=== PATIENT | male | born 1995 | race American Indian/Alaskan Native ===

== ENCOUNTER 2019-01-03 09:53 | Inpatient (IN) | payer MEDICAID, OTHER ==
[2019-01-03] MEDS ORDERED: ACETAMINOPHEN 325 MG TAB PO ONE (10:45)
[2019-01-03 10:49] LABS: Hematocrit 21.9 % (35.5-45.6); Hemoglobin 7.9 gm/dl (11.8-15.2); Mean Corpuscular HGB Conc 36 % (32-34); Mean Corpuscular Volume 90 fl (84-94); Platelet Count 304 K/mm3 (140-440); Red Blood Count 2.43 M/mm3 (3.65-5.03)
[2019-01-03 10:57] LABS: Red Cell Distribution Width 29.2 % (13.2-15.2)
[2019-01-03] MEDS ORDERED: SODIUM CHLORIDE 0.9% 1000 ML IV SOLN IV ONE (11:06)
[2019-01-03] MEDS ORDERED: cefTRIAXone/NS 1 GM/50 ML 1 GM/50 ML BAG IV ONE (11:07)
[2019-01-03] MEDS ORDERED: MORPHINE 4 MG/1 ML INJ IV ONE (11:08)
[2019-01-03 11:19] LABS: BUN/Creatinine Ratio 27; Blood Urea Nitrogen 16 mg/dL (9-20); Calcium 9.1 mg/dL (8.4-10.2); Hemolysis Index 60
--- NOTE | 2019-01-03 11:41 | Emergency Department Report ---
HPI - General Chief Complaint: Pain General Time Seen by Provider: 01/03/19 11:03 - HPI HPI: 23-year-old -Australian male presents to the emergency department with a complaint of generalized pain that he associates with his history of sickle cell anemia. Overall he says that this is been going on for the past 3 months. Patient presents with a moderate fever, tachycardia and a code sepsis has been called. His generalized pain does include some chest discomfort, worst on the right side. He denies any known fever, shortness of breath, rash, abdominal pain. He has not taken anything for her symptoms prior to presentation. The patient moved here from [place] and therefore does not have a local primary care physician. No sick contacts at home. ED Past Medical Hx - Past Medical History Previous Medical History?: Yes Hx Sickle Cell Disease: Yes - Surgical History Past Surgical History?: No - Social History Smoking Status: Never Smoker Substance Use Type: None - Medications Home Medications: Home Medications Medication Instructions Recorded Confirmed Last Taken Type No Known Home Medications [No 01/03/19 01/03/19 Unknown History Reported Home Medications] ED Review of Systems ROS: Stated complaint: SICKEL CELL CRISIS Other details as noted in HPI Comment: All other systems reviewed and negative Constitutional: denies: diaphoresis, fever Eyes: denies: eye pain, vision change ENT: denies: ear pain, throat pain Respiratory: cough. denies: shortness of breath Cardiovascular: chest pain. denies: palpitations Gastrointestinal: denies: abdominal pain, vomiting Genitourinary: denies: dysuria, discharge Musculoskeletal: arthralgia, myalgia. denies: joint swelling Skin: denies: rash, lesions Neurological: denies: headache, weakness Physical Exam - Physical Exam Vital Signs: Vital Signs 01/03/19 10:14 Temperature 103.2 F H Pulse Rate 124 H Respiratory 18 Rate Blood Pressure 140/78 O2 Sat by Pulse 92 Oximetry Physical Exam: GENERAL: The patient is well-developed well-nourished. HENT: Normocephalic. Atraumatic. Patient has moist mucous membranes. EYES: Extraocular motions are intact. NECK: Supple. Trachea is midline. CHEST/LUNGS: Clear to auscultation. There is no respiratory distress noted. HEART/CARDIOVASCULAR: Regular. There is mild to moderate tachycardia. There is no murmur. ABDOMEN: Abdomen is soft, nontender. Patient has normal bowel sounds. There is no abdominal distention. SKIN: Skin is warm and dry. NEURO: The patient is awake, alert, and oriented. The patient is cooperative. The patient has no focal neurologic deficits. Normal speech. MUSCULOSKELETAL: There is no tenderness or deformity. There is no limitation range of motion. There is no evidence of acute injury. ED Course Vital Signs 01/03/19 10:14 Temperature 103.2 F H Pulse Rate 124 H Respiratory 18 Rate Blood Pressure 140/78 O2 Sat by Pulse 92 Oximetry ED Medical Decision Making - Lab Data Result diagrams: 01/03/19 18:52 01/03/19 11:17 - Radiology Data Radiology results: report reviewed, image reviewed CTA CHEST WITH CONTRAST INDICATION : Chest pain, elevated d-dimer. TECHNIQUE: Axial imaging performed through the chest, with contrast bolus timing set to maximize opacification of the pulmonary arteries. Sagittal and coronal reformatted images. 3-plane MIP reformatted images were obtained. All CT scans at this location are performed using CT dose reduction for ALARA by means of automated exposure control. 100 mL of intravenous contrast administered. COMPARISON: FINDINGS: Bolus: Contrast bolus timing is adequate. PTE: No filling defect is present to suggest PTE. Mediastinum: Mild cardiomegaly is evident. Medium pericardial effusion is also identified. The thyroid gland, tracheobronchial tree and esophagus are unremarkable. No pathologic mediastinal adenopathy. Lungs: There is patchy infiltrate in the lateral right middle lobe and to a lesser extent the lateral right lower lobe. Mild underlying pulmonary congestion is also suspected. Trace right pleural effusion measures less than 1 cm in thickness. No pneumothorax. Bones: Degenerative changes in the spine with nothing acute. Upper abdomen: Limited imaging of the upper abdomen shows nothing acute. IMPRESSION: No evidence for pulmonary embolus. Mild cardiomegaly, medium pericardial effusion and mild pulmonary venous congestion. Right middle and lower lobe infiltrates as described. Trace right pleural effusion. LIMITED RUQ ABDOMINAL ULTRASOUND INDICATION: upper abd pain. COMPARISON: No relevant prior imaging study available. FINDINGS: Pancreas: Visualized portions show no significant abnormality. Abdominal Aorta: No significant abnormality. IVC: No significant abnormality. Liver: The liver measures 17.8 cm in length. No significant abnormality. Normal hepatopedal blood flow in the main portal vein. Gallbladder: Cholecystectomy. Bile ducts: No significant abnormality. Common bile duct measures 4.2 mm. Right kidney: The right kidney is normal size measuring 11.4 cm but demonstrates increased cortical echotexture consistent with nonspecific renal parenchymal disease.. Free fluid: None. Additional Findings: None. IMPRESSION: Mild hepatomegaly. No focal liver lesion. Cholecystectomy. Nonspecific renal parenchymal disease.. Signer Name: Morgan Lara Jr, MD Signed: 01/03/2019 2:29 PM Workstation Name: [id number] - Medical Decision Making This patient presents with some generalized pain that he felt was consistent with a sickle cell pain crisis. However the patient presents with a septic appearance and a code sepsis was called. He has a fever of 103, tachycardia. He was treated empirically with some Rocephin. He was given Tylenol to start treating the fever. He was given more than 2 L of IV fluid resuscitation. Labs are very abnormal with a leukocytosis of about 35,000, reticulocyte count greater than 20, anemia with a hemoglobin of 7.9, and elevated bilirubin and LFTs. He also had a very elevated d-dimer level that was obtained secondary to some right-sided chest pain and occasional shortness of breath. CT angiography did not show any pulmonary embolism did show some signs of infiltrates, small pericardial effusion and a small pleural effusion. Abdominal ultrasound did not show any acute process in this post cholecystectomy patient. Patient was admitted to the hospital for further evaluation and was accepted for admission by the hospitalist, Dr. Dave. - Differential Diagnosis sepsis, sickle cell pain crisis, pneumonia, chest crisis Critical Care Time: Yes Critical care time in (mins) excluding proc time.: 31 Critical care attestation.: If time is entered above; I have spent that time in minutes in the direct care of this critically ill patient, excluding procedure time. Critical care time was spent on this patient and doing his initial evaluation, multiple re-evaluations, ordering and interpretation of labs and imaging, IV fluid resuscitation, pain control. Critical Care Time: 31 minutes ED Disposition Clinical Impression: Sickle cell crisis Pneumonia Qualifiers: Pneumonia type: due to unspecified organism Laterality: right Lung location: middle lobe of lung Qualified Code(s): J18.1 - Lobar pneumonia, unspecified organism Sepsis Qualifiers: Sepsis type: sepsis due to unspecified organism Sepsis acute organ dysfunction status: unspecified Qualified Code(s): A41.9 - Sepsis, unspecified organism Disposition: DC-09 OP ADMIT IP TO THIS HOSP Is pt being admited?: Yes Condition: Serious Time of Disposition: 06:08
--- NOTE | 2019-01-03 12:13 | XRay Report ---
CHEST 1 VIEW 11:41 AM INDICATION / CLINICAL INFORMATION: Cough. COMPARISON: None available. FINDINGS: SUPPORT DEVICES: None. HEART / MEDIASTINUM: There is prominence of the cardiopericardial silhouette. Pulmonary vasculature i s normal. LUNGS / PLEURA: There is mild linear parenchymal opacity in the right mid to lower lung laterally. Th e lungs are otherwise clear. There is no evidence of effusion. No pneumothorax. ADDITIONAL FINDINGS: No significant additional findings. IMPRESSION: 1. Mild subsegmental atelectasis in the right mid to lower lung laterally. 2. Mild prominence of the cardiopericardial silhouette may just be related to technique in a patient in this age group. Signer Name: Jorge Shen MD Signed: 01/03/2019 12:08 PM Workstation Name: [id number]
[2019-01-03 12:31] LABS: Alanine Aminotransferase 55 units/L (7-56); Albumin 4.7 g/dL (3.9-5); BUN/Creatinine Ratio 23; Blood Urea Nitrogen 16 mg/dL (9-20); Calcium 8.9 mg/dL (8.4-10.2); Hemolysis Index 31
[2019-01-03] MEDS ORDERED: SODIUM CHLORIDE 0.9% 1000 ML 2,000 ML IV ONE (13:53)
--- NOTE | 2019-01-03 13:54 | History and Physical Report ---
History of Present Illness Chief complaint: I feel short of breath, and I have pain all over History of present illness: 23 YO Male with SCD presents to ED for evaluation. Pt states that he has experienced pain all over his body over the past 3 months with progressively worsening symptoms over the past 3-4 days. Pt reports subjective fever, rapid heart rate. Pt transported to [facility] via private vehicle. Pt seen and evaluated in ED and found to have Pneumonia complicated by Sepsis as well as Sickle Cell Crisis. Pt initiated on Sepsis and Pneumonia protocol and admitted to medical floor. Pt denies CP, Palpitations, NVD, Trauma, Malaise, Fatigue, Known Ill contacts, Shortness of breath, abdominal pain, or risk factors for HIV. No prior admission for review. No medication listed for reconciliation at time of admiss ion. Past History Past Medical History: other (Sickle Cell disease) Past Surgical History: No surgical history, Other (reviewed) Social history: single. denies: smoking, alcohol abuse, prescription drug abuse Family history: other (SCD) Medications and Allergies Allergies Allergy/AdvReac Type Severity Reaction Status Date / Time No Known Allergies Allergy Verified 01/03/19 10:13 Home Medications Medication Instructions Recorded Confirmed Last Taken Type No Known Home Medications [No 01/03/19 01/03/19 Unknown History Reported Home Medications] Review of Systems Constitutional: fever, no weight loss, no weight gain, no chills Ears, nose, mouth and throat: no ear pain, no ear discharge, no tinnitis, no decreased hearing, no nose pain, no nasal congestion Cardiovascular: no chest pain, no orthopnea, no palpitations, no rapid/irregular heart beat Respiratory: no cough, no cough with sputum, no excessive sputum, no hemoptysis Gastrointestinal: no nausea, no vomiting, no diarrhea, no change in bowel habits Genitourinary Male: no hematuria, no flank pain, no discharge, no urinary frequency Rectal: no incontinence, no bleeding, no hemorrhoids Musculoskeletal: no shooting arm pain, no arm numbness/tingling, no low back pain, no shooting leg pain Integumentary: no rash, no pruritis, no redness, no sores, no wounds Neurological: no paralysis, no weakness, no parathesias, no numbness, no tingling, no seizures Psychiatric: no anxiety, no memory loss, no change in sleep habits, no insomnia, no hypersomnia, no change in appetite, no change in libido Endocrine: no cold intolerance, no heat intolerance, no polyphagia, no excessive thirst, no polydipsia, no polyuria, no nocturia Hematologic/Lymphatic: no easy bruising, no easy bleeding, no lymphedema Allergic/Immunologic: no urticaria, no allergic rhinitis, no wheezing, no anaphylaxis Exam - Constitutional Vitals: Temp Pulse Resp BP Pulse Ox 103 F H 97 H 18 105/45 99 01/03/19 11:48 01/03/19 12:15 01/03/19 12:37 01/03/19 12:15 01/03/19 12:15 General appearance: Present: mild distress - EENT Eyes: Present: PERRL ENT: hearing intact, clear oral mucosa - Neck Neck: Present: supple, normal ROM - Respiratory Respiratory effort: normal Respiratory: bilateral: CTA - Cardiovascular Heart Sounds: Present: S1 & S2. Absent: rub, click - Extremities Extremities: pulses symmetrical, No edema Peripheral Pulses: within normal limits - Abdominal General gastrointestinal: Present: soft, non-tender, non-distended, normal bowel sounds Male genitourinary: Present: normal - Integumentary Integumentary: Present: clear, warm, dry - Musculoskeletal Musculoskeletal: gait normal, strength equal bilaterally - Psychiatric Psychiatric: appropriate mood/affect, intact judgment & insight - Neurologic Neurologic: CNII-XII intact, moves all extremities Results - Labs CBC & Chem 7: 01/03/19 10:34 01/03/19 11:17 Labs: Abnormal lab results 01/03/19 01/03/19 01/03/19 Range/Units 10:34 10:34 11:17 WBC 34.2 H (4.5-11.0) K/mm3 RBC 2.43 L (3.65-5.03) M/mm3 Hgb 7.9 L (11.8-15.2) gm/dl Hct 21.9 L (35.5-45.6) % MCH 33 H (28-32) pg MCHC 36 H (32-34) % RDW 29.2 H (13.2-15.2) % Percent Retic 21.81 H (0.78-2.58) % D-Dimer (0-234) ng/mlDDU Sodium 136 L 135 L (137-145) mmol/L Potassium 5.3 H (3.6-5.0) mmol/L Carbon Dioxide 20 L (22-30) mmol/L Creatinine 0.6 L 0.7 L (0.8-1.5) mg/dL Glucose 123 H 112 H (75-100) mg/dL Total Bilirubin 8.00 H (0.1-1.2) mg/dL AST 100 H (5-40) units/L 01/03/19 Range/Units 11:17 WBC (4.5-11.0) K/mm3 RBC (3.65-5.03) M/mm3 Hgb (11.8-15.2) gm/dl Hct (35.5-45.6) % MCH (28-32) pg MCHC (32-34) % RDW (13.2-15.2) % Percent Retic (0.78-2.58) % D-Dimer 2064.49 H (0-234) ng/mlDDU Sodium (137-145) mmol/L Potassium (3.6-5.0) mmol/L Carbon Dioxide (22-30) mmol/L Creatinine (0.8-1.5) mg/dL Glucose (75-100) mg/dL Total Bilirubin (0.1-1.2) mg/dL AST (5-40) units/L Assessment and Plan - Patient Problems (1) Sepsis Current Visit: Yes Status: Acute Qualifiers: Sepsis type: sepsis due to unspecified organism Plan to address problem: Sepsis protocol: IV antibiotic therapy, IVF resuscitation therapy, Influenza swab, Chest X ray, CT chest, serial lactic acid, monitor uop q shift, CBC, CMP, Blood cultures, Urinalysis. (2) Pneumonia Current Visit: Yes Status: Acute Qualifiers: Laterality: right Lung location: middle lobe of lung Plan to address problem: RML/RLL Pneumonia: Pneumonia protocol: IV antibiotic therapy, supplemental oxygen, nebulizer therapy, Chest xray, CTA chest, pulse oximetry, blood cultures, (3) Sickle cell crisis Current Visit: Yes Status: Acute Plan to address problem: IVF resuscitation therapy, pain control, Hematology consulted, Records request, retic count, CBC (4) DVT prophylaxis Current Visit: Yes Status: Acute Plan to address problem: SCD to BLE while in bed, Pt ambulatory
[2019-01-03 14:00] LABS: Total Cells Counted 100
[2019-01-03 14:01] LABS: Anisocytosis 3+; Basophils % (Manual) 0 % (0.0-1.8); Eosinophils % (Manual) 0 % (0.0-4.3)
[2019-01-03 14:02] LABS: Macrocytosis 1+; Ovalocytes 1+; Platelet Estimate Consistent w Auto; Sickle Cells 2+; Spherocytes 1+
--- NOTE | 2019-01-03 14:33 | Ultrasound Report ---
LIMITED RUQ ABDOMINAL ULTRASOUND INDICATION: upper abd pain. COMPARISON: No relevant prior imaging study available. FINDINGS: Pancreas: Visualized portions show no significant abnormality. Abdominal Aorta: No significant abnormality. IVC: No significant abnormality. Liver: The liver measures 17.8 cm in length. No significant abnormality. Normal hepatopedal blood fl ow in the main portal vein. Gallbladder: Cholecystectomy. Bile ducts: No significant abnormality. Common bile duct measures 4.2 mm. Right kidney: The right kidney is normal size measuring 11.4 cm but demonstrates increased cortical e chotexture consistent with nonspecific renal parenchymal disease.. Free fluid: None. Additional Findings: None. IMPRESSION: Mild hepatomegaly. No focal liver lesion. Cholecystectomy. Nonspecific renal parenchymal disease.. Signer Name: Morgan Lara Jr, MD Signed: 01/03/2019 2:29 PM Workstation Name: [id number]
--- NOTE | 2019-01-03 14:37 | Cat Scan Report ---
CTA CHEST WITH CONTRAST INDICATION : Chest pain, elevated d-dimer. TECHNIQUE: Axial imaging performed through the chest, with contrast bolus timing set to maximize opa cification of the pulmonary arteries. Sagittal and coronal reformatted images. 3-plane MIP reformatte d images were obtained. All CT scans at this location are performed using CT dose reduction for ALAR A by means of automated exposure control. 100 mL of intravenous contrast administered. COMPARISON: FINDINGS: Bolus: Contrast bolus timing is adequate. PTE: No filling defect is present to suggest PTE. Mediastinum: Mild cardiomegaly is evident. Medium pericardial effusion is also identified. The thyro id gland, tracheobronchial tree and esophagus are unremarkable. No pathologic mediastinal adenopathy . Lungs: There is patchy infiltrate in the lateral right middle lobe and to a lesser extent the latera l right lower lobe. Mild underlying pulmonary congestion is also suspected. Trace right pleural effus ion measures less than 1 cm in thickness. No pneumothorax. Bones: Degenerative changes in the spine with nothing acute. Upper abdomen: Limited imaging of the upper abdomen shows nothing acute. IMPRESSION: No evidence for pulmonary embolus. Mild cardiomegaly, medium pericardial effusion and mild pulmonary venous congestion. Right middle and lower lobe infiltrates as described. Trace right pleural effusion. Signer Name: Morgan Lara Jr, MD Signed: 01/03/2019 2:32 PM Workstation Name: [id number]
[2019-01-03] MEDS ORDERED: SODIUM CHLORIDE 0.9% 1000 ML 1,000 ML ONE (14:42)
[2019-01-03] MEDS ORDERED: SODIUM CHLORIDE 0.9% 1000 ML 1,000 ML IV SCH (15:00)
[2019-01-03 19:03] LABS: Hematocrit 21.6 % (35.5-45.6); Hemoglobin 7.8 gm/dl (11.8-15.2); Mean Corpuscular HGB Conc 36 % (32-34); Mean Corpuscular Volume 93 fl (84-94); Platelet Count 268 K/mm3 (140-440); Red Blood Count 2.32 M/mm3 (3.65-5.03); Red Cell Distribution Width 28.3 % (13.2-15.2)
[2019-01-03] MEDS: MORPHINE 2 MG/1 ML INJ IV PRN (20:41)
[2019-01-03 21:33] LABS: Basophils % (Manual) 0 % (0.0-1.8); Eosinophils % (Manual) 0 % (0.0-4.3); Total Cells Counted 100
[2019-01-03 21:34] LABS: Dimorphic RBC Yes; Large Platelets 1+; Sickle Cells 2+; Target Cells 1+
[2019-01-03 21:36] LABS: Anisocytosis 2+; Platelet Estimate Consistent w Auto
[2019-01-03] MEDS: AZITHROMYCIN 500 MG in SODIUM CHLORIDE 0.9% 250ML 250 ML IV SCH (22:37)
[2019-01-04] MEDS: MORPHINE 2 MG/1 ML INJ IV PRN ×2 (00:15→11:58)
[2019-01-04] MEDS: ACETAMINOPHEN 325 MG TAB PO PRN ×3 (00:23→11:59)
[2019-01-04] MEDS: SODIUM CHLORIDE 0.9% 1000 ML 1,000 ML IV SCH ×2 (05:00→15:35)
[2019-01-04 05:39] LABS: Bilirubin,Urine NEG (Negative); Blood,Urine SM (Negative); Color,Urine Amber (Yellow); Protein,Urine <15 mg/dL mg/dL (Negative)
--- NOTE | 2019-01-04 07:29 | Event Note ---
Date: 01/04/19 [id number]
--- NOTE | 2019-01-04 08:38 | Progress Note ---
Assessment and Plan Assessment and plan: Patient is a 23 yo man with SCD who presented to [facility] ED with SOB. He was found to have Pneumonia complicated by Sepsis as well as Sickle Cell Crisis. * CTA chest Impression: No evidence for PE, mild cardiomegaly, medium pericardial effusion, mild pulmonary venous congestion, right middle and lower lobe infiltrates, trace pleural effusion. (1) Sepsis Current Visit: Yes Status: Acute Qualifiers: Sepsis type: sepsis due to unspecified organism Plan to address problem: Sepsis protocol: IV antibiotic therapy, IVF resuscitation therapy, Influenza swab, Chest X ray, CTA chest reviewed, serial lactic acid, monitor uop q shift, CBC, CMP, Blood cultures, Urinalysis. (2) Pneumonia Current Visit: Yes Status: Acute Qualifiers: Laterality: right Lung location: middle lobe of lung Plan to address problem: RML/RLL Pneumonia: Pneumonia protocol: IV antibiotic therapy, supplemental oxygen, nebulizer therapy, Chest xray, CTA chest reviewed, pulse oximetry, blood cultures, (3) Sickle cell crisis Current Visit: Yes Status: Acute Plan to address problem: IVF resuscitation therapy, pain control, Hematology consulted, Records request, retic count, CBC (4) DVT prophylaxis Current Visit: Yes Status: Acute Plan to address problem: SCD to BLE while in bed, Pt ambulatory add sq heparin Consulted ID for high fevers and WBC 36.5 and consulted Pulm/CCM to evaluate for acute chest syndrome Rn gave me Dr. Betito Michaels number at [phone] and I called at [phone],no answ er, left message to call me back (pt ok this); not sure why I needed to call this doctor. History Interval history: Patient was seen and examined. Follow-up on current diagnosis of PNA, SCD. No overnight events reported to me. Patient denies any chest pain, shortness breath, nausea/vomiting or severe headaches. Imaging, nursing note, chart, labs and old chart reviewed. Discussed with patient. Hospitalist Physical - Physical exam Narrative exam: Gen: WDWN, NAD, Awake, Alert, Orientated HEENT: NCAT, EOMI, PERRL, OP Clear Neck: supple, no adenopathy, no thyromegaly, no JVD CVS/Heart: RRR, normal S1S2, pulses present bilaterally Chest/Lungs: bilateral crackles, Symmetrical chest expansion, good air entry bilaterally GI/Abdomen: soft, NTND, good bowel sounds, no guarding or rebound /Bladder: no suprapubic tenderness, no CVA or paraspinal tenderness Extermity/Skin: no c/c/e, no obvious rash MSK: FROM x 4 Neuro: CN 2-12 grossly intact, no new focal deficits Psych: calm - Constitutional Vitals: Temp Pulse Resp BP Pulse Ox 100.7 F H 106 H 20 123/56 96 01/04/19 05:56 01/04/19 05:56 01/04/19 07:36 01/04/19 05:56 01/04/19 07:36 General appearance: Absent: mild distress Results - Labs CBC & Chem 7: 01/03/19 18:52 01/03/19 11:17 Labs: Laboratory Last Values WBC 36.5 K/mm3 (4.5-11.0) H 01/03/19 18:52 RBC 2.32 M/mm3 (3.65-5.03) L 01/03/19 18:52 Hgb 7.8 gm/dl (11.8-15.2) L 01/03/19 18:52 Hct 21.6 % (35.5-45.6) L 01/03/19 18:52 MCV 93 fl (84-94) 01/03/19 18:52 MCH 34 pg (28-32) H 01/03/19 18:52 MCHC 36 % (32-34) H 01/03/19 18:52 RDW 28.3 % (13.2-15.2) H 01/03/19 18:52 Plt Count 268 K/mm3 (140-440) 01/03/19 18:52 Add Manual Diff Complete 01/03/19 18:52 Total Counted 100 01/03/19 18:52 Seg Neuts % (Manual) 88.0 % (40.0-70.0) H 01/03/19 18:52 Band Neutrophils % 0 % 01/03/19 18:52 Lymphocytes % (Manual) 4.0 % (13.4-35.0) L 01/03/19 18:52 Reactive Lymphs % (Man) 0 % 01/03/19 18:52 Monocytes % (Manual) 8.0 % (0.0-7.3) H 01/03/19 18:52 Eosinophils % (Manual) 0 % (0.0-4.3) 01/03/19 18:52 Basophils % (Manual) 0 % (0.0-1.8) 01/03/19 18:52 Metamyelocytes % 0 % 01/03/19 18:52 Myelocytes % 0 % 01/03/19 18:52 Promyelocytes % 0 % 01/03/19 18:52 Blast Cells % 0 % 01/03/19 18:52 Nucleated RBC % 4.0 % (0.0-0.9) H 01/03/19 18:52 Seg Neutrophils # Man 32.1 K/mm3 (1.8-7.7) H 01/03/19 18:52 Band Neutrophils # 0.0 K/mm3 01/03/19 18:52 Lymphocytes # (Manual) 1.5 K/mm3 (1.2-5.4) 01/03/19 18:52 Abs React Lymphs (Man) 0.0 K/mm3 01/03/19 18:52 Monocytes # (Manual) 2.9 K/mm3 (0.0-0.8) H 01/03/19 18:52 Eosinophils # (Manual) 0.0 K/mm3 (0.0-0.4) 01/03/19 18:52 Basophils # (Manual) 0.0 K/mm3 (0.0-0.1) 01/03/19 18:52 Metamyelocytes # 0.0 K/mm3 01/03/19 18:52 Myelocytes # 0.0 K/mm3 01/03/19 18:52 Promyelocytes # 0.0 K/mm3 01/03/19 18:52 Blast Cells # 0.0 K/mm3 01/03/19 18:52 WBC Morphology Not Reportable 01/03/19 18:52 Hypersegmented Neuts Not Reportable 01/03/19 18:52 Hyposegmented Neuts Not Reportable 01/03/19 18:52 Hypogranular Neuts Not Reportable 01/03/19 18:52 Smudge Cells Not Reportable 01/03/19 18:52 Toxic Granulation Not Reportable 01/03/19 18:52 Toxic Vacuolation Not Reportable 01/03/19 18:52 Dohle Bodies Not Reportable 01/03/19 18:52 Pelger-Huet Anomaly Not Reportable 01/03/19 18:52 Tong Rods Not Reportable 01/03/19 18:52 Platelet Estimate Consistent w auto 01/03/19 18:52 Clumped Platelets Not Reportable 01/03/19 18:52 Plt Clumps, EDTA Not Reportable 01/03/19 18:52 Large Platelets 1+ 01/03/19 18:52 Giant Platelets Not Reportable 01/03/19 18:52 Platelet Satelliting Not Reportable 01/03/19 18:52 Plt Morphology Comment Not Reportable 01/03/19 18:52 RBC Morphology Not Reportable 01/03/19 18:52 Dimorphic RBCs Yes 01/03/19 18:52 Polychromasia 1+ 01/03/19 18:52 Hypochromasia Not Reportable 01/03/19 18:52 Poikilocytosis Not Reportable 01/03/19 18:52 Anisocytosis 2+ 01/03/19 18:52 Microcytosis Not Reportable 01/03/19 18:52 Macrocytosis Not Reportable 01/03/19 18:52 Spherocytes Not Reportable 01/03/19 18:52 Pappenheimer Bodies Not Reportable 01/03/19 18:52 Sickle Cells 2+ 01/03/19 18:52 Target Cells 1+ 01/03/19 18:52 Tear Drop Cells Not Reportable 01/03/19 18:52 Ovalocytes Not Reportable 01/03/19 18:52 Helmet Cells Not Reportable 01/03/19 18:52 Antony-Osterdock Bodies Not Reportable 01/03/19 18:52 Alpine Rings Not Reportable 01/03/19 18:52 Denae Cells Not Reportable 01/03/19 18:52 Bite Cells Not Reportable 01/03/19 18:52 Crenated Cell Not Reportable 01/03/19 18:52 Elliptocytes Not Reportable 01/03/19 18:52 Acanthocytes (Spur) Not Reportable 01/03/19 18:52 Rouleaux Not Reportable 01/03/19 18:52 Hemoglobin C Crystals Not Reportable 01/03/19 18:52 Schistocytes Not Reportable 01/03/19 18:52 Malaria parasites Not Reportable 01/03/19 18:52 Percent Retic 21.81 % (0.78-2.58) H 01/03/19 10:34 Aguial Bodies Not Reportable 01/03/19 18:52 Hem Pathologist Commnt No 01/03/19 18:52 D-Dimer 2064.49 ng/mlDDU (0-234) H 01/03/19 11:17 Sodium 135 mmol/L (137-145) L 01/03/19 11:17 Potassium 4.3 mmol/L (3.6-5.0) 01/03/19 11:17 Chloride 98.9 mmol/L (98-107) 01/03/19 11:17 Carbon Dioxide 20 mmol/L (22-30) L 01/03/19 11:17 Anion Gap 20 mmol/L 01/03/19 11:17 BUN 16 mg/dL (9-20) 01/03/19 11:17 Creatinine 0.7 mg/dL (0.8-1.5) L 01/03/19 11:17 Estimated GFR > 60 ml/min 01/03/19 11:17 BUN/Creatinine Ratio 23 % 01/03/19 11:17 Glucose 112 mg/dL (75-100) H 01/03/19 11:17 Lactic Acid 0.80 mmol/L (0.7-2.0) 01/04/19 00:49 Calcium 8.9 mg/dL (8.4-10.2) 01/03/19 11:17 Total Bilirubin 8.00 mg/dL (0.1-1.2) H 01/03/19 11:17 AST 100 units/L (5-40) H 01/03/19 11:17 ALT 55 units/L (7-56) 01/03/19 11:17 Alkaline Phosphatase 80 units/L (35-129) 01/03/19 11:17 Total Protein 7.2 g/dL (6.3-8.2) 01/03/19 11:17 Albumin 4.7 g/dL (3.9-5) 01/03/19 11:17 Albumin/Globulin Ratio 1.9 % 01/03/19 11:17 Lipase 6 units/L (13-60) L 01/03/19 14:19 Urine Color Latosha (Yellow) 01/04/19 05:00 Urine Turbidity Clear (Clear) 01/04/19 05:00 Urine pH 5.0 (5.0-7.0) 01/04/19 05:00 Ur Specific [place] 1.013 (1.003-1.030) 01/04/19 05:00 Urine Protein <15 mg/dl mg/dL (Negative) 01/04/19 05:00 Urine Glucose (UA) Neg mg/dL (Negative) 01/04/19 05:00 Urine Ketones Neg mg/dL (Negative) 01/04/19 05:00 Urine Blood Sm (Negative) 01/04/19 05:00 Urine Nitrite Neg (Negative) 01/04/19 05:00 Urine Bilirubin Neg (Negative) 01/04/19 05:00 Urine Urobilinogen 4.0 mg/dL (<2.0) 01/04/19 05:00 Ur Leukocyte Esterase Neg (Negative) 01/04/19 05:00 Urine WBC (Auto) 1.0 /HPF (0.0-6.0) 01/04/19 05:00 Urine RBC (Auto) 1.0 /HPF (0.0-6.0) 01/04/19 05:00 Active Medications - Current Medications Current Medications: Generic Name Dose Route Start Last Admin Trade Name Freq PRN Reason Stop Dose Admin Acetaminophen 650 mg 01/04/19 00:14 01/04/19 06:02 Tylenol PO 650 mg Q4H PRN Administration Pain, Mild (1-3), fever>100.5 Sodium Chloride 1,000 mls @ 125 mls/hr 01/03/19 14:00 01/04/19 05:00 Nacl 0.9% 1000 Ml IV 125 mls/hr DIRECT KATHY Administration Sodium Chloride 1,000 mls @ 0 mls/hr 01/03/19 15:00 Nacl 0.9% 1000 Ml IV 01/04/19 15:01 ONCE KATHY As Directed Ceftriaxone Sodium 2 gm in 100 mls @ 200 mls/hr 01/04/19 10:00 Rocephin/Ns 2 Gm/100 Ml IV Q24HR KATHY Protocol Levofloxacin/Dextrose 750 mg in 150 mls @ 100 mls/hr 01/03/19 20:00 01/03/19 20:42 Levaquin 750mg/150ml IV 100 mls/hr Q24HR KATHY Administration Protocol Azithromycin 500 mg/ Sodium 250 mls @ 250 mls/hr 01/03/19 21:00 01/03/19 22:37 Chloride IV 250 mls/hr Q24H KATHY Administration Protocol Morphine Sulfate 2 mg 01/03/19 20:22 01/04/19 00:15 Morphine IV 2 mg Q3H PRN Administration Pain, Moderate (4-6)
[2019-01-04 09:11] LABS: Iron 19 ug/dL (49-181); Total Iron Binding Capacity 218 mcg/dL (250-450)
[2019-01-04] MEDS: cefTRIAXone/NS 2 GM/100 ML 2 GM/100 ML BAG IV SCH (09:37)
[2019-01-04] MEDS ORDERED: FLU VACC QUAD 2019-20 (3 YR UP)/PF 60 MCG/0.5 ML SYRINGE IM ONE (12:00)
--- NOTE | 2019-01-04 12:20 | Consultation ---
REFERRING PHYSICIAN: Dr. Dave. REASON FOR CONSULTATION: Sickle cell. HISTORY OF PRESENT ILLNESS: I saw the patient, a 24-year-old male in the medical floor. The patient has history of sickle cell disease. The patient says he moved from [place] to [place]. He has not seen a doctor for a few months. The patient states he is not on folic acid or hydroxyurea. He came to the hospital because of pain all over the body for 3 months, but became worse for the last 3-4 days. He had also tachycardia. He is being treated for pneumonia, sepsis, and sickle cell disease. Hydration has been given. I have been asked to evaluate the patient for sickle cell. At this time, complaining of generalized body ache. No vomiting, no diarrhea, no fever, no bleeding. He is able to ambulate minimally some. No abdominal pain. PAST MEDICAL HISTORY: Sickle cell. SURGICAL HISTORY: Nil. SOCIAL HISTORY: Lives with brother. No history of tobacco or alcohol usage. FAMILY HISTORY: Sickle cell. ALLERGIES: None. HOME MEDICATIONS: None. PHYSICAL EXAMINATION: VITAL SIGNS: Temperature 100, pulse 106, respirations 18, BP 123/56. HEENT: Pallor present. Icterus present. NECK: No neck lymph nodes. HEART: S1, S2. LUNGS: Clear to auscultation. ABDOMEN: Soft. EXTREMITIES: No calf swelling. No pedal edema. NEUROLOGIC: Alert, awake, oriented. LABORATORY DATA: White cell 36, hemoglobin 7.8, MCV 93, platelet 268. Potassium 4.3, creatinine 0.7, bilirubin 8, AST 100. ASSESSMENT AND PLAN: 1. Anemia. MCV is normal. History of sickle cell disease. The patient says he is not on folic acid or hydroxyurea. We will do deficiency investigation. The patient says he has relocated from [place] to [place]. He would need outpatient followup. At this time, he is self-pay. 2. Elevated bilirubin, likely secondary to hemolysis. 3. Generalized pain issues. He is on pain medications. 4. He is also on antibiotics for possible pneumonia, sepsis. 5. Elevated white cell count, likely reactive. I will follow the patient during inpatient stay. JOB# [id number] HI/NTS
--- NOTE | 2019-01-04 14:00 | Consultation ---
History of Present Illness - Reason for Consult Consult date: 01/04/19 - History of Present Illness 23 yo M PMhx sickle cell disease presented to the hospital complaingin of generalized body aches and shortness of breath. while the pain has been present for several months, the SOB and an acute worsening of the pain have been present for the past 3 days prior to admission. He also complains of fevers at home and palpitations. he otherwise denies any recent travel or sick contacts. Febrile during the admission to 101.3 and a leukocytosis of 36. Blood cultures are thus far negative. Currently receiving azithromycin and ceftriaxone Imaging personally reviewed: CT chest: RML and RLL infiltrates Review of Systems: Bold if positive, otherwise negative General: fevers, chills, rigors HEENT: visual disturbance, diplopia, eye pain Respiratory: cough, sputum, hemoptysis, shortness of breath Cardiovascular: chest pain, syncope Gastrointestinal: nausea, vomiting, diarrhea, abdominal pain Genitourinary: dysuria, hematuria, flank pain Musculoskeletal: neck pain, back pain, joint pain, edema Neurologic: headaches, seizures Hematologic: easy bruising or bleeding Endocrine: night sweats, acute weight loss Skin: rash, jaundice, redness Psychiatric: suicidal, homicidal ideation Past History Past Medical History: other (Sickle Cell disease) Past Surgical History: No surgical history, Other (reviewed) Social history: single. denies: smoking, alcohol abuse, prescription drug abuse Family history: other (SCD) Medications and Allergies Allergies Allergy/AdvReac Type Severity Reaction Status Date / Time No Known Allergies Allergy Verified 01/03/19 10:13 Home Medications Medication Instructions Recorded Confirmed Last Taken Type No Known Home Medications [No 01/03/19 01/03/19 Unknown History Reported Home Medications] Active Meds: Active Medications Acetaminophen (Tylenol) 650 mg PO Q4H PRN PRN Reason: Pain, Mild (1-3), fever>100.5 Last Admin: 01/04/19 11:59 Dose: 650 mg Documented by: Heparin Sodium (Porcine) (Heparin) 5,000 unit SUB-Q Q12HR KATHY Sodium Chloride (Nacl 0.9% 1000 Ml) 1,000 mls @ 125 mls/hr IV DIRECT KATHY Last Admin: 01/04/19 05:00 Dose: 125 mls/hr Documented by: Sodium Chloride (Nacl 0.9% 1000 Ml) 1,000 mls @ 0 mls/hr IV ONCE KATHY Stop: 01/04/19 15:01 Ceftriaxone Sodium (Rocephin/Ns 2 Gm/100 Ml) 2 gm in 100 mls @ 200 mls/hr IV Q24HR KATHY; Protocol Last Infusion: 01/04/19 13:02 Dose: Infused Documented by: Levofloxacin/Dextrose (Levaquin 750mg/150ml) 750 mg in 150 mls @ 100 mls/hr IV Q24HR KATHY; Protocol Last Infusion: 01/04/19 13:01 Dose: Infused Documented by: Azithromycin 500 mg/ Sodium (Chloride) 250 mls @ 250 mls/hr IV Q24H KATHY; Protocol Last Admin: 01/03/19 22:37 Dose: 250 mls/hr Documented by: Morphine Sulfate (Morphine) 2 mg IV Q3H PRN PRN Reason: Pain, Moderate (4-6) Last Admin: 01/04/19 11:58 Dose: 2 mg Documented by: Physical Examination - Physical Exam Narrative exam: Constitutional: Alert, cooperative. Mild distress from pain. Head, Ears, Nose: Normocephalic, atraumatic. External ears, nose normal Eyes: Conjunctivae/corneas clear. No icterus. No ptosis. Neck: Supple, no meningeal signs Oral: dentition fair, no thrush Cardiovascular: S1, S2 normal. Respiratory: Good air entry, clear to auscultation bilaterally GI: Soft, non-tender; bowel sounds normal. No peritoneal signs. Musculoskeletal: No pedal edema, no cyanosis. Skin: No rash or abscess Hem/Lymphatic: No palpable cervical or supraclavicular nodes. No lymphangitis Psych: Mood ok. Affect normal Neurological: Awake, alert, oriented. No gross abnormality - Constitutional Vitals: Vital Signs Temp Pulse Resp BP Pulse Ox 102.7 F H 124 H 19 144/43 91 01/04/19 11:54 01/04/19 11:54 01/04/19 11:54 01/04/19 11:54 01/04/19 11:54 Temperature -Last 24 Hours Temperature 102.7 F Temperature 100.7 F Temperature 102.9 F Temperature 102.8 F Results - Labs CBC & Chem 7: 01/03/19 18:52 01/03/19 11:17 Labs: Abnormal lab results 01/03/19 01/03/19 01/03/19 Range/Units 10:34 14:19 18:52 WBC 36.5 H (4.5-11.0) K/mm3 RBC 2.32 L (3.65-5.03) M/mm3 Hgb 7.8 L (11.8-15.2) gm/dl Hct 21.6 L (35.5-45.6) % MCH 34 H (28-32) pg MCHC 36 H (32-34) % RDW 28.3 H (13.2-15.2) % Seg Neuts % (Manual) 85.0 H 88.0 H (40.0-70.0) % Lymphocytes % (Manual) 6.0 L 4.0 L (13.4-35.0) % Monocytes % (Manual) 9.0 H 8.0 H (0.0-7.3) % Nucleated RBC % 1.0 H 4.0 H (0.0-0.9) % Seg Neutrophils # Man 29.1 H 32.1 H (1.8-7.7) K/mm3 Monocytes # (Manual) 3.1 H 2.9 H (0.0-0.8) K/mm3 Iron (49-181) ug/dL TIBC (250-450) mcg/dL Ferritin (13.0-400.0) ng/mL Lipase 6 L (13-60) units/L 01/04/19 01/04/19 Range/Units 08:05 08:05 WBC (4.5-11.0) K/mm3 RBC (3.65-5.03) M/mm3 Hgb (11.8-15.2) gm/dl Hct (35.5-45.6) % MCH (28-32) pg MCHC (32-34) % RDW (13.2-15.2) % Seg Neuts % (Manual) (40.0-70.0) % Lymphocytes % (Manual) (13.4-35.0) % Monocytes % (Manual) (0.0-7.3) % Nucleated RBC % (0.0-0.9) % Seg Neutrophils # Man (1.8-7.7) K/mm3 Monocytes # (Manual) (0.0-0.8) K/mm3 Iron 19 L (49-181) ug/dL TIBC 218 L (250-450) mcg/dL Ferritin 854.8 H (13.0-400.0) ng/mL Lipase (13-60) units/L Assessment and Plan Cultures: 01/03/19 blood cultures - no growth to date A/P: 24 yo M PMhx sickle cell disease presents with fevers and myalgias, likely an acute chest syndrome vs pneumonia 1. Acute sepsis - present with fevers and leukocytosis, likely secondary to pneumonia 2. Pneumonia - vs acute chest syndrome, though they are indistinguishable and treated the same. Given the season and the abrupt onset of worsened myalgias and SOB will rule out influenza as well. continue azithromycin and ceftriaxone, expected course of 5 days. Can change to PO when patient is improved enough for discharge. 3. Sickle cell disease 4. Acute pain crisis Recs: - ordered flu swab for PCR - droplet precautions until flu ruled out - continue ceftriaxone 2g q24h - continue azithromycin 500mg q24h - repeat CBC daily - ordered sputum culture Thank you for the consult, we will continue to follow. MD Luana Partida [facility] M: [phone] O: [phone] F: [phone]
[2019-01-04] MEDS ORDERED: NALOXONE 0.4 MG/1 ML INJ IV PRN (14:25)
[2019-01-04] MEDS: HYDROmorphone 1 MG/1 ML INJ IV PRN ×3 (14:42→21:06)
[2019-01-04] MEDS: IBUPROFEN 800 MG TAB PO PRN (17:34)
--- NOTE | 2019-01-04 18:18 | Event Note ---
Date: 01/04/19 Consult for acute chest syndrome. Patient on 3 liters NC with sats in the mid 90's. Followed by Heme as well as ID. At this point, pulm status appears to be stable. If heme concerned about acute chest would need exchange pharesis. This would be managed by them. Agree with treatment outlined by ID as well. Currently no pulmonary recommendations. If patient's pulm status worsens, would need transfer to unit and possibly intubation but at this point appears stable. Will sign off. Call if questions or changes in pulm status.
[2019-01-04] MEDS: AZITHROMYCIN 500 MG in SODIUM CHLORIDE 0.9% 250ML 250 ML IV SCH (21:06)
[2019-01-05] MEDS: HYDROmorphone 1 MG/1 ML INJ IV PRN ×5 (05:25→21:03)
--- NOTE | 2019-01-05 07:21 | Hem/Onc Progress Note ---
Assessment and Plan 1. Anemia. MCV is normal. History of sickle cell disease. The patient says he is not on folic acid or hydroxyurea. We will do deficiency investigation. The patient says he has relocated from [place] to [place]. At this time, he is self-pay. 2. Elevated bilirubin, likely secondary to hemolysis. 3. Generalized pain issues. He is on pain medications. 4. He is also on antibiotics for possible pneumonia, sepsis. 5. Elevated white cell count, likely reactive. I will follow the patient during inpatient stay. rt side chest pain seen by ID the differential includes pneumonia vs sickle cell chest syndrome sats are 93% on 3 liters o2 - d/w RN pt says in [place] - he got ? exchange? called [facility] will look into exchange RBC transfusion IR for central line an option d/w dr almeida d/w blood bank later pt refused IV access for the exchange Subjective Date of service: 01/05/19 Principal diagnosis: Sickle cell disease Interval history: c/o rt side chest pain Objective - Exam Narrative Exam: Pain - chest General appearance - awake Performance status limited self care Eyes - no icterus ENT - on o2 LNs cervical not palpable Neck - no LN Respiratory Normal Breath sounds - CTA anteriorly CVS S1 S2 + Extremities no edema General GI Soft Rectal deferred male - deferred Skin warm Musculoskeletal moves limbs Neurologically awake - Constitutional Vitals: Last Vital Signs Temp 97.6 F 01/05/19 05:18 Pulse 120 H 01/05/19 05:18 Resp 24 01/05/19 05:18 BP 126/54 01/05/19 05:18 Pulse Ox 90 01/05/19 05:18 - Labs Lab Results: Laboratory Results - last 24 hr 01/04/19 01/04/19 01/04/19 08:05 08:05 08:05 Iron 19 L TIBC 218 L Ferritin 854.8 H Vitamin B12 248.5 Folate Influenza A (Rapid) Influenza B (Rapid) 01/04/19 01/04/19 08:05 14:56 Iron TIBC Ferritin Vitamin B12 Folate 19.09 Influenza A (Rapid) Negative Influenza B (Rapid) Negative Medications & Allergies - Medications Allergies/Adverse Reactions: Allergies No Known Allergies Allergy (Verified 01/03/19 10:13) Home Medications: Home Medications Medication Instructions Recorded Confirmed Last Taken Type RX: No Known Home Medications [No 01/03/19 01/03/19 Unknown History Reported Home Medications] Active Medications: Generic Name Dose Route Start Last Admin Trade Name Freq PRN Reason Stop Dose Admin Acetaminophen 650 mg 01/04/19 00:14 01/04/19 11:59 Tylenol PO 650 mg Q4H PRN Administration Pain, Mild (1-3), fever>100.5 Heparin Sodium (Porcine) 5,000 unit 01/05/19 10:00 Heparin SUB-Q Q12HR KATHY Hydromorphone HCl 1 mg 01/04/19 14:25 01/05/19 05:25 Dilaudid IV 1 mg Q3H PRN Administration Pain , Severe (7-10) Sodium Chloride 1,000 mls @ 125 mls/hr 01/03/19 14:00 01/05/19 00:00 Nacl 0.9% 1000 Ml IV 125 mls/hr DIRECT KATHY Administration Ceftriaxone Sodium 2 gm in 100 mls @ 200 mls/hr 01/04/19 10:00 01/04/19 13:02 Rocephin/Ns 2 Gm/100 Ml IV Infused Q24HR KATHY Infusion Protocol Levofloxacin/Dextrose 750 mg in 150 mls @ 100 mls/hr 01/03/19 20:00 01/04/19 13:01 Levaquin 750mg/150ml IV Infused Q24HR KATHY Infusion Protocol Azithromycin 500 mg/ Sodium 250 mls @ 250 mls/hr 01/03/19 21:00 01/04/19 21:06 Chloride IV 250 mls/hr Q24H KATHY Administration Protocol Ibuprofen 800 mg 01/04/19 16:53 01/04/19 17:34 Ibuprofen PO 800 mg Q8H PRN Administration Non Cardiac Pain or Temp>100.5 Naloxone HCl 0.1 mg 01/04/19 14:25 Naloxone IV Q2MIN PRN Res Rate </= 8 or 02 SAT < 92%
[2019-01-05] MEDS: SODIUM CHLORIDE 0.9% 1000 ML 1,000 ML IV SCH ×2 (08:21)
[2019-01-05] MEDS ORDERED: SODIUM CHLORIDE 0.9% 500 ML 500 ML IV NR (08:30)
[2019-01-05 08:42] LABS: Mean Corpuscular Volume 87 fl (84-94); Platelet Count 134 K/mm3 (140-440); Red Blood Count 1.28 M/mm3 (3.65-5.03)
[2019-01-05 08:53] LABS: Hematocrit 11.1 % (35.5-45.6); Hemoglobin 4.2 gm/dl (11.8-15.2)
[2019-01-05 08:54] LABS: Mean Corpuscular HGB Conc 38 % (32-34); Red Cell Distribution Width 22.3 % (13.2-15.2)
--- NOTE | 2019-01-05 08:54 | Progress Note ---
Assessment and Plan Assessment and plan: Patient is a 23 yo man from [place] with SCD who presented to [facility] ED with SOB. He was found to have Pneumonia complicated by Sepsis as well as Sickle Cell Crisis. I was concerned about Acute chest syndrome, d/w Heme/Onc Dr. Jenkins and consulted ID. 01/04/[address] Betito Michaels number at [phone] and I called at [phone], no answer, left message to call me back (pt ok with this); not sure why I needed to call this doctor. Patient is not the friendliest person to get information from. * CTA chest Impression: No evidence for PE, mild cardiomegaly, medium pericardial effusion, mild pulmonary venous congestion, right middle and lower lobe infiltrates, trace pleural effusion. Sickle cell Anemia with Acute Chest Syndrome: d/w Dr. Jenkins, will initiate Exchange transfusion, pain control, iv hydration, abx, supplemental o2, need Midline Sepsis due to bilateral pneumonia: ID consulted, input noted, treat with ABX Acute hypoxic respiratory failure, sat dropped to 74%: I called respiratory therapist, increase O2 supplementation Sickle cell crisis: IVF resuscitation therapy, pain control, Hematology consulted, Records request, retic count, CBC DVT prophylaxis: added sq heparin but will stop due to drop HCT Move to IMCU CCT 34 minutes I came back to re-evaluate patient after speaking with Vascular Surgeon, Dr. Nikhil May, because patient refused central line for RBC exchange. I told him that he could , still refuse. I ask to speak with a family member and he gave me is sister Jayna, number. [phone] (not working). He is clinically getting worse. Hgb came back at 4.1 will transfuse [address] Jenkins instructions but patient still needs RBC exchange for severe acute chest syndrome. grim prognosis due to non-compliance History Interval history: Patient was seen and examined. Follow-up on current diagnosis of PNA, SCD. No overnight events reported to me. Patient denies any chest pain, shortness breath, nausea/vomiting or severe headaches. Imaging, nursing note, chart, labs and old chart reviewed. Discussed with patient. Hospitalist Physical - Physical exam Narrative exam: Gen: WDWN, NAD, Awake, Alert, Orientated HEENT: NCAT, EOMI, PERRL, OP Clear Neck: supple, no adenopathy, no thyromegaly, no JVD CVS/Heart: RRR, normal S1S2, pulses present bilaterally Chest/Lungs: bilateral crackles, Symmetrical chest expansion, good air entry bilaterally GI/Abdomen: soft, NTND, good bowel sounds, no guarding or rebound /Bladder: no suprapubic tenderness, no CVA or paraspinal tenderness Extermity/Skin: no c/c/e, no obvious rash MSK: FROM x 4 Neuro: CN 2-12 grossly intact, no new focal deficits Psych: calm - Constitutional Vitals: Temp Pulse Resp BP Pulse Ox 97.6 F 120 H 20 126/54 90 01/05/19 05:18 01/05/19 05:18 01/05/19 08:21 01/05/19 05:18 01/05/19 05:18 General appearance: Absent: mild distress Results - Labs CBC & Chem 7: 01/05/19 09:48 01/05/19 08:24 Labs: Laboratory Last Values WBC 36.5 K/mm3 (4.5-11.0) H 01/03/19 18:52 RBC 2.32 M/mm3 (3.65-5.03) L 01/03/19 18:52 Hgb 7.8 gm/dl (11.8-15.2) L 01/03/19 18:52 Hct 21.6 % (35.5-45.6) L 01/03/19 18:52 MCV 93 fl (84-94) 01/03/19 18:52 MCH 34 pg (28-32) H 01/03/19 18:52 MCHC 36 % (32-34) H 01/03/19 18:52 RDW 28.3 % (13.2-15.2) H 01/03/19 18:52 Plt Count 268 K/mm3 (140-440) 01/03/19 18:52 Add Manual Diff Complete 01/03/19 18:52 Total Counted 100 01/03/19 18:52 Seg Neuts % (Manual) 88.0 % (40.0-70.0) H 01/03/19 18:52 Band Neutrophils % 0 % 01/03/19 18:52 Lymphocytes % (Manual) 4.0 % (13.4-35.0) L 01/03/19 18:52 Reactive Lymphs % (Man) 0 % 01/03/19 18:52 Monocytes % (Manual) 8.0 % (0.0-7.3) H 01/03/19 18:52 Eosinophils % (Manual) 0 % (0.0-4.3) 01/03/19 18:52 Basophils % (Manual) 0 % (0.0-1.8) 01/03/19 18:52 Metamyelocytes % 0 % 01/03/19 18:52 Myelocytes % 0 % 01/03/19 18:52 Promyelocytes % 0 % 01/03/19 18:52 Blast Cells % 0 % 01/03/19 18:52 Nucleated RBC % 4.0 % (0.0-0.9) H 01/03/19 18:52 Seg Neutrophils # Man 32.1 K/mm3 (1.8-7.7) H 01/03/19 18:52 Band Neutrophils # 0.0 K/mm3 01/03/19 18:52 Lymphocytes # (Manual) 1.5 K/mm3 (1.2-5.4) 01/03/19 18:52 Abs React Lymphs (Man) 0.0 K/mm3 01/03/19 18:52 Monocytes # (Manual) 2.9 K/mm3 (0.0-0.8) H 01/03/19 18:52 Eosinophils # (Manual) 0.0 K/mm3 (0.0-0.4) 01/03/19 18:52 Basophils # (Manual) 0.0 K/mm3 (0.0-0.1) 01/03/19 18:52 Metamyelocytes # 0.0 K/mm3 01/03/19 18:52 Myelocytes # 0.0 K/mm3 01/03/19 18:52 Promyelocytes # 0.0 K/mm3 01/03/19 18:52 Blast Cells # 0.0 K/mm3 01/03/19 18:52 WBC Morphology Not Reportable 01/03/19 18:52 Hypersegmented Neuts Not Reportable 01/03/19 18:52 Hyposegmented Neuts Not Reportable 01/03/19 18:52 Hypogranular Neuts Not Reportable 01/03/19 18:52 Smudge Cells Not Reportable 01/03/19 18:52 Toxic Granulation Not Reportable 01/03/19 18:52 Toxic Vacuolation Not Reportable 01/03/19 18:52 Dohle Bodies Not Reportable 01/03/19 18:52 Pelger-Huet Anomaly Not Reportable 01/03/19 18:52 Tong Rods Not Reportable 01/03/19 18:52 Platelet Estimate Consistent w auto 01/03/19 18:52 Clumped Platelets Not Reportable 01/03/19 18:52 Plt Clumps, EDTA Not Reportable 01/03/19 18:52 Large Platelets 1+ 01/03/19 18:52 Giant Platelets Not Reportable 01/03/19 18:52 Platelet Satelliting Not Reportable 01/03/19 18:52 Plt Morphology Comment Not Reportable 01/03/19 18:52 RBC Morphology Not Reportable 01/03/19 18:52 Dimorphic RBCs Yes 01/03/19 18:52 Polychromasia 1+ 01/03/19 18:52 Hypochromasia Not Reportable 01/03/19 18:52 Poikilocytosis Not Reportable 01/03/19 18:52 Anisocytosis 2+ 01/03/19 18:52 Microcytosis Not Reportable 01/03/19 18:52 Macrocytosis Not Reportable 01/03/19 18:52 Spherocytes Not Reportable 01/03/19 18:52 Pappenheimer Bodies Not Reportable 01/03/19 18:52 Sickle Cells 2+ 01/03/19 18:52 Target Cells 1+ 01/03/19 18:52 Tear Drop Cells Not Reportable 01/03/19 18:52 Ovalocytes Not Reportable 01/03/19 18:52 Helmet Cells Not Reportable 01/03/19 18:52 Antony-Sidman Bodies Not Reportable 01/03/19 18:52 [place] Rings Not Reportable 01/03/19 18:52 Denae Cells Not Reportable 01/03/19 18:52 Bite Cells Not Reportable 01/03/19 18:52 Crenated Cell Not Reportable 01/03/19 18:52 Elliptocytes Not Reportable 01/03/19 18:52 Acanthocytes (Spur) Not Reportable 01/03/19 18:52 Rouleaux Not Reportable 01/03/19 18:52 Hemoglobin C Crystals Not Reportable 01/03/19 18:52 Schistocytes Not Reportable 01/03/19 18:52 Malaria parasites Not Reportable 01/03/19 18:52 Percent Retic 21.81 % (0.78-2.58) H 01/03/19 10:34 Aguila Bodies Not Reportable 01/03/19 18:52 Hem Pathologist Commnt No 01/03/19 18:52 D-Dimer 2064.49 ng/mlDDU (0-234) H 01/03/19 11:17 Sodium 135 mmol/L (137-145) L 01/03/19 11:17 Potassium 4.3 mmol/L (3.6-5.0) 01/03/19 11:17 Chloride 98.9 mmol/L (98-107) 01/03/19 11:17 Carbon Dioxide 20 mmol/L (22-30) L 01/03/19 11:17 Anion Gap 20 mmol/L 01/03/19 11:17 BUN 16 mg/dL (9-20) 01/03/19 11:17 Creatinine 0.7 mg/dL (0.8-1.5) L 01/03/19 11:17 Estimated GFR > 60 ml/min 01/03/19 11:17 BUN/Creatinine Ratio 23 % 01/03/19 11:17 Glucose 112 mg/dL (75-100) H 01/03/19 11:17 Lactic Acid 0.80 mmol/L (0.7-2.0) 01/04/19 00:49 Calcium 8.9 mg/dL (8.4-10.2) 01/03/19 11:17 Iron 19 ug/dL (49-181) L 01/04/19 08:05 TIBC 218 mcg/dL (250-450) L 01/04/19 08:05 Ferritin 854.8 ng/mL (13.0-400.0) H 01/04/19 08:05 Total Bilirubin 8.00 mg/dL (0.1-1.2) H 01/03/19 11:17 AST 100 units/L (5-40) H 01/03/19 11:17 ALT 55 units/L (7-56) 01/03/19 11:17 Alkaline Phosphatase 80 units/L (35-129) 01/03/19 11:17 Total Protein 7.2 g/dL (6.3-8.2) 01/03/19 11:17 Albumin 4.7 g/dL (3.9-5) 01/03/19 11:17 Albumin/Globulin Ratio 1.9 % 01/03/19 11:17 Lipase 6 units/L (13-60) L 01/03/19 14:19 Vitamin B12 248.5 pg/mL (211-911) 01/04/19 08:05 Folate 19.09 ng/mL (7.3-26.0) 01/04/19 08:05 Urine Color [place] (Yellow) 01/04/19 05:00 Urine Turbidity Clear (Clear) 01/04/19 05:00 Urine pH 5.0 (5.0-7.0) 01/04/19 05:00 Ur Specific [place] 1.013 (1.003-1.030) 01/04/19 05:00 Urine Protein <15 mg/dl mg/dL (Negative) 01/04/19 05:00 Urine Glucose (UA) Neg mg/dL (Negative) 01/04/19 05:00 Urine Ketones Neg mg/dL (Negative) 01/04/19 05:00 Urine Blood Sm (Negative) 01/04/19 05:00 Urine Nitrite Neg (Negative) 01/04/19 05:00 Urine Bilirubin Neg (Negative) 01/04/19 05:00 Urine Urobilinogen 4.0 mg/dL (<2.0) 01/04/19 05:00 Ur Leukocyte Esterase Neg (Negative) 01/04/19 05:00 Urine WBC (Auto) 1.0 /HPF (0.0-6.0) 01/04/19 05:00 Urine RBC (Auto) 1.0 /HPF (0.0-6.0) 01/04/19 05:00 Influenza A (Rapid) Negative (Negative) 01/04/19 14:56 Influenza B (Rapid) Negative (Negative) 01/04/19 14:56 Active Medications - Current Medications Current Medications: Generic Name Dose Route Start Last Admin Trade Name Freq PRN Reason Stop Dose Admin Acetaminophen 650 mg 01/04/19 00:14 01/04/19 11:59 Tylenol PO 650 mg Q4H PRN Administration Pain, Mild (1-3), fever>100.5 Heparin Sodium (Porcine) 5,000 unit 01/05/19 10:00 Heparin SUB-Q Q12HR KATHY Hydromorphone HCl 1 mg 01/04/19 14:25 01/05/19 08:21 Dilaudid IV 1 mg Q3H PRN Administration Pain , Severe (7-10) Ceftriaxone Sodium 2 gm in 100 mls @ 200 mls/hr 01/04/19 10:00 01/04/19 13:02 Rocephin/Ns 2 Gm/100 Ml IV Infused Q24HR KATHY Infusion Protocol Levofloxacin/Dextrose 750 mg in 150 mls @ 100 mls/hr 01/03/19 20:00 01/04/19 13:01 Levaquin 750mg/150ml IV Infused Q24HR KATHY Infusion Protocol Azithromycin 500 mg/ Sodium 250 mls @ 250 mls/hr 01/03/19 21:00 01/04/19 21:06 Chloride IV 250 mls/hr Q24H KATHY Administration Protocol Sodium Chloride 500 mls @ 0 mls/hr 01/05/19 08:30 Nacl 0.9% 500 Ml IV 01/05/19 18:00 ONCE NR As Directed Sodium Chloride 1,000 mls @ 100 mls/hr 01/05/19 09:00 Nacl 0.45% 1000 Ml IV DIRECT KATHY Ibuprofen 800 mg 01/04/19 16:53 01/04/19 17:34 Ibuprofen PO 800 mg Q8H PRN Administration Non Cardiac Pain or Temp>100.5 Naloxone HCl 0.1 mg 01/04/19 14:25 Naloxone IV Q2MIN PRN Res Rate </= 8 or 02 SAT < 92%
[2019-01-05 08:57] LABS: INR 2.23 (0.87-1.13)
[2019-01-05 08:58] LABS: Partial Thromboplastin Time 53.5 Sec. (24.2-36.6)
[2019-01-05 09:08] LABS: Alanine Aminotransferase 83 units/L (7-56); Albumin 3.6 g/dL (3.9-5); BUN/Creatinine Ratio 133; Blood Urea Nitrogen 40 mg/dL (9-20); Calcium 8.3 mg/dL (8.4-10.2); Hemolysis Index 10
[2019-01-05] MEDS ORDERED: CALCIUM GLUCONATE 2,000 MG in SODIUM CHLORIDE 0.9% 100 ML IV PRN (09:09)
[2019-01-05] MEDS ORDERED: HEPARIN 5,000 UNIT/1 ML VIAL SUB-Q SCH (10:00)
[2019-01-05 10:09] LABS: Anisocytosis 2+; Band Neutrophils # (Manual) 6.6 K/mm3; Basophils % (Manual) 0 % (0.0-1.8); Eosinophils % (Manual) 0 % (0.0-4.3); Sickle Cells 2+; Total Cells Counted 100
[2019-01-05 10:10] LABS: Large Platelets Few; Platelet Estimate Consistent w Auto; Target Cells 1+
[2019-01-05 10:11] LABS: Dimorphic RBC Yes
[2019-01-05] MEDS: SODIUM CHLORIDE 0.45% 1000 ML 1,000 ML IV SCH (10:17)
[2019-01-05 10:53] LABS: Mean Corpuscular Volume 87 fl (84-94); Platelet Count 127 K/mm3 (140-440); Red Blood Count 1.26 M/mm3 (3.65-5.03)
--- NOTE | 2019-01-05 11:04 | Event Note ---
Date: 01/05/19 Discussed placement of Vascath with the patient. He initially would not speak and only nodded his head to questions. He then refused placement of the catheter and stated he wanted the "large metal needles placed in my arm because I had that before". Discussed the importance of catheter placement however the patient still refused. Informed Dr Hatrman.
[2019-01-05 11:33] LABS: Hematocrit 10.9 % (35.5-45.6); Hemoglobin 4.1 gm/dl (11.8-15.2); Mean Corpuscular HGB Conc 38 % (32-34)
[2019-01-05] MEDS: cefTRIAXone/NS 2 GM/100 ML 2 GM/100 ML BAG IV SCH (14:02)
[2019-01-05] MEDS ORDERED: SODIUM CHLORIDE 0.9% 500 ML 500 ML IV SCH (14:51)
--- NOTE | 2019-01-05 17:29 | Progress Note ---
Assessment and Plan Cultures: 01/03/19 blood cultures - no growth to date A/P: 24 yo M PMhx sickle cell disease presents with fevers and myalgias, likely an acute chest syndrome vs pneumonia 1. Acute sepsis - present with fevers and leukocytosis, likely secondary to pneumonia 2. Pneumonia - vs acute chest syndrome, though they are indistinguishable and treated the same. Given the season and the abrupt onset of worsened myalgias and SOB will rule out influenza as well. continue azithromycin and ceftriaxone, expected course of 5 days. Can change to PO when patient is improved enough for discharge. 3. Sickle cell disease 4. Acute pain crisis Recs: - flu negative, remove from droplet precautions. - continue ceftriaxone 2g q24h - continue azithromycin 500mg q24h - repeat CBC daily - ordered sputum culture - not suitable for culture - ok for exchange tranfusion/pharesis per hematology D/w Dr. Jenkins. Thank you for the consult, we will continue to follow. Miguelito Flores MD [facility], [place], [facility] ([facility]) M: [phone] O: [phone] F: [phone] Subjective Date of service: 01/05/19 Principal diagnosis: Sickle cell disease Interval history: Now in IM, for possible exchange transfusion. Leukocytosis elevated. Febrile. Objective - Exam Narrative Exam: Constitutional: Alert, cooperative. Mild distress from pain. Head, Ears, Nose: Normocephalic, atraumatic. External ears, nose normal Eyes: Conjunctivae/corneas clear. No icterus. No ptosis. Neck: Supple, no meningeal signs Oral: dentition fair, no thrush Cardiovascular: S1, S2 normal. Respiratory: Good air entry, clear to auscultation bilaterally GI: Soft, non-tender; bowel sounds normal. No peritoneal signs. Musculoskeletal: No pedal edema, no cyanosis. Skin: No rash or abscess Hem/Lymphatic: No palpable cervical or supraclavicular nodes. No lymphangitis Psych: Mood ok. Affect normal Neurological: Awake, alert, oriented. No gross abnormality - Constitutional Vitals: Vital Signs Temp Pulse Resp BP Pulse Ox 100.0 F H 118 H 37 H 117/57 100 01/05/19 16:00 01/05/19 14:00 01/05/19 14:00 01/05/19 14:00 01/05/19 14:00 Temperature -Last 24 Hours Temperature 100.0 F Temperature 97.6 F Temperature 98.2 F - Labs CBC & Chem 7: 01/05/19 09:48 01/05/19 08:24 Labs: Abnormal lab results 01/05/19 01/05/19 01/05/19 Range/Units 08:24 08:24 08:24 WBC 54.8 H* (4.5-11.0) K/mm3 RBC 1.28 L (3.65-5.03) M/mm3 Hgb 4.2 L* D (11.8-15.2) gm/dl Hct 11.1 L* D (35.5-45.6) % MCH 33 H (28-32) pg MCHC 38 H* (32-34) % RDW 22.3 H (13.2-15.2) % Plt Count 134 L (140-440) K/mm3 Lymphocytes % (Manual) 1.0 L (13.4-35.0) % Monocytes % (Manual) 15.0 H (0.0-7.3) % Nucleated RBC % 3.0 H (0.0-0.9) % Seg Neutrophils # Man 35.1 H (1.8-7.7) K/mm3 Lymphocytes # (Manual) 0.5 L (1.2-5.4) K/mm3 Monocytes # (Manual) 8.2 H (0.0-0.8) K/mm3 PT 24.3 H (12.2-14.9) Sec. INR 2.23 H (0.87-1.13) APTT 53.5 H (24.2-36.6) Sec. Potassium 5.2 H D (3.6-5.0) mmol/L Carbon Dioxide 15 L (22-30) mmol/L BUN 40 H (9-20) mg/dL Creatinine 0.3 L D (0.8-1.5) mg/dL Glucose 121 H (75-100) mg/dL Calcium 8.3 L (8.4-10.2) mg/dL Total Bilirubin 31.80 H (0.1-1.2) mg/dL AST 164 H (5-40) units/L ALT 83 H (7-56) units/L Lactate Dehydrogenase (91-180) units/L Total Protein 6.0 L (6.3-8.2) g/dL Albumin 3.6 L (3.9-5) g/dL Crossmatch 01/05/19 01/05/19 01/05/19 Range/Units 08:24 08:26 09:48 WBC 54.8 H* (4.5-11.0) K/mm3 RBC 1.26 L (3.65-5.03) M/mm3 Hgb 4.1 L* (11.8-15.2) gm/dl Hct 10.9 L* (35.5-45.6) % MCH 33 H (28-32) pg MCHC 38 H* (32-34) % RDW 22.0 H (13.2-15.2) % Plt Count 127 L (140-440) K/mm3 Lymphocytes % (Manual) (13.4-35.0) % Monocytes % (Manual) (0.0-7.3) % Nucleated RBC % (0.0-0.9) % Seg Neutrophils # Man (1.8-7.7) K/mm3 Lymphocytes # (Manual) (1.2-5.4) K/mm3 Monocytes # (Manual) (0.0-0.8) K/mm3 PT (12.2-14.9) Sec. INR (0.87-1.13) APTT (24.2-36.6) Sec. Potassium (3.6-5.0) mmol/L Carbon Dioxide (22-30) mmol/L BUN (9-20) mg/dL Creatinine (0.8-1.5) mg/dL Glucose (75-100) mg/dL Calcium (8.4-10.2) mg/dL Total Bilirubin (0.1-1.2) mg/dL AST (5-40) units/L ALT (7-56) units/L Lactate Dehydrogenase 1048 H (91-180) units/L Total Protein (6.3-8.2) g/dL Albumin (3.9-5) g/dL Crossmatch See Detail
[2019-01-05] MEDS: AZITHROMYCIN 500 MG in SODIUM CHLORIDE 0.9% 250ML 250 ML IV SCH (22:00)
[2019-01-06 00:58] LABS: Mean Corpuscular HGB Conc 36 % (32-34); Mean Corpuscular Volume 90 fl (84-94); Platelet Count 199 K/mm3 (140-440); Red Blood Count 1.76 M/mm3 (3.65-5.03); Red Cell Distribution Width 19.8 % (13.2-15.2)
[2019-01-06 01:47] LABS: Hematocrit 15.8 % (35.5-45.6); Hemoglobin 5.6 gm/dl (11.8-15.2)
[2019-01-06] MEDS: HYDROmorphone 1 MG/1 ML INJ IV PRN ×5 (01:56→22:42)
--- NOTE | 2019-01-06 02:56 | Event Note ---
Date: 01/06/19 Pt had 3 episodes of what looks like bile emesis. He continues to complain of nausea, and SOB. Pt placed on BiPaP with some improvement in oxygenation. NPO, will insert NGT, and order antiemetic.
[2019-01-06] MEDS: METOCLOPRAMIDE 10 MG/2 ML INJ IV PRN (03:17)
[2019-01-06 03:55] LABS: Anisocytosis 1+; Band Neutrophils # (Manual) 0.6 K/mm3; Basophils % (Manual) 0 % (0.0-1.8); Eosinophils % (Manual) 0 % (0.0-4.3); Monocytes % (Manual) 4.5 % (0.0-7.3); Nucleated Red Blood Cells 0.5 % (0.0-0.9); Total Cells Counted 200
[2019-01-06 03:56] LABS: Poikilocytosis 1+
[2019-01-06 03:57] LABS: Sickle Cells Few
[2019-01-06 03:58] LABS: Platelet Estimate Consistent w Auto
[2019-01-06] MEDS: SODIUM CHLORIDE 0.45% 1000 ML 1,000 ML IV SCH ×2 (05:00→20:16)
[2019-01-06] MEDS ORDERED: SODIUM CHLORIDE 0.9% 500 ML 500 ML IV ONE ×2 (05:28→14:00)
--- NOTE | 2019-01-06 05:31 | Event Note ---
Date: 01/06/19 Repeat labs show Hgb 5.6 (trending up from 4.1). Pt received 1UPRBC on 01/05. Pt refused catheter placement for RBC exchange ( per review of medical records). Calls placed to Dr. Luna-pending recommendations.
--- NOTE | 2019-01-06 08:14 | Hem/Onc Progress Note ---
Assessment and Plan 1. Anemia. MCV is normal. History of sickle cell disease. The patient says he is not on folic acid or hydroxyurea. deficiency investigation. The patient says he has relocated from [place] to [place]. At this time, he is self- pay. 2. Elevated bilirubin, likely secondary to hemolysis. 3. Generalized pain issues. He is on pain medications. 4. He is also on antibiotics for possible pneumonia, sepsis. 5. Elevated white cell count, likely reactive. I will follow the patient during inpatient stay. rt side chest pain called [facility] cross will look into exchange RBC transfusion IR for central line - pt agreed d/w dr almeida d/w blood bank SOB - anemia - PRBC - o2 support hydrea trial - Patient Problems (1) Sickle cell crisis Current Visit: Yes Status: Acute Subjective Date of service: 01/06/19 Principal diagnosis: sickle cell Interval history: SOB - now agrees to RED cell exchange Objective - Exam Narrative Exam: Pain - chest General appearance - awake Performance status limited self care Eyes - no icterus ENT - on o2 support LNs cervical not palpable Neck - no LN Respiratory Normal Breath sounds - CTA anteriorly - SOB CVS S1 S2 + Extremities no edema General GI Soft Rectal deferred male - deferred Skin warm Musculoskeletal moves limbs Neurologically awake - Constitutional Vitals: Last Vital Signs Temp 103.1 F H 01/06/19 07:50 Pulse 119 H 01/06/19 06:00 Resp 54 H 01/06/19 06:00 BP 127/66 01/06/19 06:00 Pulse Ox 93 01/06/19 06:00 - Labs Lab Results: Laboratory Results - last 24 hr 01/05/19 01/05/19 01/05/19 08:24 08:24 08:24 WBC 54.8 H* RBC 1.28 L Hgb 4.2 L* D Hct 11.1 L* D MCV 87 MCH 33 H MCHC 38 H* RDW 22.3 H Plt Count 134 L [place] % (Auto) [employer] Director Add Manual Diff Complete Total Counted 100 Seg Neuts % (Manual) 64.0 Band Neutrophils % 12.0 Lymphocytes % (Manual) 1.0 L Reactive Lymphs % (Man) 0 Monocytes % (Manual) 15.0 H Eosinophils % (Manual) 0 Basophils % (Manual) 0 Metamyelocytes % 8.0 Myelocytes % 0 Promyelocytes % 0 Blast Cells % 0 Nucleated RBC % 3.0 H Seg Neutrophils # Man 35.1 H Band Neutrophils # 6.6 Lymphocytes # (Manual) 0.5 L Abs React Lymphs (Man) 0.0 Monocytes # (Manual) 8.2 H Eosinophils # (Manual) 0.0 Basophils # (Manual) 0.0 Metamyelocytes # 4.4 Myelocytes # 0.0 Promyelocytes # 0.0 Blast Cells # 0.0 WBC Morphology Not Reportable Hypersegmented Neuts Not Reportable Hyposegmented Neuts Not Reportable Hypogranular Neuts Not Reportable Smudge Cells Not Reportable Toxic Granulation Not Reportable Toxic Vacuolation Not Reportable Dohle Bodies Not Reportable Pelger-Huet Anomaly Not Reportable Tong Rods Not Reportable Platelet Estimate Consistent w auto Clumped Platelets Not Reportable Plt Clumps, EDTA Not Reportable Large Platelets Few Giant Platelets Not Reportable Platelet Satelliting Not Reportable Plt Morphology Comment Not Reportable RBC Morphology Not Reportable Dimorphic RBCs Yes Polychromasia 1+ Hypochromasia Not Reportable Poikilocytosis Not Reportable Anisocytosis 2+ Microcytosis Not Reportable Macrocytosis Not Reportable Spherocytes Not Reportable Pappenheimer Bodies Not Reportable Sickle Cells 2+ Target Cells 1+ Tear Drop Cells Not Reportable Ovalocytes Not Reportable Helmet Cells Not Reportable [place] Bodies Not Reportable [place] Rings Not Reportable Denae Cells Not Reportable Bite Cells Not Reportable Crenated Cell Not Reportable Elliptocytes Not Reportable Acanthocytes (Spur) Not Reportable Rouleaux Not Reportable Hemoglobin C Crystals Not Reportable Schistocytes Not Reportable Malaria parasites Not Reportable [place] Bodies Not Reportable Hem Pathologist Commnt No PT 24.3 H INR 2.23 H APTT 53.5 H Sodium 140 Potassium 5.2 H D Chloride 104.9 Carbon Dioxide 15 L Anion Gap 25 BUN 40 H Creatinine 0.3 L D Estimated GFR > 60 BUN/Creatinine Ratio 133 Glucose 121 H Calcium 8.3 L Phosphorus Magnesium Total Bilirubin 31.80 H AST 164 H ALT 83 H Alkaline Phosphatase 69 Lactate Dehydrogenase Total Protein 6.0 L Albumin 3.6 L Albumin/Globulin Ratio 1.5 Blood Type Antibody Screen Antibody Identification Direct Antiglob Test ANNAMARIA, Poly Interpret Crossmatch 01/05/19 01/05/19 01/05/19 08:24 08:26 08:26 WBC RBC Hgb Hct MCV MCH MCHC RDW Plt Count [place] % (Auto) Add Manual Diff Total Counted Seg Neuts % (Manual) Band Neutrophils % Lymphocytes % (Manual) Reactive Lymphs % (Man) Monocytes % (Manual) Eosinophils % (Manual) Basophils % (Manual) Metamyelocytes % Myelocytes % Promyelocytes % Blast Cells % Nucleated RBC % Seg Neutrophils # Man Band Neutrophils # Lymphocytes # (Manual) Abs React Lymphs (Man) Monocytes # (Manual) Eosinophils # (Manual) Basophils # (Manual) Metamyelocytes # Myelocytes # Promyelocytes # Blast Cells # WBC Morphology Hypersegmented Neuts Hyposegmented Neuts Hypogranular Neuts Smudge Cells Toxic Granulation Toxic Vacuolation Dohle Bodies Pelger-Huet Anomaly [place] Platelet Estimate Clumped Platelets Plt Clumps, EDTA Large Platelets Giant Platelets Platelet Satelliting Plt Morphology Comment RBC Morphology Dimorphic RBCs Polychromasia Hypochromasia Poikilocytosis Anisocytosis Microcytosis Macrocytosis Spherocytes Pappenheimer Bodies Sickle Cells Target Cells Tear Drop Cells Ovalocytes Helmet Cells [place] Bodies [place] Rings Denae Cells Bite Cells Crenated Cell Elliptocytes Acanthocytes (Spur) Rouleaux Hemoglobin C Crystals Schistocytes Malaria parasites [place] Bodies Hem Pathologist Commnt PT INR APTT Sodium Potassium Chloride Carbon Dioxide Anion Gap BUN Creatinine Estimated GFR BUN/Creatinine Ratio Glucose Calcium Phosphorus 3.70 Magnesium 2.00 Total Bilirubin AST ALT Alkaline Phosphatase Lactate Dehydrogenase 1048 H Total Protein Albumin Albumin/Globulin Ratio Blood Type O POSITIVE O POSITIVE Antibody Screen Positive Positive Antibody Identification Anti-K Anti-K Direct Antiglob Test Negative ANNAMARIA, Poly Interpret Negative Crossmatch See Detail See Detail 01/05/19 01/06/19 09:48 00:30 WBC 54.8 H* 56.5 H* RBC 1.26 L 1.76 L Hgb 4.1 L* 5.6 L* Hct 10.9 L* 15.8 L* MCV 87 90 MCH 33 H 32 MCHC 38 H* 36 H RDW 22.0 H 19.8 H Plt Count 127 L 199 [place] % (Auto) [employer] Director Add Manual Diff Complete Total Counted 200 Seg Neuts % (Manual) 90.0 H Band Neutrophils % 1.0 Lymphocytes % (Manual) 4.5 L Reactive Lymphs % (Man) 0 Monocytes % (Manual) 4.5 Eosinophils % (Manual) 0 Basophils % (Manual) 0 Metamyelocytes % 0 Myelocytes % 0 Promyelocytes % 0 Blast Cells % 0 Nucleated RBC % 0.5 Seg Neutrophils # Man 50.9 H Band Neutrophils # 0.6 Lymphocytes # (Manual) 2.5 Abs React Lymphs (Man) 0.0 Monocytes # (Manual) 2.5 H Eosinophils # (Manual) 0.0 Basophils # (Manual) 0.0 Metamyelocytes # 0.0 Myelocytes # 0.0 Promyelocytes # 0.0 Blast Cells # 0.0 WBC Morphology Not Reportable Hypersegmented Neuts Not Reportable Hyposegmented Neuts Not Reportable Hypogranular Neuts Not Reportable Smudge Cells Not Reportable Toxic Granulation Not Reportable Toxic Vacuolation Not Reportable Dohle Bodies Not Reportable Pelger-Huet Anomaly Not Reportable Tong Rods Not Reportable Platelet Estimate Consistent w auto Clumped Platelets Not Reportable Plt Clumps, EDTA Not Reportable Large Platelets Not Reportable Giant Platelets Not Reportable Platelet Satelliting Not Reportable Plt Morphology Comment Not Reportable RBC Morphology Not Reportable Dimorphic RBCs Not Reportable Polychromasia Not Reportable Hypochromasia Not Reportable Poikilocytosis 1+ Anisocytosis 1+ Microcytosis 1+ Macrocytosis Not Reportable Spherocytes Not Reportable Pappenheimer Bodies Not Reportable Sickle Cells Few Target Cells Not Reportable Tear Drop Cells Not Reportable Ovalocytes Not Reportable Helmet Cells Not Reportable [place] Bodies Not Reportable [place] Rings Not Reportable [place] Cells Not Reportable Bite Cells Not Reportable Crenated Cell Not Reportable Elliptocytes 1+ Acanthocytes (Spur) Not Reportable Rouleaux Not Reportable Hemoglobin C Crystals Not Reportable Schistocytes Not Reportable Malaria parasites Not Reportable [place] Bodies Not Reportable Hem Pathologist Commnt No PT INR APTT Sodium Potassium Chloride Carbon Dioxide Anion Gap BUN Creatinine Estimated GFR BUN/Creatinine Ratio Glucose Calcium Phosphorus Magnesium Total Bilirubin AST ALT Alkaline Phosphatase Lactate Dehydrogenase Total Protein Albumin Albumin/Globulin Ratio Blood Type Antibody Screen Antibody Identification Direct Antiglob Test ANNAMARIA, Poly Interpret Crossmatch Medications & Allergies - Medications Allergies/Adverse Reactions: Allergies No Known Allergies Allergy (Verified 01/03/19 10:13) Home Medications: Home Medications Medication Instructions Recorded Confirmed Last Taken Type No Known Home Medications [No 01/03/19 01/03/19 Unknown History Reported Home Medications] Active Medications: Generic Name Dose Route Start Last Admin Trade Name Halie PRN Reason Stop Dose Admin Acetaminophen 650 mg 01/04/19 00:14 01/04/19 11:59 Tylenol PO 650 mg Q4H PRN Administration Pain, Mild (1-3), fever>100.5 Hydromorphone HCl 1 mg 01/04/19 14:25 01/06/19 01:56 Dilaudid IV 1 mg Q3H PRN Administration Pain , Severe (7-10) Ceftriaxone Sodium 2 gm in 100 mls @ 200 mls/hr 01/04/19 10:00 01/05/19 14:02 Rocephin/Ns 2 Gm/100 Ml IV 200 mls/hr Q24HR KATHY Administration Protocol Azithromycin 500 mg/ Sodium 250 mls @ 250 mls/hr 01/03/19 21:00 01/05/19 22:00 Chloride IV 250 mls/hr Q24H KATHY Administration Protocol Sodium Chloride 1,000 mls @ 100 mls/hr 01/05/19 09:00 01/06/19 05:00 Nacl 0.45% 1000 Ml IV 100 mls/hr DIRECT KATHY Administration Calcium Gluconate 2,000 mg/ 120 mls @ 240 mls/hr 01/05/19 09:09 Sodium Chloride IV ONCE PRN Muscle Spasm Ibuprofen 800 mg 01/04/19 16:53 01/04/19 17:34 Ibuprofen PO 800 mg Q8H PRN Administration Non Cardiac Pain or Temp>100.5 Metoclopramide HCl 10 mg 01/06/19 02:48 01/06/19 03:17 Reglan IV 10 mg Q6H PRN Administration Nausea And Vomiting Naloxone HCl 0.1 mg 01/04/19 14:25 Naloxone IV Q2MIN PRN Res Rate </= 8 or 02 SAT < 92%
[2019-01-06] MEDS: ACETAMINOPHEN 325 MG TAB PO PRN (08:42)
[2019-01-06] MEDS: cefTRIAXone/NS 2 GM/100 ML 2 GM/100 ML BAG IV SCH (09:24)
[2019-01-06] MEDS ORDERED: HEPARIN/NS 5000 UNIT/500ML 500 ML IR ONE (10:33)
[2019-01-06] MEDS ORDERED: SODIUM CHLORIDE 0.9% 250ML 250 ML ONE (10:34)
[2019-01-06] MEDS: fentaNYL 100 MCG/2 ML INJ ONE ×2 (10:54→10:55)
[2019-01-06] MEDS: MIDAZOLAM 2 MG/2 ML INJ ONE ×2 (10:54→10:55)
[2019-01-06] MEDS: LIDOCAINE 1%/EPINEPHRINE 1:100,000 VIAL (20 ML) INFILTRATI ONE ×2 (10:55→10:58)
[2019-01-06] MEDS: HEPARIN 10,000 UNITS/10 ML VIAL ONE ×3 (11:00→11:04)
--- NOTE | 2019-01-06 11:42 | Post Operative Note ---
Pre-op diagnosis: Sickle Cell Crisis Post-op diagnosis: same Procedure: Right IJ Vascath Insertion Anesthesia: MAC, local Surgeon: RODRIGUEZ GILES Estimated blood loss: minimal Pathology: none Condition: stable Disposition: floor
--- NOTE | 2019-01-06 12:44 | Operative Report ---
STAFF SURGEON: Dr. Haider Waters. PREOPERATIVE DIAGNOSIS: Sickle cell crisis. POSTOPERATIVE DIAGNOSIS: Sickle cell crisis. PROCEDURE PERFORMED: Right IJ Vas-Cath insertion. COMPLICATIONS: None. ESTIMATED BLOOD LOSS: Less than 10 mL. ANESTHESIA: Local MAC. INDICATIONS FOR PROCEDURE: This is a 24-year-old gentleman with sickle cell, who is currently hospitalized with crisis and issues with shortness of breath and in need of plasma exchange and therefore a vascular consultation was obtained for a temporary catheter placement for the patient to undergo appropriate treatment. The patient was explained the risks, benefits and alternatives of procedure, expressed understanding and wished to proceed. DESCRIPTION OF PROCEDURE: After appropriate consent was obtained, the patient was brought back to the analytical laboratory technician, placed on table in supine position. The right neck and chest were prepped and draped in the usual sterile fashion with ChloraPrep. Appropriate timeout was performed indicating correct patient, procedure, and site of procedure. We then began the intervention by obtaining percutaneous access of the right internal jugular vein using micropuncture technique to obtain access, needle was exchanged for a micropuncture sheath using Seldinger technique. We then placed a stiff J wire into the inferior vena cava through the micropuncture sheath. This was then removed. The access site was then dilated appropriately and then a 15 cm pre-curved Vas-Cath was then placed over the wire with the tip of the catheter at the SVC right atrial junction. The wire was removed. Both lumens kirti blood appropriately, were flushed with heparinized saline. Appropriate amount of heparin was placed in each port. The catheter was then sutured in place with 3-0 nylon and then appropriate dressing was placed. The patient tolerated the procedure well, emerged from the conscious sedation and was sent to recovery in stable condition. JOB# [id number] NADJA/SAGE
--- NOTE | 2019-01-06 13:05 | Progress Note ---
Assessment and Plan Cultures: 01/03/19 blood cultures - no growth to date A/P: 24 yo M PMhx sickle cell disease presents with fevers and myalgias, likely an acute chest syndrome vs pneumonia 1. Acute sepsis - present with fevers and leukocytosis, likely secondary to pneumonia 2. Pneumonia - vs acute chest syndrome, though they are indistinguishable and treated the same. Given the season and the abrupt onset of worsened myalgias and SOB will rule out influenza as well. continue azithromycin and ceftriaxone, expected course of 5 days. Can change to PO when patient is improved enough for discharge. 3. Sickle cell disease 4. Acute pain crisis 5. Persistent fevers - possibly due to sickle crisis, though patient now requring more respitaory support. Will adjust antibiotics to cefepime Recs: - flu negative, remove from droplet precautions. - stop ceftriaxone, start cefepime 2g q8h - continue azithromycin 500mg q24h - repeat CBC daily - ordered sputum culture - not suitable for culture - ok for exchange tranfusion/pharesis per hematology D/w Dr. Jenkins. Thank you for the consult, we will continue to follow. Miguelito Flores MD [facility] M: [phone] O: [phone] F: [phone] Subjective Date of service: 01/06/19 Principal diagnosis: Sickle cell disease Interval history: Now in [facility], for possible exchange transfusion. Leukocytosis elevated. Febrile. Objective - Exam Narrative Exam: Constitutional: Alert, cooperative. Mild distress from pain. Head, Ears, Nose: Normocephalic, atraumatic. External ears, nose normal Eyes: Conjunctivae/corneas clear. No icterus. No ptosis. Neck: Supple, no meningeal signs Oral: dentition fair, no thrush Cardiovascular: S1, S2 normal. Respiratory: Good air entry, clear to auscultation bilaterally GI: Soft, non-tender; bowel sounds normal. No peritoneal signs. Musculoskeletal: No pedal edema, no cyanosis. Skin: No rash or abscess Hem/Lymphatic: No palpable cervical or supraclavicular nodes. No lymphangitis Psych: Mood ok. Affect normal Neurological: Awake, alert, oriented. No gross abnormality - Constitutional Vitals: Vital Signs Temp Pulse Resp BP Pulse Ox 101.8 F H 119 H 54 H 127/66 90 01/06/19 12:00 01/06/19 06:00 01/06/19 06:00 01/06/19 06:00 01/06/19 09:45 Temperature -Last 24 Hours Temperature 101.8 F Temperature 103.1 F Temperature 98.3 F Temperature 98.5 F Temperature 97.9 F Temperature 98.5 F Temperature 100.1 F Temperature 100.8 F Temperature 100.0 F Temperature 100.0 F - Labs CBC & Chem 7: 01/06/19 00:30 01/05/19 08:24 Labs: Abnormal lab results 01/05/19 01/05/19 01/06/19 Range/Units 08:26 08:26 00:30 WBC 56.5 H* (4.5-11.0) K/mm3 RBC 1.76 L (3.65-5.03) M/mm3 Hgb 5.6 L* (11.8-15.2) gm/dl Hct 15.8 L* (35.5-45.6) % MCHC 36 H (32-34) % RDW 19.8 H (13.2-15.2) % Seg Neuts % (Manual) 90.0 H (40.0-70.0) % Lymphocytes % (Manual) 4.5 L (13.4-35.0) % Seg Neutrophils # Man 50.9 H (1.8-7.7) K/mm3 Monocytes # (Manual) 2.5 H (0.0-0.8) K/mm3 Crossmatch See Detail See Detail
[2019-01-06] MEDS: CEFEPIME/NS 2 GM/100 ML 2 GM/100 ML BAG IV SCH ×2 (15:58→22:39)
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
[2019-01-06 18:24] LABS: Hematocrit 21.8 % (35.5-45.6); Hemoglobin 7.4 gm/dl (11.8-15.2); Mean Corpuscular HGB Conc 34 % (32-34); Mean Corpuscular Volume 90 fl (84-94); Platelet Count 241 K/mm3 (140-440); Red Blood Count 2.41 M/mm3 (3.65-5.03); Red Cell Distribution Width 18.4 % (13.2-15.2)
[2019-01-06] MEDS: IBUPROFEN 800 MG TAB PO PRN (22:35)
[2019-01-06] MEDS: FOLIC ACID 1 MG TAB PO SCH (22:37)
[2019-01-06] MEDS: AZITHROMYCIN 500 MG in SODIUM CHLORIDE 0.9% 250ML 250 ML IV SCH (23:58)
[2019-01-07] MEDS: CEFEPIME/NS 2 GM/100 ML 2 GM/100 ML BAG IV SCH ×3 (06:07→21:39)
[2019-01-07] MEDS: HYDROmorphone 1 MG/1 ML INJ IV PRN ×5 (06:59→22:50)
--- NOTE | 2019-01-07 07:30 | Hem/Onc Progress Note ---
Assessment and Plan 1. Anemia. MCV is normal. History of sickle cell disease. The patient says he is not on folic acid or hydroxyurea. deficiency investigation. The patient says he has relocated from [place] to [place]. At this time, he is self- pay. 2. Elevated bilirubin, likely secondary to hemolysis. 3. Generalized pain issues. He is on pain medications. 4. He is also on antibiotics for possible pneumonia, sepsis. 5. Elevated white cell count, likely reactive. I will follow the patient during inpatient stay. h/o anemia - PRBC - o2 support hydrea trial pt got RBC exchange breathing better will await 24-48 hrs and after that if stable - will d/w other physicians reg removal of vascular cath - Patient Problems (1) Sickle cell crisis Current Visit: Yes Status: Acute Subjective Date of service: 01/07/19 Principal diagnosis: sickle cell disease Interval history: s/p RBC exchange on o2 - breathing better Objective - Exam Narrative Exam: Pain - chest General appearance - awake Performance status limited self care Eyes - no icterus ENT - on o2 support LNs cervical not palpable Neck - no LN Respiratory Normal Breath sounds - CTA anteriorly CVS S1 S2 + Extremities no edema General GI Soft Rectal deferred male - deferred Skin warm Musculoskeletal moves limbs Neurologically awake - Constitutional Vitals: Last Vital Signs Temp 99.5 F 01/07/19 02:45 Pulse 109 H 01/07/19 02:00 Resp 31 H 01/07/19 06:59 BP 126/72 01/07/19 02:00 Pulse Ox 89 01/07/19 01:00 - Labs Lab Results: Laboratory Results - last 24 hr 01/05/19 01/05/19 01/06/19 08:26 08:26 18:03 WBC 44.3 H* RBC 2.41 L Hgb 7.4 L Hct 21.8 L D MCV 90 MCH 31 MCHC 34 RDW 18.4 H Plt Count 241 POC ABG pH POC ABG pCO2 POC ABG HCO3 POC ABG Total CO2 POC ABG O2 Sat POC ABG Base Excess FiO2 Blood Type O POSITIVE O POSITIVE Antibody Screen Positive Positive Antibody Identification Anti-K Anti-K Direct Antiglob Test Negative ANNAMARIA, Poly Interpret Negative Crossmatch See Detail See Detail 01/06/19 23:02 WBC RBC Hgb Hct MCV MCH MCHC RDW Plt Count POC ABG pH 7.452 H POC ABG pCO2 29.4 L POC ABG HCO3 20.5 POC ABG Total CO2 21 POC ABG O2 Sat 86 POC ABG Base Excess -3 FiO2 100 Blood Type Antibody Screen Antibody Identification Direct Antiglob Test ANNAMARIA, Poly Interpret Crossmatch Medications & Allergies - Medications Allergies/Adverse Reactions: Allergies No Known Allergies Allergy (Verified 01/03/19 10:13) Home Medications: Home Medications Medication Instructions Recorded Confirmed Last Taken Type No Known Home Medications [No 01/03/19 01/03/19 Unknown History Reported Home Medications] Active Medications: Generic Name Dose Route Start Last Admin Trade Name Freq PRN Reason Stop Dose Admin Acetaminophen 650 mg 01/06/19 10:28 Tylenol AL Q4H PRN Non Cardiac Pain or Temp>100.5 Folic Acid 1 mg 01/06/19 21:00 01/06/19 22:37 Folvite PO 1 mg QDAY KATHY Administration Hydromorphone HCl 1 mg 01/04/19 14:25 01/07/19 06:59 Dilaudid IV 1 mg Q3H PRN Administration Pain , Severe (7-10) Hydroxyurea 500 mg 01/07/19 10:00 Hydroxyurea PO QDAY KATHY Azithromycin 500 mg/ Sodium 250 mls @ 250 mls/hr 01/03/19 21:00 01/06/19 23:58 Chloride IV 250 mls/hr Q24H KATHY Administration Protocol Sodium Chloride 1,000 mls @ 100 mls/hr 01/05/19 09:00 01/06/19 20:16 Nacl 0.45% 1000 Ml IV 100 mls/hr DIRECT KATHY Administration Calcium Gluconate 2,000 mg/ 120 mls @ 240 mls/hr 01/05/19 09:09 01/07/19 02:35 Sodium Chloride IV 240 mls/hr ONCE PRN Administration Muscle Spasm Cefepime HCl 2 gm in 100 mls @ 200 mls/hr 01/06/19 14:00 01/07/19 06:07 Cefepime/Ns 2 Gm/100 Ml IV 200 mls/hr Q8HR KATHY Administration Protocol Ibuprofen 800 mg 01/04/19 16:53 01/06/19 22:35 Ibuprofen PO 800 mg Q8H PRN Administration Non Cardiac Pain or Temp>100.5 Metoclopramide HCl 10 mg 01/06/19 02:48 01/06/19 03:17 Reglan IV 10 mg Q6H PRN Administration Nausea And Vomiting Naloxone HCl 0.1 mg 01/04/19 14:25 Naloxone IV Q2MIN PRN Res Rate </= 8 or 02 SAT < 92%
[2019-01-07] MEDS: FOLIC ACID 1 MG TAB PO SCH (10:58)
[2019-01-07] MEDS: HYDROXYUREA 500 MG CAP PO SCH (10:58)
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
--- NOTE | 2019-01-07 15:33 | Progress Note ---
Assessment and Plan Cultures: 01/03/19 blood cultures - no growth to date A/P: 24 yo M PMhx sickle cell disease presents with fevers and myalgias, likely an acute chest syndrome vs pneumonia 1. Acute sepsis - present with fevers and leukocytosis, likely secondary to pneumonia 2. Pneumonia - vs acute chest syndrome, though they are indistinguishable and treated the same. Given the season and the abrupt onset of worsened myalgias and SOB will rule out influenza as well. continue azithromycin and ceftriaxone, expected course of 5 days. Can change to PO when patient is improved enough for discharge. 3. Sickle cell disease 4. Acute pain crisis 5. Persistent fevers - possibly due to sickle crisis, though patient now requiring more respitaory support. Will adjust antibiotics to cefepime. Leukocytosis liekly reactive. Recs: - flu negative, remove from droplet precautions. - continue cefepime 2g q8h - continue azithromycin 500mg q24h - repeat CBC daily - ordered sputum culture - not suitable for culture - ok for exchange tranfusion/pharesis per hematology Thank you for the consult, we will continue to follow. Miguelito Flores MD [facility] ([facility]) M: [phone] O: [phone] F: [phone] Subjective Date of service: 01/07/19 Principal diagnosis: sickle cell disease Interval history: Febrile yesterday, but afebrile overnight White count improving. Objective - Exam Narrative Exam: Constitutional: Alert, cooperative. Mild distress from pain. Head, Ears, Nose: Normocephalic, atraumatic. External ears, nose normal Eyes: Conjunctivae/corneas clear. No icterus. No ptosis. Neck: Supple, no meningeal signs Oral: dentition fair, no thrush Cardiovascular: S1, S2 normal. Respiratory: Good air entry, clear to auscultation bilaterally GI: Soft, non-tender; bowel sounds normal. No peritoneal signs. Musculoskeletal: No pedal edema, no cyanosis. Skin: No rash or abscess Hem/Lymphatic: No palpable cervical or supraclavicular nodes. No lymphangitis Psych: Mood ok. Affect normal Neurological: Awake, alert, oriented. No gross abnormality - Constitutional Vitals: Vital Signs Temp Pulse Resp BP Pulse Ox 99.1 F 108 H 57 H 124/82 90 01/07/19 12:00 01/07/19 08:00 01/07/19 08:00 01/07/19 08:00 01/07/19 09:22 Temperature -Last 24 Hours Temperature 99.1 F Temperature 98.2 F Temperature 99.3 F Temperature 99.5 F Temperature 101.4 F Temperature 102.8 F Temperature 97.7 F Temperature 100.1 F Temperature 100.1 F - Labs CBC & Chem 7: 01/06/19 18:03 01/05/19 08:24 Labs: Abnormal lab results 01/05/19 01/05/19 01/06/19 Range/Units 08:26 08:26 18:03 WBC 44.3 H* (4.5-11.0) K/mm3 RBC 2.41 L (3.65-5.03) M/mm3 Hgb 7.4 L (11.8-15.2) gm/dl Hct 21.8 L D (35.5-45.6) % RDW 18.4 H (13.2-15.2) % POC ABG pH (7.35-7.45) POC ABG pCO2 (35-45) Crossmatch See Detail See Detail 01/06/19 Range/Units 23:02 WBC (4.5-11.0) K/mm3 RBC (3.65-5.03) M/mm3 Hgb (11.8-15.2) gm/dl Hct (35.5-45.6) % RDW (13.2-15.2) % POC ABG pH 7.452 H (7.35-7.45) POC ABG pCO2 29.4 L (35-45) Crossmatch
[2019-01-07] MEDS: AZITHROMYCIN 500 MG in SODIUM CHLORIDE 0.9% 250ML 250 ML IV SCH (21:39)
[2019-01-07] MEDS: ACETAMINOPHEN 650 MG RECT SUPP PR PRN (21:40)
[2019-01-08] MEDS: HYDROmorphone 1 MG/1 ML INJ IV PRN ×4 (03:22→17:14)
[2019-01-08] MEDS: CEFEPIME/NS 2 GM/100 ML 2 GM/100 ML BAG IV SCH ×3 (05:28→22:01)
[2019-01-08] MEDS: HYDROXYUREA 500 MG CAP PO SCH ×2 (09:21→10:54)
[2019-01-08] MEDS: FOLIC ACID 1 MG TAB PO SCH ×2 (09:21→10:53)
[2019-01-08] MEDS ORDERED: MINERAL OIL/PETROLATUM, WHITE OPHTH OINT 3.5 GM OU PRN (09:35)
[2019-01-08] MEDS ORDERED: LIP THERAPY VASELINE TP PRN (09:35)
[2019-01-08] MEDS ORDERED: LACTATED RINGERS 1,000 ML ONE (09:57)
[2019-01-08] MEDS ORDERED: LACTATED RINGERS 1,000 ML IV ONE (10:00)
[2019-01-08] MEDS ORDERED: fentaNYL 250 MCG/5 ML INJ ONE (10:03)
[2019-01-08] MEDS ORDERED: fentaNYL 100 MCG/2 ML INJ IV STA (10:20)
[2019-01-08] MEDS: PROPOFOL 1,000 MG/100 ML BOTTLE IV SCH ×2 (10:39→19:10)
--- NOTE | 2019-01-08 11:54 | XRay Report ---
CHEST 1 VIEW INDICATION / CLINICAL INFORMATION: Chest pain following respiratory distress. COMPARISON: None available. FINDINGS: SUPPORT DEVICES: Right IJ central venous line terminates in the SVC/right atrial junction. Endotrache al tube terminates just above the level the stephany and should be withdrawn 3 to 4 cm. HEART / MEDIASTINUM: Extensive subcutaneous emphysema of the neck present there is some mild pneumome diastinum, possibly secondary to recent intubation.. LUNGS / PLEURA: Severe bilateral airspace disease present concerning for worsening heart failure. No significant pneumothorax is appreciated. Signer Name: Everton Giraldo MD Signed: 01/08/2019 11:49 AM Workstation Name: [id number]
--- NOTE | 2019-01-08 11:54 | XRay Report ---
ABDOMEN 1 VIEW(S) INDICATION / CLINICAL INFORMATION: Abdominal pain COMPARISON: None available. FINDINGS: TUBES / LINES: Weighted enteric feeding tube terminates near the distal gastric antrum. BOWEL GAS PATTERN: No significant abnormality. FREE AIR / EXTRALUMINAL GAS: None seen. ADDITIONAL FINDINGS: Pneumomediastinum noted. Signer Name: Everton Giraldo MD Signed: 01/08/2019 11:50 AM Workstation Name: [id number]
[2019-01-08] MEDS ORDERED: SODIUM CHLORIDE 0.9% 500 ML 500 ML IV NR (13:01)
[2019-01-08] MEDS ORDERED: CALCIUM GLUCONATE 2,000 MG in SODIUM CHLORIDE 0.9% 100 ML IV PRN (13:04)
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
[2019-01-08 13:32] LABS: Hematocrit 29.2 % (35.5-45.6); Hemoglobin 9.9 gm/dl (11.8-15.2); Mean Corpuscular HGB Conc 34 % (32-34); Mean Corpuscular Volume 87 fl (84-94); Platelet Count 192 K/mm3 (140-440); Red Blood Count 3.34 M/mm3 (3.65-5.03); Red Cell Distribution Width 17.7 % (13.2-15.2)
[2019-01-08] MEDS ORDERED: SODIUM BICARBONATE 325 MG TAB FEEDTUBE PRN (13:50)
[2019-01-08] MEDS ORDERED: SIMPLE SYRUP 15 ML FEEDTUBE PRN ×2 (13:50)
[2019-01-08] MEDS ORDERED: LIPASE 10,500/PROTEASE 25,000/AMYLASE 43,750 (UNITS) DR CAP FEEDTUBE PRN (13:50)
--- NOTE | 2019-01-08 14:13 | XRay Report ---
CHEST 1 VIEW INDICATION / CLINICAL INFORMATION: check for pneumonia. COMPARISON: Earlier today FINDINGS: SUPPORT DEVICES: Endotracheal tube terminates 1 cm above the stephany. The right IJ central venous line projects in expected position.. The esophagogastric tube terminates within the stomach. HEART / MEDIASTINUM: Persistent pneumomediastinum. Cardiomegaly persists. LUNGS / PLEURA: Severe bilateral airspace disease present. No change. Signer Name: Everton Giraldo MD Signed: 01/08/2019 2:08 PM Workstation Name: [id number]
[2019-01-08 15:27] LABS: Basophils % (Manual) 0 % (0.0-1.8); Eosinophils % (Manual) 0 % (0.0-4.3); Total Cells Counted 100
[2019-01-08 15:28] LABS: Anisocytosis 1+; Spherocytes 1+
--- NOTE | 2019-01-08 16:39 | Progress Note ---
Assessment and Plan Cultures: 01/03/19 blood cultures - no growth to date A/P: 24 yo M PMhx sickle cell disease presents with fevers and myalgias, likely an acute chest syndrome vs pneumonia 1. Acute sepsis - present with fevers and leukocytosis, likely secondary to pneumonia 2. Pneumonia - vs acute chest syndrome, though they are indistinguishable and treated the same. Continue cefepime. 3. Sickle cell disease 4. Acute pain crisis 5. Persistent fevers - possibly due to sickle crisis, though patient now requiring more respitaory support. Will adjust antibiotics to cefepime. Leukocytosis liekly reactive. 6. Acute respiratory failure with hypoxia - now intubated. Recs: - continue cefepime 2g q8h - Stop azithromycin 500mg q24h as completed 5 days. - repeat CBC daily - ordered sputum culture - not suitable for culture - ok for exchange tranfusion/pharesis per hematology Thank you for the consult, we will continue to follow. Miguelito Flores MD [facility] ([facility]) M: [phone] O: [phone] F: [phone] Subjective Date of service: 01/08/19 Principal diagnosis: sickle cell disease Interval history: Febrile , but white count improving. Now intubated. Objective - Exam Narrative Exam: Constitutional: intubated Head, Ears, Nose: Normocephalic, atraumatic. External ears, nose normal Eyes: Conjunctivae/corneas clear. No icterus. No ptosis. Neck: Supple, no meningeal signs Oral: dentition fair, no thrush Cardiovascular: S1, S2 normal. Respiratory: Good air entry, clear to auscultation bilaterally GI: Soft, non-tender; bowel sounds normal. No peritoneal signs. Musculoskeletal: No pedal edema, no cyanosis. Skin: No rash or abscess Hem/Lymphatic: No palpable cervical or supraclavicular nodes. No lymphangitis Neurological: Sedated - Constitutional Vitals: Vital Signs Temp Pulse Resp BP Pulse Ox 99.2 F 116 H 32 H 113/55 98 01/08/19 16:00 01/08/19 16:00 01/08/19 16:00 01/08/19 16:00 01/08/19 16:00 Temperature -Last 24 Hours Temperature 99.2 F Temperature 98.2 F Temperature 101 F Temperature 98.8 F Temperature 98.8 F Temperature 98.7 F Temperature 100.8 F Temperature 100.8 F - Labs CBC & Chem 7: 01/08/19 13:18 01/05/19 08:24 Labs: Abnormal lab results 01/08/19 01/08/19 01/08/19 Range/Units 09:33 12:10 13:18 WBC (4.5-11.0) K/mm3 RBC (3.65-5.03) M/mm3 Hgb (11.8-15.2) gm/dl Hct (35.5-45.6) % RDW (13.2-15.2) % Seg Neuts % (Manual) (40.0-70.0) % Monocytes % (Manual) (0.0-7.3) % Nucleated RBC % (0.0-0.9) % Seg Neutrophils # Man (1.8-7.7) K/mm3 Monocytes # (Manual) (0.0-0.8) K/mm3 POC ABG pO2 71 L 73 L (80-105) Crossmatch See Detail 01/08/19 01/08/19 Range/Units 13:18 14:58 WBC 33.5 H (4.5-11.0) K/mm3 RBC 3.34 L (3.65-5.03) M/mm3 Hgb 9.9 L (11.8-15.2) gm/dl Hct 29.2 L D (35.5-45.6) % RDW 17.7 H (13.2-15.2) % Seg Neuts % (Manual) 72.0 H (40.0-70.0) % Monocytes % (Manual) 13.0 H (0.0-7.3) % Nucleated RBC % 9.0 H (0.0-0.9) % Seg Neutrophils # Man 24.1 H (1.8-7.7) K/mm3 Monocytes # (Manual) 4.4 H (0.0-0.8) K/mm3 POC ABG pO2 74 L (80-105) Crossmatch
--- NOTE | 2019-01-08 17:15 | Consultation ---
History of Present Illness Consult date: 01/08/19 Requesting physician: FELIZ CHACON Reason for consult: hypoxemia History of present illness: 24 y/o male admitted earlier in the week for acute chest. Underwent exchange transfusion in the last 24 hours and is now in acute respiratory failure, ARDs either from TRALI, volume overload or worsening acute chest syndrome. Older sister at bedside and states that last time patient was this sick he was 7. He has had TRALi before and steroids were used per her. Patient is awake and alert on 25 of Diprovan. Past History Past Medical History: other (Sickle Cell disease) Past Surgical History: No surgical history, Other (reviewed) Social history: single. denies: smoking, alcohol abuse, prescription drug abuse Family history: other (SCD) Medications and Allergies Allergies Allergy/AdvReac Type Severity Reaction Status Date / Time No Known Allergies Allergy Verified 01/03/19 10:13 Home Medications Medication Instructions Recorded Confirmed Last Taken Type No Known Home Medications [No 01/03/19 01/03/19 Unknown History Reported Home Medications] Active Meds: Active Medications Acetaminophen (Tylenol) 650 mg VT Q4H PRN PRN Reason: Non Cardiac Pain or Temp>100.5 Last Admin: 01/07/19 21:40 Dose: 650 mg Documented by: Lipase/Protease/Amylase (Pancregasper Dr 10,500 Unit) 1 each FEEDTUBE PRN PRN PRN Reason: For Clogged Feeding Tube Fentanyl (Sublimaze) 50 mcg IV Q10MIN PRN PRN Reason: ANALGESIA Folic Acid ([facility]olvite) [facility] Last Admin: 01/08/19 10:53 Dose: Not Given Documented by: Hydromorphone HCl (Dilaudid) 1 mg IV Q3H PRN PRN Reason: Pain , Severe (7-10) Last Admin: 01/08/19 09:20 Dose: 1 mg Documented by: Hydrophilic Ointment (Vaseline Lip Therapy) 1 applic TP Q2HR PRN PRN Reason: Dry Lips Hydroxyurea (Hydroxyurea) 500 [facility] Last Admin: 01/08/19 10:54 Dose: Not Given Documented by: Sodium Chloride (Nacl 0.45% 1000 Ml) 1,000 mls @ 100 mls/hr IV DIRECT KATHY Last Admin: 01/06/19 20:16 Dose: 100 mls/hr Documented by: Calcium Gluconate 2,000 mg/ (Sodium Chloride) 120 mls @ 240 mls/hr IV ONCE PRN PRN Reason: Muscle Spasm Last Infusion: 01/07/19 03:10 Dose: Infused Documented by: Cefepime HCl (Cefepime/Ns 2 Gm/100 Ml) 2 gm in 100 mls @ 200 mls/hr IV Q8HR KATHY; Protocol Last Infusion: 01/08/19 14:30 Dose: Infused Documented by: Propofol (Diprivan 10 Mg/Ml) 1,000 mg in 100 mls @ 2.079 mls/hr IV TITR KATHY; Protocol Last Admin: 01/08/19 10:39 Dose: 5 mcg/kg/min, 2.079 mls/hr Documented by: Sodium Chloride (Nacl 0.9% 500 Ml) 500 mls @ 0 mls/hr IV ONCE NR Stop: 01/08/19 23:59 Calcium Gluconate 2,000 mg/ (Sodium Chloride) 120 mls @ 660 mls/hr IV ONCE PRN PRN Reason: for PRBC exchange Fentanyl Citrate (Fentanyl Drip Premix) 2,000 mcg in 100 mls @ 3.465 mls/hr IV TITR KATHY; Protocol Metoclopramide HCl (Reglan) 10 mg IV Q6H PRN PRN Reason: Nausea And Vomiting Last Admin: 01/06/19 03:17 Dose: 10 mg Documented by: Multi-Ingred Cream/Lotion/Oil/Oint (Artificial Tears Ophth Oint) 1 applic OU Q4HR PRN PRN Reason: Dry Eye(s) Naloxone HCl (Naloxone) 0.1 mg IV Q2MIN PRN PRN Reason: Res Rate </= 8 or 02 SAT < 92% Simple Syrup (Simple Syrup) 15 ml FEEDTUBE PRN PRN PRN Reason: Hypoglycemia Simple Syrup (Simple Syrup) 30 ml FEEDTUBE PRN PRN PRN Reason: Hypoglycemia Sodium Bicarbonate (Sodium Bicarbonate) 325 mg FEEDTUBE PRN PRN PRN Reason: For Clogged Feeding Tube Physical Examination Vital signs: Vital Signs Temp Pulse Resp BP Pulse Ox 103.2 F H 124 H 18 140/78 92 01/03/19 10:14 01/03/19 10:14 01/03/19 10:14 01/03/19 10:14 01/03/19 10:14 Results - Laboratory Findings CBC and BMP: 01/08/19 13:18 01/05/19 08:24 ABG POC ABG pH 7.425 (7.35-7.45) 01/08/19 14:58 POC ABG pCO2 37.2 (35-45) 01/08/19 14:58 POC ABG pO2 74 (80-105) L 01/08/19 14:58 POC ABG HCO3 24.4 (22-26 mml/L) 01/08/19 14:58 POC ABG Total CO2 26 (23-27mmol/L) 01/08/19 14:58 POC ABG O2 Sat 95 01/08/19 14:58 PT/INR, D-dimer PT 24.3 Sec. (12.2-14.9) H 01/05/19 08:24 INR 2.23 (0.87-1.13) H 01/05/19 08:24 D-Dimer 2064.49 ng/mlDDU (0-234) H 01/03/19 11:17 Abnormal lab findings: Abnormal Labs 01/03/19 01/03/19 01/03/19 10:34 10:34 11:17 WBC 34.2 H RBC 2.43 L Hgb 7.9 L Hct 21.9 L MCH 33 H MCHC 36 H RDW 29.2 H Plt Count Seg Neuts % (Manual) 85.0 H Lymphocytes % (Manual) 6.0 L Monocytes % (Manual) 9.0 H Nucleated RBC % 1.0 H Seg Neutrophils # Man 29.1 H Lymphocytes # (Manual) Monocytes # (Manual) 3.1 H Percent Retic 21.81 H PT INR APTT D-Dimer POC ABG pH POC ABG pCO2 POC ABG pO2 Sodium 136 L 135 L Potassium 5.3 H Carbon Dioxide 20 L BUN Creatinine 0.6 L 0.7 L Glucose 123 H 112 H Calcium Iron TIBC Ferritin Total Bilirubin 8.00 H AST 100 H ALT Lactate Dehydrogenase Total Protein Albumin Lipase Crossmatch 01/03/19 01/03/19 01/03/19 11:17 14:19 18:52 WBC 36.5 H RBC 2.32 L Hgb 7.8 L Hct 21.6 L MCH 34 H MCHC 36 H RDW 28.3 H Plt Count Seg Neuts % (Manual) 88.0 H Lymphocytes % (Manual) 4.0 L Monocytes % (Manual) 8.0 H Nucleated RBC % 4.0 H Seg Neutrophils # Man 32.1 H Lymphocytes # (Manual) Monocytes # (Manual) 2.9 H Percent Retic PT INR APTT D-Dimer 2064.49 H POC ABG pH POC ABG pCO2 POC ABG pO2 Sodium Potassium Carbon Dioxide BUN Creatinine Glucose Calcium Iron TIBC Ferritin Total Bilirubin AST ALT Lactate Dehydrogenase Total Protein Albumin Lipase 6 L Crossmatch 01/04/19 01/04/19 01/05/19 08:05 08:05 08:24 WBC 54.8 H* RBC 1.28 L Hgb 4.2 L* D Hct 11.1 L* D MCH 33 H MCHC 38 H* RDW 22.3 H Plt Count 134 L Seg Neuts % (Manual) Lymphocytes % (Manual) 1.0 L Monocytes % (Manual) 15.0 H Nucleated RBC % 3.0 H Seg Neutrophils # Man 35.1 H Lymphocytes # (Manual) 0.5 L Monocytes # (Manual) 8.2 H Percent Retic PT INR APTT D-Dimer POC ABG pH POC ABG pCO2 POC ABG pO2 Sodium Potassium Carbon Dioxide BUN Creatinine Glucose Calcium Iron 19 L TIBC 218 L Ferritin 854.8 H Total Bilirubin AST ALT Lactate Dehydrogenase Total Protein Albumin Lipase Crossmatch 01/05/19 01/05/19 01/05/19 08:24 08:24 08:24 WBC RBC Hgb Hct MCH MCHC RDW Plt Count Seg Neuts % (Manual) Lymphocytes % (Manual) Monocytes % (Manual) Nucleated RBC % Seg Neutrophils # Man Lymphocytes # (Manual) Monocytes # (Manual) Percent Retic PT 24.3 H INR 2.23 H APTT 53.5 H D-Dimer POC ABG pH POC ABG pCO2 POC ABG pO2 Sodium Potassium 5.2 H D Carbon Dioxide 15 L BUN 40 H Creatinine 0.3 L D Glucose 121 H Calcium 8.3 L Iron TIBC Ferritin Total Bilirubin 31.80 H AST 164 H ALT 83 H Lactate Dehydrogenase 1048 H Total Protein 6.0 L Albumin 3.6 L Lipase Crossmatch 01/05/19 01/05/19 01/05/19 08:26 08:26 09:48 WBC 54.8 H* RBC 1.26 L Hgb 4.1 L* Hct 10.9 L* MCH 33 H MCHC 38 H* RDW 22.0 H Plt Count 127 L Seg Neuts % (Manual) Lymphocytes % (Manual) Monocytes % (Manual) Nucleated RBC % Seg Neutrophils # Man Lymphocytes # (Manual) Monocytes # (Manual) Percent Retic PT INR APTT D-Dimer POC ABG pH POC ABG pCO2 POC ABG pO2 Sodium Potassium Carbon Dioxide BUN Creatinine Glucose Calcium Iron TIBC Ferritin Total Bilirubin AST ALT Lactate Dehydrogenase Total Protein Albumin Lipase Crossmatch See Detail See Detail 01/06/19 01/06/19 01/06/19 00:30 18:03 23:02 WBC 56.5 H* 44.3 H* RBC 1.76 L 2.41 L Hgb 5.6 L* 7.4 L Hct 15.8 L* 21.8 L D MCH MCHC 36 H RDW 19.8 H 18.4 H Plt Count Seg Neuts % (Manual) 90.0 H Lymphocytes % (Manual) 4.5 L Monocytes % (Manual) Nucleated RBC % Seg Neutrophils # Man 50.9 H Lymphocytes # (Manual) Monocytes # (Manual) 2.5 H Percent Retic PT INR APTT D-Dimer POC ABG pH 7.452 H POC ABG pCO2 29.4 L POC ABG pO2 Sodium Potassium Carbon Dioxide BUN Creatinine Glucose Calcium Iron TIBC Ferritin Total Bilirubin AST ALT Lactate Dehydrogenase Total Protein Albumin Lipase Crossmatch 01/08/19 01/08/19 01/08/19 09:33 12:10 13:18 WBC RBC Hgb Hct MCH MCHC RDW Plt Count Seg Neuts % (Manual) Lymphocytes % (Manual) Monocytes % (Manual) Nucleated RBC % Seg Neutrophils # Man Lymphocytes # (Manual) Monocytes # (Manual) Percent Retic PT INR APTT D-Dimer POC ABG pH POC ABG pCO2 POC ABG pO2 71 L 73 L Sodium Potassium Carbon Dioxide BUN Creatinine Glucose Calcium Iron TIBC Ferritin Total Bilirubin AST ALT Lactate Dehydrogenase Total Protein Albumin Lipase Crossmatch See Detail 01/08/19 01/08/19 13:18 14:58 WBC 33.5 H RBC 3.34 L Hgb 9.9 L Hct 29.2 L D MCH MCHC RDW 17.7 H Plt Count Seg Neuts % (Manual) 72.0 H Lymphocytes % (Manual) Monocytes % (Manual) 13.0 H Nucleated RBC % 9.0 H Seg Neutrophils # Man 24.1 H Lymphocytes # (Manual) Monocytes # (Manual) 4.4 H Percent Retic PT INR APTT D-Dimer POC ABG pH POC ABG pCO2 POC ABG pO2 74 L Sodium Potassium Carbon Dioxide BUN Creatinine Glucose Calcium Iron TIBC Ferritin Total Bilirubin AST ALT Lactate Dehydrogenase Total Protein Albumin Lipase Crossmatch - Diagnostic Findings Chest x-ray: image reviewed Assessment and Plan 24 y/o male with sickle cell anemia admitted with acute chest syndrome and now acute respiratory failure requiring mechanical ventilation secondary to worsening acute chest vs pulmonary edema. Full blow ARDs 1. Needs echo to evaluate left and right heart function 2. Will check stat BMP and BNP 3. INcrease PEEP to 14. Will repeat ABG tonight 4. Added fentanyl drip for more comfort as patient is likely in pain 5. If BNP is elevated may consider lasix dosing, however dont want to dehydrate patient as that can make his crisis worse. 6. OVerall guarded prognosis, discussed with sister at bedside. CCT 31 minutes.
[2019-01-08 17:30] LABS: BUN/Creatinine Ratio 23; Blood Urea Nitrogen 18 mg/dL (9-20); Calcium 8.4 mg/dL (8.4-10.2); Hemolysis Index 0
[2019-01-08] MEDS: fentaNYL 100 MCG/2 ML INJ IV PRN ×2 (19:05→22:19)
--- NOTE | 2019-01-08 20:46 | XRay Report ---
CHEST 1 VIEW 01/08/2019 8:08 PM INDICATION / CLINICAL INFORMATION: right neck swelling. COMPARISON: Chest x-ray 01/08/2019 at 1:39 PM same day FINDINGS: SUPPORT DEVICES: ET tube, Dobbhoff feeding tube and right internal jugular central line again project in expected position. HEART / MEDIASTINUM: Cardiac silhouette remains enlarged for AP technique. Probable pneumomediastinum , unchanged LUNGS / PLEURA: Moderate bilateral airspace consolidation is unchanged. Small right pneumothorax agai n noted. ADDITIONAL FINDINGS: Moderate subcutaneous emphysema both supraclavicular regions, unchanged. IMPRESSION: 1. Small new right basilar pneumothorax. 2. Persistent pneumomediastinum. Critical result of new small right pneumothorax discovered at 7:39 PM central time hours and called t o charge nurse Bre at 7:40 PM central time hours on 01/08/2019. A read back was performed. Signer Name: Jose Burnham MD Signed: 01/08/2019 8:42 PM Workstation Name: [id number]
[2019-01-09] MEDS: HYDROmorphone 1 MG/1 ML INJ IV PRN ×6 (00:35→21:35)
[2019-01-09] MEDS ORDERED: ACETAMINOPHEN 325 MG/10.15 ML ORAL LIQD UNIT DOSE ONE (00:43)
--- NOTE | 2019-01-09 00:45 | XRay Report ---
CHEST 1 VIEW INDICATION / CLINICAL INFORMATION: Pneumothorax, Evaluate for expansion. COMPARISON: 01/08/2019 at 2008 hours FINDINGS: SUPPORT DEVICES: Enteric feeding tube and right IJ central line are stable in position. HEART / MEDIASTINUM: Cardiac silhouette size remains enlarged. Pneumomediastinum is stable. LUNGS / PLEURA: There is diffuse bilateral pulmonary opacities, greater throughout the right lung. Th is is unchanged. Pneumomediastinum and small right basilar pneumothorax appear grossly unchanged. Extensive subcutaneous emphysema in the supraclavicular soft tissues bilaterally is again noted. ADDITIONAL FINDINGS: No significant additional findings. IMPRESSION: 1. Stable appearance of small right basilar pneumothorax and pneumomediastinum. 2. Stable appearance of bilateral pulmonary disease. Signer Name: Emeli Scott MD Signed: 01/09/2019 12:41 AM Workstation Name: [id number]
[2019-01-09 05:13] LABS: Hematocrit 25.1 % (35.5-45.6); Hemoglobin 8.4 gm/dl (11.8-15.2); Mean Corpuscular HGB Conc 34 % (32-34); Mean Corpuscular Volume 88 fl (84-94); Platelet Count 231 K/mm3 (140-440); Red Blood Count 2.85 M/mm3 (3.65-5.03); Red Cell Distribution Width 17.9 % (13.2-15.2)
[2019-01-09 05:24] LABS: BUN/Creatinine Ratio 31; Blood Urea Nitrogen 22 mg/dL (9-20); Calcium 8.4 mg/dL (8.4-10.2); Hemolysis Index 14
[2019-01-09] MEDS: PROPOFOL 1,000 MG/100 ML BOTTLE IV SCH ×3 (06:13→19:38)
[2019-01-09] MEDS: CEFEPIME/NS 2 GM/100 ML 2 GM/100 ML BAG IV SCH ×3 (06:14→21:39)
[2019-01-09 06:43] LABS: ABG Base Excess 0.9 mmol/L (-2.0-3.0); ABG HCO3 25.6 mmol/L (20.0-26.0); ABG Methemoglobin 0.6 % (0.0-1.5); ABG Oxygen Saturation 98.9 % (95.0-99.0); ABG PCO2 41.1 mm Hg; ABG PH 7.412 pH Units (7.350-7.450); ABG PO2 153.7 mm Hg (80.0-90.0)
--- NOTE | 2019-01-09 08:58 | Progress Note ---
Assessment and Plan 24 y/o male with sickle cell anemia admitted with acute chest syndrome and now acute respiratory failure requiring mechanical ventilation secondary to worsening acute chest vs pulmonary edema. Full blow ARDs 1. Needs echo to evaluate left and right heart function, please order for tomorrow, not urgent 2. Will check stat BMP and BNP. BNP elevated but did not treat with lasix since oxygenation improved with PEEP 3. Continue PEEP at 14 until FIO2 is at 40% 4. Continue sedation 5. Follow up ID recs. Continue abx therapy 6. OVerall guarded prognosis, discussed with sister at bedside. CCT 31 minutes. Subjective Date of service: 01/09/19 Principal diagnosis: sickle cell disease Interval history: No acute events. Oxygenation better this am. Sister at bedside. patient remains awake and alert. On sedation (diprovan and fentanyl) Objective Vital Signs - 12hr 01/08/19 01/08/19 01/08/19 21:00 22:00 23:00 Temperature Pulse Rate 106 H 103 H 102 H Respiratory 36 H 33 H 37 H Rate Respiratory Rate [ Generalized] Blood Pressure 110/56 117/56 125/66 O2 Sat by Pulse 100 100 99 Oximetry 01/08/19 01/09/19 01/09/19 23:24 00:00 01:00 Temperature 101.7 F H Pulse Rate 100 H 99 H Respiratory 38 H 33 H Rate Respiratory 32 H Rate [ Generalized] Blood Pressure 130/56 115/56 O2 Sat by Pulse 100 100 Oximetry 01/09/19 01/09/19 01/09/19 01:40 02:00 03:00 Temperature Pulse Rate 102 H 100 H 101 H Respiratory 31 H 29 H Rate Respiratory Rate [ Generalized] Blood Pressure 109/55 109/54 111/52 O2 Sat by Pulse 100 100 100 Oximetry 01/09/19 01/09/19 01/09/19 03:37 04:00 05:00 Temperature 100.2 F H Pulse Rate 98 H 95 H Respiratory 29 H 27 H Rate Respiratory 32 H Rate [ Generalized] Blood Pressure 107/52 112/52 O2 Sat by Pulse 100 100 Oximetry 01/09/19 01/09/19 06:00 08:01 Temperature Pulse Rate 95 H 90 Respiratory 28 H Rate Respiratory Rate [ Generalized] Blood Pressure 113/58 106/55 O2 Sat by Pulse 100 99 Oximetry CBC and BMP: 01/09/19 04:44 01/09/19 04:44 ABG, PT/INR, D-dimer: ABG POC ABG pH 7.425 (7.35-7.45) 01/08/19 14:58 ABG pH 7.412 pH Units (7.350-7.450) 01/09/19 06:31 POC ABG pCO2 37.2 (35-45) 01/08/19 14:58 ABG pCO2 41.1 mm Hg 01/09/19 06:31 POC ABG pO2 74 (80-105) L 01/08/19 14:58 ABG pO2 153.7 mm Hg (80.0-90.0) H 01/09/19 06:31 POC ABG HCO3 24.4 (22-26 mml/L) 01/08/19 14:58 POC ABG Total CO2 26 (23-27mmol/L) 01/08/19 14:58 POC ABG O2 Sat 95 01/08/19 14:58 ABG O2 Saturation 98.9 % (95.0-99.0) 01/09/19 06:31 PT/INR, D-dimer PT 24.3 Sec. (12.2-14.9) H 01/05/19 08:24 INR 2.23 (0.87-1.13) H 01/05/19 08:24 D-Dimer 2064.49 ng/mlDDU (0-234) H 01/03/19 11:17 Abnormal lab findings: Abnormal Labs 01/03/19 01/03/19 01/03/19 10:34 10:34 11:17 WBC 34.2 H RBC 2.43 L Hgb 7.9 L Hct 21.9 L MCH 33 H MCHC 36 H RDW 29.2 H Plt Count Seg Neuts % (Manual) 85.0 H Lymphocytes % (Manual) 6.0 L Monocytes % (Manual) 9.0 H Nucleated RBC % 1.0 H Seg Neutrophils # Man 29.1 H Lymphocytes # (Manual) Monocytes # (Manual) 3.1 H Percent Retic 21.81 H PT INR APTT D-Dimer POC ABG pH POC ABG pCO2 POC ABG pO2 ABG pO2 ABG Hemoglobin Sodium 136 L 135 L Potassium 5.3 H Chloride Carbon Dioxide 20 L BUN Creatinine 0.6 L 0.7 L Glucose 123 H 112 H Calcium Iron TIBC Ferritin Total Bilirubin 8.00 H AST 100 H ALT Lactate Dehydrogenase NT-Pro-B Natriuret Pep Total Protein Albumin Lipase Crossmatch 01/03/19 01/03/19 01/03/19 11:17 14:19 18:52 WBC 36.5 H RBC 2.32 L Hgb 7.8 L Hct 21.6 L MCH 34 H MCHC 36 H RDW 28.3 H Plt Count Seg Neuts % (Manual) 88.0 H Lymphocytes % (Manual) 4.0 L Monocytes % (Manual) 8.0 H Nucleated RBC % 4.0 H Seg Neutrophils # Man 32.1 H Lymphocytes # (Manual) Monocytes # (Manual) 2.9 H Percent Retic PT INR APTT D-Dimer 2064.49 H POC ABG pH POC ABG pCO2 POC ABG pO2 ABG pO2 ABG Hemoglobin Sodium Potassium Chloride Carbon Dioxide BUN Creatinine Glucose Calcium Iron TIBC Ferritin Total Bilirubin AST ALT Lactate Dehydrogenase NT-Pro-B Natriuret Pep Total Protein Albumin Lipase 6 L Crossmatch 01/04/19 01/04/19 01/05/19 08:05 08:05 08:24 WBC 54.8 H* RBC 1.28 L Hgb 4.2 L* D Hct 11.1 L* D MCH 33 H MCHC 38 H* RDW 22.3 H Plt Count 134 L Seg Neuts % (Manual) Lymphocytes % (Manual) 1.0 L Monocytes % (Manual) 15.0 H Nucleated RBC % 3.0 H Seg Neutrophils # Man 35.1 H Lymphocytes # (Manual) 0.5 L Monocytes # (Manual) 8.2 H Percent Retic PT INR APTT D-Dimer POC ABG pH POC ABG pCO2 POC ABG pO2 ABG pO2 ABG Hemoglobin Sodium Potassium Chloride Carbon Dioxide BUN Creatinine Glucose Calcium Iron 19 L TIBC 218 L Ferritin 854.8 H Total Bilirubin AST ALT Lactate Dehydrogenase NT-Pro-B Natriuret Pep Total Protein Albumin Lipase Crossmatch 01/05/19 01/05/19 01/05/19 08:24 08:24 08:24 WBC RBC Hgb Hct MCH MCHC RDW Plt Count Seg Neuts % (Manual) Lymphocytes % (Manual) Monocytes % (Manual) Nucleated RBC % Seg Neutrophils # Man Lymphocytes # (Manual) Monocytes # (Manual) Percent Retic PT 24.3 H INR 2.23 H APTT 53.5 H D-Dimer POC ABG pH POC ABG pCO2 POC ABG pO2 ABG pO2 ABG Hemoglobin Sodium Potassium 5.2 H D Chloride Carbon Dioxide 15 L BUN 40 H Creatinine 0.3 L D Glucose 121 H Calcium 8.3 L Iron TIBC Ferritin Total Bilirubin 31.80 H AST 164 H ALT 83 H Lactate Dehydrogenase 1048 H NT-Pro-B Natriuret Pep Total Protein 6.0 L Albumin 3.6 L Lipase Crossmatch 01/05/19 01/05/19 01/05/19 08:26 08:26 09:48 WBC 54.8 H* RBC 1.26 L Hgb 4.1 L* Hct 10.9 L* MCH 33 H MCHC 38 H* RDW 22.0 H Plt Count 127 L Seg Neuts % (Manual) Lymphocytes % (Manual) Monocytes % (Manual) Nucleated RBC % Seg Neutrophils # Man Lymphocytes # (Manual) Monocytes # (Manual) Percent Retic PT INR APTT D-Dimer POC ABG pH POC ABG pCO2 POC ABG pO2 ABG pO2 ABG Hemoglobin Sodium Potassium Chloride Carbon Dioxide BUN Creatinine Glucose Calcium Iron TIBC Ferritin Total Bilirubin AST ALT Lactate Dehydrogenase NT-Pro-B Natriuret Pep Total Protein Albumin Lipase Crossmatch See Detail See Detail 01/06/19 01/06/19 01/06/19 00:30 18:03 23:02 WBC 56.5 H* 44.3 H* RBC 1.76 L 2.41 L Hgb 5.6 L* 7.4 L Hct 15.8 L* 21.8 L D MCH MCHC 36 H RDW 19.8 H 18.4 H Plt Count Seg Neuts % (Manual) 90.0 H Lymphocytes % (Manual) 4.5 L Monocytes % (Manual) Nucleated RBC % Seg Neutrophils # Man 50.9 H Lymphocytes # (Manual) Monocytes # (Manual) 2.5 H Percent Retic PT INR APTT D-Dimer POC ABG pH 7.452 H POC ABG pCO2 29.4 L POC ABG pO2 ABG pO2 ABG Hemoglobin Sodium Potassium Chloride Carbon Dioxide BUN Creatinine Glucose Calcium Iron TIBC Ferritin Total Bilirubin AST ALT Lactate Dehydrogenase NT-Pro-B Natriuret Pep Total Protein Albumin Lipase Crossmatch 01/08/19 01/08/19 01/08/19 09:33 12:10 13:18 WBC RBC Hgb Hct MCH MCHC RDW Plt Count Seg Neuts % (Manual) Lymphocytes % (Manual) Monocytes % (Manual) Nucleated RBC % Seg Neutrophils # Man Lymphocytes # (Manual) Monocytes # (Manual) Percent Retic PT INR APTT D-Dimer POC ABG pH POC ABG pCO2 POC ABG pO2 71 L 73 L ABG pO2 ABG Hemoglobin Sodium Potassium Chloride Carbon Dioxide BUN Creatinine Glucose Calcium Iron TIBC Ferritin Total Bilirubin AST ALT Lactate Dehydrogenase NT-Pro-B Natriuret Pep Total Protein Albumin Lipase Crossmatch See Detail 01/08/19 01/08/19 01/08/19 13:18 14:58 17:00 WBC 33.5 H RBC 3.34 L Hgb 9.9 L Hct 29.2 L D MCH MCHC RDW 17.7 H Plt Count Seg Neuts % (Manual) 72.0 H Lymphocytes % (Manual) Monocytes % (Manual) 13.0 H Nucleated RBC % 9.0 H Seg Neutrophils # Man 24.1 H Lymphocytes # (Manual) Monocytes # (Manual) 4.4 H Percent Retic PT INR APTT D-Dimer POC ABG pH POC ABG pCO2 POC ABG pO2 74 L ABG pO2 ABG Hemoglobin Sodium Potassium Chloride Carbon Dioxide BUN Creatinine Glucose 122 H Calcium Iron TIBC Ferritin Total Bilirubin AST ALT Lactate Dehydrogenase NT-Pro-B Natriuret Pep Total Protein Albumin Lipase Crossmatch 01/08/19 01/09/19 01/09/19 17:00 04:44 04:44 WBC 29.8 H RBC 2.85 L Hgb 8.4 L Hct 25.1 L MCH MCHC RDW 17.9 H Plt Count Seg Neuts % (Manual) Lymphocytes % (Manual) Monocytes % (Manual) Nucleated RBC % Seg Neutrophils # Man Lymphocytes # (Manual) Monocytes # (Manual) Percent Retic PT INR APTT D-Dimer POC ABG pH POC ABG pCO2 POC ABG pO2 ABG pO2 ABG Hemoglobin Sodium Potassium Chloride 107.3 H Carbon Dioxide BUN 22 H Creatinine 0.7 L Glucose 122 H Calcium Iron TIBC Ferritin Total Bilirubin AST ALT Lactate Dehydrogenase NT-Pro-B Natriuret Pep 3064 H Total Protein Albumin Lipase Crossmatch 01/09/19 06:31 WBC RBC Hgb Hct MCH MCHC RDW Plt Count Seg Neuts % (Manual) Lymphocytes % (Manual) Monocytes % (Manual) Nucleated RBC % Seg Neutrophils # Man Lymphocytes # (Manual) Monocytes # (Manual) Percent Retic PT INR APTT D-Dimer POC ABG pH POC ABG pCO2 POC ABG pO2 ABG pO2 153.7 H ABG Hemoglobin 8.1 L Sodium Potassium Chloride Carbon Dioxide BUN Creatinine Glucose Calcium Iron TIBC Ferritin Total Bilirubin AST ALT Lactate Dehydrogenase NT-Pro-B Natriuret Pep Total Protein Albumin Lipase Crossmatch
--- NOTE | 2019-01-09 09:48 | XRay Report ---
CHEST 1 VIEW INDICATION / CLINICAL INFORMATION: Hypoxemia. COMPARISON: None available. FINDINGS: SUPPORT DEVICES: No change.. HEART / MEDIASTINUM: Persistent pneumomediastinum. LUNGS / PLEURA: Bilateral airspace disease present Signer Name: Everton Giraldo MD Signed: 01/09/2019 9:44 AM Workstation Name: [id number]
[2019-01-09] MEDS: HYDROXYUREA 500 MG CAP PO SCH (10:00)
[2019-01-09] MEDS: FOLIC ACID 1 MG TAB PO SCH (10:00)
--- NOTE | 2019-01-09 12:45 | Hem/Onc Progress Note ---
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 Anemia. MCV is normal. History of sickle cell disease. The patient says he is not on folic acid or hydroxyurea. deficiency investigation. The patient says he has relocated from [place] to [place]. At this time, he is self- pay. 2. Elevated bilirubin, likely secondary to hemolysis. 3. Generalized pain issues. He is on pain medications. 4. He is also on antibiotics for possible pneumonia, sepsis. 5. Elevated white cell count, likely reactive. I will follow the patient during inpatient stay. h/o anemia - PRBC - o2 support hydrea trial pt got RBC exchange pt became SOB and intubated d/w sister on thursday - I had spoken to Dr Manzo and [facility] dr Jonathan Cooley - Hb was 9 that day will follow labs ARDS a differential no benefit of second RBC exchange d/w dr Hartman reg IV access removal - Patient Problems (1) Sickle cell crisis Current Visit: Yes Status: Acute Subjective Date of service: 01/09/19 Principal diagnosis: sickle cell disease Interval history: intubated d/w sister Objective - Exam Narrative Exam: Pain - n/a - pt intubated General appearance - sedated Performance status complete dependence Eyes - no icterus ENT - intubated LNs cervical not palpable Neck - no LN Respiratory Normal Breath sounds - CTA anteriorly CVS S1 S2 + Extremities no edema General GI Soft Rectal deferred male - deferred Skin warm Musculoskeletal on vent Neurologically sedated - Constitutional Vitals: Last Vital Signs Temp 100.2 F H 01/09/19 03:37 Pulse 93 H 01/09/19 10:29 Resp 28 H 01/09/19 06:00 BP 117/58 01/09/19 10:29 Pulse Ox 94 01/09/19 10:29 - Labs Lab Results: Laboratory Results - last 24 hr 01/08/19 01/08/19 01/08/19 10:56 13:18 13:18 WBC 33.5 H RBC 3.34 L Hgb 9.9 L Hct 29.2 L D MCV 87 MCH 30 MCHC 34 RDW 17.7 H Plt Count 192 Add Manual Diff Complete Total Counted 100 Seg Neuts % (Manual) 72.0 H Band Neutrophils % 0 Lymphocytes % (Manual) 15.0 Reactive Lymphs % (Man) 0 Monocytes % (Manual) 13.0 H Eosinophils % (Manual) 0 Basophils % (Manual) 0 Metamyelocytes % 0 Myelocytes % 0 Promyelocytes % 0 Blast Cells % 0 Nucleated RBC % 9.0 H Seg Neutrophils # Man 24.1 H Band Neutrophils # 0.0 Lymphocytes # (Manual) 5.0 Abs React Lymphs (Man) 0.0 Monocytes # (Manual) 4.4 H Eosinophils # (Manual) 0.0 Basophils # (Manual) 0.0 Metamyelocytes # 0.0 Myelocytes # 0.0 Promyelocytes # 0.0 Blast Cells # 0.0 WBC Morphology Not Reportable Hypersegmented Neuts Not Reportable Hyposegmented Neuts Not Reportable Hypogranular Neuts Not Reportable Smudge Cells Not Reportable Toxic Granulation Not Reportable Toxic Vacuolation Not Reportable Dohle Bodies Not Reportable Pelger-Huet Anomaly Not Reportable Tong Rods Not Reportable Platelet Estimate Not Reportable Clumped Platelets Not Reportable Plt Clumps, EDTA Not Reportable Large Platelets Not Reportable Giant Platelets Not Reportable Platelet Satelliting Not Reportable Plt Morphology Comment Not Reportable RBC Morphology Not Reportable Dimorphic RBCs Not Reportable Polychromasia Not Reportable Hypochromasia Not Reportable Poikilocytosis Not Reportable Anisocytosis 1+ Microcytosis 1+ Macrocytosis Not Reportable Spherocytes 1+ Pappenheimer Bodies Not Reportable Sickle Cells Not Reportable Target Cells Not Reportable Tear Drop Cells Not Reportable Ovalocytes Not Reportable Helmet Cells Not Reportable [place]zza Bodies Not Reportable [place] Rings Not Reportable [place] Cells Not Reportable Bite Cells Not Reportable Crenated Cell Not Reportable Elliptocytes Not Reportable Acanthocytes (Spur) Not Reportable Rouleaux Not Reportable Hemoglobin C Crystals Not Reportable Schistocytes Not Reportable Malaria parasites Not Reportable [place] Bodies Not Reportable Hem Pathologist Commnt No POC ABG pH ABG pH POC ABG pCO2 ABG pCO2 POC ABG pO2 ABG pO2 POC ABG HCO3 ABG HCO3 POC ABG Total CO2 POC ABG O2 Sat ABG O2 Saturation ABG O2 Content POC ABG Base Excess ABG Base Excess ABG Hemoglobin ABG Carboxyhemoglobin ABG Methemoglobin Oxyhemoglobin FiO2 Sodium Potassium Chloride Carbon Dioxide Anion Gap BUN Creatinine Estimated GFR BUN/Creatinine Ratio Glucose POC Glucose 101 Calcium NT-Pro-B Natriuret Pep Blood Type O POSITIVE Antibody Screen Positive Antibody Identification Anti-K Crossmatch See Detail 01/08/19 01/08/19 01/08/19 14:58 17:00 17:00 WBC RBC Hgb Hct MCV MCH MCHC RDW Plt Count Add Manual Diff Total Counted Seg Neuts % (Manual) Band Neutrophils % Lymphocytes % (Manual) Reactive Lymphs % (Man) Monocytes % (Manual) Eosinophils % (Manual) Basophils % (Manual) Metamyelocytes % Myelocytes % Promyelocytes % Blast Cells % Nucleated RBC % Seg Neutrophils # Man Band Neutrophils # Lymphocytes # (Manual) Abs React Lymphs (Man) Monocytes # (Manual) Eosinophils # (Manual) Basophils # (Manual) Metamyelocytes # Myelocytes # Promyelocytes # Blast Cells # WBC Morphology Hypersegmented Neuts Hyposegmented Neuts Hypogranular Neuts Smudge Cells Toxic Granulation Toxic Vacuolation Dohle Bodies Pelger-Huet Anomaly [place] Platelet Estimate Clumped Platelets Plt Clumps, EDTA Large Platelets Giant Platelets Platelet Satelliting Plt Morphology Comment RBC Morphology Dimorphic RBCs Polychromasia Hypochromasia Poikilocytosis Anisocytosis Microcytosis Macrocytosis Spherocytes Pappenheimer Bodies Sickle Cells Target Cells Tear Drop Cells Ovalocytes Helmet Cells [place] Dezza Bodies [place] Rings [place] Cells Bite Cells Crenated Cell Elliptocytes Acanthocytes (Spur) Rouleaux Hemoglobin C Crystals Schistocytes Malaria parasites Aguila Bodies Hem Pathologist Commnt POC ABG pH 7.425 ABG pH POC ABG pCO2 37.2 ABG pCO2 POC ABG pO2 74 L ABG pO2 POC ABG HCO3 24.4 ABG HCO3 POC ABG Total CO2 26 POC ABG O2 Sat 95 ABG O2 Saturation ABG O2 Content POC ABG Base Excess 0 ABG Base Excess ABG Hemoglobin ABG Carboxyhemoglobin ABG Methemoglobin Oxyhemoglobin FiO2 95 Sodium 142 Potassium 4.4 Chloride 104.3 Carbon Dioxide 23 D Anion Gap 19 BUN 18 Creatinine 0.8 D Estimated GFR > 60 BUN/Creatinine Ratio 23 Glucose 122 H POC Glucose Calcium 8.4 NT-Pro-B Natriuret Pep 3064 H Blood Type Antibody Screen Antibody Identification Crossmatch 01/09/19 01/09/19 01/09/19 04:44 04:44 06:31 WBC 29.8 H RBC 2.85 L Hgb 8.4 L Hct 25.1 L MCV 88 MCH 30 MCHC 34 RDW 17.9 H Plt Count 231 Add Manual Diff Total Counted Seg Neuts % (Manual) Band Neutrophils % Lymphocytes % (Manual) Reactive Lymphs % (Man) Monocytes % (Manual) Eosinophils % (Manual) Basophils % (Manual) Metamyelocytes % Myelocytes % Promyelocytes % Blast Cells % Nucleated RBC % Seg Neutrophils # Man Band Neutrophils # Lymphocytes # (Manual) Abs React Lymphs (Man) Monocytes # (Manual) Eosinophils # (Manual) Basophils # (Manual) Metamyelocytes # Myelocytes # Promyelocytes # Blast Cells # WBC Morphology Hypersegmented Neuts Hyposegmented Neuts Hypogranular Neuts Smudge Cells Toxic Granulation Toxic Vacuolation Dohle Bodies Pelger-Huet Anomaly [place] Platelet Estimate Clumped Platelets Plt Clumps, EDTA Large Platelets Giant Platelets Platelet Satelliting Plt Morphology Comment RBC Morphology Dimorphic RBCs Polychromasia Hypochromasia Poikilocytosis Anisocytosis Microcytosis Macrocytosis Spherocytes Pappenheimer Bodies Sickle Cells Target Cells Tear Drop Cells Ovalocytes Helmet Cells [place] Dezza Bodies [place] Rings Den[place] Cells Bite Cells Crenated Cell Elliptocytes Acanthocytes (Spur) Rouleaux Hemoglobin C Crystals Schistocytes Malaria parasites [place]ila Bodies Hem Pathologist Commnt POC ABG pH ABG pH 7.412 POC ABG pCO2 ABG pCO2 41.1 POC ABG pO2 ABG pO2 153.7 H POC ABG HCO3 ABG HCO3 25.6 POC ABG Total CO2 POC ABG O2 Sat ABG O2 Saturation 98.9 ABG O2 Content 11.4 POC ABG Base Excess ABG Base Excess 0.9 ABG Hemoglobin 8.1 L ABG Carboxyhemoglobin 1.8 ABG Methemoglobin 0.6 Oxyhemoglobin 96.6 FiO2 21 Sodium 143 Potassium 4.2 Chloride 107.3 H Carbon Dioxide 25 Anion Gap 15 BUN 22 H Creatinine 0.7 L Estimated GFR > 60 BUN/Creatinine Ratio 31 Glucose 122 H POC Glucose Calcium 8.4 NT-Pro-B Natriuret Pep Blood Type Antibody Screen Antibody Identification Crossmatch Medications & Allergies - Medications Allergies/Adverse Reactions: Allergies No Known Allergies Allergy (Verified 01/03/19 10:13) Home Medications: Home Medications Medication Instructions Recorded Confirmed Last Taken Type No Known Home Medications [No 01/03/19 01/03/19 Unknown History Reported Home Medications] Active Medications: Generic Name Dose Route Start Last Admin Trade Name Freq PRN Reason Stop Dose Admin Acetaminophen 650 mg 01/06/19 10:28 01/07/19 21:40 Tylenol MA 650 mg Q4H PRN Administration Non Cardiac Pain or Temp>100.5 Lipase/Protease/Amylase 1 each 01/08/19 13:50 Pancreaze 10,500 Unit FEEDTUBE PRN PRN For Clogged Feeding Tube Fentanyl 50 mcg 01/08/19 17:06 01/08/19 22:19 Sublimaze IV 50 mcg Q10MIN PRN Administration ANALGESIA Folic Acid 1 mg 01/06/19 21:00 01/09/19 10:00 Folvite PO 1 mg QDAY KATHY Administration Hydromorphone HCl 1 mg 01/04/19 14:25 01/09/19 10:44 Dilaudid IV 1 mg Q3H PRN Administration Pain , Severe (7-10) Hydrophilic Ointment 1 applic 01/08/19 09:35 Vaseline Lip Therapy TP Q2HR PRN Dry Lips Hydroxyurea 500 mg 01/07/19 10:00 01/08/19 10:54 Hydroxyurea PO Not Given QDAY KATHY Sodium Chloride 1,000 mls @ 100 mls/hr 01/05/19 09:00 01/06/19 20:16 Nacl 0.45% 1000 Ml IV 100 mls/hr DIRECT KATHY Administration Calcium Gluconate 2,000 mg/ 120 mls @ 240 mls/hr 01/05/19 09:09 01/07/19 03:10 Sodium Chloride IV Infused ONCE PRN Infusion Muscle Spasm Cefepime HCl 2 gm in 100 mls @ 200 mls/hr 01/06/19 14:00 01/09/19 06:14 Cefepime/Ns 2 Gm/100 Ml IV 200 mls/hr Q8HR KATHY Administration Protocol Propofol 1,000 mg in 100 mls @ 2.079 mls/hr 01/08/19 10:00 01/09/19 11:11 Diprivan 10 Mg/Ml IV 40 mcg/kg/min TITR KATHY 16.632 mls/hr Titration Protocol 5 MCG/KG/MIN Calcium Gluconate 2,000 mg/ 120 mls @ 660 mls/hr 01/08/19 13:04 Sodium Chloride IV ONCE PRN for PRBC exchange Fentanyl Citrate 2,000 mcg in 100 mls @ 3.465 mls/hr 01/08/19 18:00 Fentanyl Drip Premix IV TITR KATHY Protocol 1 MCG/KG/HR Metoclopramide HCl 10 mg 01/06/19 02:48 01/06/19 03:17 Reglan IV 10 mg Q6H PRN Administration Nausea And Vomiting Multi-Ingred Cream/Lotion/Oil/Oint 1 applic 01/08/19 09:35 Artificial Tears Ophth Oint OU Q4HR PRN Dry Eye(s) Naloxone HCl 0.1 mg 01/04/19 14:25 Naloxone IV Q2MIN PRN Res Rate </= 8 or 02 SAT < 92% Simple Syrup 15 ml 01/08/19 13:50 Simple Syrup FEEDTUBE PRN PRN Hypoglycemia Simple Syrup 30 ml 01/08/19 13:50 Simple Syrup FEEDTUBE PRN PRN Hypoglycemia Sodium Bicarbonate 325 mg 01/08/19 13:50 Sodium Bicarbonate FEEDTUBE PRN PRN For Clogged Feeding Tube
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
[2019-01-09] MEDS: fentaNYL DRIP Premix 2,000 MCG/100 ML BAG IV SCH (22:14)
[2019-01-10] MEDS: HYDROmorphone 1 MG/1 ML INJ IV PRN ×6 (00:33→20:39)
[2019-01-10] MEDS: PROPOFOL 1,000 MG/100 ML BOTTLE IV SCH ×3 (00:43→09:29)
[2019-01-10] MEDS: fentaNYL 100 MCG/2 ML INJ IV PRN (02:12)
--- NOTE | 2019-01-10 04:12 | XRay Report ---
CHEST 1 VIEW INDICATION / CLINICAL INFORMATION: follow up respiratory failure. COMPARISON: 01/09/2019 FINDINGS: SUPPORT DEVICES: Feeding tube and right IJ central venous line are stable in position. HEART / MEDIASTINUM: Cardiac size remains mildly enlarged. LUNGS / PLEURA: Bilateral pulmonary disease persists but does appear to be improving especially withi n the lower lobes. Previously noted small right basilar pneumothorax and pneumomediastinum have signi ficantly improved. Previously noted subcutaneous emphysema has nearly completely resolved. ADDITIONAL FINDINGS: No significant additional findings. IMPRESSION: 1. Overall improvement in the appearance of the chest radiograph. This includes improved appearance o f right basilar pneumothorax and pneumomediastinum. Additionally bilateral pulmonary opacities have s hown improvement as well. Signer Name: Emeli Scott MD Signed: 01/10/2019 4:08 AM Workstation Name: [id number]
[2019-01-10] MEDS: CEFEPIME/NS 2 GM/100 ML 2 GM/100 ML BAG IV SCH ×3 (05:32→21:23)
[2019-01-10 06:21] LABS: ABG HCO3 26.9 mmol/L (20.0-26.0); ABG Methemoglobin 0.6 % (0.0-1.5); ABG Oxygen Saturation 89.2 % (95.0-99.0); ABG PCO2 43.8 mm Hg; ABG PH 7.406 pH Units (7.350-7.450); ABG PO2 59.8 mm Hg (80.0-90.0)
--- NOTE | 2019-01-10 07:48 | Hem/Onc Progress Note ---
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 Anemia. MCV is normal. History of sickle cell disease. The patient says he is not on folic acid or hydroxyurea. deficiency investigation. The patient says he has relocated from [place] to [place]. At this time, he is self- pay. 2. Elevated bilirubin, likely secondary to hemolysis. 3. Generalized pain issues. He is on pain medications. 4. He is also on antibiotics for possible pneumonia, sepsis. 5. Elevated white cell count, likely reactive. I will follow the patient during inpatient stay. h/o anemia - PRBC - o2 support hydrea trial pt got RBC exchange pt had become SOB and intubated d/w sister ARDS a differential no benefit of second RBC exchange RN called t say ID wants cath removed - OK if OK by Pulm team awake - on pain meds - Patient Problems (1) Sickle cell crisis Current Visit: Yes Status: Acute Subjective Date of service: 01/10/19 Principal diagnosis: sickle cell disease Interval history: awake - on vent Objective - Exam Narrative Exam: Pain - n/a - pt intubated General appearance - awake Performance status complete dependence Eyes - no icterus ENT - intubated LNs cervical not palpable Neck - no LN Respiratory Normal Breath sounds - CTA anteriorly CVS S1 S2 + Extremities no edema General GI Soft Rectal deferred male - deferred Skin warm Musculoskeletal - moving limbs Neurologically awake - Constitutional Vitals: Last Vital Signs Temp 99.9 F H 01/10/19 04:00 Pulse 106 H 01/10/19 07:00 Resp 30 H 01/10/19 07:00 BP 112/43 01/10/19 07:00 Pulse Ox 94 01/10/19 07:00 - Labs Lab Results: Laboratory Results - last 24 hr 01/08/19 01/10/19 13:18 05:50 ABG pH 7.406 ABG pCO2 43.8 ABG pO2 59.8 L ABG HCO3 26.9 H ABG O2 Saturation 89.2 L ABG O2 Content 9.9 ABG Base Excess 2.0 ABG Hemoglobin 8.1 L ABG Carboxyhemoglobin 2.3 ABG Methemoglobin 0.6 Oxyhemoglobin 86.6 L FiO2 60 Crossmatch See Detail Medications & Allergies - Medications Allergies/Adverse Reactions: Allergies No Known Allergies Allergy (Verified 01/03/19 10:13) Home Medications: Home Medications Medication Instructions Recorded Confirmed Last Taken Type No Known Home Medications [No 01/03/19 01/03/19 Unknown History Reported Home Medications] Active Medications: Generic Name Dose Route Start Last Admin Trade Name Freq PRN Reason Stop Dose Admin Acetaminophen 650 mg 01/06/19 10:28 01/07/19 21:40 Tylenol [place] 650 mg Q4H PRN Administration Non Cardiac Pain or Temp>100.5 Lipase/Protease/Amylase 1 each 01/08/19 13:50 Pancreaze 10,500 Unit FEEDTUBE PRN PRN For Clogged Feeding Tube Fentanyl 50 mcg 01/08/19 17:06 01/10/19 02:12 Sublimaze IV 50 mcg Q10MIN PRN Administration ANALGESIA Folic Acid 1 mg 01/06/19 21:00 01/09/19 10:00 Folvite PO 1 mg QDAY KATHY Administration Hydromorphone HCl 1 mg 01/04/19 14:25 01/10/19 03:34 Dilaudid IV 1 mg Q3H PRN Administration Pain , Severe (7-10) Hydrophilic Ointment 1 applic 01/08/19 09:35 Vaseline Lip Therapy TP Q2HR PRN Dry Lips Hydroxyurea 500 mg 01/07/19 10:00 01/09/19 10:00 Hydroxyurea PO Not Given QDAY KATHY Sodium Chloride 1,000 mls @ 100 mls/hr 01/05/19 09:00 01/06/19 20:16 Nacl 0.45% 1000 Ml IV 100 mls/hr DIRECT KATHY Administration Calcium Gluconate 2,000 mg/ 120 mls @ 240 mls/hr 01/05/19 09:09 01/07/19 03:10 Sodium Chloride IV Infused ONCE PRN Infusion Muscle Spasm Cefepime HCl 2 gm in 100 mls @ 200 mls/hr 01/06/19 14:00 01/10/19 05:32 Cefepime/Ns 2 Gm/100 Ml IV 200 mls/hr Q8HR KATHY Administration Protocol Propofol 1,000 mg in 100 mls @ 2.079 mls/hr 01/08/19 10:00 01/10/19 04:31 Diprivan 10 Mg/Ml IV 50 mcg/kg/min TITR KATHY 20.79 mls/hr Administration Protocol 5 MCG/KG/MIN Calcium Gluconate 2,000 mg/ 120 mls @ 660 mls/hr 01/08/19 13:04 Sodium Chloride IV ONCE PRN for PRBC exchange Fentanyl Citrate 2,000 mcg in 100 mls @ 3.465 mls/hr 01/08/19 18:00 01/09/19 22:14 Fentanyl Drip Premix IV 4 mcg/kg/hr TITR KATHY 13.86 mls/hr Administration Protocol 1 MCG/KG/HR Metoclopramide HCl 10 mg 01/06/19 02:48 01/06/19 03:17 Reglan IV 10 mg Q6H PRN Administration Nausea And Vomiting Multi-Ingred Cream/Lotion/Oil/Oint 1 applic 01/08/19 09:35 Artificial Tears Ophth Oint OU Q4HR PRN Dry Eye(s) Naloxone HCl 0.1 mg 01/04/19 14:25 Naloxone IV Q2MIN PRN Res Rate </= 8 or 02 SAT < 92% Simple Syrup 15 ml 01/08/19 13:50 Simple Syrup FEEDTUBE PRN PRN Hypoglycemia Simple Syrup 30 ml 01/08/19 13:50 Simple Syrup FEEDTUBE PRN PRN Hypoglycemia Sodium Bicarbonate 325 mg 01/08/19 13:50 Sodium Bicarbonate FEEDTUBE PRN PRN For Clogged Feeding Tube
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
[2019-01-10] MEDS: fentaNYL DRIP Premix 2,000 MCG/100 ML BAG IV SCH ×3 (08:46→19:35)
[2019-01-10] MEDS: FOLIC ACID 1 MG TAB PO SCH (09:04)
[2019-01-10] MEDS: HYDROXYUREA 500 MG CAP PO SCH (09:05)
[2019-01-10 09:12] LABS: Basophils # (Auto) 0.2 K/mm3 (0.0-0.1); Eosinophils # (Auto) 1.4 K/mm3 (0.0-0.4); Eosinophils % (Auto) 5.4 % (0.0-4.3); Hematocrit 25.9 % (35.5-45.6); Hemoglobin 8.4 gm/dl (11.8-15.2); Mean Corpuscular HGB Conc 33 % (32-34); Mean Corpuscular Volume 90 fl (84-94); Monocytes % (Auto) 7.7 % (0.0-7.3); Platelet Count 274 K/mm3 (140-440); Red Blood Count 2.89 M/mm3 (3.65-5.03); Red Cell Distribution Width 18.5 % (13.2-15.2)
[2019-01-10] MEDS: FAMOTIDINE 20 MG/2 ML INJ IV SCH ×2 (09:24→21:23)
[2019-01-10 09:25] LABS: Alanine Aminotransferase 55 units/L (7-56); Albumin 2.5 g/dL (3.9-5); BUN/Creatinine Ratio 26; Blood Urea Nitrogen 21 mg/dL (9-20); Calcium 8.3 mg/dL (8.4-10.2); Hemolysis Index 5
[2019-01-10] MEDS: ENOXAPARIN 40 MG/0.4 ML INJ SUB-Q SCH (10:38)
[2019-01-10] MEDS: DEXMEDETOMIDINE 400 MCG in SODIUM CHLORIDE 0.9% 100 ML IV SCH ×2 (10:38→20:38)
--- NOTE | 2019-01-10 10:41 | Progress Note ---
Assessment and Plan 24 y/o male with sickle cell anemia admitted with acute chest syndrome and now acute respiratory failure requiring mechanical ventilation secondary to worsening acute chest vs pulmonary edema. Full blow ARDs 1. Follow up echo read 2. Triglycerides were 400. Will stop Diprovan and place on Precedex. 3. Continue PEEP at 14 until FIO2 is at 40% 4. Continue sedation, please do not stop fentanyl drip 5. Follow up ID recs. Continue abx therapy 6. OVerall guarded prognosis, discussed with sister at bedside. CCT 31 minutes. Subjective Date of service: 01/10/19 Principal diagnosis: sickle cell disease Interval history: Had some desaturations this am. FiO2 increased from 60 to 70. Sats now in the mid 90's. CXR was improved this am. Getting echo now and await read. Objective Vital Signs - 12hr 01/09/19 01/09/19 01/10/19 22:58 23:00 00:00 Temperature 98.8 F Pulse Rate 110 H 108 H 106 H Pulse Rate [ 107 H From Monitor] Respiratory 32 H 36 H 28 H Rate Blood Pressure 113/48 119/59 111/59 O2 Sat by Pulse 94 96 94 Oximetry 01/10/19 01/10/19 01/10/19 00:48 01:00 02:00 Temperature Pulse Rate 108 H 109 H 115 H Pulse Rate [ From Monitor] Respiratory 34 H 37 H Rate Blood Pressure 130/49 125/49 125/57 O2 Sat by Pulse 96 92 96 Oximetry 01/10/19 01/10/19 01/10/19 03:00 04:00 05:00 Temperature 99.9 F H Pulse Rate 109 H 105 H 108 H Pulse Rate [ 106 H From Monitor] Respiratory 32 H 34 H 33 H Rate Blood Pressure 111/42 108/37 111/42 O2 Sat by Pulse 97 95 93 Oximetry 01/10/19 01/10/19 01/10/19 05:29 06:00 07:00 Temperature Pulse Rate 108 H 107 H 106 H Pulse Rate [ From Monitor] Respiratory 29 H 30 H Rate Blood Pressure 111/41 112/42 112/43 O2 Sat by Pulse 96 92 94 Oximetry 01/10/19 01/10/19 01/10/19 08:00 08:20 09:00 Temperature 98.4 F Pulse Rate 107 H 106 H 113 H Pulse Rate [ 98 H From Monitor] Respiratory 33 H 22 Rate Blood Pressure 116/41 112/43 131/47 O2 Sat by Pulse 95 94 92 Oximetry 01/10/19 10:00 Temperature Pulse Rate 113 H Pulse Rate [ From Monitor] Respiratory 33 H Rate Blood Pressure 123/55 O2 Sat by Pulse 88 Oximetry CBC and BMP: 01/10/19 08:39 01/10/19 08:39 ABG, PT/INR, D-dimer: ABG POC ABG pH 7.425 (7.35-7.45) 01/08/19 14:58 ABG pH 7.406 pH Units (7.350-7.450) 01/10/19 05:50 POC ABG pCO2 37.2 (35-45) 01/08/19 14:58 ABG pCO2 43.8 mm Hg 01/10/19 05:50 POC ABG pO2 74 (80-105) L 01/08/19 14:58 ABG pO2 59.8 mm Hg (80.0-90.0) L 01/10/19 05:50 POC ABG HCO3 24.4 (22-26 mml/L) 01/08/19 14:58 POC ABG Total CO2 26 (23-27mmol/L) 01/08/19 14:58 POC ABG O2 Sat 95 01/08/19 14:58 ABG O2 Saturation 89.2 % (95.0-99.0) L 01/10/19 05:50 PT/INR, D-dimer PT 24.3 Sec. (12.2-14.9) H 01/05/19 08:24 INR 2.23 (0.87-1.13) H 01/05/19 08:24 D-Dimer 2064.49 ng/mlDDU (0-234) H 01/03/19 11:17 Abnormal lab findings: Abnormal Labs 01/03/19 01/03/19 01/03/19 10:34 10:34 11:17 WBC 34.2 H RBC 2.43 L Hgb 7.9 L Hct 21.9 L MCH 33 H MCHC 36 H RDW 29.2 H Plt Count [place] % (Auto) Eos % (Auto) [place] # Eos # Baso # Seg Neutrophils % Seg Neuts % (Manual) 85.0 H Lymphocytes % (Manual) 6.0 L Monocytes % (Manual) 9.0 H Nucleated RBC % 1.0 H Seg Neutrophils # Seg Neutrophils # Man 29.1 H Lymphocytes # (Manual) Monocytes # (Manual) 3.1 H Percent Retic 21.81 H PT INR APTT D-Dimer POC ABG pH POC ABG pCO2 POC ABG pO2 ABG pO2 ABG HCO3 ABG O2 Saturation ABG Hemoglobin Oxyhemoglobin Sodium 136 L 135 L Potassium 5.3 H Chloride Carbon Dioxide 20 L BUN Creatinine 0.6 L 0.7 L Glucose 123 H 112 H Calcium Iron TIBC Ferritin Total Bilirubin 8.00 H AST 100 H ALT Alkaline Phosphatase Lactate Dehydrogenase NT-Pro-B Natriuret Pep Total Protein Albumin Triglycerides Lipase Crossmatch 01/03/19 01/03/19 01/03/19 11:17 14:19 18:52 WBC 36.5 H RBC 2.32 L Hgb 7.8 L Hct 21.6 L MCH 34 H MCHC 36 H RDW 28.3 H Plt Count [place] % (Auto) Eos % (Auto) [place] # Eos # Baso # Seg Neutrophils % Seg Neuts % (Manual) 88.0 H Lymphocytes % (Manual) 4.0 L Monocytes % (Manual) 8.0 H Nucleated RBC % 4.0 H Seg Neutrophils # Seg Neutrophils # Man 32.1 H Lymphocytes # (Manual) Monocytes # (Manual) 2.9 H Percent Retic PT INR APTT D-Dimer 2064.49 H POC ABG pH POC ABG pCO2 POC ABG pO2 ABG pO2 ABG HCO3 ABG O2 Saturation ABG Hemoglobin Oxyhemoglobin Sodium Potassium Chloride Carbon Dioxide BUN Creatinine Glucose Calcium Iron TIBC Ferritin Total Bilirubin AST ALT Alkaline Phosphatase Lactate Dehydrogenase NT-Pro-B Natriuret Pep Total Protein Albumin Triglycerides Lipase 6 L Crossmatch 01/04/19 01/04/19 01/05/19 08:05 08:05 08:24 WBC 54.8 H* RBC 1.28 L Hgb 4.2 L* D Hct 11.1 L* D MCH 33 H MCHC 38 H* RDW 22.3 H Plt Count 134 L [place] % (Auto) Eos % (Auto) [place] # Eos # Baso # Seg Neutrophils % Seg Neuts % (Manual) Lymphocytes % (Manual) 1.0 L Monocytes % (Manual) 15.0 H Nucleated RBC % 3.0 H Seg Neutrophils # Seg Neutrophils # Man 35.1 H Lymphocytes # (Manual) 0.5 L Monocytes # (Manual) 8.2 H Percent Retic PT INR APTT D-Dimer POC ABG pH POC ABG pCO2 POC ABG pO2 ABG pO2 ABG HCO3 ABG O2 Saturation ABG Hemoglobin Oxyhemoglobin Sodium Potassium Chloride Carbon Dioxide BUN Creatinine Glucose Calcium Iron 19 L TIBC 218 L Ferritin 854.8 H Total Bilirubin AST ALT Alkaline Phosphatase Lactate Dehydrogenase NT-Pro-B Natriuret Pep Total Protein Albumin Triglycerides Lipase Crossmatch 01/05/19 01/05/19 01/05/19 08:24 08:24 08:24 WBC RBC Hgb Hct MCH MCHC RDW Plt Count [place] % (Auto) Eos % (Auto) [place] # Eos # Baso # Seg Neutrophils % Seg Neuts % (Manual) Lymphocytes % (Manual) Monocytes % (Manual) Nucleated RBC % Seg Neutrophils # Seg Neutrophils # Man Lymphocytes # (Manual) Monocytes # (Manual) Percent Retic PT 24.3 H INR 2.23 H APTT 53.5 H D-Dimer POC ABG pH POC ABG pCO2 POC ABG pO2 ABG pO2 ABG HCO3 ABG O2 Saturation ABG Hemoglobin Oxyhemoglobin Sodium Potassium 5.2 H D Chloride Carbon Dioxide 15 L BUN 40 H Creatinine 0.3 L D Glucose 121 H Calcium 8.3 L Iron TIBC Ferritin Total Bilirubin 31.80 H AST 164 H ALT 83 H Alkaline Phosphatase Lactate Dehydrogenase 1048 H NT-Pro-B Natriuret Pep Total Protein 6.0 L Albumin 3.6 L Triglycerides Lipase Crossmatch 01/05/19 01/05/19 01/05/19 08:26 08:26 09:48 WBC 54.8 H* RBC 1.26 L Hgb 4.1 L* Hct 10.9 L* MCH 33 H MCHC 38 H* RDW 22.0 H Plt Count 127 L [place] % (Auto) Eos % (Auto) [place] # Eos # Baso # Seg Neutrophils % Seg Neuts % (Manual) Lymphocytes % (Manual) Monocytes % (Manual) Nucleated RBC % Seg Neutrophils # Seg Neutrophils # Man Lymphocytes # (Manual) Monocytes # (Manual) Percent Retic PT INR APTT D-Dimer POC ABG pH POC ABG pCO2 POC ABG pO2 ABG pO2 ABG HCO3 ABG O2 Saturation ABG Hemoglobin Oxyhemoglobin Sodium Potassium Chloride Carbon Dioxide BUN Creatinine Glucose Calcium Iron TIBC Ferritin Total Bilirubin AST ALT Alkaline Phosphatase Lactate Dehydrogenase NT-Pro-B Natriuret Pep Total Protein Albumin Triglycerides Lipase Crossmatch See Detail See Detail 01/06/19 01/06/19 01/06/19 00:30 18:03 23:02 WBC 56.5 H* 44.3 H* RBC 1.76 L 2.41 L Hgb 5.6 L* 7.4 L Hct 15.8 L* 21.8 L D MCH MCHC 36 H RDW 19.8 H 18.4 H Plt Count [place] % (Auto) Eos % (Auto) [place] # Eos # Baso # Seg Neutrophils % Seg Neuts % (Manual) 90.0 H Lymphocytes % (Manual) 4.5 L Monocytes % (Manual) Nucleated RBC % Seg Neutrophils # Seg Neutrophils # Man 50.9 H Lymphocytes # (Manual) Monocytes # (Manual) 2.5 H Percent Retic PT INR APTT D-Dimer POC ABG pH 7.452 H POC ABG pCO2 29.4 L POC ABG pO2 ABG pO2 ABG HCO3 ABG O2 Saturation ABG Hemoglobin Oxyhemoglobin Sodium Potassium Chloride Carbon Dioxide BUN Creatinine Glucose Calcium Iron TIBC Ferritin Total Bilirubin AST ALT Alkaline Phosphatase Lactate Dehydrogenase NT-Pro-B Natriuret Pep Total Protein Albumin Triglycerides Lipase Crossmatch 01/08/19 01/08/19 01/08/19 09:33 12:10 13:18 WBC RBC Hgb Hct MCH MCHC RDW Plt Count [place] % (Auto) Eos % (Auto) [place] # Eos # Baso # Seg Neutrophils % Seg Neuts % (Manual) Lymphocytes % (Manual) Monocytes % (Manual) Nucleated RBC % Seg Neutrophils # Seg Neutrophils # Man Lymphocytes # (Manual) Monocytes # (Manual) Percent Retic PT INR APTT D-Dimer POC ABG pH POC ABG pCO2 POC ABG pO2 71 L 73 L ABG pO2 ABG HCO3 ABG O2 Saturation ABG Hemoglobin Oxyhemoglobin Sodium Potassium Chloride Carbon Dioxide BUN Creatinine Glucose Calcium Iron TIBC Ferritin Total Bilirubin AST ALT Alkaline Phosphatase Lactate Dehydrogenase NT-Pro-B Natriuret Pep Total Protein Albumin Triglycerides Lipase Crossmatch See Detail 01/08/19 01/08/19 01/08/19 13:18 14:58 17:00 WBC 33.5 H RBC 3.34 L Hgb 9.9 L Hct 29.2 L D MCH MCHC RDW 17.7 H Plt Count [place] % (Auto) Eos % (Auto) [place] # Eos # Baso # Seg Neutrophils % Seg Neuts % (Manual) 72.0 H Lymphocytes % (Manual) Monocytes % (Manual) 13.0 H Nucleated RBC % 9.0 H Seg Neutrophils # Seg Neutrophils # Man 24.1 H Lymphocytes # (Manual) Monocytes # (Manual) 4.4 H Percent Retic PT INR APTT D-Dimer POC ABG pH POC ABG pCO2 POC ABG pO2 74 L ABG pO2 ABG HCO3 ABG O2 Saturation ABG Hemoglobin Oxyhemoglobin Sodium Potassium Chloride Carbon Dioxide BUN Creatinine Glucose 122 H Calcium Iron TIBC Ferritin Total Bilirubin AST ALT Alkaline Phosphatase Lactate Dehydrogenase NT-Pro-B Natriuret Pep Total Protein Albumin Triglycerides Lipase Crossmatch 01/08/19 01/09/19 01/09/19 17:00 04:44 04:44 WBC 29.8 H RBC 2.85 L Hgb 8.4 L Hct 25.1 L MCH MCHC RDW 17.9 H Plt Count [place] % (Auto) Eos % (Auto) [place] # Eos # Baso # Seg Neutrophils % Seg Neuts % (Manual) Lymphocytes % (Manual) Monocytes % (Manual) Nucleated RBC % Seg Neutrophils # Seg Neutrophils # Man Lymphocytes # (Manual) Monocytes # (Manual) Percent Retic PT INR APTT D-Dimer POC ABG pH POC ABG pCO2 POC ABG pO2 ABG pO2 ABG HCO3 ABG O2 Saturation ABG Hemoglobin Oxyhemoglobin Sodium Potassium Chloride 107.3 H Carbon Dioxide BUN 22 H Creatinine 0.7 L Glucose 122 H Calcium Iron TIBC Ferritin Total Bilirubin AST ALT Alkaline Phosphatase Lactate Dehydrogenase NT-Pro-B Natriuret Pep 3064 H Total Protein Albumin Triglycerides Lipase Crossmatch 01/09/19 01/10/19 01/10/19 06:31 05:50 08:39 WBC RBC 2.89 L Hgb 8.4 L Hct 25.9 L MCH MCHC RDW 18.5 H Plt Count [place] % (Auto) 7.7 H Eos % (Auto) 5.4 H Reeves # 2.0 H Eos # 1.4 H Baso # 0.2 H Seg Neutrophils % 75.5 H Seg Neuts % (Manual) Lymphocytes % (Manual) Monocytes % (Manual) Nucleated RBC % Seg Neutrophils # 19.7 H Seg Neutrophils # Man Lymphocytes # (Manual) Monocytes # (Manual) Percent Retic PT INR APTT D-Dimer POC ABG pH POC ABG pCO2 POC ABG pO2 ABG pO2 153.7 H 59.8 L ABG HCO3 26.9 H ABG O2 Saturation 89.2 L ABG Hemoglobin 8.1 L 8.1 L Oxyhemoglobin 86.6 L Sodium Potassium Chloride Carbon Dioxide BUN Creatinine Glucose Calcium Iron TIBC Ferritin Total Bilirubin AST ALT Alkaline Phosphatase Lactate Dehydrogenase NT-Pro-B Natriuret Pep Total Protein Albumin Triglycerides Lipase Crossmatch 01/10/19 01/10/19 08:39 08:39 WBC RBC Hgb Hct MCH MCHC RDW Plt Count [place] % (Auto) Eos % (Auto) [place] # Eos # Baso # Seg Neutrophils % Seg Neuts % (Manual) Lymphocytes % (Manual) Monocytes % (Manual) Nucleated RBC % Seg Neutrophils # Seg Neutrophils # Man Lymphocytes # (Manual) Monocytes # (Manual) Percent Retic PT INR APTT D-Dimer POC ABG pH POC ABG pCO2 POC ABG pO2 ABG pO2 ABG HCO3 ABG O2 Saturation ABG Hemoglobin Oxyhemoglobin Sodium Potassium Chloride 108.6 H Carbon Dioxide BUN 21 H Creatinine Glucose 108 H Calcium 8.3 L Iron TIBC Ferritin Total Bilirubin 3.90 H AST 62 H ALT Alkaline Phosphatase 179 H Lactate Dehydrogenase NT-Pro-B Natriuret Pep Total Protein 6.2 L Albumin 2.5 L Triglycerides 416 H Lipase Crossmatch
[2019-01-10] MEDS ORDERED: LIPASE 10,500/PROTEASE 25,000/AMYLASE 43,750 (UNITS) DR CAP FEEDTUBE PRN (11:14)
[2019-01-10] MEDS ORDERED: SODIUM BICARBONATE 325 MG TAB FEEDTUBE PRN (11:14)
[2019-01-10] MEDS ORDERED: SIMPLE SYRUP 15 ML FEEDTUBE PRN ×2 (11:14)
--- NOTE | 2019-01-10 11:42 | Progress Note ---
Assessment and Plan Cultures: 01/03/19 blood cultures - no growth to date 01/04/2019 sputum: contaminated specimen A/P: 24 yo M PMhx sickle cell disease presents with fevers and myalgias, likely an acute chest syndrome vs pneumonia 1. Acute sepsis - present with fevers and leukocytosis, likely secondary to pneumonia 2. Pneumonia - vs acute chest syndrome, though they are indistinguishable and treated the same. Continue cefepime. 3. Sickle cell disease 4. Acute pain crisis 5. Persistent fevers - possibly due to sickle crisis, though patient now requiring more respitaory support. On cefepime. Leukocytosis likely reactive and also from sickle cell disease. 6. Acute respiratory failure with hypoxia - intubated, on vent. Recs: Tentative plan to stop Cefepime after tomorrow's dose Michael Sterling MD, FACP [facility] ([facility]) M: [phone] O: [phone] F: [phone] Subjective Date of service: 01/10/19 Principal diagnosis: sickle cell disease Interval history: no fever for 2 days. Remains on the vent. Somewhat restless. Sedated. Objective - Exam Narrative Exam: Physical Exam: Constitutional: sedated, intubated Head, Ears, Nose: Normocephalic, atraumatic. External ears, nose normal Eyes: Conjunctivae/corneas clear. No icterus. No ptosis. Neck: intubated Oral: intubated Cardiovascular: S1, S2 normal. Respiratory: Good air entry, clear to auscultation bilaterally GI: Soft, non-tender; bowel sounds normal. No peritoneal signs Musculoskeletal: No pedal edema, no cyanosis. Skin: No rash or abscess Hem/Lymphatic: No palpable cervical or supraclavicular nodes. No lymphangitis Psych: restless Neurological: sedated, intubated, on vent - Constitutional Vitals: Vital Signs Temp Pulse Resp BP Pulse Ox 98.4 F 113 H 33 H 123/55 88 01/10/19 08:00 01/10/19 10:00 01/10/19 10:00 01/10/19 10:00 01/10/19 10:00 Temperature -Last 24 Hours Temperature 98.4 F Temperature 99.9 F Temperature 98.8 F Temperature 99.3 F Temperature 98.8 F Temperature 98.4 F - Labs CBC & Chem 7: 01/10/19 08:39 01/10/19 08:39 Labs: Abnormal lab results 01/08/19 01/10/19 01/10/19 Range/Units 13:18 05:50 08:39 RBC 2.89 L (3.65-5.03) M/mm3 Hgb 8.4 L (11.8-15.2) gm/dl Hct 25.9 L (35.5-45.6) % RDW 18.5 H (13.2-15.2) % [place] % (Auto) 7.7 H (0.0-7.3) % Eos % (Auto) 5.4 H (0.0-4.3) % [place] # 2.0 H (0.0-0.8) K/mm3 Eos # 1.4 H (0.0-0.4) K/mm3 Baso # 0.2 H (0.0-0.1) K/mm3 Seg Neutrophils % 75.5 H (40.0-70.0) % Seg Neutrophils # 19.7 H (1.8-7.7) K/mm3 ABG pO2 59.8 L (80.0-90.0) mm Hg ABG HCO3 26.9 H (20.0-26.0) mmol/L ABG O2 Saturation 89.2 L (95.0-99.0) % ABG Hemoglobin 8.1 L (14.0-18.0) gm/dl Oxyhemoglobin 86.6 L (95.0-99.0) % Chloride (98-107) mmol/L BUN (9-20) mg/dL Glucose (75-100) mg/dL Calcium (8.4-10.2) mg/dL Total Bilirubin (0.1-1.2) mg/dL AST (5-40) units/L Alkaline Phosphatase (35-129) units/L Total Protein (6.3-8.2) g/dL Albumin (3.9-5) g/dL Triglycerides (2-149) mg/dL Crossmatch See Detail 01/10/19 01/10/19 Range/Units 08:39 08:39 RBC (3.65-5.03) M/mm3 Hgb (11.8-15.2) gm/dl Hct (35.5-45.6) % RDW (13.2-15.2) % [place] % (Auto) (0.0-7.3) % Eos % (Auto) (0.0-4.3) % [place] # (0.0-0.8) K/mm3 Eos # (0.0-0.4) K/mm3 Baso # (0.0-0.1) K/mm3 Seg Neutrophils % (40.0-70.0) % Seg Neutrophils # (1.8-7.7) K/mm3 ABG pO2 (80.0-90.0) mm Hg ABG HCO3 (20.0-26.0) mmol/L ABG O2 Saturation (95.0-99.0) % ABG Hemoglobin (14.0-18.0) gm/dl Oxyhemoglobin (95.0-99.0) % Chloride 108.6 H (98-107) mmol/L BUN 21 H (9-20) mg/dL Glucose 108 H (75-100) mg/dL Calcium 8.3 L (8.4-10.2) mg/dL Total Bilirubin 3.90 H (0.1-1.2) mg/dL AST 62 H (5-40) units/L Alkaline Phosphatase 179 H (35-129) units/L Total Protein 6.2 L (6.3-8.2) g/dL Albumin 2.5 L (3.9-5) g/dL Triglycerides 416 H (2-149) mg/dL Crossmatch - Imaging and cardiology Chest x-ray: report reviewed, image reviewed (ET tube +. Interval improvement +)
[2019-01-10 12:40] LABS: Basophils % (Manual) 0 % (0.0-1.8); Total Cells Counted 100
[2019-01-10 12:41] LABS: Anisocytosis Few; Hypochromasia Few; Platelet Estimate Consistent w Auto; Poikilocytosis Few; Target Cells Few
[2019-01-11] MEDS: HYDROmorphone 1 MG/1 ML INJ IV PRN ×2 (00:10→08:01)
[2019-01-11] MEDS: fentaNYL DRIP Premix 2,000 MCG/100 ML BAG IV SCH ×4 (03:00→21:11)
[2019-01-11] MEDS: DEXMEDETOMIDINE 400 MCG in SODIUM CHLORIDE 0.9% 100 ML IV SCH ×5 (03:05→22:00)
--- NOTE | 2019-01-11 03:09 | XRay Report ---
CHEST 1 VIEW INDICATION / CLINICAL INFORMATION: follow up respiratory failure. COMPARISON: 01/10/2019 FINDINGS: SUPPORT DEVICES: Tubes and lines are stable in position. HEART / MEDIASTINUM: Cardiac enlargement persist unchanged LUNGS / PLEURA: Bilateral pulmonary opacities, most notable in the right lung base persist. The right basilar pulmonary disease may be slightly worse. Previously noted pneumothorax is no longer identifi ed. Previously noted pneumomediastinum is barely visible Previously noted subcutaneous emphysema has completely resolved. No pneumothorax. ADDITIONAL FINDINGS: No significant additional findings. IMPRESSION: 1. Focal pulmonary disease in the right lung base appears more prominent. Additional bilateral pulmon chari disease is grossly stable. 2. Previously noted small right pneumothorax is no longer identified. Previously noted pneumomediasti num continues to show improvement and is barely visible. Signer Name: Emeli Scott MD Signed: 01/11/2019 3:04 AM Workstation Name: [id number]
[2019-01-11 05:41] LABS: Hematocrit 25.6 % (35.5-45.6); Hemoglobin 8.2 gm/dl (11.8-15.2); Mean Corpuscular HGB Conc 32 % (32-34); Mean Corpuscular Volume 89 fl (84-94); Platelet Count 324 K/mm3 (140-440); Red Blood Count 2.87 M/mm3 (3.65-5.03); Red Cell Distribution Width 17.9 % (13.2-15.2)
[2019-01-11] MEDS: CEFEPIME/NS 2 GM/100 ML 2 GM/100 ML BAG IV SCH ×3 (05:51→21:12)
[2019-01-11 06:07] LABS: BUN/Creatinine Ratio 29; Blood Urea Nitrogen 26 mg/dL (9-20); Calcium 8.2 mg/dL (8.4-10.2); Hemolysis Index 8
--- NOTE | 2019-01-11 07:06 | Hem/Onc Progress Note ---
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 Anemia. MCV is normal. History of sickle cell disease. The patient says he is not on folic acid or hydroxyurea. deficiency investigation. The patient says he has relocated from [place] to [place]. At this time, he is self- pay. 2. Elevated bilirubin, likely secondary to hemolysis. 3. Generalized pain issues. He is on pain medications. 4. He is also on antibiotics for possible pneumonia, sepsis. 5. Elevated white cell count, likely reactive. I will follow the patient during inpatient stay. h/o anemia - PRBC - o2 support hydrea trial pt got RBC exchange pt had become SOB and intubated d/w sister ARDS a differential no benefit of second RBC exchange awake - on pain meds on PEEP- high % o2 - Patient Problems (1) Sickle cell crisis Current Visit: Yes Status: Acute Subjective Date of service: 01/11/19 Principal diagnosis: sickle cell disease Interval history: on vent on sedation Objective - Exam Narrative Exam: Pain - n/a - pt intubated General appearance - awake Performance status complete dependence Eyes - no icterus ENT - intubated LNs cervical not palpable Neck - no LN Respiratory Normal Breath sounds - CTA anteriorly CVS S1 S2 + Extremities no edema General GI Soft Rectal deferred male - deferred Skin warm Musculoskeletal - moving limbs Neurologically awake - Constitutional Vitals: Last Vital Signs Temp 99.6 F 01/11/19 03:38 Pulse 88 01/11/19 06:00 Resp 26 H 01/11/19 06:00 BP 119/58 01/11/19 06:00 Pulse Ox 94 01/11/19 06:00 - Labs Lab Results: Laboratory Results - last 24 hr 01/08/19 01/10/19 01/10/19 13:18 08:39 08:39 WBC 24.5 H RBC 2.89 L Hgb 8.4 L Hct 25.9 L MCV 90 MCH 29 MCHC 33 RDW 18.5 H Plt Count 274 [place] % (Auto) 7.7 H Eos % (Auto) 5.4 H [place] # 2.0 H Eos # 1.4 H Baso # 0.2 H Add Manual Diff Complete Total Counted 100 Seg Neutrophils % 75.5 H Seg Neuts % (Manual) 75.0 H Band Neutrophils % 0 Lymphocytes % (Manual) 11.0 L Reactive Lymphs % (Man) 0 Monocytes % (Manual) 5.0 Eosinophils % (Manual) 7.0 H Basophils % (Manual) 0 Metamyelocytes % 2.0 Myelocytes % 0 Promyelocytes % 0 Blast Cells % 0 Nucleated RBC % 28.0 H Seg Neutrophils # 19.7 H Seg Neutrophils # Man 0.0 L Band Neutrophils # 0.0 Lymphocytes # (Manual) 0.0 L Abs React Lymphs (Man) 0.0 Monocytes # (Manual) 0.0 Eosinophils # (Manual) 0.0 Basophils # (Manual) 0.0 Metamyelocytes # 0.0 Myelocytes # 0.0 Promyelocytes # 0.0 Blast Cells # 0.0 WBC Morphology Not Reportable Hypersegmented Neuts Not Reportable Hyposegmented Neuts Not Reportable Hypogranular Neuts Not Reportable Smudge Cells Not Reportable Toxic Granulation Not Reportable Toxic Vacuolation Not Reportable Dohle Bodies Not Reportable Pelger-Huet Anomaly Not Reportable Tong Rods Not Reportable Platelet Estimate Consistent w auto Clumped Platelets Not Reportable Plt Clumps, EDTA Not Reportable Large Platelets Not Reportable Giant Platelets Not Reportable Platelet Satelliting Not Reportable Plt Morphology Comment Not Reportable RBC Morphology Not Reportable Dimorphic RBCs Not Reportable Polychromasia Not Reportable Hypochromasia Few Poikilocytosis Few Anisocytosis Few Microcytosis Not Reportable Macrocytosis Not Reportable Spherocytes Not Reportable Pappenheimer Bodies Not Reportable Sickle Cells Not Reportable Target Cells Few Tear Drop Cells Not Reportable Ovalocytes Not Reportable Helmet Cells Not Reportable Antony-Colome Bodies Not Reportable Blair Rings Not Reportable Denae Cells Not Reportable Bite Cells Not Reportable Crenated Cell Not Reportable Elliptocytes Not Reportable Acanthocytes (Spur) Not Reportable Rouleaux Not Reportable Hemoglobin C Crystals Not Reportable Schistocytes Not Reportable Malaria parasites Not Reportable [place] Bodies Not Reportable Hem Pathologist Commnt No POC ABG pH POC ABG pCO2 POC ABG pO2 POC ABG HCO3 POC ABG Total CO2 POC ABG O2 Sat POC ABG Base Excess FiO2 Sodium 144 Potassium 3.8 Chloride 108.6 H Carbon Dioxide 23 Anion Gap 16 BUN 21 H Creatinine 0.8 Estimated GFR > 60 BUN/Creatinine Ratio 26 Glucose 108 H Calcium 8.3 L Total Bilirubin 3.90 H AST 62 H ALT 55 Alkaline Phosphatase 179 H Total Protein 6.2 L Albumin 2.5 L Albumin/Globulin Ratio 0.7 Triglycerides Crossmatch See Detail 01/10/19 01/11/19 01/11/19 08:39 04:18 04:53 WBC 26.9 H RBC 2.87 L Hgb 8.2 L Hct 25.6 L MCV 89 MCH 29 MCHC 32 RDW 17.9 H Plt Count 324 [place] % (Auto) Eos % (Auto) [place] # Eos # Baso # Add Manual Diff Total Counted Seg Neutrophils % Seg Neuts % (Manual) Band Neutrophils % Lymphocytes % (Manual) Reactive Lymphs % (Man) Monocytes % (Manual) Eosinophils % (Manual) Basophils % (Manual) Metamyelocytes % Myelocytes % Promyelocytes % Blast Cells % Nucleated RBC % Seg Neutrophils # Seg Neutrophils # Man Band Neutrophils # Lymphocytes # (Manual) Abs React Lymphs (Man) Monocytes # (Manual) Eosinophils # (Manual) Basophils # (Manual) Metamyelocytes # Myelocytes # Promyelocytes # Blast Cells # WBC Morphology Hypersegmented Neuts Hyposegmented Neuts Hypogranular Neuts Smudge Cells Toxic Granulation Toxic Vacuolation Dohle Bodies Pelger-Huet Anomaly Tong Rods Platelet Estimate Clumped Platelets Plt Clumps, EDTA Large Platelets Giant Platelets Platelet Satelliting Plt Morphology Comment RBC Morphology Dimorphic RBCs Polychromasia Hypochromasia Poikilocytosis Anisocytosis Microcytosis Macrocytosis Spherocytes Pappenheimer Bodies Sickle Cells Target Cells Tear Drop Cells Ovalocytes Helmet Cells Antony-Colome Bodies Blair Rings [place] Cells Bite Cells Crenated Cell Elliptocytes Acanthocytes (Spur) Rouleaux Hemoglobin C Crystals Schistocytes Malaria parasites Aguila Bodies Hem Pathologist Commnt POC ABG pH 7.384 POC ABG pCO2 45.4 H POC ABG pO2 81 POC ABG HCO3 27.1 POC ABG Total CO2 28 POC ABG O2 Sat 96 POC ABG Base Excess 2 FiO2 60 Sodium Potassium Chloride Carbon Dioxide Anion Gap BUN Creatinine Estimated GFR BUN/Creatinine Ratio Glucose Calcium Total Bilirubin AST ALT Alkaline Phosphatase Total Protein Albumin Albumin/Globulin Ratio Triglycerides 416 H Crossmatch 01/11/19 04:53 WBC RBC Hgb Hct MCV MCH MCHC RDW Plt Count [place] % (Auto) Eos % (Auto) [place] # Eos # Baso # Add Manual Diff Total Counted Seg Neutrophils % Seg Neuts % (Manual) Band Neutrophils % Lymphocytes % (Manual) Reactive Lymphs % (Man) Monocytes % (Manual) Eosinophils % (Manual) Basophils % (Manual) Metamyelocytes % Myelocytes % Promyelocytes % Blast Cells % Nucleated RBC % Seg Neutrophils # Seg Neutrophils # Man Band Neutrophils # Lymphocytes # (Manual) Abs React Lymphs (Man) Monocytes # (Manual) Eosinophils # (Manual) Basophils # (Manual) Metamyelocytes # Myelocytes # Promyelocytes # Blast Cells # WBC Morphology Hypersegmented Neuts Hyposegmented Neuts Hypogranular Neuts Smudge Cells Toxic Granulation Toxic Vacuolation Dohle Bodies Pelger-Huet Anomaly [place] Rods Platelet Estimate Clumped Platelets Plt Clumps, EDTA Large Platelets Giant Platelets Platelet Satelliting Plt Morphology Comment RBC Morphology Dimorphic RBCs Polychromasia Hypochromasia Poikilocytosis Anisocytosis Microcytosis Macrocytosis Spherocytes Pappenheimer Bodies Sickle Cells Target Cells Tear Drop Cells Ovalocytes Helmet Cells Antony-Colome Bodies [place] Rings [place] Cells Bite Cells Crenated Cell Elliptocytes Acanthocytes (Spur) Rouleaux Hemoglobin C Crystals Schistocytes Malaria parasites Aguila Bodies Hem Pathologist Commnt POC ABG pH POC ABG pCO2 POC ABG pO2 POC ABG HCO3 POC ABG Total CO2 POC ABG O2 Sat POC ABG Base Excess FiO2 Sodium 149 H Potassium 4.3 Chloride 111.7 H Carbon Dioxide 23 Anion Gap 19 BUN 26 H Creatinine 0.9 Estimated GFR > 60 BUN/Creatinine Ratio 29 Glucose 113 H Calcium 8.2 L Total Bilirubin AST ALT Alkaline Phosphatase Total Protein Albumin Albumin/Globulin Ratio Triglycerides Crossmatch Medications & Allergies - Medications Allergies/Adverse Reactions: Allergies No Known Allergies Allergy (Verified 01/03/19 10:13) Home Medications: Home Medications Medication Instructions Recorded Confirmed Last Taken Type No Known Home Medications [No 01/03/19 01/03/19 Unknown History Reported Home Medications] Active Medications: Generic Name Dose Route Start Last Admin Trade Name Freq PRN Reason Stop Dose Admin Acetaminophen 650 mg 01/06/19 10:28 01/07/19 21:40 Tylenol AR 650 mg Q4H PRN Administration Non Cardiac Pain or Temp>100.5 Lipase/Protease/Amylase 1 each 01/08/19 13:[address] 10,500 Unit FEEDTUBE PRN PRN For Clogged Feeding Tube Enoxaparin Sodium 40 mg 01/10/19 10:00 01/10/19 10:38 Enoxaparin SUB-Q 40 mg QDAY@1000 KATHY Administration Famotidine 20 mg 01/10/19 10:00 01/10/19 21:23 Pepcid IV 20 mg BID KATHY Administration Fentanyl 50 mcg 01/08/19 17:06 01/10/19 02:12 Sublimaze IV 50 mcg Q10MIN PRN Administration ANALGESIA Folic Acid 1 mg 01/06/19 21:00 01/10/19 09:04 Folvite PO 1 mg QDAY [facility] Administration Hydromorphone HCl 1 mg 01/04/19 14:25 01/10/19 20:39 Dilaudid IV 1 mg Q3H PRN Administration Pain , Severe (7-10) Hydrophilic Ointment 1 applic 01/08/19 09:35 Vaseline Lip Therapy TP Q2HR PRN Dry Lips Hydroxyurea 500 mg 01/07/19 10:00 01/10/19 09:05 Hydroxyurea PO Not Given QDAY [facility] Cefepime HCl 2 gm in 100 mls @ 200 mls/hr 01/06/19 14:00 01/11/19 05:51 Cefepime/Ns 2 Gm/100 Ml IV 200 mls/hr Q8HR [facility] Administration Protocol Fentanyl Citrate 2,000 mcg in 100 mls @ 3.465 mls/hr 01/08/19 18:00 01/11/19 03:00 Fentanyl Drip Premix IV 4 mcg/kg/hr TITR KATHY 13.86 mls/hr Administration Protocol 1 MCG/KG/HR Dexmedetomidine HCl 400 mcg/ 104 mls @ 3.578 mls/hr 01/10/19 10:00 01/11/19 05:51 Sodium Chloride IV 1.2 mcg/kg/hr TITRATE KATHY 21.466 mls/hr Titration Protocol 0.2 MCG/KG/HR Metoclopramide HCl 10 mg 01/06/19 02:48 01/06/19 03:17 Reglan IV 10 mg Q6H PRN Administration Nausea And Vomiting Multi-Ingred Cream/Lotion/Oil/Oint 1 applic 01/08/19 09:35 Artificial Tears Ophth Oint OU Q4HR PRN Dry Eye(s) Naloxone HCl 0.1 mg 01/04/19 14:25 Naloxone IV Q2MIN PRN Res Rate </= 8 or 02 SAT < 92% Simple Syrup 15 ml 01/08/19 13:50 Simple Syrup FEEDTUBE PRN PRN Hypoglycemia Simple Syrup 30 ml 01/08/19 13:50 Simple Syrup FEEDTUBE PRN PRN Hypoglycemia Sodium Bicarbonate 325 mg 01/08/19 13:50 Sodium Bicarbonate FEEDTUBE PRN PRN For Clogged Feeding Tube
[2019-01-11] MEDS ORDERED: SODIUM BICARBONATE 325 MG TAB FEEDTUBE PRN (08:46)
[2019-01-11] MEDS ORDERED: LIPASE 10,500/PROTEASE 25,000/AMYLASE 43,750 (UNITS) DR CAP FEEDTUBE PRN (08:46)
[2019-01-11] MEDS ORDERED: SIMPLE SYRUP 15 ML FEEDTUBE PRN ×2 (08:46)
[2019-01-11] MEDS: ENOXAPARIN 40 MG/0.4 ML INJ SUB-Q SCH (09:36)
[2019-01-11] MEDS: HYDROXYUREA 500 MG CAP PO SCH (09:36)
[2019-01-11] MEDS: FAMOTIDINE 20 MG/2 ML INJ IV SCH ×2 (09:37→21:12)
[2019-01-11] MEDS: FOLIC ACID 1 MG TAB PO SCH (09:37)
[2019-01-11] MEDS ORDERED: FUROSEMIDE 20 MG/2 ML INJ IV ONE (11:00)
--- NOTE | 2019-01-11 11:11 | Progress Note ---
Assessment and Plan 24 y/o male with sickle cell anemia admitted with acute chest syndrome and now acute respiratory failure requiring mechanical ventilation secondary to worsening acute chest vs pulmonary edema. Full blow ARDs 1. Mild systolic heart failure. Will given lasix 10mg IV x1 as patient has never taken before. 2. Continue precedex and fent drips. Will add scheduled dilaudid 3. Continue PEEP at 14 until FIO2 is at 40% 4. Spiking temps, could be from atelectasis, await ID eval but ok with stopping abx therapy today. 5. Abx therapy to stop today. 6. OVerall guarded prognosis, discussed with sister at bedside. CCT 31 minutes. Subjective Date of service: 01/11/19 Principal diagnosis: sickle cell disease Interval history: No acute events overnight. Back down to 60% and still on 14 of PEEP. Sister at bedside. Echo done and read. Objective Vital Signs - 12hr 01/10/19 01/11/19 01/11/19 23:32 00:00 00:07 Temperature 101.8 F H Pulse Rate 94 H 94 H Pulse Rate [ 93 H From Monitor] Respiratory 26 H Rate Blood Pressure 121/65 117/58 O2 Sat by Pulse 97 97 Oximetry 01/11/19 01/11/19 01/11/19 01:00 02:00 03:00 Temperature Pulse Rate 93 H 92 H 90 Pulse Rate [ From Monitor] Respiratory 22 18 29 H Rate Blood Pressure 114/60 116/59 116/58 O2 Sat by Pulse 93 92 93 Oximetry 01/11/19 01/11/19 01/11/19 03:38 04:00 04:39 Temperature 99.6 F Pulse Rate 91 H 90 Pulse Rate [ 89 From Monitor] Respiratory 18 Rate Blood Pressure 113/54 113/54 O2 Sat by Pulse 91 94 Oximetry 01/11/19 01/11/19 01/11/19 05:00 06:00 07:00 Temperature Pulse Rate 89 88 86 Pulse Rate [ From Monitor] Respiratory 26 H 26 H 26 H Rate Blood Pressure 117/58 119/58 122/59 O2 Sat by Pulse 94 91 Oximetry 01/11/19 01/11/19 01/11/19 08:00 09:00 10:00 Temperature 97.9 F Pulse Rate 89 89 87 Pulse Rate [ From Monitor] Respiratory 27 H 20 24 Rate Blood Pressure 111/34 109/52 116/53 O2 Sat by Pulse 95 95 92 Oximetry CBC and BMP: 01/11/19 04:53 01/11/19 04:53 ABG, PT/INR, D-dimer: ABG POC ABG pH 7.384 (7.35-7.45) 01/11/19 04:18 ABG pH 7.406 pH Units (7.350-7.450) 01/10/19 05:50 POC ABG pCO2 45.4 (35-45) H 01/11/19 04:18 ABG pCO2 43.8 mm Hg 01/10/19 05:50 POC ABG pO2 81 (80-105) 01/11/19 04:18 ABG pO2 59.8 mm Hg (80.0-90.0) L 01/10/19 05:50 POC ABG HCO3 27.1 (22-26 mml/L) 01/11/19 04:18 POC ABG Total CO2 28 (23-27mmol/L) 01/11/19 04:18 POC ABG O2 Sat 96 01/11/19 04:18 ABG O2 Saturation 89.2 % (95.0-99.0) L 01/10/19 05:50 PT/INR, D-dimer PT 24.3 Sec. (12.2-14.9) H 01/05/19 08:24 INR 2.23 (0.87-1.13) H 01/05/19 08:24 D-Dimer 2064.49 ng/mlDDU (0-234) H 01/03/19 11:17 Abnormal lab findings: Abnormal Labs 01/03/19 01/03/19 01/03/19 10:34 10:34 11:17 WBC 34.2 H RBC 2.43 L Hgb 7.9 L Hct 21.9 L MCH 33 H MCHC 36 H RDW 29.2 H Plt Count [place] % (Auto) Eos % (Auto) [place] # Eos # Baso # Seg Neutrophils % Seg Neuts % (Manual) 85.0 H Lymphocytes % (Manual) 6.0 L Monocytes % (Manual) 9.0 H Eosinophils % (Manual) Nucleated RBC % 1.0 H Seg Neutrophils # Seg Neutrophils # Man 29.1 H Lymphocytes # (Manual) Monocytes # (Manual) 3.1 H Percent Retic 21.81 H PT INR APTT D-Dimer POC ABG pH POC ABG pCO2 POC ABG pO2 ABG pO2 ABG HCO3 ABG O2 Saturation ABG Hemoglobin Oxyhemoglobin Sodium 136 L 135 L Potassium 5.3 H Chloride Carbon Dioxide 20 L BUN Creatinine 0.6 L 0.7 L Glucose 123 H 112 H Calcium Iron TIBC Ferritin Total Bilirubin 8.00 H AST 100 H ALT Alkaline Phosphatase Lactate Dehydrogenase NT-Pro-B Natriuret Pep Total Protein Albumin Triglycerides Lipase Crossmatch 01/03/19 01/03/19 01/03/19 11:17 14:19 18:52 WBC 36.5 H RBC 2.32 L Hgb 7.8 L Hct 21.6 L MCH 34 H MCHC 36 H RDW 28.3 H Plt Count [place] % (Auto) Eos % (Auto) [place] # Eos # Baso # Seg Neutrophils % Seg Neuts % (Manual) 88.0 H Lymphocytes % (Manual) 4.0 L Monocytes % (Manual) 8.0 H Eosinophils % (Manual) Nucleated RBC % 4.0 H Seg Neutrophils # Seg Neutrophils # Man 32.1 H Lymphocytes # (Manual) Monocytes # (Manual) 2.9 H Percent Retic PT INR APTT D-Dimer 2064.49 H POC ABG pH POC ABG pCO2 POC ABG pO2 ABG pO2 ABG HCO3 ABG O2 Saturation ABG Hemoglobin Oxyhemoglobin Sodium Potassium Chloride Carbon Dioxide BUN Creatinine Glucose Calcium Iron TIBC Ferritin Total Bilirubin AST ALT Alkaline Phosphatase Lactate Dehydrogenase NT-Pro-B Natriuret Pep Total Protein Albumin Triglycerides Lipase 6 L Crossmatch 01/04/19 01/04/19 01/05/19 08:05 08:05 08:24 WBC 54.8 H* RBC 1.28 L Hgb 4.2 L* D Hct 11.1 L* D MCH 33 H MCHC 38 H* RDW 22.3 H Plt Count 134 L [place] % (Auto) Eos % (Auto) [place] # Eos # Baso # Seg Neutrophils % Seg Neuts % (Manual) Lymphocytes % (Manual) 1.0 L Monocytes % (Manual) 15.0 H Eosinophils % (Manual) Nucleated RBC % 3.0 H Seg Neutrophils # Seg Neutrophils # Man 35.1 H Lymphocytes # (Manual) 0.5 L Monocytes # (Manual) 8.2 H Percent Retic PT INR APTT D-Dimer POC ABG pH POC ABG pCO2 POC ABG pO2 ABG pO2 ABG HCO3 ABG O2 Saturation ABG Hemoglobin Oxyhemoglobin Sodium Potassium Chloride Carbon Dioxide BUN Creatinine Glucose Calcium Iron 19 L TIBC 218 L Ferritin 854.8 H Total Bilirubin AST ALT Alkaline Phosphatase Lactate Dehydrogenase NT-Pro-B Natriuret Pep Total Protein Albumin Triglycerides Lipase Crossmatch 01/05/19 01/05/19 01/05/19 08:24 08:24 08:24 WBC RBC Hgb Hct MCH MCHC RDW Plt Count [place] % (Auto) Eos % (Auto) [place] # Eos # Baso # Seg Neutrophils % Seg Neuts % (Manual) Lymphocytes % (Manual) Monocytes % (Manual) Eosinophils % (Manual) Nucleated RBC % Seg Neutrophils # Seg Neutrophils # Man Lymphocytes # (Manual) Monocytes # (Manual) Percent Retic PT 24.3 H INR 2.23 H APTT 53.5 H D-Dimer POC ABG pH POC ABG pCO2 POC ABG pO2 ABG pO2 ABG HCO3 ABG O2 Saturation ABG Hemoglobin Oxyhemoglobin Sodium Potassium 5.2 H D Chloride Carbon Dioxide 15 L BUN 40 H Creatinine 0.3 L D Glucose 121 H Calcium 8.3 L Iron TIBC Ferritin Total Bilirubin 31.80 H AST 164 H ALT 83 H Alkaline Phosphatase Lactate Dehydrogenase 1048 H NT-Pro-B Natriuret Pep Total Protein 6.0 L Albumin 3.6 L Triglycerides Lipase Crossmatch 01/05/19 01/05/19 01/05/19 08:26 08:26 09:48 WBC 54.8 H* RBC 1.26 L Hgb 4.1 L* Hct 10.9 L* MCH 33 H MCHC 38 H* RDW 22.0 H Plt Count 127 L [place] % (Auto) Eos % (Auto) [place] # Eos # Baso # Seg Neutrophils % Seg Neuts % (Manual) Lymphocytes % (Manual) Monocytes % (Manual) Eosinophils % (Manual) Nucleated RBC % Seg Neutrophils # Seg Neutrophils # Man Lymphocytes # (Manual) Monocytes # (Manual) Percent Retic PT INR APTT D-Dimer POC ABG pH POC ABG pCO2 POC ABG pO2 ABG pO2 ABG HCO3 ABG O2 Saturation ABG Hemoglobin Oxyhemoglobin Sodium Potassium Chloride Carbon Dioxide BUN Creatinine Glucose Calcium Iron TIBC Ferritin Total Bilirubin AST ALT Alkaline Phosphatase Lactate Dehydrogenase NT-Pro-B Natriuret Pep Total Protein Albumin Triglycerides Lipase Crossmatch See Detail See Detail 01/06/19 01/06/19 01/06/19 00:30 18:03 23:02 WBC 56.5 H* 44.3 H* RBC 1.76 L 2.41 L Hgb 5.6 L* 7.4 L Hct 15.8 L* 21.8 L D MCH MCHC 36 H RDW 19.8 H 18.4 H Plt Count [place] % (Auto) Eos % (Auto) [place] # Eos # Baso # Seg Neutrophils % Seg Neuts % (Manual) 90.0 H Lymphocytes % (Manual) 4.5 L Monocytes % (Manual) Eosinophils % (Manual) Nucleated RBC % Seg Neutrophils # Seg Neutrophils # Man 50.9 H Lymphocytes # (Manual) Monocytes # (Manual) 2.5 H Percent Retic PT INR APTT D-Dimer POC ABG pH 7.452 H POC ABG pCO2 29.4 L POC ABG pO2 ABG pO2 ABG HCO3 ABG O2 Saturation ABG Hemoglobin Oxyhemoglobin Sodium Potassium Chloride Carbon Dioxide BUN Creatinine Glucose Calcium Iron TIBC Ferritin Total Bilirubin AST ALT Alkaline Phosphatase Lactate Dehydrogenase NT-Pro-B Natriuret Pep Total Protein Albumin Triglycerides Lipase Crossmatch 01/08/19 01/08/19 01/08/19 09:33 12:10 13:18 WBC RBC Hgb Hct MCH MCHC RDW Plt Count [place] % (Auto) Eos % (Auto) [place] # Eos # Baso # Seg Neutrophils % Seg Neuts % (Manual) Lymphocytes % (Manual) Monocytes % (Manual) Eosinophils % (Manual) Nucleated RBC % Seg Neutrophils # Seg Neutrophils # Man Lymphocytes # (Manual) Monocytes # (Manual) Percent Retic PT INR APTT D-Dimer POC ABG pH POC ABG pCO2 POC ABG pO2 71 L 73 L ABG pO2 ABG HCO3 ABG O2 Saturation ABG Hemoglobin Oxyhemoglobin Sodium Potassium Chloride Carbon Dioxide BUN Creatinine Glucose Calcium Iron TIBC Ferritin Total Bilirubin AST ALT Alkaline Phosphatase Lactate Dehydrogenase NT-Pro-B Natriuret Pep Total Protein Albumin Triglycerides Lipase Crossmatch See Detail 01/08/19 01/08/19 01/08/19 13:18 14:58 17:00 WBC 33.5 H RBC 3.34 L Hgb 9.9 L Hct 29.2 L D MCH MCHC RDW 17.7 H Plt Count [place] % (Auto) Eos % (Auto) [place] # Eos # Baso # Seg Neutrophils % Seg Neuts % (Manual) 72.0 H Lymphocytes % (Manual) Monocytes % (Manual) 13.0 H Eosinophils % (Manual) Nucleated RBC % 9.0 H Seg Neutrophils # Seg Neutrophils # Man 24.1 H Lymphocytes # (Manual) Monocytes # (Manual) 4.4 H Percent Retic PT INR APTT D-Dimer POC ABG pH POC ABG pCO2 POC ABG pO2 74 L ABG pO2 ABG HCO3 ABG O2 Saturation ABG Hemoglobin Oxyhemoglobin Sodium Potassium Chloride Carbon Dioxide BUN Creatinine Glucose 122 H Calcium Iron TIBC Ferritin Total Bilirubin AST ALT Alkaline Phosphatase Lactate Dehydrogenase NT-Pro-B Natriuret Pep Total Protein Albumin Triglycerides Lipase Crossmatch 01/08/19 01/09/19 01/09/19 17:00 04:44 04:44 WBC 29.8 H RBC 2.85 L Hgb 8.4 L Hct 25.1 L MCH MCHC RDW 17.9 H Plt Count [place] % (Auto) Eos % (Auto) [place] # Eos # Baso # Seg Neutrophils % Seg Neuts % (Manual) Lymphocytes % (Manual) Monocytes % (Manual) Eosinophils % (Manual) Nucleated RBC % Seg Neutrophils # Seg Neutrophils # Man Lymphocytes # (Manual) Monocytes # (Manual) Percent Retic PT INR APTT D-Dimer POC ABG pH POC ABG pCO2 POC ABG pO2 ABG pO2 ABG HCO3 ABG O2 Saturation ABG Hemoglobin Oxyhemoglobin Sodium Potassium Chloride 107.3 H Carbon Dioxide BUN 22 H Creatinine 0.7 L Glucose 122 H Calcium Iron TIBC Ferritin Total Bilirubin AST ALT Alkaline Phosphatase Lactate Dehydrogenase NT-Pro-B Natriuret Pep 3064 H Total Protein Albumin Triglycerides Lipase Crossmatch 01/09/19 01/10/19 01/10/19 06:31 05:50 08:39 WBC 24.5 H RBC 2.89 L Hgb 8.4 L Hct 25.9 L MCH MCHC RDW 18.5 H Plt Count [place] % (Auto) 7.7 H Eos % (Auto) 5.4 H [place] # 2.0 H Eos # 1.4 H Baso # 0.2 H Seg Neutrophils % 75.5 H Seg Neuts % (Manual) 75.0 H Lymphocytes % (Manual) 11.0 L Monocytes % (Manual) Eosinophils % (Manual) 7.0 H Nucleated RBC % 28.0 H Seg Neutrophils # 19.7 H Seg Neutrophils # Man 0.0 L Lymphocytes # (Manual) 0.0 L Monocytes # (Manual) Percent Retic PT INR APTT D-Dimer POC ABG pH POC ABG pCO2 POC ABG pO2 ABG pO2 153.7 H 59.8 L ABG HCO3 26.9 H ABG O2 Saturation 89.2 L ABG Hemoglobin 8.1 L 8.1 L Oxyhemoglobin 86.6 L Sodium Potassium Chloride Carbon Dioxide BUN Creatinine Glucose Calcium Iron TIBC Ferritin Total Bilirubin AST ALT Alkaline Phosphatase Lactate Dehydrogenase NT-Pro-B Natriuret Pep Total Protein Albumin Triglycerides Lipase Crossmatch 01/10/19 01/10/19 01/11/19 08:39 08:39 04:18 WBC RBC Hgb Hct MCH MCHC RDW Plt Count [place] % (Auto) Eos % (Auto) [place] # Eos # Baso # Seg Neutrophils % Seg Neuts % (Manual) Lymphocytes % (Manual) Monocytes % (Manual) Eosinophils % (Manual) Nucleated RBC % Seg Neutrophils # Seg Neutrophils # Man Lymphocytes # (Manual) Monocytes # (Manual) Percent Retic PT INR APTT D-Dimer POC ABG pH POC ABG pCO2 45.4 H POC ABG pO2 ABG pO2 ABG HCO3 ABG O2 Saturation ABG Hemoglobin Oxyhemoglobin Sodium Potassium Chloride 108.6 H Carbon Dioxide BUN 21 H Creatinine Glucose 108 H Calcium 8.3 L Iron TIBC Ferritin Total Bilirubin 3.90 H AST 62 H ALT Alkaline Phosphatase 179 H Lactate Dehydrogenase NT-Pro-B Natriuret Pep Total Protein 6.2 L Albumin 2.5 L Triglycerides 416 H Lipase Crossmatch 01/11/19 01/11/19 04:53 04:53 WBC 26.9 H RBC 2.87 L Hgb 8.2 L Hct 25.6 L MCH MCHC RDW 17.9 H Plt Count [place] % (Auto) Eos % (Auto) [place] # Eos # Baso # Seg Neutrophils % Seg Neuts % (Manual) Lymphocytes % (Manual) Monocytes % (Manual) Eosinophils % (Manual) Nucleated RBC % Seg Neutrophils # Seg Neutrophils # Man Lymphocytes # (Manual) Monocytes # (Manual) Percent Retic PT INR APTT D-Dimer POC ABG pH POC ABG pCO2 POC ABG pO2 ABG pO2 ABG HCO3 ABG O2 Saturation ABG Hemoglobin Oxyhemoglobin Sodium 149 H Potassium Chloride 111.7 H Carbon Dioxide BUN 26 H Creatinine Glucose 113 H Calcium 8.2 L Iron TIBC Ferritin Total Bilirubin AST ALT Alkaline Phosphatase Lactate Dehydrogenase NT-Pro-B Natriuret Pep Total Protein Albumin Triglycerides Lipase Crossmatch
[2019-01-11] MEDS: HYDROmorphone 2 MG TAB PO SCH ×2 (11:43→17:33)
[2019-01-11] MEDS: HALOPERIDOL LACTATE 5 MG/1 ML INJ IV PRN ×2 (13:01→19:43)
--- NOTE | 2019-01-11 13:12 | Progress Note ---
Assessment and Plan Cultures: 01/03/19 blood cultures - no growth to date 01/04/2019 sputum: contaminated specimen A/P: 24 yo M PMhx sickle cell disease presents with fevers and myalgias, likely an acute chest syndrome vs pneumonia 1. Acute sepsis - present with fevers and leukocytosis, likely secondary to pneumonia. 2. Pneumonia - Continue Cefepime. Completed 5 days of azithromycin. 3. Sickle cell disease 4. Acute pain crisis 5. Persistent fevers - possibly due to sickle crisis, though patient now requiring more respitaory support. On cefepime. Leukocytosis likely reactive and also from sickle cell disease. 6. Acute respiratory failure with hypoxia - intubated, on vent. Recs: Given new fevers, persistent leucocytosis and high vent requirements, will extend IV Cefepime for 2 more days to complete 7 days Some of the leucocytosis although could be from his underlying sickle cell disease, he is new to our EMR system, so don't know what his baseline is Procalcitonin ordered for AM Michael Sterling MD, FACP [facility] ([facility]) M: [phone] O: [phone] F: [phone] Subjective Date of service: 01/11/19 Principal diagnosis: sickle cell disease Interval history: Spiked another fever. Remains on the vent, awake and restless. Sister at bedside. Objective - Exam Narrative Exam: Physical Exam: Constitutional: awake, intubated Head, Ears, Nose: Normocephalic, atraumatic. External ears, nose normal Eyes: Conjunctivae/corneas clear. No icterus. No ptosis. Neck: intubated Oral: intubated Cardiovascular: S1, S2 normal. Respiratory: Good air entry, clear to auscultation bilaterally GI: Soft, non-tender; bowel sounds normal. No peritoneal signs Musculoskeletal: No pedal edema, no cyanosis. Skin: No rash or abscess Hem/Lymphatic: No palpable cervical or supraclavicular nodes. No lymphangitis Psych: restless Neurological: awake, intubated, on vent - Constitutional Vitals: Vital Signs Temp Pulse Resp BP Pulse Ox 97.9 F 86 13 119/52 93 01/11/19 08:00 01/11/19 11:00 01/11/19 11:43 01/11/19 11:00 01/11/19 11:00 Temperature -Last 24 Hours Temperature 97.9 F Temperature 99.6 F Temperature 101.8 F Temperature 99.1 F Temperature 98.4 F - Labs CBC & Chem 7: 01/11/19 04:53 01/11/19 04:53 Labs: Abnormal lab results 01/11/19 01/11/19 01/11/19 Range/Units 04:18 04:53 04:53 WBC 26.9 H (4.5-11.0) K/mm3 RBC 2.87 L (3.65-5.03) M/mm3 Hgb 8.2 L (11.8-15.2) gm/dl Hct 25.6 L (35.5-45.6) % RDW 17.9 H (13.2-15.2) % POC ABG pCO2 45.4 H (35-45) Sodium 149 H (137-145) mmol/L Chloride 111.7 H (98-107) mmol/L BUN 26 H (9-20) mg/dL Glucose 113 H (75-100) mg/dL Calcium 8.2 L (8.4-10.2) mg/dL - Imaging and cardiology Chest x-ray: report reviewed, image reviewed (increased prominence of R sided infiltrate)
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
[2019-01-12] MEDS: fentaNYL DRIP Premix 2,000 MCG/100 ML BAG IV SCH ×4 (00:10→22:08)
[2019-01-12] MEDS: DEXMEDETOMIDINE 400 MCG in SODIUM CHLORIDE 0.9% 100 ML IV SCH ×2 (02:35→07:00)
--- NOTE | 2019-01-12 03:54 | XRay Report ---
CHEST 1 VIEW INDICATION / CLINICAL INFORMATION: follow up respiratory failure. COMPARISON: 01/11/2019 FINDINGS: SUPPORT DEVICES: Stable, satisfactory device positioning. HEART / MEDIASTINUM: Cardiomegaly, stable LUNGS / PLEURA: Diffuse bilateral pulmonary opacities are present, most severe in the lung bases. Jaswant ateral pulmonary disease appears slightly worse especially in the lung bases. No large pleural effusi on. No pneumothorax. ADDITIONAL FINDINGS: No significant additional findings. IMPRESSION: 1. Marked bilateral pulmonary opacities/airspace disease. Findings appear slightly worse in the inter im. Signer Name: Emeli Scott MD Signed: 01/12/2019 3:49 AM Workstation Name: [id number]
[2019-01-12] MEDS: HALOPERIDOL LACTATE 5 MG/1 ML INJ IV PRN ×3 (04:13→20:40)
[2019-01-12] MEDS: HYDROmorphone 2 MG TAB PO SCH ×5 (05:41→23:12)
[2019-01-12] MEDS: CEFEPIME/NS 2 GM/100 ML 2 GM/100 ML BAG IV SCH ×3 (05:41→22:18)
[2019-01-12] MEDS: HYDROmorphone 1 MG/1 ML INJ IV PRN ×3 (06:57→23:11)
--- NOTE | 2019-01-12 07:28 | Hem/Onc Progress Note ---
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 Anemia. MCV is normal. History of sickle cell disease. The patient says he is not on folic acid or hydroxyurea. deficiency investigation. The patient says he has relocated from [place] to [place]. At this time, he is self- pay. 2. Elevated bilirubin, likely secondary to hemolysis. 3. Generalized pain issues. He is on pain medications. 4. He is also on antibiotics for possible pneumonia, sepsis. 5. Elevated white cell count, likely reactive. I will follow the patient during inpatient stay. h/o anemia - PRBC - o2 support hydrea trial pt got RBC exchange d/w sister ARDS a differential no benefit of second RBC exchange awake - on pain meds on PEEP- high % o2 intubated d/w RN reg central line - Patient Problems (1) Sickle cell crisis Current Visit: Yes Status: Acute Subjective Date of service: 01/12/19 Principal diagnosis: sickle cell disease Interval history: on vent Objective - Exam Narrative Exam: Pain - n/a - pt intubated General appearance - awake Performance status complete dependence Eyes - no icterus ENT - intubated LNs cervical not palpable Neck - no LN Respiratory Normal Breath sounds - CTA anteriorly CVS S1 S2 + Extremities no edema General GI Soft Rectal deferred male - deferred Skin warm Musculoskeletal - moving limbs Neurologically awake - Constitutional Vitals: Last Vital Signs Temp 98.1 F 01/12/19 04:00 Pulse 87 01/12/19 07:00 Resp 25 H 01/12/19 07:00 BP 107/46 01/12/19 07:00 Pulse Ox 97 01/12/19 07:00 - Labs Lab Results: Laboratory Results - last 24 hr 01/08/19 01/12/19 13:18 04:36 POC ABG pH 7.357 POC ABG pCO2 50.8 H POC ABG pO2 71 L POC ABG HCO3 28.5 POC ABG Total CO2 30 POC ABG O2 Sat 93 POC ABG Base Excess 3 FiO2 50 Crossmatch See Detail Medications & Allergies - Medications Allergies/Adverse Reactions: Allergies No Known Allergies Allergy (Verified 01/03/19 10:13) Home Medications: Home Medications Medication Instructions Recorded Confirmed Last Taken Type No Known Home Medications [No 01/03/19 01/03/19 Unknown History Reported Home Medications] Active Medications: Generic Name Dose Route Start Last Admin Trade Name Freq PRN Reason Stop Dose Admin Acetaminophen 650 mg 01/06/19 10:28 01/07/19 21:40 Tylenol SD 650 mg Q4H PRN Administration Non Cardiac Pain or Temp>100.5 Lipase/Protease/Amylase 1 each 01/08/19 13:50 Pancreazroyer Simmons 10,500 Unit FEEDTUBE PRN PRN For Clogged Feeding Tube Enoxaparin Sodium 40 mg 01/10/19 10:00 01/11/19 09:36 Enoxaparin SUB-Q 40 mg QDAY@1000 KATHY Administration Famotidine 20 mg 01/10/19 10:00 01/11/19 21:12 Pepcid IV 20 mg BID KATHY Administration Fentanyl 50 mcg 01/08/19 17:06 01/10/19 02:12 Sublimaze IV 50 mcg Q10MIN PRN Administration ANALGESIA Folic Acid 1 mg 01/06/19 21:00 01/11/19 09:37 Folvite PO 1 mg QDAY KATHY Administration Haloperidol Lactate 5 mg 01/11/19 12:56 01/12/19 04:13 Haldol IV 5 mg Q6H PRN Administration Agitation Hydromorphone HCl 1 mg 01/04/19 14:25 01/12/19 06:57 Dilaudid IV 1 mg Q3H PRN Administration Pain , Severe (7-10) Hydromorphone HCl 2 mg 01/11/19 12:00 01/12/19 05:41 Dilaudid PO 2 mg Q6HR KATHY Administration Hydrophilic Ointment 1 applic 01/08/19 09:35 Vaseline Lip Therapy TP Q2HR PRN Dry Lips Hydroxyurea 500 mg 01/07/19 10:00 01/11/19 09:36 Hydroxyurea PO 500 mg QDAY KATHY Administration Cefepime HCl 2 gm in 100 mls @ 200 mls/hr 01/06/19 14:00 01/12/19 05:41 Cefepime/Ns 2 Gm/100 Ml IV 01/14/19 13:59 200 mls/hr Q8HR KATHY Administration Protocol Fentanyl Citrate 2,000 mcg in 100 mls @ 3.465 mls/hr 01/08/19 18:00 01/12/19 05:41 Fentanyl Drip Premix IV 4 mcg/kg/hr TITR KATHY 13.86 mls/hr Administration Protocol 1 MCG/KG/HR Dexmedetomidine HCl 400 mcg/ 104 mls @ 3.578 mls/hr 01/10/19 10:00 01/12/19 07:00 Sodium Chloride IV 1.4 mcg/kg/hr TITRATE KATHY 25.043 mls/hr Administration Protocol 0.2 MCG/KG/HR Metoclopramide HCl 10 mg 01/06/19 02:48 01/06/19 03:17 Reglan IV 10 mg Q6H PRN Administration Nausea And Vomiting Multi-Ingred Cream/Lotion/Oil/Oint 1 applic 01/08/19 09:35 Artificial Tears Ophth Oint OU Q4HR PRN Dry Eye(s) Naloxone HCl 0.1 mg 01/04/19 14:25 Naloxone IV Q2MIN PRN Res Rate </= 8 or 02 SAT < 92% Simple Syrup 15 ml 01/08/19 13:50 Simple Syrup FEEDTUBE PRN PRN Hypoglycemia Simple Syrup 30 ml 01/08/19 13:50 Simple Syrup FEEDTUBE PRN PRN Hypoglycemia Sodium Bicarbonate 325 mg 01/08/19 13:50 Sodium Bicarbonate FEEDTUBE PRN PRN For Clogged Feeding Tube
[2019-01-12 09:41] LABS: BUN/Creatinine Ratio 43; Blood Urea Nitrogen 30 mg/dL (9-20); Calcium 8.4 mg/dL (8.4-10.2); Hemolysis Index 4
[2019-01-12] MEDS: FOLIC ACID 1 MG TAB PO SCH (10:00)
[2019-01-12] MEDS: HYDROXYUREA 500 MG CAP PO SCH (10:00)
[2019-01-12] MEDS: FAMOTIDINE 20 MG TAB PO SCH ×2 (10:00→22:19)
[2019-01-12] MEDS: ENOXAPARIN 40 MG/0.4 ML INJ SUB-Q SCH (10:00)
--- NOTE | 2019-01-12 10:50 | Progress Note ---
Assessment and Plan 24 y/o male with sickle cell anemia admitted with acute chest syndrome and now acute respiratory failure requiring mechanical ventilation secondary to worsening acute chest vs pulmonary edema. Full blow ARDs 1. Mild systolic heart failure. Will give lasix again today. 2. Stop precedex and start ativan infusion. 3. Continue PEEP at 14 until FIO2 is at 40% 4. ID continued abx coverage 5. OVerall guarded prognosis, discussed with sister at bedside. CCT 31 minutes. Subjective Date of service: 01/12/19 Principal diagnosis: sickle cell disease Interval history: No acute events. Still difficult to sedate despite precedex and fent drip. Tolerated lasix well yesterday. Objective Vital Signs - 12hr 01/11/19 01/12/19 01/12/19 23:00 00:00 00:15 Temperature 98.0 F Pulse Rate 86 91 H 86 Pulse Rate [ 89 From Monitor] Respiratory 25 H 18 Rate Blood Pressure 142/43 136/47 110/44 O2 Sat by Pulse 92 75 L 94 Oximetry 01/12/19 01/12/19 01/12/19 01:00 02:00 03:00 Temperature Pulse Rate 86 85 81 Pulse Rate [ From Monitor] Respiratory 26 H 14 24 Rate Blood Pressure 115/46 129/51 113/49 O2 Sat by Pulse 93 90 90 Oximetry 01/12/19 01/12/19 01/12/19 04:00 04:55 05:00 Temperature 98.1 F Pulse Rate 84 86 86 Pulse Rate [ 101 H From Monitor] Respiratory 26 H 15 Rate Blood Pressure 109/48 109/48 108/51 O2 Sat by Pulse 89 93 91 Oximetry 01/12/19 01/12/19 01/12/19 06:00 07:00 07:56 Temperature 98.2 F Pulse Rate 80 87 Pulse Rate [ From Monitor] Respiratory 26 H 25 H Rate Blood Pressure 120/55 107/46 O2 Sat by Pulse 91 97 Oximetry 01/12/19 09:35 Temperature Pulse Rate 87 Pulse Rate [ From Monitor] Respiratory Rate Blood Pressure 107/46 O2 Sat by Pulse 95 Oximetry CBC and BMP: 01/11/19 04:53 01/12/19 09:00 ABG, PT/INR, D-dimer: ABG POC ABG pH 7.357 (7.35-7.45) 01/12/19 04:36 ABG pH 7.406 pH Units (7.350-7.450) 01/10/19 05:50 POC ABG pCO2 50.8 (35-45) H 01/12/19 04:36 ABG pCO2 43.8 mm Hg 01/10/19 05:50 POC ABG pO2 71 (80-105) L 01/12/19 04:36 ABG pO2 59.8 mm Hg (80.0-90.0) L 01/10/19 05:50 POC ABG HCO3 28.5 (22-26 mml/L) 01/12/19 04:36 POC ABG Total CO2 30 (23-27mmol/L) 01/12/19 04:36 POC ABG O2 Sat 93 01/12/19 04:36 ABG O2 Saturation 89.2 % (95.0-99.0) L 01/10/19 05:50 PT/INR, D-dimer PT 24.3 Sec. (12.2-14.9) H 01/05/19 08:24 INR 2.23 (0.87-1.13) H 01/05/19 08:24 D-Dimer 2064.49 ng/mlDDU (0-234) H 01/03/19 11:17 Abnormal lab findings: Abnormal Labs 01/03/19 01/03/19 01/03/19 10:34 10:34 11:17 WBC 34.2 H RBC 2.43 L Hgb 7.9 L Hct 21.9 L MCH 33 H MCHC 36 H RDW 29.2 H Plt Count [place] % (Auto) Eos % (Auto) [place] # Eos # Baso # Seg Neutrophils % Seg Neuts % (Manual) 85.0 H Lymphocytes % (Manual) 6.0 L Monocytes % (Manual) 9.0 H Eosinophils % (Manual) Nucleated RBC % 1.0 H Seg Neutrophils # Seg Neutrophils # Man 29.1 H Lymphocytes # (Manual) Monocytes # (Manual) 3.1 H Percent Retic 21.81 H PT INR APTT D-Dimer POC ABG pH POC ABG pCO2 POC ABG pO2 ABG pO2 ABG HCO3 ABG O2 Saturation ABG Hemoglobin Oxyhemoglobin Sodium 136 L 135 L Potassium 5.3 H Chloride Carbon Dioxide 20 L BUN Creatinine 0.6 L 0.7 L Glucose 123 H 112 H Calcium Iron TIBC Ferritin Total Bilirubin 8.00 H AST 100 H ALT Alkaline Phosphatase Lactate Dehydrogenase NT-Pro-B Natriuret Pep Total Protein Albumin Triglycerides Lipase Crossmatch 01/03/19 01/03/19 01/03/19 11:17 14:19 18:52 WBC 36.5 H RBC 2.32 L Hgb 7.8 L Hct 21.6 L MCH 34 H MCHC 36 H RDW 28.3 H Plt Count [place] % (Auto) Eos % (Auto) [place] # Eos # Baso # Seg Neutrophils % Seg Neuts % (Manual) 88.0 H Lymphocytes % (Manual) 4.0 L Monocytes % (Manual) 8.0 H Eosinophils % (Manual) Nucleated RBC % 4.0 H Seg Neutrophils # Seg Neutrophils # Man 32.1 H Lymphocytes # (Manual) Monocytes # (Manual) 2.9 H Percent Retic PT INR APTT D-Dimer 2064.49 H POC ABG pH POC ABG pCO2 POC ABG pO2 ABG pO2 ABG HCO3 ABG O2 Saturation ABG Hemoglobin Oxyhemoglobin Sodium Potassium Chloride Carbon Dioxide BUN Creatinine Glucose Calcium Iron TIBC Ferritin Total Bilirubin AST ALT Alkaline Phosphatase Lactate Dehydrogenase NT-Pro-B Natriuret Pep Total Protein Albumin Triglycerides Lipase 6 L Crossmatch 01/04/19 01/04/19 01/05/19 08:05 08:05 08:24 WBC 54.8 H* RBC 1.28 L Hgb 4.2 L* D Hct 11.1 L* D MCH 33 H MCHC 38 H* RDW 22.3 H Plt Count 134 L [place] % (Auto) Eos % (Auto) [place] # Eos # Baso # Seg Neutrophils % Seg Neuts % (Manual) Lymphocytes % (Manual) 1.0 L Monocytes % (Manual) 15.0 H Eosinophils % (Manual) Nucleated RBC % 3.0 H Seg Neutrophils # Seg Neutrophils # Man 35.1 H Lymphocytes # (Manual) 0.5 L Monocytes # (Manual) 8.2 H Percent Retic PT INR APTT D-Dimer POC ABG pH POC ABG pCO2 POC ABG pO2 ABG pO2 ABG HCO3 ABG O2 Saturation ABG Hemoglobin Oxyhemoglobin Sodium Potassium Chloride Carbon Dioxide BUN Creatinine Glucose Calcium Iron 19 L TIBC 218 L Ferritin 854.8 H Total Bilirubin AST ALT Alkaline Phosphatase Lactate Dehydrogenase NT-Pro-B Natriuret Pep Total Protein Albumin Triglycerides Lipase Crossmatch 01/05/19 01/05/19 01/05/19 08:24 08:24 08:24 WBC RBC Hgb Hct MCH MCHC RDW Plt Count [place] % (Auto) Eos % (Auto) [place] # Eos # Baso # Seg Neutrophils % Seg Neuts % (Manual) Lymphocytes % (Manual) Monocytes % (Manual) Eosinophils % (Manual) Nucleated RBC % Seg Neutrophils # Seg Neutrophils # Man Lymphocytes # (Manual) Monocytes # (Manual) Percent Retic PT 24.3 H INR 2.23 H APTT 53.5 H D-Dimer POC ABG pH POC ABG pCO2 POC ABG pO2 ABG pO2 ABG HCO3 ABG O2 Saturation ABG Hemoglobin Oxyhemoglobin Sodium Potassium 5.2 H D Chloride Carbon Dioxide 15 L BUN 40 H Creatinine 0.3 L D Glucose 121 H Calcium 8.3 L Iron TIBC Ferritin Total Bilirubin 31.80 H AST 164 H ALT 83 H Alkaline Phosphatase Lactate Dehydrogenase 1048 H NT-Pro-B Natriuret Pep Total Protein 6.0 L Albumin 3.6 L Triglycerides Lipase Crossmatch 01/05/19 01/05/19 01/05/19 08:26 08:26 09:48 WBC 54.8 H* RBC 1.26 L Hgb 4.1 L* Hct 10.9 L* MCH 33 H MCHC 38 H* RDW 22.0 H Plt Count 127 L [place] % (Auto) Eos % (Auto) [place] # Eos # Baso # Seg Neutrophils % Seg Neuts % (Manual) Lymphocytes % (Manual) Monocytes % (Manual) Eosinophils % (Manual) Nucleated RBC % Seg Neutrophils # Seg Neutrophils # Man Lymphocytes # (Manual) Monocytes # (Manual) Percent Retic PT INR APTT D-Dimer POC ABG pH POC ABG pCO2 POC ABG pO2 ABG pO2 ABG HCO3 ABG O2 Saturation ABG Hemoglobin Oxyhemoglobin Sodium Potassium Chloride Carbon Dioxide BUN Creatinine Glucose Calcium Iron TIBC Ferritin Total Bilirubin AST ALT Alkaline Phosphatase Lactate Dehydrogenase NT-Pro-B Natriuret Pep Total Protein Albumin Triglycerides Lipase Crossmatch See Detail See Detail 01/06/19 01/06/19 01/06/19 00:30 18:03 23:02 WBC 56.5 H* 44.3 H* RBC 1.76 L 2.41 L Hgb 5.6 L* 7.4 L Hct 15.8 L* 21.8 L D MCH MCHC 36 H RDW 19.8 H 18.4 H Plt Count [place] % (Auto) Eos % (Auto) [place] # Eos # Baso # Seg Neutrophils % Seg Neuts % (Manual) 90.0 H Lymphocytes % (Manual) 4.5 L Monocytes % (Manual) Eosinophils % (Manual) Nucleated RBC % Seg Neutrophils # Seg Neutrophils # Man 50.9 H Lymphocytes # (Manual) Monocytes # (Manual) 2.5 H Percent Retic PT INR APTT D-Dimer POC ABG pH 7.452 H POC ABG pCO2 29.4 L POC ABG pO2 ABG pO2 ABG HCO3 ABG O2 Saturation ABG Hemoglobin Oxyhemoglobin Sodium Potassium Chloride Carbon Dioxide BUN Creatinine Glucose Calcium Iron TIBC Ferritin Total Bilirubin AST ALT Alkaline Phosphatase Lactate Dehydrogenase NT-Pro-B Natriuret Pep Total Protein Albumin Triglycerides Lipase Crossmatch 01/08/19 01/08/19 01/08/19 09:33 12:10 13:18 WBC RBC Hgb Hct MCH MCHC RDW Plt Count [place] % (Auto) Eos % (Auto) [place] # Eos # Baso # Seg Neutrophils % Seg Neuts % (Manual) Lymphocytes % (Manual) Monocytes % (Manual) Eosinophils % (Manual) Nucleated RBC % Seg Neutrophils # Seg Neutrophils # Man Lymphocytes # (Manual) Monocytes # (Manual) Percent Retic PT INR APTT D-Dimer POC ABG pH POC ABG pCO2 POC ABG pO2 71 L 73 L ABG pO2 ABG HCO3 ABG O2 Saturation ABG Hemoglobin Oxyhemoglobin Sodium Potassium Chloride Carbon Dioxide BUN Creatinine Glucose Calcium Iron TIBC Ferritin Total Bilirubin AST ALT Alkaline Phosphatase Lactate Dehydrogenase NT-Pro-B Natriuret Pep Total Protein Albumin Triglycerides Lipase Crossmatch See Detail 01/08/19 01/08/19 01/08/19 13:18 14:58 17:00 WBC 33.5 H RBC 3.34 L Hgb 9.9 L Hct 29.2 L D MCH MCHC RDW 17.7 H Plt Count [place] % (Auto) Eos % (Auto) [place] # Eos # Baso # Seg Neutrophils % Seg Neuts % (Manual) 72.0 H Lymphocytes % (Manual) Monocytes % (Manual) 13.0 H Eosinophils % (Manual) Nucleated RBC % 9.0 H Seg Neutrophils # Seg Neutrophils # Man 24.1 H Lymphocytes # (Manual) Monocytes # (Manual) 4.4 H Percent Retic PT INR APTT D-Dimer POC ABG pH POC ABG pCO2 POC ABG pO2 74 L ABG pO2 ABG HCO3 ABG O2 Saturation ABG Hemoglobin Oxyhemoglobin Sodium Potassium Chloride Carbon Dioxide BUN Creatinine Glucose 122 H Calcium Iron TIBC Ferritin Total Bilirubin AST ALT Alkaline Phosphatase Lactate Dehydrogenase NT-Pro-B Natriuret Pep Total Protein Albumin Triglycerides Lipase Crossmatch 01/08/19 01/09/19 01/09/19 17:00 04:44 04:44 WBC 29.8 H RBC 2.85 L Hgb 8.4 L Hct 25.1 L MCH MCHC RDW 17.9 H Plt Count [place] % (Auto) Eos % (Auto) [place] # Eos # Baso # Seg Neutrophils % Seg Neuts % (Manual) Lymphocytes % (Manual) Monocytes % (Manual) Eosinophils % (Manual) Nucleated RBC % Seg Neutrophils # Seg Neutrophils # Man Lymphocytes # (Manual) Monocytes # (Manual) Percent Retic PT INR APTT D-Dimer POC ABG pH POC ABG pCO2 POC ABG pO2 ABG pO2 ABG HCO3 ABG O2 Saturation ABG Hemoglobin Oxyhemoglobin Sodium Potassium Chloride 107.3 H Carbon Dioxide BUN 22 H Creatinine 0.7 L Glucose 122 H Calcium Iron TIBC Ferritin Total Bilirubin AST ALT Alkaline Phosphatase Lactate Dehydrogenase NT-Pro-B Natriuret Pep 3064 H Total Protein Albumin Triglycerides Lipase Crossmatch 01/09/19 01/10/19 01/10/19 06:31 05:50 08:39 WBC 24.5 H RBC 2.89 L Hgb 8.4 L Hct 25.9 L MCH MCHC RDW 18.5 H Plt Count [place] % (Auto) 7.7 H Eos % (Auto) 5.4 H [place] # 2.0 H Eos # 1.4 H Baso # 0.2 H Seg Neutrophils % 75.5 H Seg Neuts % (Manual) 75.0 H Lymphocytes % (Manual) 11.0 L Monocytes % (Manual) Eosinophils % (Manual) 7.0 H Nucleated RBC % 28.0 H Seg Neutrophils # 19.7 H Seg Neutrophils # Man 0.0 L Lymphocytes # (Manual) 0.0 L Monocytes # (Manual) Percent Retic PT INR APTT D-Dimer POC ABG pH POC ABG pCO2 POC ABG pO2 ABG pO2 153.7 H 59.8 L ABG HCO3 26.9 H ABG O2 Saturation 89.2 L ABG Hemoglobin 8.1 L 8.1 L Oxyhemoglobin 86.6 L Sodium Potassium Chloride Carbon Dioxide BUN Creatinine Glucose Calcium Iron TIBC Ferritin Total Bilirubin AST ALT Alkaline Phosphatase Lactate Dehydrogenase NT-Pro-B Natriuret Pep Total Protein Albumin Triglycerides Lipase Crossmatch 01/10/19 01/10/19 01/11/19 08:39 08:39 04:18 WBC RBC Hgb Hct MCH MCHC RDW Plt Count [place] % (Auto) Eos % (Auto) [place] # Eos # Baso # Seg Neutrophils % Seg Neuts % (Manual) Lymphocytes % (Manual) Monocytes % (Manual) Eosinophils % (Manual) Nucleated RBC % Seg Neutrophils # Seg Neutrophils # Man Lymphocytes # (Manual) Monocytes # (Manual) Percent Retic PT INR APTT D-Dimer POC ABG pH POC ABG pCO2 45.4 H POC ABG pO2 ABG pO2 ABG HCO3 ABG O2 Saturation ABG Hemoglobin Oxyhemoglobin Sodium Potassium Chloride 108.6 H Carbon Dioxide BUN 21 H Creatinine Glucose 108 H Calcium 8.3 L Iron TIBC Ferritin Total Bilirubin 3.90 H AST 62 H ALT Alkaline Phosphatase 179 H Lactate Dehydrogenase NT-Pro-B Natriuret Pep Total Protein 6.2 L Albumin 2.5 L Triglycerides 416 H Lipase Crossmatch 01/11/19 01/11/19 01/12/19 04:53 04:53 04:36 WBC 26.9 H RBC 2.87 L Hgb 8.2 L Hct 25.6 L MCH MCHC RDW 17.9 H Plt Count [place] % (Auto) Eos % (Auto) [place] # Eos # Baso # Seg Neutrophils % Seg Neuts % (Manual) Lymphocytes % (Manual) Monocytes % (Manual) Eosinophils % (Manual) Nucleated RBC % Seg Neutrophils # Seg Neutrophils # Man Lymphocytes # (Manual) Monocytes # (Manual) Percent Retic PT INR APTT D-Dimer POC ABG pH POC ABG pCO2 50.8 H POC ABG pO2 71 L ABG pO2 ABG HCO3 ABG O2 Saturation ABG Hemoglobin Oxyhemoglobin Sodium 149 H Potassium Chloride 111.7 H Carbon Dioxide BUN 26 H Creatinine Glucose 113 H Calcium 8.2 L Iron TIBC Ferritin Total Bilirubin AST ALT Alkaline Phosphatase Lactate Dehydrogenase NT-Pro-B Natriuret Pep Total Protein Albumin Triglycerides Lipase Crossmatch 01/12/19 09:00 WBC RBC Hgb Hct MCH MCHC RDW Plt Count [place] % (Auto) Eos % (Auto) [place] # Eos # Baso # Seg Neutrophils % Seg Neuts % (Manual) Lymphocytes % (Manual) Monocytes % (Manual) Eosinophils % (Manual) Nucleated RBC % Seg Neutrophils # Seg Neutrophils # Man Lymphocytes # (Manual) Monocytes # (Manual) Percent Retic PT INR APTT D-Dimer POC ABG pH POC ABG pCO2 POC ABG pO2 ABG pO2 ABG HCO3 ABG O2 Saturation ABG Hemoglobin Oxyhemoglobin Sodium 148 H Potassium Chloride 110.5 H Carbon Dioxide BUN 30 H Creatinine 0.7 L Glucose 131 H Calcium Iron TIBC Ferritin Total Bilirubin AST ALT Alkaline Phosphatase Lactate Dehydrogenase NT-Pro-B Natriuret Pep Total Protein Albumin Triglycerides Lipase Crossmatch
[2019-01-12] MEDS ORDERED: FUROSEMIDE 20 MG/2 ML INJ IV ONE ×2 (11:00→16:00)
--- NOTE | 2019-01-12 11:24 | Progress Note ---
Assessment and Plan Cultures: 01/03/19 blood cultures - no growth to date 01/04/2019 sputum: contaminated specimen A/P: 24 yo M PMhx sickle cell disease presents with fevers and myalgias, likely an acute chest syndrome vs pneumonia 1. Acute sepsis - present with fevers and leukocytosis, likely secondary to pneumonia. Procal is high at 6. 2. Pneumonia - Continue Cefepime. Completed 5 days of azithromycin. 3. Sickle cell disease 4. Acute pain crisis 5. Persistent fevers - possibly due to sickle crisis, though patient now requiring more respiratory support. On Cefepime. Leukocytosis likely reactive and also from sickle cell disease. 6. Acute respiratory failure with hypoxia - intubated, on vent. Recs: Continue IV Cefepime, Day 6 of 7 Procalcitonin came back high Some of the leucocytosis although could be from his underlying sickle cell disease Michael Sterling MD, FACP [facility] ([facility]) M: [phone] O: [phone] F: [phone] Subjective Date of service: 01/12/19 Principal diagnosis: sickle cell disease Interval history: No more fever. Remains on the vent, sedated. no other issues. Objective - Exam Narrative Exam: Physical Exam: Constitutional: sedated, intubated Head, Ears, Nose: Normocephalic, atraumatic. External ears, nose normal Eyes: Conjunctivae/corneas clear. No icterus. No ptosis. Neck: intubated Oral: intubated Cardiovascular: S1, S2 normal. Respiratory: Good air entry, clear to auscultation bilaterally GI: Soft, non-tender; bowel sounds normal. No peritoneal signs Musculoskeletal: No pedal edema, no cyanosis. Skin: No rash or abscess Hem/Lymphatic: No palpable cervical or supraclavicular nodes. No lymphangitis Psych: sedated Neurological: sedated intubated, on vent - Constitutional Vitals: Vital Signs Temp Pulse Resp BP Pulse Ox 98.2 F 87 25 H 107/46 95 01/12/19 07:56 01/12/19 09:35 01/12/19 07:00 01/12/19 09:35 01/12/19 09:35 Temperature -Last 24 Hours Temperature 98.2 F Temperature 98.1 F Temperature 98.0 F Temperature 98.5 F Temperature 98.0 F Temperature 98.0 F - Labs CBC & Chem 7: 01/11/19 04:53 01/12/19 09:00 Labs: Abnormal lab results 01/08/19 01/12/19 01/12/19 Range/Units 13:18 04:36 09:00 POC ABG pCO2 50.8 H (35-45) POC ABG pO2 71 L (80-105) Sodium 148 H (137-145) mmol/L Chloride 110.5 H (98-107) mmol/L BUN 30 H (9-20) mg/dL Creatinine 0.7 L (0.8-1.5) mg/dL Glucose 131 H (75-100) mg/dL Crossmatch See Detail - Imaging and cardiology Chest x-ray: report reviewed, image reviewed (bilateral airspace opacities, not much interval change)
[2019-01-12] MEDS: LORAZEPAM IV SCH (11:30)
[2019-01-12] MEDS: SODIUM CHLORIDE 0.9% IV SCH (11:30)
[2019-01-12] MEDS: LORazepam 2 MG/ML VIAL IV PRN (11:34)
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
[2019-01-12] MEDS: ACETAMINOPHEN 650 MG RECT SUPP PR PRN (20:43)
--- NOTE | 2019-01-13 03:28 | XRay Report ---
CHEST 1 VIEW INDICATION / CLINICAL INFORMATION: follow up respiratory failure. COMPARISON: 01/12/2019 FINDINGS: SUPPORT DEVICES: Tubes and lines are stable in position. ET tube has been placed with the tip approxi mately 4.6 cm above the stephany. HEART / MEDIASTINUM: Mild cardiac enlargement is stable. LUNGS / PLEURA: There remains diffuse bilateral pulmonary opacities. This does appear to be slightly improved especially in the right lower lobe. No large pleural effusion. No pneumothorax. ADDITIONAL FINDINGS: No significant additional findings. IMPRESSION: 1. Slight improvement in the diffuse bilateral pulmonary opacities, especially in the right lung base . Signer Name: Emeli Scott MD Signed: 01/13/2019 3:23 AM Workstation Name: [id number]
[2019-01-13] MEDS: CEFEPIME/NS 2 GM/100 ML 2 GM/100 ML BAG IV SCH ×3 (05:25→21:37)
[2019-01-13] MEDS: HYDROmorphone 2 MG TAB PO SCH ×3 (05:25→17:06)
[2019-01-13] MEDS: fentaNYL DRIP Premix 2,000 MCG/100 ML BAG IV SCH ×3 (05:37→22:41)
[2019-01-13 06:34] LABS: Alanine Aminotransferase 53 units/L (7-56); Albumin 2.7 g/dL (3.9-5); BUN/Creatinine Ratio 41; Blood Urea Nitrogen 29 mg/dL (9-20); Calcium 8.4 mg/dL (8.4-10.2); Hemolysis Index 5
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
[2019-01-13 07:13] LABS: Hematocrit 26.8 % (35.5-45.6); Hemoglobin 8.5 gm/dl (11.8-15.2); Mean Corpuscular HGB Conc 32 % (32-34); Mean Corpuscular Volume 89 fl (84-94); Platelet Count 455 K/mm3 (140-440); Red Cell Distribution Width 17.8 % (13.2-15.2)
--- NOTE | 2019-01-13 07:47 | Progress Note ---
Assessment and Plan 24 y/o male with sickle cell anemia admitted with acute chest syndrome and now acute respiratory failure requiring mechanical ventilation secondary to worsening acute chest vs pulmonary edema. Full blow ARDs 1. Mild systolic heart failure. Hold on lasix therapy today. 2. Continue ATivan and Fent. good sedation as of now 3. Continue PEEP at 14 until FIO2 is at 40%. Once at 40, which should happen today (01/13), WILL START WEANING Peep TOMORROW (01/14 4. ID continued abx coverage. If ID feels bronch is warranted can do to obtain new sputum sample. Will also remove HD catheter as well if not already done. Will ask ID about culturing the tip if that sort of thing is still done. Needs repeat cultures at next temp spike if ID agrees 5. OVerall guarded prognosis, discussed with sister at bedside. 6. Please ask nutrition to increase free water, most likely this is from lasix therapy. But needs more free water. CCT 31 minutes. Subjective Date of service: 01/13/19 Principal diagnosis: sickle cell disease Interval history: Temperature last night at midnight. Still on IV abx therapy. Green secretions being suctioned. Objective Vital Signs - 12hr 01/12/19 01/12/19 01/12/19 20:00 21:01 21:30 Temperature 98.8 F Pulse Rate 134 H 139 H Pulse Rate [ Apical] Pulse Rate [ From Monitor] Pulse Rate [ Left Dorsalis Pedis] Respiratory 32 H 29 H Rate Blood Pressure 135/64 126/56 113/47 O2 Sat by Pulse 89 94 94 Oximetry 01/12/19 01/12/19 01/12/19 22:00 22:03 23:00 Temperature Pulse Rate 136 H 137 H 135 H Pulse Rate [ Apical] Pulse Rate [ 135 H From Monitor] Pulse Rate [ Left Dorsalis Pedis] Respiratory 28 H 28 H 26 H Rate Blood Pressure 118/54 118/54 111/53 O2 Sat by Pulse 93 93 90 Oximetry 01/13/19 01/13/19 01/13/19 00:00 00:01 01:00 Temperature 102.1 F H Pulse Rate 128 H 141 H 125 H Pulse Rate [ Apical] Pulse Rate [ From Monitor] Pulse Rate [ Left Dorsalis Pedis] Respiratory 35 H 26 H Rate Blood Pressure 130/67 130/67 114/52 O2 Sat by Pulse 94 92 92 Oximetry 01/13/19 01/13/19 01/13/19 02:00 03:00 03:45 Temperature 98.0 F Pulse Rate 116 H 115 H Pulse Rate [ 117 H Apical] Pulse Rate [ From Monitor] Pulse Rate [ 117 H Left Dorsalis Pedis] Respiratory 21 17 Rate Blood Pressure 103/62 103/62 O2 Sat by Pulse 93 96 Oximetry 01/13/19 01/13/19 01/13/19 03:48 04:00 04:49 Temperature 98.0 F Pulse Rate 114 H 112 H Pulse Rate [ Apical] Pulse Rate [ From Monitor] Pulse Rate [ Left Dorsalis Pedis] Respiratory 23 Rate Blood Pressure 112/58 O2 Sat by Pulse 90 Oximetry 01/13/19 01/13/19 01/13/19 05:00 05:19 05:56 Temperature Pulse Rate 114 H 115 H Pulse Rate [ 118 H Apical] Pulse Rate [ From Monitor] Pulse Rate [ Left Dorsalis Pedis] Respiratory 26 H 25 H Rate Blood Pressure 124/70 124/70 O2 Sat by Pulse 94 95 95 Oximetry 01/13/19 06:00 Temperature Pulse Rate 117 H Pulse Rate [ Apical] Pulse Rate [ From Monitor] Pulse Rate [ Left Dorsalis Pedis] Respiratory 28 H Rate Blood Pressure 125/68 O2 Sat by Pulse 91 Oximetry Constitutional: asleep Eyes: non-icteric ENT: other (orally intubated and sedated.) Neck: supple Effort: mildly labored Ascultation: Bilateral: rales, rhonchi Percussion: Bilateral: not dull Cardiovascular: other (sinus tachy) Gastrointestinal: normoactive bowel sounds Extremities: no cyanosis Neurologic: normal mental status CBC and BMP: 01/13/19 05:39 01/13/19 05:39 ABG, PT/INR, D-dimer: ABG POC ABG pH 7.390 (7.35-7.45) 01/13/19 05:32 ABG pH 7.406 pH Units (7.350-7.450) 01/10/19 05:50 POC ABG pCO2 52.0 (35-45) H 01/13/19 05:32 ABG pCO2 43.8 mm Hg 01/10/19 05:50 POC ABG pO2 73 (80-105) L 01/13/19 05:32 ABG pO2 59.8 mm Hg (80.0-90.0) L 01/10/19 05:50 POC ABG HCO3 31.5 (22-26 mml/L) 01/13/19 05:32 POC ABG Total CO2 33 (23-27mmol/L) 01/13/19 05:32 POC ABG O2 Sat 94 01/13/19 05:32 ABG O2 Saturation 89.2 % (95.0-99.0) L 01/10/19 05:50 PT/INR, D-dimer PT 24.3 Sec. (12.2-14.9) H 01/05/19 08:24 INR 2.23 (0.87-1.13) H 01/05/19 08:24 D-Dimer 2064.49 ng/mlDDU (0-234) H 01/03/19 11:17 Abnormal lab findings: Abnormal Labs 01/03/19 01/03/19 01/03/19 10:34 10:34 11:17 WBC 34.2 H RBC 2.43 L Hgb 7.9 L Hct 21.9 L MCH 33 H MCHC 36 H RDW 29.2 H Plt Count [place] % (Auto) Eos % (Auto) [place] # Eos # Baso # Seg Neutrophils % Seg Neuts % (Manual) 85.0 H Lymphocytes % (Manual) 6.0 L Monocytes % (Manual) 9.0 H Eosinophils % (Manual) Nucleated RBC % 1.0 H Seg Neutrophils # Seg Neutrophils # Man 29.1 H Lymphocytes # (Manual) Monocytes # (Manual) 3.1 H Percent Retic 21.81 H PT INR APTT D-Dimer POC ABG pH POC ABG pCO2 POC ABG pO2 ABG pO2 ABG HCO3 ABG O2 Saturation ABG Hemoglobin Oxyhemoglobin Sodium 136 L 135 L Potassium 5.3 H Chloride Carbon Dioxide 20 L BUN Creatinine 0.6 L 0.7 L Glucose 123 H 112 H Calcium Iron TIBC Ferritin Total Bilirubin 8.00 H AST 100 H ALT Alkaline Phosphatase Lactate Dehydrogenase NT-Pro-B Natriuret Pep Total Protein Albumin Triglycerides Lipase Crossmatch 01/03/19 01/03/19 01/03/19 11:17 14:19 18:52 WBC 36.5 H RBC 2.32 L Hgb 7.8 L Hct 21.6 L MCH 34 H MCHC 36 H RDW 28.3 H Plt Count [place] % (Auto) Eos % (Auto) [place] # Eos # Baso # Seg Neutrophils % Seg Neuts % (Manual) 88.0 H Lymphocytes % (Manual) 4.0 L Monocytes % (Manual) 8.0 H Eosinophils % (Manual) Nucleated RBC % 4.0 H Seg Neutrophils # Seg Neutrophils # Man 32.1 H Lymphocytes # (Manual) Monocytes # (Manual) 2.9 H Percent Retic PT INR APTT D-Dimer 2064.49 H POC ABG pH POC ABG pCO2 POC ABG pO2 ABG pO2 ABG HCO3 ABG O2 Saturation ABG Hemoglobin Oxyhemoglobin Sodium Potassium Chloride Carbon Dioxide BUN Creatinine Glucose Calcium Iron TIBC Ferritin Total Bilirubin AST ALT Alkaline Phosphatase Lactate Dehydrogenase NT-Pro-B Natriuret Pep Total Protein Albumin Triglycerides Lipase 6 L Crossmatch 01/04/19 01/04/19 01/05/19 08:05 08:05 08:24 WBC 54.8 H* RBC 1.28 L Hgb 4.2 L* D Hct 11.1 L* D MCH 33 H MCHC 38 H* RDW 22.3 H Plt Count 134 L [place] % (Auto) Eos % (Auto) [place] # Eos # Baso # Seg Neutrophils % Seg Neuts % (Manual) Lymphocytes % (Manual) 1.0 L Monocytes % (Manual) 15.0 H Eosinophils % (Manual) Nucleated RBC % 3.0 H Seg Neutrophils # Seg Neutrophils # Man 35.1 H Lymphocytes # (Manual) 0.5 L Monocytes # (Manual) 8.2 H Percent Retic PT INR APTT D-Dimer POC ABG pH POC ABG pCO2 POC ABG pO2 ABG pO2 ABG HCO3 ABG O2 Saturation ABG Hemoglobin Oxyhemoglobin Sodium Potassium Chloride Carbon Dioxide BUN Creatinine Glucose Calcium Iron 19 L TIBC 218 L Ferritin 854.8 H Total Bilirubin AST ALT Alkaline Phosphatase Lactate Dehydrogenase NT-Pro-B Natriuret Pep Total Protein Albumin Triglycerides Lipase Crossmatch 01/05/19 01/05/19 01/05/19 08:24 08:24 08:24 WBC RBC Hgb Hct MCH MCHC RDW Plt Count [place] % (Auto) Eos % (Auto) [place] # Eos # Baso # Seg Neutrophils % Seg Neuts % (Manual) Lymphocytes % (Manual) Monocytes % (Manual) Eosinophils % (Manual) Nucleated RBC % Seg Neutrophils # Seg Neutrophils # Man Lymphocytes # (Manual) Monocytes # (Manual) Percent Retic PT 24.3 H INR 2.23 H APTT 53.5 H D-Dimer POC ABG pH POC ABG pCO2 POC ABG pO2 ABG pO2 ABG HCO3 ABG O2 Saturation ABG Hemoglobin Oxyhemoglobin Sodium Potassium 5.2 H D Chloride Carbon Dioxide 15 L BUN 40 H Creatinine 0.3 L D Glucose 121 H Calcium 8.3 L Iron TIBC Ferritin Total Bilirubin 31.80 H AST 164 H ALT 83 H Alkaline Phosphatase Lactate Dehydrogenase 1048 H NT-Pro-B Natriuret Pep Total Protein 6.0 L Albumin 3.6 L Triglycerides Lipase Crossmatch 01/05/19 01/05/19 01/05/19 08:26 08:26 09:48 WBC 54.8 H* RBC 1.26 L Hgb 4.1 L* Hct 10.9 L* MCH 33 H MCHC 38 H* RDW 22.0 H Plt Count 127 L [place] % (Auto) Eos % (Auto) [place] # Eos # Baso # Seg Neutrophils % Seg Neuts % (Manual) Lymphocytes % (Manual) Monocytes % (Manual) Eosinophils % (Manual) Nucleated RBC % Seg Neutrophils # Seg Neutrophils # Man Lymphocytes # (Manual) Monocytes # (Manual) Percent Retic PT INR APTT D-Dimer POC ABG pH POC ABG pCO2 POC ABG pO2 ABG pO2 ABG HCO3 ABG O2 Saturation ABG Hemoglobin Oxyhemoglobin Sodium Potassium Chloride Carbon Dioxide BUN Creatinine Glucose Calcium Iron TIBC Ferritin Total Bilirubin AST ALT Alkaline Phosphatase Lactate Dehydrogenase NT-Pro-B Natriuret Pep Total Protein Albumin Triglycerides Lipase Crossmatch See Detail See Detail 01/06/19 01/06/19 01/06/19 00:30 18:03 23:02 WBC 56.5 H* 44.3 H* RBC 1.76 L 2.41 L Hgb 5.6 L* 7.4 L Hct 15.8 L* 21.8 L D MCH MCHC 36 H RDW 19.8 H 18.4 H Plt Count [place] % (Auto) Eos % (Auto) [place] # Eos # Baso # Seg Neutrophils % Seg Neuts % (Manual) 90.0 H Lymphocytes % (Manual) 4.5 L Monocytes % (Manual) Eosinophils % (Manual) Nucleated RBC % Seg Neutrophils # Seg Neutrophils # Man 50.9 H Lymphocytes # (Manual) Monocytes # (Manual) 2.5 H Percent Retic PT INR APTT D-Dimer POC ABG pH 7.452 H POC ABG pCO2 29.4 L POC ABG pO2 ABG pO2 ABG HCO3 ABG O2 Saturation ABG Hemoglobin Oxyhemoglobin Sodium Potassium Chloride Carbon Dioxide BUN Creatinine Glucose Calcium Iron TIBC Ferritin Total Bilirubin AST ALT Alkaline Phosphatase Lactate Dehydrogenase NT-Pro-B Natriuret Pep Total Protein Albumin Triglycerides Lipase Crossmatch 01/08/19 01/08/19 01/08/19 09:33 12:10 13:18 WBC RBC Hgb Hct MCH MCHC RDW Plt Count [place] % (Auto) Eos % (Auto) [place] # Eos # Baso # Seg Neutrophils % Seg Neuts % (Manual) Lymphocytes % (Manual) Monocytes % (Manual) Eosinophils % (Manual) Nucleated RBC % Seg Neutrophils # Seg Neutrophils # Man Lymphocytes # (Manual) Monocytes # (Manual) Percent Retic PT INR APTT D-Dimer POC ABG pH POC ABG pCO2 POC ABG pO2 71 L 73 L ABG pO2 ABG HCO3 ABG O2 Saturation ABG Hemoglobin Oxyhemoglobin Sodium Potassium Chloride Carbon Dioxide BUN Creatinine Glucose Calcium Iron TIBC Ferritin Total Bilirubin AST ALT Alkaline Phosphatase Lactate Dehydrogenase NT-Pro-B Natriuret Pep Total Protein Albumin Triglycerides Lipase Crossmatch See Detail 01/08/19 01/08/19 01/08/19 13:18 14:58 17:00 WBC 33.5 H RBC 3.34 L Hgb 9.9 L Hct 29.2 L D MCH MCHC RDW 17.7 H Plt Count [place] % (Auto) Eos % (Auto) [place] # Eos # Baso # Seg Neutrophils % Seg Neuts % (Manual) 72.0 H Lymphocytes % (Manual) Monocytes % (Manual) 13.0 H Eosinophils % (Manual) Nucleated RBC % 9.0 H Seg Neutrophils # Seg Neutrophils # Man 24.1 H Lymphocytes # (Manual) Monocytes # (Manual) 4.4 H Percent Retic PT INR APTT D-Dimer POC ABG pH POC ABG pCO2 POC ABG pO2 74 L ABG pO2 ABG HCO3 ABG O2 Saturation ABG Hemoglobin Oxyhemoglobin Sodium Potassium Chloride Carbon Dioxide BUN Creatinine Glucose 122 H Calcium Iron TIBC Ferritin Total Bilirubin AST ALT Alkaline Phosphatase Lactate Dehydrogenase NT-Pro-B Natriuret Pep Total Protein Albumin Triglycerides Lipase Crossmatch 01/08/19 01/09/19 01/09/19 17:00 04:44 04:44 WBC 29.8 H RBC 2.85 L Hgb 8.4 L Hct 25.1 L MCH MCHC RDW 17.9 H Plt Count [place] % (Auto) Eos % (Auto) [place] # Eos # Baso # Seg Neutrophils % Seg Neuts % (Manual) Lymphocytes % (Manual) Monocytes % (Manual) Eosinophils % (Manual) Nucleated RBC % Seg Neutrophils # Seg Neutrophils # Man Lymphocytes # (Manual) Monocytes # (Manual) Percent Retic PT INR APTT D-Dimer POC ABG pH POC ABG pCO2 POC ABG pO2 ABG pO2 ABG HCO3 ABG O2 Saturation ABG Hemoglobin Oxyhemoglobin Sodium Potassium Chloride 107.3 H Carbon Dioxide BUN 22 H Creatinine 0.7 L Glucose 122 H Calcium Iron TIBC Ferritin Total Bilirubin AST ALT Alkaline Phosphatase Lactate Dehydrogenase NT-Pro-B Natriuret Pep 3064 H Total Protein Albumin Triglycerides Lipase Crossmatch 01/09/19 01/10/19 01/10/19 06:31 05:50 08:39 WBC 24.5 H RBC 2.89 L Hgb 8.4 L Hct 25.9 L MCH MCHC RDW 18.5 H Plt Count [place] % (Auto) 7.7 H Eos % (Auto) 5.4 H [place] # 2.0 H Eos # 1.4 H Baso # 0.2 H Seg Neutrophils % 75.5 H Seg Neuts % (Manual) 75.0 H Lymphocytes % (Manual) 11.0 L Monocytes % (Manual) Eosinophils % (Manual) 7.0 H Nucleated RBC % 28.0 H Seg Neutrophils # 19.7 H Seg Neutrophils # Man 0.0 L Lymphocytes # (Manual) 0.0 L Monocytes # (Manual) Percent Retic PT INR APTT D-Dimer POC ABG pH POC ABG pCO2 POC ABG pO2 ABG pO2 153.7 H 59.8 L ABG HCO3 26.9 H ABG O2 Saturation 89.2 L ABG Hemoglobin 8.1 L 8.1 L Oxyhemoglobin 86.6 L Sodium Potassium Chloride Carbon Dioxide BUN Creatinine Glucose Calcium Iron TIBC Ferritin Total Bilirubin AST ALT Alkaline Phosphatase Lactate Dehydrogenase NT-Pro-B Natriuret Pep Total Protein Albumin Triglycerides Lipase Crossmatch 01/10/19 01/10/19 01/11/19 08:39 08:39 04:18 WBC RBC Hgb Hct MCH MCHC RDW Plt Count [place] % (Auto) Eos % (Auto) [place] # Eos # Baso # Seg Neutrophils % Seg Neuts % (Manual) Lymphocytes % (Manual) Monocytes % (Manual) Eosinophils % (Manual) Nucleated RBC % Seg Neutrophils # Seg Neutrophils # Man Lymphocytes # (Manual) Monocytes # (Manual) Percent Retic PT INR APTT D-Dimer POC ABG pH POC ABG pCO2 45.4 H POC ABG pO2 ABG pO2 ABG HCO3 ABG O2 Saturation ABG Hemoglobin Oxyhemoglobin Sodium Potassium Chloride 108.6 H Carbon Dioxide BUN 21 H Creatinine Glucose 108 H Calcium 8.3 L Iron TIBC Ferritin Total Bilirubin 3.90 H AST 62 H ALT Alkaline Phosphatase 179 H Lactate Dehydrogenase NT-Pro-B Natriuret Pep Total Protein 6.2 L Albumin 2.5 L Triglycerides 416 H Lipase Crossmatch 01/11/19 01/11/19 01/12/19 04:53 04:53 04:36 WBC 26.9 H RBC 2.87 L Hgb 8.2 L Hct 25.6 L MCH MCHC RDW 17.9 H Plt Count [place] % (Auto) Eos % (Auto) [place] # Eos # Baso # Seg Neutrophils % Seg Neuts % (Manual) Lymphocytes % (Manual) Monocytes % (Manual) Eosinophils % (Manual) Nucleated RBC % Seg Neutrophils # Seg Neutrophils # Man Lymphocytes # (Manual) Monocytes # (Manual) Percent Retic PT INR APTT D-Dimer POC ABG pH POC ABG pCO2 50.8 H POC ABG pO2 71 L ABG pO2 ABG HCO3 ABG O2 Saturation ABG Hemoglobin Oxyhemoglobin Sodium 149 H Potassium Chloride 111.7 H Carbon Dioxide BUN 26 H Creatinine Glucose 113 H Calcium 8.2 L Iron TIBC Ferritin Total Bilirubin AST ALT Alkaline Phosphatase Lactate Dehydrogenase NT-Pro-B Natriuret Pep Total Protein Albumin Triglycerides Lipase Crossmatch 01/12/19 01/13/19 01/13/19 09:00 05:32 05:39 WBC 30.6 H RBC 3.00 L Hgb 8.5 L Hct 26.8 L MCH MCHC RDW 17.8 H Plt Count 455 H [place] % (Auto) Eos % (Auto) [place] # Eos # Baso # Seg Neutrophils % Seg Neuts % (Manual) Lymphocytes % (Manual) Monocytes % (Manual) Eosinophils % (Manual) Nucleated RBC % Seg Neutrophils # Seg Neutrophils # Man Lymphocytes # (Manual) Monocytes # (Manual) Percent Retic PT INR APTT D-Dimer POC ABG pH POC ABG pCO2 52.0 H POC ABG pO2 73 L ABG pO2 ABG HCO3 ABG O2 Saturation ABG Hemoglobin Oxyhemoglobin Sodium 148 H Potassium Chloride 110.5 H Carbon Dioxide BUN 30 H Creatinine 0.7 L Glucose 131 H Calcium Iron TIBC Ferritin Total Bilirubin AST ALT Alkaline Phosphatase Lactate Dehydrogenase NT-Pro-B Natriuret Pep Total Protein Albumin Triglycerides Lipase Crossmatch 01/13/19 05:39 WBC RBC Hgb Hct MCH MCHC RDW Plt Count [place] % (Auto) Eos % (Auto) [place] # Eos # Baso # Seg Neutrophils % Seg Neuts % (Manual) Lymphocytes % (Manual) Monocytes % (Manual) Eosinophils % (Manual) Nucleated RBC % Seg Neutrophils # Seg Neutrophils # Man Lymphocytes # (Manual) Monocytes # (Manual) Percent Retic PT INR APTT D-Dimer POC ABG pH POC ABG pCO2 POC ABG pO2 ABG pO2 ABG HCO3 ABG O2 Saturation ABG Hemoglobin Oxyhemoglobin Sodium 153 H Potassium Chloride 114.5 H Carbon Dioxide BUN 29 H Creatinine 0.7 L Glucose 126 H Calcium Iron TIBC Ferritin Total Bilirubin 3.50 H AST 89 H ALT Alkaline Phosphatase 257 H Lactate Dehydrogenase NT-Pro-B Natriuret Pep Total Protein Albumin 2.7 L Triglycerides Lipase Crossmatch
[2019-01-13] MEDS: FAMOTIDINE 20 MG TAB PO SCH ×2 (09:32→21:37)
[2019-01-13] MEDS: ENOXAPARIN 40 MG/0.4 ML INJ SUB-Q SCH (09:32)
[2019-01-13] MEDS: FOLIC ACID 1 MG TAB PO SCH (09:32)
[2019-01-13] MEDS: HYDROXYUREA 500 MG CAP PO SCH (09:32)
[2019-01-13 09:59] LABS: Total Cells Counted 100
[2019-01-13 10:00] LABS: Basophils % (Manual) 0 % (0.0-1.8)
[2019-01-13 10:03] LABS: Poikilocytosis Few; Stomatocytes Few; Target Cells Few
[2019-01-13 10:04] LABS: Anisocytosis Few
[2019-01-13 10:05] LABS: Large Platelets Rare; Platelet Estimate Consistent w Auto
--- NOTE | 2019-01-13 10:21 | Progress Note ---
Assessment and Plan Cultures: 01/03/19 blood cultures - no growth to date 01/04/2019 sputum: contaminated specimen A/P: 24 yo M PMhx sickle cell disease presents with fevers and myalgias, likely an acute chest syndrome vs pneumonia 1. Acute sepsis - present with fevers and leukocytosis, likely secondary to pneumonia. Procal is high at 6. New fever again. 2. Pneumonia - Continue Cefepime. Completed 5 days of azithromycin. 3. Sickle cell disease 4. Acute pain crisis 5. Persistent fevers - pneumonia v/s sickle related v/s line related. On Cefepime. Leukocytosis worse today and also from sickle cell disease. Blood cultures have remained negative and the yield while on antibiotics is going to be low. 6. Acute respiratory failure with hypoxia - intubated, on vent. Recs: agree with plans for removal of the HD cath Continue IV Cefepime, Day 7 today If febrile again after HD cath removal, would repeat blood cultures and then also add IV Vancomycin Michael Sterling MD, FACP [facility] ([facility]) M: [phone] O: [phone] F: [phone] Subjective Date of service: 01/13/19 Principal diagnosis: sickle cell disease Interval history: Febrile again. Remains sedated, intubated. No other events. Objective - Exam Narrative Exam: Physical Exam: Constitutional: sedated, intubated Head, Ears, Nose: Normocephalic, atraumatic. External ears, nose normal Eyes: Conjunctivae/corneas clear. No icterus. No ptosis. Neck: intubated Oral: intubated Cardiovascular: S1, S2 normal. Respiratory: Good air entry, clear to auscultation bilaterally GI: Soft, non-tender; bowel sounds normal. No peritoneal signs Musculoskeletal: No pedal edema, no cyanosis. Skin: No rash or abscess Hem/Lymphatic: No palpable cervical or supraclavicular nodes. No lymphangitis Psych: sedated Neurological: sedated intubated, on vent - Constitutional Vitals: Vital Signs Temp Pulse Resp BP Pulse Ox 98.0 F 119 H 19 111/84 94 01/13/19 04:49 01/13/19 08:11 01/13/19 08:00 01/13/19 08:11 01/13/19 08:11 Temperature -Last 24 Hours Temperature 98.0 F Temperature 98.0 F Temperature 102.1 F Temperature 98.8 F Temperature 98.2 F Temperature 98.2 F - Labs CBC & Chem 7: 01/13/19 05:39 01/13/19 05:39 Labs: Abnormal lab results 01/13/19 01/13/19 01/13/19 Range/Units 05:32 05:39 05:39 WBC 30.6 H (4.5-11.0) K/mm3 RBC 3.00 L (3.65-5.03) M/mm3 Hgb 8.5 L (11.8-15.2) gm/dl Hct 26.8 L (35.5-45.6) % RDW 17.8 H (13.2-15.2) % Plt Count 455 H (140-440) K/mm3 Seg Neuts % (Manual) 88.0 H (40.0-70.0) % Lymphocytes % (Manual) 2.0 L (13.4-35.0) % Nucleated RBC % 2.0 H (0.0-0.9) % Seg Neutrophils # Man 26.9 H (1.8-7.7) K/mm3 Lymphocytes # (Manual) 0.6 L (1.2-5.4) K/mm3 Monocytes # (Manual) 1.8 H (0.0-0.8) K/mm3 Eosinophils # (Manual) 1.2 H (0.0-0.4) K/mm3 POC ABG pCO2 52.0 H (35-45) POC ABG pO2 73 L (80-105) Sodium 153 H (137-145) mmol/L Chloride 114.5 H (98-107) mmol/L BUN 29 H (9-20) mg/dL Creatinine 0.7 L (0.8-1.5) mg/dL Glucose 126 H (75-100) mg/dL Total Bilirubin 3.50 H (0.1-1.2) mg/dL AST 89 H (5-40) units/L Alkaline Phosphatase 257 H (35-129) units/L Albumin 2.7 L (3.9-5) g/dL - Imaging and cardiology Chest x-ray: report reviewed, image reviewed (no significant interval change)
[2019-01-13] MEDS ORDERED: SODIUM BICARBONATE 325 MG TAB FEEDTUBE PRN (10:39)
[2019-01-13] MEDS ORDERED: LIPASE 10,500/PROTEASE 25,000/AMYLASE 43,750 (UNITS) DR CAP FEEDTUBE PRN (10:39)
[2019-01-13] MEDS ORDERED: SIMPLE SYRUP 15 ML FEEDTUBE PRN ×2 (10:39)
[2019-01-13] MEDS ORDERED: NEOMY 3.5 MG/BACIT 400 UNITS/POLY B 5000 UNITS/GM OINT PACKET TP STA (12:27)
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
[2019-01-13] MEDS: SODIUM CHLORIDE 0.9% IV SCH (19:14)
[2019-01-13] MEDS: LORAZEPAM IV SCH (19:14)
[2019-01-13] MEDS: ACETAMINOPHEN 650 MG RECT SUPP PR PRN (19:52)
[2019-01-13] MEDS: HYDROmorphone 1 MG/1 ML INJ IV PRN (21:36)
--- NOTE | 2019-01-14 03:13 | XRay Report ---
CHEST 1 VIEW INDICATION / CLINICAL INFORMATION: follow up respiratory failure. COMPARISON: 01/13/2019 FINDINGS: SUPPORT DEVICES: Stable, satisfactory device positioning. HEART / MEDIASTINUM: Stable. LUNGS / PLEURA: Bilateral pulmonary opacities are unchanged. No significant pleural effusion. No pneu mothorax. ADDITIONAL FINDINGS: No significant additional findings. IMPRESSION: 1. Stable appearance of the chest radiograph. Signer Name: Emeli Scott MD Signed: 01/14/2019 3:09 AM Workstation Name: [id number]
[2019-01-14] MEDS: HYDROmorphone 2 MG TAB PO SCH ×4 (03:32→17:29)
[2019-01-14] MEDS: CEFEPIME/NS 2 GM/100 ML 2 GM/100 ML BAG IV SCH ×3 (05:37→21:45)
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
[2019-01-14] MEDS: fentaNYL DRIP Premix 2,000 MCG/100 ML BAG IV SCH ×2 (08:20→17:27)
[2019-01-14] MEDS: ENOXAPARIN 40 MG/0.4 ML INJ SUB-Q SCH (09:52)
[2019-01-14] MEDS: HYDROXYUREA 500 MG CAP PO SCH (09:52)
[2019-01-14] MEDS: FAMOTIDINE 20 MG TAB PO SCH ×2 (09:52→21:45)
[2019-01-14] MEDS: FOLIC ACID 1 MG TAB PO SCH (09:52)
[2019-01-14 11:14] LABS: Hematocrit 26.5 % (35.5-45.6); Hemoglobin 8.4 gm/dl (11.8-15.2); Mean Corpuscular HGB Conc 32 % (32-34); Mean Corpuscular Volume 89 fl (84-94); Platelet Count 660 K/mm3 (140-440); Red Blood Count 2.99 M/mm3 (3.65-5.03)
--- NOTE | 2019-01-14 11:32 | Progress Note ---
Assessment and Plan 24 y/o male with sickle cell anemia admitted with acute chest syndrome and now acute respiratory failure requiring mechanical ventilation secondary to worsening acute chest vs pulmonary edema. Full blow ARDs 1. Mild systolic heart failure. Hold on lasix therapy today. Needs chemistry, please order 2. Continue ATivan and Fent. good sedation as of now 3. Continue to wean PEEP slowly over the next 48-72 hours. Maybe ready for extubation on Thursday 4. ID continued abx coverage. If ID feels bronch is warranted can do to obtain new sputum sample. Will also remove HD catheter as well if not already done. Will ask ID about culturing the tip if that sort of thing is still done. Needs repeat cultures at next temp spike if ID agrees. Still spiking temps 5. OVerall guarded prognosis, discussed with sister at bedside. 6. Please ask nutrition to increase free water, most likely this is from lasix therapy. But needs more free water. CCT 31 minutes. Subjective Date of service: 01/14/19 Principal diagnosis: sickle cell disease Interval history: No acute events. Down to 40%. RT has started weaning PEEP. Objective Vital Signs - 12hr 01/13/19 01/14/19 01/14/19 23:45 00:00 01:00 Temperature Pulse Rate 113 H 113 H 112 H Respiratory 111 H 27 H 24 Rate Respiratory 25 H Rate [ Generalized] Blood Pressure 118/57 122/63 O2 Sat by Pulse 96 94 95 Oximetry 01/14/19 01/14/19 01/14/19 02:00 03:00 03:17 Temperature Pulse Rate 117 H 107 H 107 H Respiratory 35 H 27 H Rate Respiratory Rate [ Generalized] Blood Pressure 120/62 120/57 O2 Sat by Pulse 97 94 Oximetry 01/14/19 01/14/19 01/14/19 03:26 03:32 04:00 Temperature 99.4 F Pulse Rate 103 H Respiratory 26 H 25 H Rate Respiratory Rate [ Generalized] Blood Pressure 115/63 O2 Sat by Pulse Oximetry 01/14/19 01/14/19 01/14/19 04:25 04:32 04:40 Temperature Pulse Rate 107 H 102 H Respiratory 24 Rate Respiratory 25 H Rate [ Generalized] Blood Pressure 120/63 O2 Sat by Pulse 97 Oximetry 01/14/19 01/14/19 01/14/19 05:00 05:38 06:00 Temperature Pulse Rate 104 H 106 H Respiratory 26 H 31 H 27 H Rate Respiratory Rate [ Generalized] Blood Pressure 135/74 116/58 O2 Sat by Pulse 90 97 Oximetry 01/14/19 01/14/19 01/14/19 07:00 08:00 08:20 Temperature 99.9 F H Pulse Rate 107 H 108 H Respiratory 18 25 H Rate Respiratory Rate [ Generalized] Blood Pressure 119/57 129/65 O2 Sat by Pulse 98 96 99 Oximetry 01/14/19 09:50 Temperature Pulse Rate 115 H Respiratory Rate Respiratory Rate [ Generalized] Blood Pressure 123/52 O2 Sat by Pulse 95 Oximetry Constitutional: asleep Eyes: non-icteric ENT: other (orally intubated and sedated.) Neck: supple Effort: mildly labored Ascultation: Bilateral: rales, rhonchi Percussion: Bilateral: not dull Cardiovascular: other (sinus tachy) Gastrointestinal: normoactive bowel sounds Extremities: no cyanosis Neurologic: normal mental status CBC and BMP: 01/14/19 10:25 01/13/19 05:39 ABG, PT/INR, D-dimer: ABG POC ABG pH 7.461 (7.35-7.45) H 01/14/19 04:59 ABG pH 7.406 pH Units (7.350-7.450) 01/10/19 05:50 POC ABG pCO2 42.5 (35-45) 01/14/19 04:59 ABG pCO2 43.8 mm Hg 01/10/19 05:50 POC ABG pO2 120 (80-105) H 01/14/19 04:59 ABG pO2 59.8 mm Hg (80.0-90.0) L 01/10/19 05:50 POC ABG HCO3 30.3 (22-26 mml/L) 01/14/19 04:59 POC ABG Total CO2 32 (23-27mmol/L) 01/14/19 04:59 POC ABG O2 Sat 99 01/14/19 04:59 ABG O2 Saturation 89.2 % (95.0-99.0) L 01/10/19 05:50 PT/INR, D-dimer PT 24.3 Sec. (12.2-14.9) H 01/05/19 08:24 INR 2.23 (0.87-1.13) H 01/05/19 08:24 D-Dimer 2064.49 ng/mlDDU (0-234) H 01/03/19 11:17 Abnormal lab findings: Abnormal Labs 01/03/19 01/03/19 01/03/19 10:34 10:34 11:17 WBC 34.2 H RBC 2.43 L Hgb 7.9 L Hct 21.9 L MCH 33 H MCHC 36 H RDW 29.2 H Plt Count [place] % (Auto) Eos % (Auto) [place] # Eos # Baso # Seg Neutrophils % Seg Neuts % (Manual) 85.0 H Lymphocytes % (Manual) 6.0 L Monocytes % (Manual) 9.0 H Eosinophils % (Manual) Nucleated RBC % 1.0 H Seg Neutrophils # Seg Neutrophils # Man 29.1 H Lymphocytes # (Manual) Monocytes # (Manual) 3.1 H Eosinophils # (Manual) Percent Retic 21.81 H PT INR APTT D-Dimer POC ABG pH POC ABG pCO2 POC ABG pO2 ABG pO2 ABG HCO3 ABG O2 Saturation ABG Hemoglobin Oxyhemoglobin Sodium 136 L 135 L Potassium 5.3 H Chloride Carbon Dioxide 20 L BUN Creatinine 0.6 L 0.7 L Glucose 123 H 112 H Calcium Iron TIBC Ferritin Total Bilirubin 8.00 H AST 100 H ALT Alkaline Phosphatase Lactate Dehydrogenase NT-Pro-B Natriuret Pep Total Protein Albumin Triglycerides Lipase Crossmatch 01/03/19 01/03/19 01/03/19 11:17 14:19 18:52 WBC 36.5 H RBC 2.32 L Hgb 7.8 L Hct 21.6 L MCH 34 H MCHC 36 H RDW 28.3 H Plt Count [place] % (Auto) Eos % (Auto) [place] # Eos # Baso # Seg Neutrophils % Seg Neuts % (Manual) 88.0 H Lymphocytes % (Manual) 4.0 L Monocytes % (Manual) 8.0 H Eosinophils % (Manual) Nucleated RBC % 4.0 H Seg Neutrophils # Seg Neutrophils # Man 32.1 H Lymphocytes # (Manual) Monocytes # (Manual) 2.9 H Eosinophils # (Manual) Percent Retic PT INR APTT D-Dimer 2064.49 H POC ABG pH POC ABG pCO2 POC ABG pO2 ABG pO2 ABG HCO3 ABG O2 Saturation ABG Hemoglobin Oxyhemoglobin Sodium Potassium Chloride Carbon Dioxide BUN Creatinine Glucose Calcium Iron TIBC Ferritin Total Bilirubin AST ALT Alkaline Phosphatase Lactate Dehydrogenase NT-Pro-B Natriuret Pep Total Protein Albumin Triglycerides Lipase 6 L Crossmatch 01/04/19 01/04/19 01/05/19 08:05 08:05 08:24 WBC 54.8 H* RBC 1.28 L Hgb 4.2 L* D Hct 11.1 L* D MCH 33 H MCHC 38 H* RDW 22.3 H Plt Count 134 L [place] % (Auto) Eos % (Auto) [place] # Eos # Baso # Seg Neutrophils % Seg Neuts % (Manual) Lymphocytes % (Manual) 1.0 L Monocytes % (Manual) 15.0 H Eosinophils % (Manual) Nucleated RBC % 3.0 H Seg Neutrophils # Seg Neutrophils # Man 35.1 H Lymphocytes # (Manual) 0.5 L Monocytes # (Manual) 8.2 H Eosinophils # (Manual) Percent Retic PT INR APTT D-Dimer POC ABG pH POC ABG pCO2 POC ABG pO2 ABG pO2 ABG HCO3 ABG O2 Saturation ABG Hemoglobin Oxyhemoglobin Sodium Potassium Chloride Carbon Dioxide BUN Creatinine Glucose Calcium Iron 19 L TIBC 218 L Ferritin 854.8 H Total Bilirubin AST ALT Alkaline Phosphatase Lactate Dehydrogenase NT-Pro-B Natriuret Pep Total Protein Albumin Triglycerides Lipase Crossmatch 01/05/19 01/05/19 01/05/19 08:24 08:24 08:24 WBC RBC Hgb Hct MCH MCHC RDW Plt Count [place] % (Auto) Eos % (Auto) [place] # Eos # Baso # Seg Neutrophils % Seg Neuts % (Manual) Lymphocytes % (Manual) Monocytes % (Manual) Eosinophils % (Manual) Nucleated RBC % Seg Neutrophils # Seg Neutrophils # Man Lymphocytes # (Manual) Monocytes # (Manual) Eosinophils # (Manual) Percent Retic PT 24.3 H INR 2.23 H APTT 53.5 H D-Dimer POC ABG pH POC ABG pCO2 POC ABG pO2 ABG pO2 ABG HCO3 ABG O2 Saturation ABG Hemoglobin Oxyhemoglobin Sodium Potassium 5.2 H D Chloride Carbon Dioxide 15 L BUN 40 H Creatinine 0.3 L D Glucose 121 H Calcium 8.3 L Iron TIBC Ferritin Total Bilirubin 31.80 H AST 164 H ALT 83 H Alkaline Phosphatase Lactate Dehydrogenase 1048 H NT-Pro-B Natriuret Pep Total Protein 6.0 L Albumin 3.6 L Triglycerides Lipase Crossmatch 01/05/19 01/05/19 01/05/19 08:26 08:26 09:48 WBC 54.8 H* RBC 1.26 L Hgb 4.1 L* Hct 10.9 L* MCH 33 H MCHC 38 H* RDW 22.0 H Plt Count 127 L [place] % (Auto) Eos % (Auto) [place] # Eos # Baso # Seg Neutrophils % Seg Neuts % (Manual) Lymphocytes % (Manual) Monocytes % (Manual) Eosinophils % (Manual) Nucleated RBC % Seg Neutrophils # Seg Neutrophils # Man Lymphocytes # (Manual) Monocytes # (Manual) Eosinophils # (Manual) Percent Retic PT INR APTT D-Dimer POC ABG pH POC ABG pCO2 POC ABG pO2 ABG pO2 ABG HCO3 ABG O2 Saturation ABG Hemoglobin Oxyhemoglobin Sodium Potassium Chloride Carbon Dioxide BUN Creatinine Glucose Calcium Iron TIBC Ferritin Total Bilirubin AST ALT Alkaline Phosphatase Lactate Dehydrogenase NT-Pro-B Natriuret Pep Total Protein Albumin Triglycerides Lipase Crossmatch See Detail See Detail 01/06/19 01/06/19 01/06/19 00:30 18:03 23:02 WBC 56.5 H* 44.3 H* RBC 1.76 L 2.41 L Hgb 5.6 L* 7.4 L Hct 15.8 L* 21.8 L D MCH MCHC 36 H RDW 19.8 H 18.4 H Plt Count [place] % (Auto) Eos % (Auto) [place] # Eos # Baso # Seg Neutrophils % Seg Neuts % (Manual) 90.0 H Lymphocytes % (Manual) 4.5 L Monocytes % (Manual) Eosinophils % (Manual) Nucleated RBC % Seg Neutrophils # Seg Neutrophils # Man 50.9 H Lymphocytes # (Manual) Monocytes # (Manual) 2.5 H Eosinophils # (Manual) Percent Retic PT INR APTT D-Dimer POC ABG pH 7.452 H POC ABG pCO2 29.4 L POC ABG pO2 ABG pO2 ABG HCO3 ABG O2 Saturation ABG Hemoglobin Oxyhemoglobin Sodium Potassium Chloride Carbon Dioxide BUN Creatinine Glucose Calcium Iron TIBC Ferritin Total Bilirubin AST ALT Alkaline Phosphatase Lactate Dehydrogenase NT-Pro-B Natriuret Pep Total Protein Albumin Triglycerides Lipase Crossmatch 01/08/19 01/08/19 01/08/19 09:33 12:10 13:18 WBC RBC Hgb Hct MCH MCHC RDW Plt Count [place] % (Auto) Eos % (Auto) [place] # Eos # Baso # Seg Neutrophils % Seg Neuts % (Manual) Lymphocytes % (Manual) Monocytes % (Manual) Eosinophils % (Manual) Nucleated RBC % Seg Neutrophils # Seg Neutrophils # Man Lymphocytes # (Manual) Monocytes # (Manual) Eosinophils # (Manual) Percent Retic PT INR APTT D-Dimer POC ABG pH POC ABG pCO2 POC ABG pO2 71 L 73 L ABG pO2 ABG HCO3 ABG O2 Saturation ABG Hemoglobin Oxyhemoglobin Sodium Potassium Chloride Carbon Dioxide BUN Creatinine Glucose Calcium Iron TIBC Ferritin Total Bilirubin AST ALT Alkaline Phosphatase Lactate Dehydrogenase NT-Pro-B Natriuret Pep Total Protein Albumin Triglycerides Lipase Crossmatch See Detail 01/08/19 01/08/19 01/08/19 13:18 14:58 17:00 WBC 33.5 H RBC 3.34 L Hgb 9.9 L Hct 29.2 L D MCH MCHC RDW 17.7 H Plt Count [place] % (Auto) Eos % (Auto) [place] # Eos # Baso # Seg Neutrophils % Seg Neuts % (Manual) 72.0 H Lymphocytes % (Manual) Monocytes % (Manual) 13.0 H Eosinophils % (Manual) Nucleated RBC % 9.0 H Seg Neutrophils # Seg Neutrophils # Man 24.1 H Lymphocytes # (Manual) Monocytes # (Manual) 4.4 H Eosinophils # (Manual) Percent Retic PT INR APTT D-Dimer POC ABG pH POC ABG pCO2 POC ABG pO2 74 L ABG pO2 ABG HCO3 ABG O2 Saturation ABG Hemoglobin Oxyhemoglobin Sodium Potassium Chloride Carbon Dioxide BUN Creatinine Glucose 122 H Calcium Iron TIBC Ferritin Total Bilirubin AST ALT Alkaline Phosphatase Lactate Dehydrogenase NT-Pro-B Natriuret Pep Total Protein Albumin Triglycerides Lipase Crossmatch 01/08/19 01/09/19 01/09/19 17:00 04:44 04:44 WBC 29.8 H RBC 2.85 L Hgb 8.4 L Hct 25.1 L MCH MCHC RDW 17.9 H Plt Count [place] % (Auto) Eos % (Auto) [place] # Eos # Baso # Seg Neutrophils % Seg Neuts % (Manual) Lymphocytes % (Manual) Monocytes % (Manual) Eosinophils % (Manual) Nucleated RBC % Seg Neutrophils # Seg Neutrophils # Man Lymphocytes # (Manual) Monocytes # (Manual) Eosinophils # (Manual) Percent Retic PT INR APTT D-Dimer POC ABG pH POC ABG pCO2 POC ABG pO2 ABG pO2 ABG HCO3 ABG O2 Saturation ABG Hemoglobin Oxyhemoglobin Sodium Potassium Chloride 107.3 H Carbon Dioxide BUN 22 H Creatinine 0.7 L Glucose 122 H Calcium Iron TIBC Ferritin Total Bilirubin AST ALT Alkaline Phosphatase Lactate Dehydrogenase NT-Pro-B Natriuret Pep 3064 H Total Protein Albumin Triglycerides Lipase Crossmatch 01/09/19 01/10/19 01/10/19 06:31 05:50 08:39 WBC 24.5 H RBC 2.89 L Hgb 8.4 L Hct 25.9 L MCH MCHC RDW 18.5 H Plt Count [place] % (Auto) 7.7 H Eos % (Auto) 5.4 H [place] # 2.0 H Eos # 1.4 H Baso # 0.2 H Seg Neutrophils % 75.5 H Seg Neuts % (Manual) 75.0 H Lymphocytes % (Manual) 11.0 L Monocytes % (Manual) Eosinophils % (Manual) 7.0 H Nucleated RBC % 28.0 H Seg Neutrophils # 19.7 H Seg Neutrophils # Man 0.0 L Lymphocytes # (Manual) 0.0 L Monocytes # (Manual) Eosinophils # (Manual) Percent Retic PT INR APTT D-Dimer POC ABG pH POC ABG pCO2 POC ABG pO2 ABG pO2 153.7 H 59.8 L ABG HCO3 26.9 H ABG O2 Saturation 89.2 L ABG Hemoglobin 8.1 L 8.1 L Oxyhemoglobin 86.6 L Sodium Potassium Chloride Carbon Dioxide BUN Creatinine Glucose Calcium Iron TIBC Ferritin Total Bilirubin AST ALT Alkaline Phosphatase Lactate Dehydrogenase NT-Pro-B Natriuret Pep Total Protein Albumin Triglycerides Lipase Crossmatch 01/10/19 01/10/19 01/11/19 08:39 08:39 04:18 WBC RBC Hgb Hct MCH MCHC RDW Plt Count [place] % (Auto) Eos % (Auto) [place] # Eos # Baso # Seg Neutrophils % Seg Neuts % (Manual) Lymphocytes % (Manual) Monocytes % (Manual) Eosinophils % (Manual) Nucleated RBC % Seg Neutrophils # Seg Neutrophils # Man Lymphocytes # (Manual) Monocytes # (Manual) Eosinophils # (Manual) Percent Retic PT INR APTT D-Dimer POC ABG pH POC ABG pCO2 45.4 H POC ABG pO2 ABG pO2 ABG HCO3 ABG O2 Saturation ABG Hemoglobin Oxyhemoglobin Sodium Potassium Chloride 108.6 H Carbon Dioxide BUN 21 H Creatinine Glucose 108 H Calcium 8.3 L Iron TIBC Ferritin Total Bilirubin 3.90 H AST 62 H ALT Alkaline Phosphatase 179 H Lactate Dehydrogenase NT-Pro-B Natriuret Pep Total Protein 6.2 L Albumin 2.5 L Triglycerides 416 H Lipase Crossmatch 01/11/19 01/11/19 01/12/19 04:53 04:53 04:36 WBC 26.9 H RBC 2.87 L Hgb 8.2 L Hct 25.6 L MCH MCHC RDW 17.9 H Plt Count [place] % (Auto) Eos % (Auto) [place] # Eos # Baso # Seg Neutrophils % Seg Neuts % (Manual) Lymphocytes % (Manual) Monocytes % (Manual) Eosinophils % (Manual) Nucleated RBC % Seg Neutrophils # Seg Neutrophils # Man Lymphocytes # (Manual) Monocytes # (Manual) Eosinophils # (Manual) Percent Retic PT INR APTT D-Dimer POC ABG pH POC ABG pCO2 50.8 H POC ABG pO2 71 L ABG pO2 ABG HCO3 ABG O2 Saturation ABG Hemoglobin Oxyhemoglobin Sodium 149 H Potassium Chloride 111.7 H Carbon Dioxide BUN 26 H Creatinine Glucose 113 H Calcium 8.2 L Iron TIBC Ferritin Total Bilirubin AST ALT Alkaline Phosphatase Lactate Dehydrogenase NT-Pro-B Natriuret Pep Total Protein Albumin Triglycerides Lipase Crossmatch 01/12/19 01/13/19 01/13/19 09:00 05:32 05:39 WBC 30.6 H RBC 3.00 L Hgb 8.5 L Hct 26.8 L MCH MCHC RDW 17.8 H Plt Count 455 H [place] % (Auto) Eos % (Auto) [place] # Eos # Baso # Seg Neutrophils % Seg Neuts % (Manual) 88.0 H Lymphocytes % (Manual) 2.0 L Monocytes % (Manual) Eosinophils % (Manual) Nucleated RBC % 2.0 H Seg Neutrophils # Seg Neutrophils # Man 26.9 H Lymphocytes # (Manual) 0.6 L Monocytes # (Manual) 1.8 H Eosinophils # (Manual) 1.2 H Percent Retic PT INR APTT D-Dimer POC ABG pH POC ABG pCO2 52.0 H POC ABG pO2 73 L ABG pO2 ABG HCO3 ABG O2 Saturation ABG Hemoglobin Oxyhemoglobin Sodium 148 H Potassium Chloride 110.5 H Carbon Dioxide BUN 30 H Creatinine 0.7 L Glucose 131 H Calcium Iron TIBC Ferritin Total Bilirubin AST ALT Alkaline Phosphatase Lactate Dehydrogenase NT-Pro-B Natriuret Pep Total Protein Albumin Triglycerides Lipase Crossmatch 01/13/19 01/14/19 01/14/19 05:39 04:59 10:25 WBC 28.8 H RBC 2.99 L Hgb 8.4 L Hct 26.5 L MCH MCHC RDW 18.0 H Plt Count 660 H [place] % (Auto) Eos % (Auto) [place] # Eos # Baso # Seg Neutrophils % Seg Neuts % (Manual) Lymphocytes % (Manual) Monocytes % (Manual) Eosinophils % (Manual) Nucleated RBC % Seg Neutrophils # Seg Neutrophils # Man Lymphocytes # (Manual) Monocytes # (Manual) Eosinophils # (Manual) Percent Retic PT INR APTT D-Dimer POC ABG pH 7.461 H POC ABG pCO2 POC ABG pO2 120 H ABG pO2 ABG HCO3 ABG O2 Saturation ABG Hemoglobin Oxyhemoglobin Sodium 153 H Potassium Chloride 114.5 H Carbon Dioxide BUN 29 H Creatinine 0.7 L Glucose 126 H Calcium Iron TIBC Ferritin Total Bilirubin 3.50 H AST 89 H ALT Alkaline Phosphatase 257 H Lactate Dehydrogenase NT-Pro-B Natriuret Pep Total Protein Albumin 2.7 L Triglycerides Lipase Crossmatch
[2019-01-14 11:37] LABS: Alanine Aminotransferase 42 units/L (7-56); Albumin 2.9 g/dL (3.9-5); BUN/Creatinine Ratio 39; Blood Urea Nitrogen 27 mg/dL (9-20); Calcium 8.7 mg/dL (8.4-10.2); Hemolysis Index 0
[2019-01-14] MEDS ORDERED: VANCOMYCIN 1,250 MG in SODIUM CHLORIDE 0.9% 250ML 250 ML IV ONE (12:30)
--- NOTE | 2019-01-14 12:31 | Progress Note ---
Assessment and Plan Cultures: 01/03/19 blood cultures - no growth to date 01/04/2019 sputum: contaminated specimen A/P: 24 yo M PMhx sickle cell disease presents with fevers and myalgias, likely an acute chest syndrome vs pneumonia 1. Acute sepsis - present with fevers and leukocytosis, likely secondary to pneumonia. Procal is high at 6. New fever again. 2. Pneumonia - Continue Cefepime. Completed 5 days of azithromycin. 3. Sickle cell disease 4. Acute pain crisis 5. Persistent fevers - pneumonia v/s sickle related v/s line related. On Cefepime. Leukocytosis worsening and also ?from sickle cell disease. Blood cultures have remained negative. 6. Acute respiratory failure with hypoxia - intubated, on vent. Recs: agree with blood cultures fungal blood cultures also ordered by me started IV Vancomycin and IV Fluconazole Continue IV Cefepime, Day 8 today If he remains febrile, next step would be to get a CT chest, abdomen and pelvis with IV contrast. ?splenic infarcts from his underlying sickle cell Michael Sterling MD, FACP [facility] ([facility]) M: [phone] O: [phone] F: [phone] Subjective Date of service: 01/14/19 Principal diagnosis: sickle cell disease Interval history: Remains sedated, intubated. Had HD cath removal, still spiking fevers. So blood cultures ordered. Older brother at bedside. Objective - Exam Narrative Exam: Physical Exam: Constitutional: sedated, intubated Head, Ears, Nose: Normocephalic, atraumatic. External ears, nose normal Eyes: Conjunctivae/corneas clear. No icterus. No ptosis. Neck: intubated Oral: intubated Cardiovascular: S1, S2 normal. Respiratory: Good air entry, clear to auscultation bilaterally GI: Soft, non-tender; bowel sounds normal. No peritoneal signs Musculoskeletal: No pedal edema, no cyanosis. Skin: No rash or abscess Hem/Lymphatic: No palpable cervical or supraclavicular nodes. No lymphangitis Psych: sedated Neurological: sedated intubated, on vent - Constitutional Vitals: Vital Signs Temp Pulse Resp BP Pulse Ox 99.9 F H 115 H 25 H 123/52 95 01/14/19 08:00 01/14/19 09:50 01/14/19 08:00 01/14/19 09:50 01/14/19 09:50 Temperature -Last 24 Hours Temperature 99.9 F Temperature 99.4 F Temperature 98.3 F Temperature 101.3 F Temperature 103.1 F Temperature 102.9 F Temperature 98.7 F - Labs CBC & Chem 7: 01/14/19 10:25 01/14/19 10:25 Labs: Abnormal lab results 01/14/19 01/14/19 01/14/19 Range/Units 04:59 10:25 10:25 WBC 28.8 H (4.5-11.0) K/mm3 RBC 2.99 L (3.65-5.03) M/mm3 Hgb 8.4 L (11.8-15.2) gm/dl Hct 26.5 L (35.5-45.6) % RDW 18.0 H (13.2-15.2) % Plt Count 660 H (140-440) K/mm3 POC ABG pH 7.461 H (7.35-7.45) POC ABG pO2 120 H (80-105) Sodium 155 H (137-145) mmol/L Chloride 112.7 H (98-107) mmol/L BUN 27 H (9-20) mg/dL Creatinine 0.7 L (0.8-1.5) mg/dL Glucose 102 H (75-100) mg/dL Total Bilirubin 2.70 H (0.1-1.2) mg/dL AST 63 H (5-40) units/L Alkaline Phosphatase 221 H (35-129) units/L Albumin 2.9 L (3.9-5) g/dL - Imaging and cardiology Chest x-ray: report reviewed, image reviewed (shows no interval change)
[2019-01-14 13:05] LABS: Band Neutrophils # (Manual) 0.3 K/mm3; Basophils % (Manual) 0 % (0.0-1.8); Stomatocytes Few; Total Cells Counted 100
[2019-01-14 13:06] LABS: Target Cells Rare
[2019-01-14 13:07] LABS: Platelet Estimate Consistent w Auto
[2019-01-14 13:30] LABS: Hemoglobin A2 Prime SEE SCANNED RESULT; Hemoglobin Barts SEE SCANNED RESULT; Hemoglobin E SEE SCANNED RESULT; Hemoglobin G SEE SCANNED RESULT; Hemoglobin Lepore SEE SCANNED RESULT; Hemoglobin O-Arab SEE SCANNED RESULT; IEF Confirm SEE SCANNED RESULT; Interpretation SEE SCANNED RESULT; Sickle Solubility Test SEE SCANNED RESULT
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
[2019-01-14] MEDS: FLUCONAZOLE 400 MG 200 ML IV SCH (15:07)
[2019-01-14] MEDS: HYDROmorphone 1 MG/1 ML INJ IV PRN (18:03)
[2019-01-14] MEDS: LORazepam 2 MG/ML VIAL IV PRN (20:20)
[2019-01-15] MEDS: HYDROmorphone 2 MG TAB PO SCH ×4 (00:32→17:40)
[2019-01-15] MEDS: VANCOMYCIN/NS 1 GM/250 ML 1 GM/250 ML BAG IV SCH ×2 (01:44→12:48)
[2019-01-15] MEDS: fentaNYL DRIP Premix 2,000 MCG/100 ML BAG IV SCH ×3 (03:00→17:40)
--- NOTE | 2019-01-15 03:07 | XRay Report ---
CHEST 1 VIEW INDICATION: follow up respiratory failure. COMPARISON: Previous day. FINDINGS: Support devices: Unchanged. Heart: Stable cardiomegaly. Lungs/Pleura: Diffuse bilateral opacities remain without significant change. Additional findings: None. IMPRESSION: No significant change. Signer Name: Kin Rendon MD Signed: 01/15/2019 3:02 AM Workstation Name: [id number]
[2019-01-15] MEDS: SODIUM CHLORIDE 0.9% IV SCH (04:01)
[2019-01-15] MEDS: LORAZEPAM IV SCH (04:01)
[2019-01-15] MEDS: CEFEPIME/NS 2 GM/100 ML 2 GM/100 ML BAG IV SCH ×3 (05:17→21:20)
[2019-01-15 05:54] LABS: Hematocrit 24.8 % (35.5-45.6); Hemoglobin 7.9 gm/dl (11.8-15.2); Mean Corpuscular HGB Conc 32 % (32-34); Mean Corpuscular Volume 89 fl (84-94); Platelet Count 739 K/mm3 (140-440); Red Blood Count 2.79 M/mm3 (3.65-5.03); Red Cell Distribution Width 18.6 % (13.2-15.2)
[2019-01-15 06:31] LABS: Alanine Aminotransferase 34 units/L (7-56); Albumin 2.8 g/dL (3.9-5); BUN/Creatinine Ratio 29; Blood Urea Nitrogen 23 mg/dL (9-20); Calcium 8.4 mg/dL (8.4-10.2); Hemolysis Index 1
[2019-01-15] MEDS: HYDROmorphone 1 MG/1 ML INJ IV PRN (07:55)
[2019-01-15] MEDS: FOLIC ACID 1 MG TAB PO SCH (10:55)
[2019-01-15] MEDS: FAMOTIDINE 20 MG TAB PO SCH ×2 (10:55→21:21)
[2019-01-15] MEDS: ENOXAPARIN 40 MG/0.4 ML INJ SUB-Q SCH (10:55)
[2019-01-15] MEDS: FLUCONAZOLE 400 MG 200 ML IV SCH (10:56)
[2019-01-15] MEDS: HYDROXYUREA 500 MG CAP PO SCH ×2 (11:29→11:45)
--- NOTE | 2019-01-15 16:04 | Progress Note ---
Assessment and Plan - Patient Problems (1) ARDS (adult respiratory distress syndrome) Current Visit: Yes Status: Acute Plan to address problem: Patient developed all arts with hypoxic respiratory failure. Remains intubated. Neurology following. (2) Pneumonia Current Visit: Yes Status: Acute Qualifiers: Pneumonia type: due to unspecified organism Laterality: right Lung location: middle lobe of lung Plan to address problem: Patient with pneumonia infectious disease added vancomycin and fluconazole. Patient has low-grade fever leukocytosis of 31. Blood and urine negative so far. Follow culture data. Infectious disease following. (3) Sepsis Current Visit: Yes Status: Acute Qualifiers: Sepsis type: sepsis due to unspecified organism Sepsis acute organ dysfunction status: unspecified Qualified Code(s): A41.9 - Sepsis, unspecified organism Plan to address problem: Sepsis secondary to pneumonia see above. Follow effects disease recommendations. (4) Sickle cell crisis Current Visit: Yes Status: Acute Plan to address problem: Sickle cell crisis pain control. (5) Acute coronary syndrome Current Visit: Yes Status: Acute Plan to address problem: [place] to sickle cell disease. 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 History Interval history: Patient remains intubated. On fifth nail and Ativan. At present is not alert. Hospital course uncomplicated over p.m. No adverse events reported to me. A ship 23-year-old with a history of sickle cell disease presented with sepsis and pneumonia. Patient intubated developed arts. Hospitalist Physical - Constitutional Vitals: Temp Pulse Resp BP Pulse Ox 98.3 F 107 H 1 L 127/57 95 01/15/19 15:59 01/15/19 12:53 01/15/19 12:53 01/15/19 12:53 01/15/19 12:53 General appearance: Absent: mild distress - EENT Eyes: Present: PERRL - Neck Neck: Present: supple, normal ROM - Respiratory Respiratory: bilateral: diminished, rhonchi - Cardiovascular Rhythm: regular - Extremities Extremities: no ischemia, pulses intact, pulses symmetrical, No edema, normal temperature, normal color - Abdominal General gastrointestinal: soft, non-tender, non-distended, normal bowel sounds - Integumentary Integumentary: Present: clear, warm, dry - Neurologic Neurologic: moves all extremities Results - Labs CBC & Chem 7: 01/15/19 05:06 01/15/19 05:06 Labs: Laboratory Last Values WBC 31.5 K/mm3 (4.5-11.0) H 01/15/19 05:06 RBC 2.79 M/mm3 (3.65-5.03) L 01/15/19 05:06 Hgb 7.9 gm/dl (11.8-15.2) L 01/15/19 05:06 Hemoglobin Comment See scanned result 01/04/19 08:05 Hct 24.8 % (35.5-45.6) L 01/15/19 05:06 MCV 89 fl (84-94) 01/15/19 05:06 MCH 28 pg (28-32) 01/15/19 05:06 MCHC 32 % (32-34) 01/15/19 05:06 RDW 18.6 % (13.2-15.2) H 01/15/19 05:06 Plt Count 739 K/mm3 (140-440) H 01/15/19 05:06 [place] % (Auto) 7.7 % (0.0-7.3) H 01/10/19 08:39 Eos % (Auto) 5.4 % (0.0-4.3) H 01/10/19 08:39 [place] # 2.0 K/mm3 (0.0-0.8) H 01/10/19 08:39 Eos # 1.4 K/mm3 (0.0-0.4) H 01/10/19 08:39 Baso # 0.2 K/mm3 (0.0-0.1) H 01/10/19 08:39 Add Manual Diff Complete 01/14/19 10:25 Total Counted 100 01/14/19 10:25 Seg Neutrophils % 75.5 % (40.0-70.0) H 01/10/19 08:39 Seg Neuts % (Manual) 78.0 % (40.0-70.0) H 01/14/19 10:25 Band Neutrophils % 1.0 % 01/14/19 10:25 Lymphocytes % (Manual) 7.0 % (13.4-35.0) L 01/14/19 10:25 Reactive Lymphs % (Man) 0 % 01/14/19 10:25 Monocytes % (Manual) 11.0 % (0.0-7.3) H 01/14/19 10:25 Eosinophils % (Manual) 3.0 % (0.0-4.3) 01/14/19 10:25 Basophils % (Manual) 0 % (0.0-1.8) 01/14/19 10:25 Metamyelocytes % 0 % 01/14/19 10:25 Myelocytes % 0 % 01/14/19 10:25 Promyelocytes % 0 % 01/14/19 10:25 Blast Cells % 0 % 01/14/19 10:25 Nucleated RBC % 2.0 % (0.0-0.9) H 01/14/19 10:25 Seg Neutrophils # 19.7 K/mm3 (1.8-7.7) H 01/10/19 08:39 Seg Neutrophils # Man 22.5 K/mm3 (1.8-7.7) H 01/14/19 10:25 Band Neutrophils # 0.3 K/mm3 01/14/19 10:25 Lymphocytes # (Manual) 2.0 K/mm3 (1.2-5.4) 01/14/19 10:25 Abs React Lymphs (Man) 0.0 K/mm3 01/14/19 10:25 Monocytes # (Manual) 3.2 K/mm3 (0.0-0.8) H 01/14/19 10:25 Eosinophils # (Manual) 0.9 K/mm3 (0.0-0.4) H 01/14/19 10:25 Basophils # (Manual) 0.0 K/mm3 (0.0-0.1) 01/14/19 10:25 Metamyelocytes # 0.0 K/mm3 01/14/19 10:25 Myelocytes # 0.0 K/mm3 01/14/19 10:25 Promyelocytes # 0.0 K/mm3 01/14/19 10:25 Blast Cells # 0.0 K/mm3 01/14/19 10:25 Pathologist Review 01/13/19 05:39 WBC Morphology Not Reportable 01/14/19 10:25 Hypersegmented Neuts Not Reportable 01/14/19 10:25 Hyposegmented Neuts Not Reportable 01/14/19 10:25 Hypogranular Neuts Not Reportable 01/14/19 10:25 Smudge Cells Not Reportable 01/14/19 10:25 Toxic Granulation Not Reportable 01/14/19 10:25 Toxic Vacuolation Not Reportable 01/14/19 10:25 Dohle Bodies Not Reportable 01/14/19 10:25 Pelger-Huet Anomaly Not Reportable 01/14/19 10:25 Tong Rods Not Reportable 01/14/19 10:25 Platelet Estimate Consistent w auto 01/14/19 10:25 Clumped Platelets Not Reportable 01/14/19 10:25 Plt Clumps, EDTA Not Reportable 01/14/19 10:25 Large Platelets Not Reportable 01/14/19 10:25 Giant Platelets Not Reportable 01/14/19 10:25 Platelet Satelliting Not Reportable 01/14/19 10:25 Plt Morphology Comment Not Reportable 01/14/19 10:25 RBC Morphology Not Reportable 01/14/19 10:25 Dimorphic RBCs Not Reportable 01/14/19 10:25 Polychromasia Not Reportable 01/14/19 10:25 Hypochromasia Not Reportable 01/14/19 10:25 Poikilocytosis Not Reportable 01/14/19 10:25 Anisocytosis Not Reportable 01/14/19 10:25 Microcytosis Not Reportable 01/14/19 10:25 Macrocytosis Not Reportable 01/14/19 10:25 Spherocytes Not Reportable 01/14/19 10:25 Pappenheimer Bodies Not Reportable 01/14/19 10:25 Sickle Cells Not Reportable 01/14/19 10:25 Target Cells Rare 01/14/19 10:25 Tear Drop Cells Not Reportable 01/14/19 10:25 Ovalocytes Not Reportable 01/14/19 10:25 Stomatocytes Few 01/14/19 10:25 Helmet Cells Not Reportable 01/14/19 10:25 [place] Bodies Not Reportable 01/14/19 10:25 [place] Rings Not Reportable 01/14/19 10:25 Denae Cells Not Reportable 01/14/19 10:25 Bite Cells Not Reportable 01/14/19 10:25 Crenated Cell Not Reportable 01/14/19 10:25 Elliptocytes Not Reportable 01/14/19 10:25 Acanthocytes (Spur) Not Reportable 01/14/19 10:25 Rouleaux Not Reportable 01/14/19 10:25 Hemoglobin C Crystals Not Reportable 01/14/19 10:25 Schistocytes Not Reportable 01/14/19 10:25 Malaria parasites Not Reportable 01/14/19 10:25 Percent Retic 21.81 % (0.78-2.58) H 01/03/19 10:34 Sickle Cell Solubility See scanned result 01/04/19 08:05 Hemoglobin A See scanned result 01/04/19 08:05 Hemoglobin A2 See scanned result 01/04/19 08:05 Hemoglobin A2 Prime See scanned result 01/04/19 08:05 Hemoglobin C See scanned result 01/04/19 08:05 Hemoglobin D See scanned result 01/04/19 08:05 Hemoglobin E See scanned result 01/04/19 08:05 Hgb F Diffential Stain See scanned result 01/04/19 08:05 Hemoglobin F Quant See scanned result 01/04/19 08:05 Hemoglobin G See scanned result 01/04/19 08:05 Hemoglobin S See scanned result 01/04/19 08:05 Hemoglobin [place] See scanned result 01/04/19 08:05 Hemoglobin [place] See scanned result 01/04/19 08:05 Hemoglobin [place] See scanned result 01/04/19 08:05 Variant Hemoglobin See scanned result 01/04/19 08:05 Abnorm Hgb IEF Confirm See scanned result 01/04/19 08:05 Hemoglobin Interpret See scanned result 01/04/19 08:05 Hemoglobinopathy Note See scanned result 01/04/19 08:05 [place] Bodies Not Reportable 01/14/19 10:25 Hem Pathologist Commnt No 01/14/19 10:25 PT 24.3 Sec. (12.2-14.9) H 01/05/19 08:24 INR 2.23 (0.87-1.13) H 01/05/19 08:24 APTT 53.5 Sec. (24.2-36.6) H 01/05/19 08:24 D-Dimer 2064.49 ng/mlDDU (0-234) H 01/03/19 11:17 POC ABG pH 7.438 (7.35-7.45) 01/15/19 04:43 ABG pH 7.406 pH Units (7.350-7.450) 01/10/19 05:50 POC ABG pCO2 45.3 (35-45) H 01/15/19 04:43 ABG pCO2 43.8 mm Hg 01/10/19 05:50 POC ABG pO2 67 (80-105) L 01/15/19 04:43 ABG pO2 59.8 mm Hg (80.0-90.0) L 01/10/19 05:50 POC ABG HCO3 30.6 (22-26 mml/L) 01/15/19 04:43 ABG HCO3 26.9 mmol/L (20.0-26.0) H 01/10/19 05:50 POC ABG Total CO2 32 (23-27mmol/L) 01/15/19 04:43 POC ABG O2 Sat 93 01/15/19 04:43 ABG O2 Saturation 89.2 % (95.0-99.0) L 01/10/19 05:50 ABG O2 Content 9.9 (0.0-44) 01/10/19 05:50 POC ABG Base Excess 6 ((-2) - (+3)mmol/L) 01/15/19 04:43 ABG Base Excess 2.0 mmol/L (-2.0-3.0) 01/10/19 05:50 ABG Hemoglobin 8.1 gm/dl (14.0-18.0) L 01/10/19 05:50 ABG Carboxyhemoglobin 2.3 % (0.0-5.0) 01/10/19 05:50 ABG Methemoglobin 0.6 % (0.0-1.5) 01/10/19 05:50 Oxyhemoglobin 86.6 % (95.0-99.0) L 01/10/19 05:50 FiO2 40 % 01/15/19 04:43 Sodium 153 mmol/L (137-145) H 01/15/19 05:06 Potassium 3.7 mmol/L (3.6-5.0) 01/15/19 05:06 Chloride 113.4 mmol/L (98-107) H 01/15/19 05:06 Carbon Dioxide 26 mmol/L (22-30) 01/15/19 05:06 Anion Gap 17 mmol/L 01/15/19 05:06 BUN 23 mg/dL (9-20) H 01/15/19 05:06 Creatinine 0.8 mg/dL (0.8-1.5) 01/15/19 05:06 Estimated GFR > 60 ml/min 01/15/19 05:06 BUN/Creatinine Ratio 29 % 01/15/19 05:06 Glucose 110 mg/dL (75-100) H 01/15/19 05:06 POC Glucose 101 (70-105) 01/08/19 10:56 Lactic Acid 0.80 mmol/L (0.7-2.0) 01/04/19 00:49 Calcium 8.4 mg/dL (8.4-10.2) 01/15/19 05:06 Phosphorus 3.70 mg/dL (2.5-4.5) 01/05/19 08:24 Magnesium 2.00 mg/dL (1.7-2.3) 01/05/19 08:24 Iron 19 ug/dL (49-181) L 01/04/19 08:05 TIBC 218 mcg/dL (250-450) L 01/04/19 08:05 Ferritin 854.8 ng/mL (13.0-400.0) H 01/04/19 08:05 Total Bilirubin 2.30 mg/dL (0.1-1.2) H 01/15/19 05:06 AST 54 units/L (5-40) H 01/15/19 05:06 ALT 34 units/L (7-56) 01/15/19 05:06 Alkaline Phosphatase 183 units/L (35-129) H 01/15/19 05:06 Lactate Dehydrogenase 1048 units/L (91-180) H 01/05/19 08:24 NT-Pro-B Natriuret Pep 3064 pg/mL (0-450) H 01/08/19 17:00 Total Protein 6.8 g/dL (6.3-8.2) 01/15/19 05:06 Albumin 2.8 g/dL (3.9-5) L 01/15/19 05:06 Albumin/Globulin Ratio 0.7 % 01/15/19 05:06 Triglycerides 416 mg/dL (2-149) H 01/10/19 08:39 Lipase 6 units/L (13-60) L 01/03/19 14:19 Vitamin B12 248.5 pg/mL (211-911) 01/04/19 08:05 Folate 19.09 ng/mL (7.3-26.0) 01/04/19 08:05 Procalcitonin 6.09 ng/mL (<0.15) 01/12/19 04:42 Urine Color [place] (Yellow) 01/04/19 05:00 Urine Turbidity Clear (Clear) 01/04/19 05:00 Urine pH 5.0 (5.0-7.0) 01/04/19 05:00 Ur Specific [place] 1.013 (1.003-1.030) 01/04/19 05:00 Urine Protein <15 mg/dl mg/dL (Negative) 01/04/19 05:00 Urine Glucose (UA) Neg mg/dL (Negative) 01/04/19 05:00 Urine Ketones Neg mg/dL (Negative) 01/04/19 05:00 Urine Blood Sm (Negative) 01/04/19 05:00 Urine Nitrite Neg (Negative) 01/04/19 05:00 Urine Bilirubin Neg (Negative) 01/04/19 05:00 Urine Urobilinogen 4.0 mg/dL (<2.0) 01/04/19 05:00 Ur Leukocyte Esterase Neg (Negative) 01/04/19 05:00 Urine WBC (Auto) 1.0 /HPF (0.0-6.0) 01/04/19 05:00 Urine RBC (Auto) 1.0 /HPF (0.0-6.0) 01/04/19 05:00 Influenza A (Rapid) Negative (Negative) 01/04/19 14:56 Influenza B (Rapid) Negative (Negative) 01/04/19 14:56 Blood Type O POSITIVE 01/08/19 13:18 Antibody Screen Positive 01/08/19 13:18 Antibody Identification Anti-K 01/08/19 13:18 Direct Antiglob Test Negative 01/05/19 08:26 ANNAMARIA, Poly Interpret Negative 01/05/19 08:26 Crossmatch See Detail 01/08/19 13:18 Active Medications - Current Medications Current Medications: Generic Name Dose Route Start Last Admin Trade Name Freq PRN Reason Stop Dose Admin Acetaminophen 650 mg 01/06/19 10:28 01/13/19 19:52 Tylenol DE 650 mg Q4H PRN Administration Non Cardiac Pain or Temp>100.5 Lipase/Protease/Amylase 1 each 01/08/19 13:[address] 10,500 Unit FEEDTUBE PRN PRN For Clogged Feeding Tube Enoxaparin Sodium 40 mg 01/10/19 10:00 01/15/19 10:55 Enoxaparin SUB-Q 40 mg QDAY@1000 KATHY Administration Famotidine 20 mg 01/12/19 10:00 01/15/19 10:55 Pepcid PO 20 mg BID KATHY Administration Fentanyl 50 mcg 01/08/19 17:06 01/10/19 02:12 Sublimaze IV 50 mcg Q10MIN PRN Administration ANALGESIA Folic Acid 1 mg 01/06/19 21:00 01/15/19 10:55 Folvite PO 1 mg QDAY KATHY Administration Haloperidol Lactate 5 mg 01/11/19 12:56 01/12/19 20:40 Haldol IV 5 mg Q6H PRN Administration Agitation Hydromorphone HCl 1 mg 01/04/19 14:25 01/15/19 07:55 Dilaudid IV 1 mg Q3H PRN Administration Pain , Severe (7-10) Hydromorphone HCl 2 mg 01/11/19 12:00 01/15/19 12:46 Dilaudid PO 2 mg Q6HR KATHY Administration Hydrophilic Ointment 1 applic 01/08/19 09:35 Vaseline Lip Therapy TP Q2HR PRN Dry Lips Hydroxyurea 500 mg 01/07/19 10:00 01/15/19 11:45 Hydroxyurea PO 500 mg QDAY KATHY Administration Cefepime HCl 2 gm in 100 mls @ 200 mls/hr 01/06/19 14:00 01/15/19 13:49 Cefepime/Ns 2 Gm/100 Ml IV 200 mls/hr Q8HR KATHY Administration Protocol Fentanyl Citrate 2,000 mcg in 100 mls @ 3.465 mls/hr 01/08/19 18:00 01/15/19 11:47 Fentanyl Drip Premix IV 3 mcg/kg/hr TITR KATHY 10.395 mls/hr Administration Protocol 1 MCG/KG/HR Lorazepam 100 mg/ Sodium 101 mls @ 1.01 mls/hr 01/12/19 11:00 01/15/19 04:01 Chloride/ Miscellaneous IV 3 mg/hr Information TITR KATHY 3.03 mls/hr Administration Protocol 1 MG/HR Vancomycin HCl 1 gm in 250 mls @ 167.007 mls/hr 01/15/19 01:00 01/15/19 12:48 Vancomycin/Ns 1 Gm/250 Ml IV 167.007 mls/hr Q12H KATHY Administration Protocol Fluconazole 200 mls @ 100 mls/hr 01/14/19 13:00 01/15/19 10:56 Diflucan IV 100 mls/hr Q24HR KATHY Administration Protocol Lorazepam 2 mg 01/12/19 10:26 01/14/19 20:20 Ativan IV 2 mg Q10MIN PRN Administration Agitation Metoclopramide HCl 10 mg 01/06/19 02:48 01/06/19 03:17 Reglan IV 10 mg Q6H PRN Administration Nausea And Vomiting Multi-Ingred Cream/Lotion/Oil/Oint 1 applic 01/08/19 09:35 Artificial Tears Ophth Oint OU Q4HR PRN Dry Eye(s) Naloxone HCl 0.1 mg 01/04/19 14:25 Naloxone IV Q2MIN PRN Res Rate </= 8 or 02 SAT < 92% Simple Syrup 15 ml 01/08/19 13:50 Simple Syrup FEEDTUBE PRN PRN Hypoglycemia Simple Syrup 30 ml 01/08/19 13:50 Simple Syrup FEEDTUBE PRN PRN Hypoglycemia Sodium Bicarbonate 325 mg 01/08/19 13:50 Sodium Bicarbonate FEEDTUBE PRN PRN For Clogged Feeding Tube Nutrition/Malnutrition Assess - Dietary Evaluation Nutrition/Malnutrition Findings: Nutrition Notes Start: 01/08/19 13:38 Freq: Status: Active Protocol: Document 01/13/19 10:39 CC (Rec: 01/13/19 10:53 CC [email or web address]) Co-Sign 01/13/19 10:39 LP Nutrition Notes Initial or Follow up Brief Note Current Diagnosis Sepsis Other Pertinent Diagnosis Pneu, Sickle cell crisis Current Diet Vital AF 1.2 at 65ml/hr Labs/Tests Na 153 BUN 29 Creat 0.7 Pertinent Medications reviewed Height 5 ft 7 in Weight 68.4 kg [place] Body Weight (kg) 67.27 BMI 23.6 Subjective/Other Information Vital AF 1.2 running at 65ml/ hr. Na 153, increased flush to 300ml q4hr per MD note Percent of energy/protein needs met: 95%/100% Burn Absent Trauma Absent Nutrition Intervention Change Diet Order: Continue TF Nutrition Support: Vital AF 1.2 at 65 ml/hr Flush 300 ml q4hr for hypernatremia Flush 100ml q4hr once hypernatremia resolves decrease flush to 100 q4hr once hypernatremia resolves Kcal 1,872 Protein (gm) 117 Fluid (mL) 1,265 Goal #1 TF tolerance Goal #2 Meet at least 80% of calorie and protein needs via TF Anticipated Discharge Needs: Unable to determine at this time Follow-Up By: 01/18/19 Additional Comments F/U for TF tolerance/rate, Na lab
--- NOTE | 2019-01-15 20:18 | Progress Note ---
Assessment and Plan Imp: 1. Sickle cell disease, SS, with acute crisis 2. Acute chest syndrome 3. Pneumonia 4. Sepsis 5. ARDS 6. Acute respiratory failure, hypoxia 7. Hypernatremia Rec: 1. F/u cultures; broad-spectrum ABX per ID; agree w/ CT c/a/p if continued signs of sepsis/fevers, etc. 2. Wean PEEP slowly to keep sats 88% or >; cont. FiO2, RR, TV same for now; unable to extubate until PEEP down to +6 3. Keep sedated as is with Ativan/Fentanyl 4. Increase free water to 300mL q4 hours 5. DVT PPx, TFs, GI PPx 6. Prognosis guarded; no family present CCT 31 minutes Subjective Date of service: 01/15/19 Principal diagnosis: Sickle cell disease Interval history: No events. Sedated on Fentanyl and Ativan drips, but arouses and is appropriate. Has perturbed expression when awakened. Remains on PEEP of 12. Active Medications Acetaminophen (Tylenol) 650 mg NC Q4H PRN PRN Reason: Non Cardiac Pain or Temp>100.5 Last Admin: 01/13/19 19:52 Dose: 650 mg Documented by: Lipase/Protease/Amylase (Mat Simmons 10,500 Unit) 1 each FEEDTUBE PRN PRN PRN Reason: For Clogged Feeding Tube Enoxaparin Sodium (Enoxaparin) 40 mg SUB-Q QDAY@1000 [facility] Last Admin: 01/15/19 10:55 Dose: 40 mg Documented by: Famotidine (Pepcid) 20 mg PO BID [facility] Last Admin: 01/15/19 10:55 Dose: 20 mg Documented by: Fentanyl (Sublimaze) 50 mcg IV Q10MIN PRN PRN Reason: ANALGESIA Last Admin: 01/10/19 02:12 Dose: 50 mcg Documented by: Folic Acid (Folvite) 1 mg PO QDAY [facility] Last Admin: 01/15/19 10:55 Dose: 1 mg Documented by: Haloperidol Lactate (Haldol) 5 mg IV Q6H PRN PRN Reason: Agitation Last Admin: 01/12/19 20:40 Dose: 5 mg Documented by: Hydromorphone HCl (Dilaudid) 1 mg IV Q3H PRN PRN Reason: Pain , Severe (7-10) Last Admin: 01/15/19 07:55 Dose: 1 mg Documented by: Hydromorphone HCl (Dilaudid) 2 mg PO Q6HR KATHY Last Admin: 01/15/19 17:40 Dose: 2 mg Documented by: Hydrophilic Ointment (Vaseline Lip Therapy) 1 applic TP Q2HR PRN PRN Reason: Dry Lips Hydroxyurea (Hydroxyurea) 500 mg PO QDAY KATHY Last Admin: 01/15/19 11:45 Dose: 500 mg Documented by: Cefepime HCl (Cefepime/Ns 2 Gm/100 Ml) 2 gm in 100 mls @ 200 mls/hr IV Q8HR KATHY; Protocol Last Admin: 01/15/19 13:49 Dose: 200 mls/hr Documented by: Fentanyl Citrate (Fentanyl Drip Premix) 2,000 mcg in 100 mls @ 3.465 mls/hr IV TITR KATHY; Protocol Last Admin: 01/15/19 17:40 Dose: 3 mcg/kg/hr, 10.395 mls/hr Documented by: Lorazepam 100 mg/ Sodium Chloride/ Miscellaneous Information 101 mls @ 1.01 mls/hr IV TITR KATHY; Protocol Last Admin: 01/15/19 04:01 Dose: 3 mg/hr, 3.03 mls/hr Documented by: Vancomycin HCl (Vancomycin/Ns 1 Gm/250 Ml) 1 gm in 250 mls @ 167.007 mls/hr IV Q12H KATHY; Protocol Last Admin: 01/15/19 12:48 Dose: 167.007 mls/hr Documented by: Fluconazole (Diflucan) 200 mls @ 100 mls/hr IV Q24HR KATHY; Protocol Last Admin: 01/15/19 10:56 Dose: 100 mls/hr Documented by: Lorazepam (Ativan) 2 mg IV Q10MIN PRN PRN Reason: Agitation Last Admin: 01/14/19 20:20 Dose: 2 mg Documented by: Metoclopramide HCl (Reglan) 10 mg IV Q6H PRN PRN Reason: Nausea And Vomiting Last Admin: 01/06/19 03:17 Dose: 10 mg Documented by: Multi-Ingred Cream/Lotion/Oil/Oint (Artificial Tears Ophth Oint) 1 applic OU Q4HR PRN PRN Reason: Dry Eye(s) Naloxone HCl (Naloxone) 0.1 mg IV Q2MIN PRN PRN Reason: Res Rate </= 8 or 02 SAT < 92% Simple Syrup (Simple Syrup) 15 ml FEEDTUBE PRN PRN PRN Reason: Hypoglycemia Simple Syrup (Simple Syrup) 30 ml FEEDTUBE PRN PRN PRN Reason: Hypoglycemia Sodium Bicarbonate (Sodium Bicarbonate) 325 mg FEEDTUBE PRN PRN PRN Reason: For Clogged Feeding Tube Objective Vital Signs - 12hr 01/15/19 01/15/19 01/15/19 09:00 10:00 10:15 Temperature Pulse Rate 108 H 111 H 108 H Respiratory 24 23 Rate Blood Pressure 133/59 130/63 130/63 O2 Sat by Pulse 93 94 95 Oximetry 01/15/19 01/15/19 01/15/19 11:00 12:00 12:53 Temperature 99.9 F H Pulse Rate 109 H 111 H 107 H Respiratory 23 23 1 L Rate Blood Pressure 118/58 128/62 127/57 O2 Sat by Pulse 93 92 95 Oximetry 01/15/19 01/15/19 01/15/19 13:00 14:00 15:00 Temperature Pulse Rate 106 H 107 H 104 H Respiratory 25 H 31 H 26 H Rate Blood Pressure 130/59 132/65 120/60 O2 Sat by Pulse 95 92 Oximetry 01/15/19 01/15/19 01/15/19 15:59 16:00 16:15 Temperature 98.3 F Pulse Rate 103 H 102 H Respiratory 26 H 1 L Rate Blood Pressure 122/59 122/59 O2 Sat by Pulse 92 95 Oximetry 01/15/19 01/15/19 17:00 18:00 Temperature Pulse Rate 109 H 104 H Respiratory 21 26 H Rate Blood Pressure 129/62 129/60 O2 Sat by Pulse 92 93 Oximetry Constitutional: other (critically ill on vent) Eyes: non-icteric ENT: other (orally intubated and sedated.) Neck: supple Effort: normal Ascultation: Bilateral: other (coarse BS bilaterally) Percussion: Bilateral: not dull Cardiovascular: other (sinus tachy) Gastrointestinal: normoactive bowel sounds, soft, non-tender, non-distended Extremities: no cyanosis, no edema, pink and warm Neurologic: normal mental status, non-focal exam, pupils equal and round Psychiatric: mood appropriate, affect normal CBC and BMP: 01/15/19 05:06 01/15/19 05:06 ABG, PT/INR, D-dimer: ABG POC ABG pH 7.438 (7.35-7.45) 01/15/19 04:43 ABG pH 7.406 pH Units (7.350-7.450) 01/10/19 05:50 POC ABG pCO2 45.3 (35-45) H 01/15/19 04:43 ABG pCO2 43.8 mm Hg 01/10/19 05:50 POC ABG pO2 67 (80-105) L 01/15/19 04:43 ABG pO2 59.8 mm Hg (80.0-90.0) L 01/10/19 05:50 POC ABG HCO3 30.6 (22-26 mml/L) 01/15/19 04:43 POC ABG Total CO2 32 (23-27mmol/L) 01/15/19 04:43 POC ABG O2 Sat 93 01/15/19 04:43 ABG O2 Saturation 89.2 % (95.0-99.0) L 01/10/19 05:50 PT/INR, D-dimer PT 24.3 Sec. (12.2-14.9) H 01/05/19 08:24 INR 2.23 (0.87-1.13) H 01/05/19 08:24 D-Dimer 2064.49 ng/mlDDU (0-234) H 01/03/19 11:17 Abnormal lab findings: Abnormal Labs 01/03/19 01/03/19 01/03/19 10:34 10:34 11:17 WBC 34.2 H RBC 2.43 L Hgb 7.9 L Hct 21.9 L MCH 33 H MCHC 36 H RDW 29.2 H Plt Count [place] % (Auto) Eos % (Auto) [place] # Eos # Baso # Seg Neutrophils % Seg Neuts % (Manual) 85.0 H Lymphocytes % (Manual) 6.0 L Monocytes % (Manual) 9.0 H Eosinophils % (Manual) Nucleated RBC % 1.0 H Seg Neutrophils # Seg Neutrophils # Man 29.1 H Lymphocytes # (Manual) Monocytes # (Manual) 3.1 H Eosinophils # (Manual) Percent Retic 21.81 H PT INR APTT D-Dimer POC ABG pH POC ABG pCO2 POC ABG pO2 ABG pO2 ABG HCO3 ABG O2 Saturation ABG Hemoglobin Oxyhemoglobin Sodium 136 L 135 L Potassium 5.3 H Chloride Carbon Dioxide 20 L BUN Creatinine 0.6 L 0.7 L Glucose 123 H 112 H Calcium Iron TIBC Ferritin Total Bilirubin 8.00 H AST 100 H ALT Alkaline Phosphatase Lactate Dehydrogenase NT-Pro-B Natriuret Pep Total Protein Albumin Triglycerides Lipase Crossmatch 01/03/19 01/03/19 01/03/19 11:17 14:19 18:52 WBC 36.5 H RBC 2.32 L Hgb 7.8 L Hct 21.6 L MCH 34 H MCHC 36 H RDW 28.3 H Plt Count [place] % (Auto) Eos % (Auto) [place] # Eos # Baso # Seg Neutrophils % Seg Neuts % (Manual) 88.0 H Lymphocytes % (Manual) 4.0 L Monocytes % (Manual) 8.0 H Eosinophils % (Manual) Nucleated RBC % 4.0 H Seg Neutrophils # Seg Neutrophils # Man 32.1 H Lymphocytes # (Manual) Monocytes # (Manual) 2.9 H Eosinophils # (Manual) Percent Retic PT INR APTT D-Dimer 2064.49 H POC ABG pH POC ABG pCO2 POC ABG pO2 ABG pO2 ABG HCO3 ABG O2 Saturation ABG Hemoglobin Oxyhemoglobin Sodium Potassium Chloride Carbon Dioxide BUN Creatinine Glucose Calcium Iron TIBC Ferritin Total Bilirubin AST ALT Alkaline Phosphatase Lactate Dehydrogenase NT-Pro-B Natriuret Pep Total Protein Albumin Triglycerides Lipase 6 L Crossmatch 01/04/19 01/04/19 01/05/19 08:05 08:05 08:24 WBC 54.8 H* RBC 1.28 L Hgb 4.2 L* D Hct 11.1 L* D MCH 33 H MCHC 38 H* RDW 22.3 H Plt Count 134 L [place] % (Auto) Eos % (Auto) [place] # Eos # Baso # Seg Neutrophils % Seg Neuts % (Manual) Lymphocytes % (Manual) 1.0 L Monocytes % (Manual) 15.0 H Eosinophils % (Manual) Nucleated RBC % 3.0 H Seg Neutrophils # Seg Neutrophils # Man 35.1 H Lymphocytes # (Manual) 0.5 L Monocytes # (Manual) 8.2 H Eosinophils # (Manual) Percent Retic PT INR APTT D-Dimer POC ABG pH POC ABG pCO2 POC ABG pO2 ABG pO2 ABG HCO3 ABG O2 Saturation ABG Hemoglobin Oxyhemoglobin Sodium Potassium Chloride Carbon Dioxide BUN Creatinine Glucose Calcium Iron 19 L TIBC 218 L Ferritin 854.8 H Total Bilirubin AST ALT Alkaline Phosphatase Lactate Dehydrogenase NT-Pro-B Natriuret Pep Total Protein Albumin Triglycerides Lipase Crossmatch 01/05/19 01/05/19 01/05/19 08:24 08:24 08:24 WBC RBC Hgb Hct MCH MCHC RDW Plt Count [place] % (Auto) Eos % (Auto) [place] # Eos # Baso # Seg Neutrophils % Seg Neuts % (Manual) Lymphocytes % (Manual) Monocytes % (Manual) Eosinophils % (Manual) Nucleated RBC % Seg Neutrophils # Seg Neutrophils # Man Lymphocytes # (Manual) Monocytes # (Manual) Eosinophils # (Manual) Percent Retic PT 24.3 H INR 2.23 H APTT 53.5 H D-Dimer POC ABG pH POC ABG pCO2 POC ABG pO2 ABG pO2 ABG HCO3 ABG O2 Saturation ABG Hemoglobin Oxyhemoglobin Sodium Potassium 5.2 H D Chloride Carbon Dioxide 15 L BUN 40 H Creatinine 0.3 L D Glucose 121 H Calcium 8.3 L Iron TIBC Ferritin Total Bilirubin 31.80 H AST 164 H ALT 83 H Alkaline Phosphatase Lactate Dehydrogenase 1048 H NT-Pro-B Natriuret Pep Total Protein 6.0 L Albumin 3.6 L Triglycerides Lipase Crossmatch 01/05/19 01/05/19 01/05/19 08:26 08:26 09:48 WBC 54.8 H* RBC 1.26 L Hgb 4.1 L* Hct 10.9 L* MCH 33 H MCHC 38 H* RDW 22.0 H Plt Count 127 L [place] % (Auto) Eos % (Auto) [place] # Eos # Baso # Seg Neutrophils % Seg Neuts % (Manual) Lymphocytes % (Manual) Monocytes % (Manual) Eosinophils % (Manual) Nucleated RBC % Seg Neutrophils # Seg Neutrophils # Man Lymphocytes # (Manual) Monocytes # (Manual) Eosinophils # (Manual) Percent Retic PT INR APTT D-Dimer POC ABG pH POC ABG pCO2 POC ABG pO2 ABG pO2 ABG HCO3 ABG O2 Saturation ABG Hemoglobin Oxyhemoglobin Sodium Potassium Chloride Carbon Dioxide BUN Creatinine Glucose Calcium Iron TIBC Ferritin Total Bilirubin AST ALT Alkaline Phosphatase Lactate Dehydrogenase NT-Pro-B Natriuret Pep Total Protein Albumin Triglycerides Lipase Crossmatch See Detail See Detail 11/07/19 11/07/19 11/07/19 00:30 18:03 23:02 WBC 56.5 H* 44.3 H* RBC 1.76 L 2.41 L Hgb 5.6 L* 7.4 L Hct 15.8 L* 21.8 L D MCH MCHC 36 H RDW 19.8 H 18.4 H Plt Count [place] % (Auto) Eos % (Auto) [place] # Eos # Baso # Seg Neutrophils % Seg Neuts % (Manual) 90.0 H Lymphocytes % (Manual) 4.5 L Monocytes % (Manual) Eosinophils % (Manual) Nucleated RBC % Seg Neutrophils # Seg Neutrophils # Man 50.9 H Lymphocytes # (Manual) Monocytes # (Manual) 2.5 H Eosinophils # (Manual) Percent Retic PT INR APTT D-Dimer POC ABG pH 7.452 H POC ABG pCO2 29.4 L POC ABG pO2 ABG pO2 ABG HCO3 ABG O2 Saturation ABG Hemoglobin Oxyhemoglobin Sodium Potassium Chloride Carbon Dioxide BUN Creatinine Glucose Calcium Iron TIBC Ferritin Total Bilirubin AST ALT Alkaline Phosphatase Lactate Dehydrogenase NT-Pro-B Natriuret Pep Total Protein Albumin Triglycerides Lipase Crossmatch 01/08/19 01/08/19 01/08/19 09:33 12:10 13:18 WBC RBC Hgb Hct MCH MCHC RDW Plt Count [place] % (Auto) Eos % (Auto) [place] # Eos # Baso # Seg Neutrophils % Seg Neuts % (Manual) Lymphocytes % (Manual) Monocytes % (Manual) Eosinophils % (Manual) Nucleated RBC % Seg Neutrophils # Seg Neutrophils # Man Lymphocytes # (Manual) Monocytes # (Manual) Eosinophils # (Manual) Percent Retic PT INR APTT D-Dimer POC ABG pH POC ABG pCO2 POC ABG pO2 71 L 73 L ABG pO2 ABG HCO3 ABG O2 Saturation ABG Hemoglobin Oxyhemoglobin Sodium Potassium Chloride Carbon Dioxide BUN Creatinine Glucose Calcium Iron TIBC Ferritin Total Bilirubin AST ALT Alkaline Phosphatase Lactate Dehydrogenase NT-Pro-B Natriuret Pep Total Protein Albumin Triglycerides Lipase Crossmatch See Detail 01/08/19 01/08/19 01/08/19 13:18 14:58 17:00 WBC 33.5 H RBC 3.34 L Hgb 9.9 L Hct 29.2 L D MCH MCHC RDW 17.7 H Plt Count [place] % (Auto) Eos % (Auto) [place] # Eos # Baso # Seg Neutrophils % Seg Neuts % (Manual) 72.0 H Lymphocytes % (Manual) Monocytes % (Manual) 13.0 H Eosinophils % (Manual) Nucleated RBC % 9.0 H Seg Neutrophils # Seg Neutrophils # Man 24.1 H Lymphocytes # (Manual) Monocytes # (Manual) 4.4 H Eosinophils # (Manual) Percent Retic PT INR APTT D-Dimer POC ABG pH POC ABG pCO2 POC ABG pO2 74 L ABG pO2 ABG HCO3 ABG O2 Saturation ABG Hemoglobin Oxyhemoglobin Sodium Potassium Chloride Carbon Dioxide BUN Creatinine Glucose 122 H Calcium Iron TIBC Ferritin Total Bilirubin AST ALT Alkaline Phosphatase Lactate Dehydrogenase NT-Pro-B Natriuret Pep Total Protein Albumin Triglycerides Lipase Crossmatch 01/08/19 01/09/19 01/09/19 17:00 04:44 04:44 WBC 29.8 H RBC 2.85 L Hgb 8.4 L Hct 25.1 L MCH MCHC RDW 17.9 H Plt Count [place] % (Auto) Eos % (Auto) [place] # Eos # Baso # Seg Neutrophils % Seg Neuts % (Manual) Lymphocytes % (Manual) Monocytes % (Manual) Eosinophils % (Manual) Nucleated RBC % Seg Neutrophils # Seg Neutrophils # Man Lymphocytes # (Manual) Monocytes # (Manual) Eosinophils # (Manual) Percent Retic PT INR APTT D-Dimer POC ABG pH POC ABG pCO2 POC ABG pO2 ABG pO2 ABG HCO3 ABG O2 Saturation ABG Hemoglobin Oxyhemoglobin Sodium Potassium Chloride 107.3 H Carbon Dioxide BUN 22 H Creatinine 0.7 L Glucose 122 H Calcium Iron TIBC Ferritin Total Bilirubin AST ALT Alkaline Phosphatase Lactate Dehydrogenase NT-Pro-B Natriuret Pep 3064 H Total Protein Albumin Triglycerides Lipase Crossmatch 01/09/19 01/10/19 01/10/19 06:31 05:50 08:39 WBC 24.5 H RBC 2.89 L Hgb 8.4 L Hct 25.9 L MCH MCHC RDW 18.5 H Plt Count [place] % (Auto) 7.7 H Eos % (Auto) 5.4 H [place] # 2.0 H Eos # 1.4 H Baso # 0.2 H Seg Neutrophils % 75.5 H Seg Neuts % (Manual) 75.0 H Lymphocytes % (Manual) 11.0 L Monocytes % (Manual) Eosinophils % (Manual) 7.0 H Nucleated RBC % 28.0 H Seg Neutrophils # 19.7 H Seg Neutrophils # Man 0.0 L Lymphocytes # (Manual) 0.0 L Monocytes # (Manual) Eosinophils # (Manual) Percent Retic PT INR APTT D-Dimer POC ABG pH POC ABG pCO2 POC ABG pO2 ABG pO2 153.7 H 59.8 L ABG HCO3 26.9 H ABG O2 Saturation 89.2 L ABG Hemoglobin 8.1 L 8.1 L Oxyhemoglobin 86.6 L Sodium Potassium Chloride Carbon Dioxide BUN Creatinine Glucose Calcium Iron TIBC Ferritin Total Bilirubin AST ALT Alkaline Phosphatase Lactate Dehydrogenase NT-Pro-B Natriuret Pep Total Protein Albumin Triglycerides Lipase Crossmatch 01/10/19 01/10/19 01/11/19 08:39 08:39 04:18 WBC RBC Hgb Hct MCH MCHC RDW Plt Count [place] % (Auto) Eos % (Auto) [place] # Eos # Baso # Seg Neutrophils % Seg Neuts % (Manual) Lymphocytes % (Manual) Monocytes % (Manual) Eosinophils % (Manual) Nucleated RBC % Seg Neutrophils # Seg Neutrophils # Man Lymphocytes # (Manual) Monocytes # (Manual) Eosinophils # (Manual) Percent Retic PT INR APTT D-Dimer POC ABG pH POC ABG pCO2 45.4 H POC ABG pO2 ABG pO2 ABG HCO3 ABG O2 Saturation ABG Hemoglobin Oxyhemoglobin Sodium Potassium Chloride 108.6 H Carbon Dioxide BUN 21 H Creatinine Glucose 108 H Calcium 8.3 L Iron TIBC Ferritin Total Bilirubin 3.90 H AST 62 H ALT Alkaline Phosphatase 179 H Lactate Dehydrogenase NT-Pro-B Natriuret Pep Total Protein 6.2 L Albumin 2.5 L Triglycerides 416 H Lipase Crossmatch 01/11/19 01/11/19 01/12/19 04:53 04:53 04:36 WBC 26.9 H RBC 2.87 L Hgb 8.2 L Hct 25.6 L MCH MCHC RDW 17.9 H Plt Count [place] % (Auto) Eos % (Auto) [place] # Eos # Baso # Seg Neutrophils % Seg Neuts % (Manual) Lymphocytes % (Manual) Monocytes % (Manual) Eosinophils % (Manual) Nucleated RBC % Seg Neutrophils # Seg Neutrophils # Man Lymphocytes # (Manual) Monocytes # (Manual) Eosinophils # (Manual) Percent Retic PT INR APTT D-Dimer POC ABG pH POC ABG pCO2 50.8 H POC ABG pO2 71 L ABG pO2 ABG HCO3 ABG O2 Saturation ABG Hemoglobin Oxyhemoglobin Sodium 149 H Potassium Chloride 111.7 H Carbon Dioxide BUN 26 H Creatinine Glucose 113 H Calcium 8.2 L Iron TIBC Ferritin Total Bilirubin AST ALT Alkaline Phosphatase Lactate Dehydrogenase NT-Pro-B Natriuret Pep Total Protein Albumin Triglycerides Lipase Crossmatch 01/12/19 01/13/19 01/13/19 09:00 05:32 05:39 WBC 30.6 H RBC 3.00 L Hgb 8.5 L Hct 26.8 L MCH MCHC RDW 17.8 H Plt Count 455 H [place] % (Auto) Eos % (Auto) [place] # Eos # Baso # Seg Neutrophils % Seg Neuts % (Manual) 88.0 H Lymphocytes % (Manual) 2.0 L Monocytes % (Manual) Eosinophils % (Manual) Nucleated RBC % 2.0 H Seg Neutrophils # Seg Neutrophils # Man 26.9 H Lymphocytes # (Manual) 0.6 L Monocytes # (Manual) 1.8 H Eosinophils # (Manual) 1.2 H Percent Retic PT INR APTT D-Dimer POC ABG pH POC ABG pCO2 52.0 H POC ABG pO2 73 L ABG pO2 ABG HCO3 ABG O2 Saturation ABG Hemoglobin Oxyhemoglobin Sodium 148 H Potassium Chloride 110.5 H Carbon Dioxide BUN 30 H Creatinine 0.7 L Glucose 131 H Calcium Iron TIBC Ferritin Total Bilirubin AST ALT Alkaline Phosphatase Lactate Dehydrogenase NT-Pro-B Natriuret Pep Total Protein Albumin Triglycerides Lipase Crossmatch 01/13/19 01/14/19 01/14/19 05:39 04:59 10:25 WBC 28.8 H RBC 2.99 L Hgb 8.4 L Hct 26.5 L MCH MCHC RDW 18.0 H Plt Count 660 H [place] % (Auto) Eos % (Auto) [place] # Eos # Baso # Seg Neutrophils % Seg Neuts % (Manual) 78.0 H Lymphocytes % (Manual) 7.0 L Monocytes % (Manual) 11.0 H Eosinophils % (Manual) Nucleated RBC % 2.0 H Seg Neutrophils # Seg Neutrophils # Man 22.5 H Lymphocytes # (Manual) Monocytes # (Manual) 3.2 H Eosinophils # (Manual) 0.9 H Percent Retic PT INR APTT D-Dimer POC ABG pH 7.461 H POC ABG pCO2 POC ABG pO2 120 H ABG pO2 ABG HCO3 ABG O2 Saturation ABG Hemoglobin Oxyhemoglobin Sodium 153 H Potassium Chloride 114.5 H Carbon Dioxide BUN 29 H Creatinine 0.7 L Glucose 126 H Calcium Iron TIBC Ferritin Total Bilirubin 3.50 H AST 89 H ALT Alkaline Phosphatase 257 H Lactate Dehydrogenase NT-Pro-B Natriuret Pep Total Protein Albumin 2.7 L Triglycerides Lipase Crossmatch 01/14/19 01/15/19 01/15/19 10:25 04:43 05:06 WBC 31.5 H RBC 2.79 L Hgb 7.9 L Hct 24.8 L MCH MCHC RDW 18.6 H Plt Count 739 H [place] % (Auto) Eos % (Auto) [place] # Eos # Baso # Seg Neutrophils % Seg Neuts % (Manual) Lymphocytes % (Manual) Monocytes % (Manual) Eosinophils % (Manual) Nucleated RBC % Seg Neutrophils # Seg Neutrophils # Man Lymphocytes # (Manual) Monocytes # (Manual) Eosinophils # (Manual) Percent Retic PT INR APTT D-Dimer POC ABG pH POC ABG pCO2 45.3 H POC ABG pO2 67 L ABG pO2 ABG HCO3 ABG O2 Saturation ABG Hemoglobin Oxyhemoglobin Sodium 155 H Potassium Chloride 112.7 H Carbon Dioxide BUN 27 H Creatinine 0.7 L Glucose 102 H Calcium Iron TIBC Ferritin Total Bilirubin 2.70 H AST 63 H ALT Alkaline Phosphatase 221 H Lactate Dehydrogenase NT-Pro-B Natriuret Pep Total Protein Albumin 2.9 L Triglycerides Lipase Crossmatch 01/15/19 05:06 WBC RBC Hgb Hct MCH MCHC RDW Plt Count [place] % (Auto) Eos % (Auto) [place] # Eos # Baso # Seg Neutrophils % Seg Neuts % (Manual) Lymphocytes % (Manual) Monocytes % (Manual) Eosinophils % (Manual) Nucleated RBC % Seg Neutrophils # Seg Neutrophils # Man Lymphocytes # (Manual) Monocytes # (Manual) Eosinophils # (Manual) Percent Retic PT INR APTT D-Dimer POC ABG pH POC ABG pCO2 POC ABG pO2 ABG pO2 ABG HCO3 ABG O2 Saturation ABG Hemoglobin Oxyhemoglobin Sodium 153 H Potassium Chloride 113.4 H Carbon Dioxide BUN 23 H Creatinine Glucose 110 H Calcium Iron TIBC Ferritin Total Bilirubin 2.30 H AST 54 H ALT Alkaline Phosphatase 183 H Lactate Dehydrogenase NT-Pro-B Natriuret Pep Total Protein Albumin 2.8 L Triglycerides Lipase Crossmatch Chest x-ray: report reviewed, image reviewed (bilateral infiltrates)
[2019-01-16] MEDS: HYDROmorphone 2 MG TAB PO SCH ×4 (01:15→18:06)
[2019-01-16] MEDS: VANCOMYCIN/NS 1 GM/250 ML 1 GM/250 ML BAG IV SCH ×2 (01:16→13:00)
[2019-01-16] MEDS: fentaNYL DRIP Premix 2,000 MCG/100 ML BAG IV SCH ×2 (04:54→15:00)
[2019-01-16 06:01] LABS: Hematocrit 26.2 % (35.5-45.6); Hemoglobin 8.1 gm/dl (11.8-15.2); Mean Corpuscular HGB Conc 31 % (32-34); Mean Corpuscular Volume 90 fl (84-94); Platelet Count 831 K/mm3 (140-440); Red Blood Count 2.92 M/mm3 (3.65-5.03); Red Cell Distribution Width 18.7 % (13.2-15.2)
[2019-01-16 06:22] LABS: Alanine Aminotransferase 31 units/L (7-56); BUN/Creatinine Ratio 26; Blood Urea Nitrogen 21 mg/dL (9-20); Calcium 8.7 mg/dL (8.4-10.2); Hemolysis Index 0
[2019-01-16] MEDS: CEFEPIME/NS 2 GM/100 ML 2 GM/100 ML BAG IV SCH ×3 (06:42→21:33)
[2019-01-16 06:56] LABS: Eosinophils % (Manual) 2.5 % (0.0-4.3); Giant Platelets Rare; Monocytes % (Manual) 9.5 % (0.0-7.3); Total Cells Counted 200
[2019-01-16 06:58] LABS: Anisocytosis 1+; Large Platelets 1+; Stomatocytes 1+
[2019-01-16 06:59] LABS: Platelet Estimate Cons; Poikilocytosis 2+; Target Cells Few; Tear Drop Cells Few
[2019-01-16] MEDS: LORAZEPAM IV SCH (09:48)
[2019-01-16] MEDS: ENOXAPARIN 40 MG/0.4 ML INJ SUB-Q SCH (09:48)
[2019-01-16] MEDS: SODIUM CHLORIDE 0.9% IV SCH (09:48)
[2019-01-16] MEDS: FLUCONAZOLE 400 MG 200 ML IV SCH (09:50)
[2019-01-16] MEDS: FOLIC ACID 1 MG TAB PO SCH (09:51)
[2019-01-16] MEDS: HYDROXYUREA 500 MG CAP PO SCH (09:52)
[2019-01-16] MEDS: FAMOTIDINE 20 MG TAB PO SCH ×2 (09:53→21:34)
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
--- NOTE | 2019-01-16 12:50 | Progress Note ---
Assessment and Plan Cultures: 01/03/19 blood cultures - no growth to date 01/04/2019 sputum: contaminated specimen 01/14/2019 blood culture no growth A/P: 24 yo M PMhx sickle cell disease presents with fevers and myalgias, likely an acute chest syndrome vs pneumonia 1. Acute sepsis - fevers but worsening leukocytosis 30K, likely secondary to pneumonia +/- SCD crisis. Procal is high at 6. 2. Pneumonia - Continue Cefepime. Completed 5 days of azithromycin. 3. Sickle cell disease 4. Acute pain crisis 5. Acute respiratory failure with hypoxia - intubated, on vent. Recs: f/u repeat blood cultures f/u fungal blood cultures continue IV Vancomycin and IV Fluconazole Continue IV Cefepime, Day [address] chest/abd/pelvis as worsening leukocytosis ?splenic infarcts, lung abscess will check HIV repeat procal Will follow. Elda Lisa MD Infectious Diseases [employer] [facility] ([facility]) M [phone] O [phone] Subjective Date of service: 01/16/19 Principal diagnosis: Sickle cell disease Objective - Exam Narrative Exam: Constitutional: sedated, intubated Head, Ears, Nose: Normocephalic, atraumatic. External ears, nose normal Eyes: Conjunctivae/corneas clear. No icterus. No ptosis. Neck: intubated Oral: intubated Cardiovascular: S1, S2 normal. Respiratory: Good air entry, clear to auscultation bilaterally GI: Soft, non-tender; bowel sounds normal. No peritoneal signs Musculoskeletal: No pedal edema, no cyanosis. Skin: No rash or abscess Hem/Lymphatic: No palpable cervical or supraclavicular nodes. No lymphangitis Psych: sedated Neurological: sedated intubated, on vent - Constitutional Vitals: Vital Signs Temp Pulse Resp BP Pulse Ox 99.0 F 107 H 27 H 128/74 96 01/16/19 08:00 01/16/19 08:04 01/16/19 06:00 01/16/19 08:04 01/16/19 08:04 Temperature -Last 24 Hours Temperature 99.0 F Temperature 98.9 F Temperature 99.0 F Temperature 99.6 F Temperature 98.3 F - Labs CBC & Chem 7: 01/16/19 05:09 01/16/19 05:09 Labs: Abnormal lab results 01/16/19 01/16/19 01/16/19 Range/Units 05:09 05:09 06:00 WBC 33.6 H (4.5-11.0) K/mm3 RBC 2.92 L (3.65-5.03) M/mm3 Hgb 8.1 L (11.8-15.2) gm/dl Hct 26.2 L (35.5-45.6) % MCHC 31 L (32-34) % RDW 18.7 H (13.2-15.2) % Plt Count 831 H (140-440) K/mm3 Seg Neuts % (Manual) 79.0 H (40.0-70.0) % Lymphocytes % (Manual) 8.0 L (13.4-35.0) % Monocytes % (Manual) 9.5 H (0.0-7.3) % Seg Neutrophils # Man 26.5 H (1.8-7.7) K/mm3 Monocytes # (Manual) 3.2 H (0.0-0.8) K/mm3 Eosinophils # (Manual) 0.8 H (0.0-0.4) K/mm3 Basophils # (Manual) 0.3 H (0.0-0.1) K/mm3 POC ABG pCO2 47.4 H (35-45) POC ABG pO2 57 L (80-105) Sodium 149 H (137-145) mmol/L Chloride 109.0 H (98-107) mmol/L BUN 21 H (9-20) mg/dL Total Bilirubin 2.00 H (0.1-1.2) mg/dL AST 48 H (5-40) units/L Alkaline Phosphatase 165 H (35-129) units/L Albumin 3.0 L (3.9-5) g/dL
--- NOTE | 2019-01-16 14:24 | Progress Note ---
Assessment and Plan - Patient Problems (1) ARDS (adult respiratory distress syndrome) Current Visit: Yes Status: Acute Plan to address problem: Patient developed all arts with hypoxic respiratory failure. Remains intubated. Neurology following. (2) Pneumonia Current Visit: Yes Status: Acute Qualifiers: Pneumonia type: due to unspecified organism Laterality: right Lung location: middle lobe of lung Plan to address problem: Patient with pneumonia and persistent white count fever. On cefepime and Vanco. Continue to follow culture ID following. (3) Sepsis Current Visit: Yes Status: Acute Qualifiers: Sepsis type: sepsis due to unspecified organism Sepsis acute organ dysfunction status: unspecified Qualified Code(s): A41.9 - Sepsis, unspecified organism Plan to address problem: Sepsis secondary to pneumonia see above. Follow effects disease recommendations. (4) Sickle cell crisis Current Visit: Yes Status: Acute Plan to address problem: At present patient pain control on fentanyl pain stable. Anemia stable we'll continue to watch hemoglobin and hematocrit. Transfuse as indicated. (5) Acute coronary syndrome Current Visit: Yes Status: Acute Plan to address problem: [place] to sickle cell disease. 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 History Interval history: Patient remains intubated unable to wean. Patient has.ARDS. Continues to have elevated white count. Hospital course unchanged over p.m. No new events reported to me sedated on fentanyl Ativan. Hospitalist Physical - Constitutional Vitals: Temp Pulse Resp BP Pulse Ox 99.0 F 103 H 27 H 122/53 93 01/16/19 08:00 01/16/19 13:37 01/16/19 06:00 01/16/19 13:37 01/16/19 13:37 General appearance: Absent: mild distress - Neck Neck: Present: supple - Respiratory Respiratory effort: normal Respiratory: bilateral: diminished - Cardiovascular Rhythm: regular - Extremities Extremities: no ischemia, pulses intact, pulses symmetrical, No edema, normal t emperature, normal color Peripheral Pulses: within normal limits - Abdominal General gastrointestinal: soft, non-tender, non-distended, normal bowel sounds - Integumentary Integumentary: Present: clear, warm, dry Results - Labs CBC & Chem 7: 01/16/19 05:09 01/16/19 05:09 Labs: Laboratory Last Values WBC 33.6 K/mm3 (4.5-11.0) H 01/16/19 05:09 RBC 2.92 M/mm3 (3.65-5.03) L 01/16/19 05:09 Hgb 8.1 gm/dl (11.8-15.2) L 01/16/19 05:09 Hemoglobin Comment See scanned result 01/04/19 08:05 Hct 26.2 % (35.5-45.6) L 01/16/19 05:09 MCV 90 fl (84-94) 01/16/19 05:09 MCH 28 pg (28-32) 01/16/19 05:09 MCHC 31 % (32-34) L 01/16/19 05:09 RDW 18.7 % (13.2-15.2) H 01/16/19 05:09 Plt Count 831 K/mm3 (140-440) H 01/16/19 05:09 [place] % (Auto) 7.7 % (0.0-7.3) H 01/10/19 08:39 Eos % (Auto) 5.4 % (0.0-4.3) H 01/10/19 08:39 [place] # 2.0 K/mm3 (0.0-0.8) H 01/10/19 08:39 Eos # 1.4 K/mm3 (0.0-0.4) H 01/10/19 08:39 Baso # 0.2 K/mm3 (0.0-0.1) H 01/10/19 08:39 Add Manual Diff Complete 01/16/19 05:09 Total Counted 200 01/16/19 05:09 Seg Neutrophils % 75.5 % (40.0-70.0) H 01/10/19 08:39 Seg Neuts % (Manual) 79.0 % (40.0-70.0) H 01/16/19 05:09 Band Neutrophils % 0 % 01/16/19 05:09 Lymphocytes % (Manual) 8.0 % (13.4-35.0) L 01/16/19 05:09 Reactive Lymphs % (Man) 0 % 01/16/19 05:09 Monocytes % (Manual) 9.5 % (0.0-7.3) H 01/16/19 05:09 Eosinophils % (Manual) 2.5 % (0.0-4.3) 11/17/19 05:09 Basophils % (Manual) 1.0 % (0.0-1.8) 01/16/19 05:09 Metamyelocytes % 0 % 01/16/19 05:09 Myelocytes % 0 % 01/16/19 05:09 Promyelocytes % 0 % 01/16/19 05:09 Blast Cells % 0 % 01/16/19 05:09 Nucleated RBC % Not Reportable 01/16/19 05:09 Seg Neutrophils # 19.7 K/mm3 (1.8-7.7) H 01/10/19 08:39 Seg Neutrophils # Man 26.5 K/mm3 (1.8-7.7) H 01/16/19 05:09 Band Neutrophils # 0.0 K/mm3 01/16/19 05:09 Lymphocytes # (Manual) 2.7 K/mm3 (1.2-5.4) 01/16/19 05:09 Abs React Lymphs (Man) 0.0 K/mm3 01/16/19 05:09 Monocytes # (Manual) 3.2 K/mm3 (0.0-0.8) H 01/16/19 05:09 Eosinophils # (Manual) 0.8 K/mm3 (0.0-0.4) H 01/16/19 05:09 Basophils # (Manual) 0.3 K/mm3 (0.0-0.1) H 01/16/19 05:09 Metamyelocytes # 0.0 K/mm3 01/16/19 05:09 Myelocytes # 0.0 K/mm3 01/16/19 05:09 Promyelocytes # 0.0 K/mm3 01/16/19 05:09 Blast Cells # 0.0 K/mm3 01/16/19 05:09 Pathologist Review 01/13/19 05:39 WBC Morphology Not Reportable 01/16/19 05:09 Hypersegmented Neuts Not Reportable 01/16/19 05:09 Hyposegmented Neuts Not Reportable 01/16/19 05:09 Hypogranular Neuts Not Reportable 01/16/19 05:09 Smudge Cells Not Reportable 01/16/19 05:09 Toxic Granulation Not Reportable 01/16/19 05:09 Toxic Vacuolation Not Reportable 01/16/19 05:09 Dohle Bodies Not Reportable 01/16/19 05:09 Pelger-Huet Anomaly Not Reportable 01/16/19 05:09 Tong Rods Not Reportable 01/16/19 05:09 Platelet Estimate Cons 01/16/19 05:09 Clumped Platelets Not Reportable 01/16/19 05:09 Plt Clumps, EDTA Not Reportable 01/16/19 05:09 Large Platelets 1+ 01/16/19 05:09 Giant Platelets Rare 01/16/19 05:09 Platelet Satelliting Not Reportable 01/16/19 05:09 Plt Morphology Comment Not Reportable 01/16/19 05:09 RBC Morphology Not Reportable 01/16/19 05:09 Dimorphic RBCs Not Reportable 01/16/19 05:09 Polychromasia Not Reportable 01/16/19 05:09 Hypochromasia Not Reportable 01/16/19 05:09 Poikilocytosis 2+ 01/16/19 05:09 Anisocytosis 1+ 01/16/19 05:09 Microcytosis Not Reportable 01/16/19 05:09 Macrocytosis Not Reportable 01/16/19 05:09 Spherocytes Not Reportable 01/16/19 05:09 Pappenheimer Bodies Not Reportable 01/16/19 05:09 Sickle Cells Not Reportable 01/16/19 05:09 Target Cells Few 01/16/19 05:09 Tear Drop Cells Few 01/16/19 05:09 Ovalocytes Not Reportable 01/16/19 05:09 Stomatocytes 1+ 01/16/19 05:09 Helmet Cells Not Reportable 01/16/19 05:09 [place] Bodies Not Reportable 01/16/19 05:09 [place] Rings Not Reportable 01/16/19 05:09 Denae Cells Not Reportable 01/16/19 05:09 Bite Cells Not Reportable 01/16/19 05:09 Crenated Cell Not Reportable 01/16/19 05:09 Elliptocytes 1+ 01/16/19 05:09 Acanthocytes (Spur) Not Reportable 01/16/19 05:09 Rouleaux Not Reportable 01/16/19 05:09 Hemoglobin C Crystals Not Reportable 01/16/19 05:09 Schistocytes Not Reportable 01/16/19 05:09 Malaria parasites Not Reportable 01/16/19 05:09 Percent Retic 21.81 % (0.78-2.58) H 01/03/19 10:34 Sickle Cell Solubility See scanned result 01/04/19 08:05 Hemoglobin A See scanned result 01/04/19 08:05 Hemoglobin A2 See scanned result 01/04/19 08:05 Hemoglobin A2 Prime See scanned result 01/04/19 08:05 Hemoglobin C See scanned result 01/04/19 08:05 Hemoglobin D See scanned result 01/04/19 08:05 Hemoglobin E See scanned result 01/04/19 08:05 Hgb F Diffential Stain See scanned result 01/04/19 08:05 Hemoglobin F Quant See scanned result 01/04/19 08:05 Hemoglobin G See scanned result 01/04/19 08:05 Hemoglobin S See scanned result 01/04/19 08:05 Hemoglobin [place] See scanned result 01/04/19 08:05 Hemoglobin [place] See scanned result 01/04/19 08:05 Hemoglobin [place] See scanned result 01/04/19 08:05 Variant Hemoglobin See scanned result 01/04/19 08:05 Abnorm Hgb IEF Confirm See scanned result 01/04/19 08:05 Hemoglobin Interpret See scanned result 01/04/19 08:05 Hemoglobinopathy Note See scanned result 01/04/19 08:05 [place] Bodies Not Reportable 01/16/19 05:09 Hem Pathologist Commnt No 01/16/19 05:09 PT 24.3 Sec. (12.2-14.9) H 01/05/19 08:24 INR 2.23 (0.87-1.13) H 01/05/19 08:24 APTT 53.5 Sec. (24.2-36.6) H 01/05/19 08:24 D-Dimer 2064.49 ng/mlDDU (0-234) H 01/03/19 11:17 POC ABG pH 7.419 (7.35-7.45) 01/16/19 06:00 ABG pH 7.406 pH Units (7.350-7.450) 01/10/19 05:50 POC ABG pCO2 47.4 (35-45) H 01/16/19 06:00 ABG pCO2 43.8 mm Hg 01/10/19 05:50 POC ABG pO2 57 (80-105) L 01/16/19 06:00 ABG pO2 59.8 mm Hg (80.0-90.0) L 01/10/19 05:50 POC ABG HCO3 30.7 (22-26 mml/L) 01/16/19 06:00 ABG HCO3 26.9 mmol/L (20.0-26.0) H 01/10/19 05:50 POC ABG Total CO2 32 (23-27mmol/L) 01/16/19 06:00 POC ABG O2 Sat 89 01/16/19 06:00 ABG O2 Saturation 89.2 % (95.0-99.0) L 01/10/19 05:50 ABG O2 Content 9.9 (0.0-44) 01/10/19 05:50 POC ABG Base Excess 6 ((-2) - (+3)mmol/L) 01/16/19 06:00 ABG Base Excess 2.0 mmol/L (-2.0-3.0) 01/10/19 05:50 ABG Hemoglobin 8.1 gm/dl (14.0-18.0) L 01/10/19 05:50 ABG Carboxyhemoglobin 2.3 % (0.0-5.0) 01/10/19 05:50 ABG Methemoglobin 0.6 % (0.0-1.5) 01/10/19 05:50 Oxyhemoglobin 86.6 % (95.0-99.0) L 01/10/19 05:50 FiO2 40 % 01/16/19 06:00 Sodium 149 mmol/L (137-145) H 01/16/19 05:09 Potassium 4.6 mmol/L (3.6-5.0) D 01/16/19 05:09 Chloride 109.0 mmol/L (98-107) H 01/16/19 05:09 Carbon Dioxide 28 mmol/L (22-30) 01/16/19 05:09 Anion Gap 17 mmol/L 01/16/19 05:09 BUN 21 mg/dL (9-20) H 01/16/19 05:09 Creatinine 0.8 mg/dL (0.8-1.5) 01/16/19 05:09 Estimated GFR > 60 ml/min 01/16/19 05:09 BUN/Creatinine Ratio 26 % 01/16/19 05:09 Glucose 94 mg/dL (75-100) 01/16/19 05:09 POC Glucose 101 (70-105) 01/08/19 10:56 Lactic Acid 0.80 mmol/L (0.7-2.0) 01/04/19 00:49 Calcium 8.7 mg/dL (8.4-10.2) 01/16/19 05:09 Phosphorus 4.50 mg/dL (2.5-4.5) 01/16/19 05:09 Magnesium 2.10 mg/dL (1.7-2.3) 01/16/19 05:09 Iron 19 ug/dL (49-181) L 01/04/19 08:05 TIBC 218 mcg/dL (250-450) L 01/04/19 08:05 Ferritin 854.8 ng/mL (13.0-400.0) H 01/04/19 08:05 Total Bilirubin 2.00 mg/dL (0.1-1.2) H 01/16/19 05:09 AST 48 units/L (5-40) H 01/16/19 05:09 ALT 31 units/L (7-56) 01/16/19 05:09 Alkaline Phosphatase 165 units/L (35-129) H 01/16/19 05:09 Lactate Dehydrogenase 1048 units/L (91-180) H 01/05/19 08:24 NT-Pro-B Natriuret Pep 3064 pg/mL (0-450) H 01/08/19 17:00 Total Protein 6.8 g/dL (6.3-8.2) 01/16/19 05:09 Albumin 3.0 g/dL (3.9-5) L 01/16/19 05:09 Albumin/Globulin Ratio 0.8 % 01/16/19 05:09 Triglycerides 416 mg/dL (2-149) H 01/10/19 08:39 Lipase 6 units/L (13-60) L 01/03/19 14:19 Vitamin B12 248.5 pg/mL (211-911) 01/04/19 08:05 Folate 19.09 ng/mL (7.3-26.0) 01/04/19 08:05 Procalcitonin 6.09 ng/mL (<0.15) 01/12/19 04:42 Urine Color [place] (Yellow) 01/04/19 05:00 Urine Turbidity Clear (Clear) 01/04/19 05:00 Urine pH 5.0 (5.0-7.0) 01/04/19 05:00 Ur Specific [place] 1.013 (1.003-1.030) 01/04/19 05:00 Urine Protein <15 mg/dl mg/dL (Negative) 01/04/19 05:00 Urine Glucose (UA) Neg mg/dL (Negative) 01/04/19 05:00 Urine Ketones Neg mg/dL (Negative) 01/04/19 05:00 Urine Blood Sm (Negative) 01/04/19 05:00 Urine Nitrite Neg (Negative) 01/04/19 05:00 Urine Bilirubin Neg (Negative) 01/04/19 05:00 Urine Urobilinogen 4.0 mg/dL (<2.0) 01/04/19 05:00 Ur Leukocyte Esterase Neg (Negative) 01/04/19 05:00 Urine WBC (Auto) 1.0 /HPF (0.0-6.0) 01/04/19 05:00 Urine RBC (Auto) 1.0 /HPF (0.0-6.0) 01/04/19 05:00 Influenza A (Rapid) Negative (Negative) 01/04/19 14:56 Influenza B (Rapid) Negative (Negative) 01/04/19 14:56 Blood Type O POSITIVE 01/08/19 13:18 Antibody Screen Positive 01/08/19 13:18 Antibody Identification Anti-K 01/08/19 13:18 Direct Antiglob Test Negative 01/05/19 08:26 ANNAMARIA, Poly Interpret Negative 01/05/19 08:26 Crossmatch See Detail 01/08/19 13:18 Active Medications - Current Medications Current Medications: Generic Name Dose Route Start Last Admin Trade Name Freq PRN Reason Stop Dose Admin Acetaminophen 650 mg 01/06/19 10:28 01/13/19 19:52 Tylenol [place] 650 mg Q4H PRN Administration Non Cardiac Pain or Temp>100.5 Lipase/Protease/Amylase 1 each 01/08/19 13:[address] 10,500 Unit FEEDTUBE PRN PRN For Clogged Feeding Tube Enoxaparin Sodium 40 mg 01/10/19 10:00 01/16/19 09:48 Enoxaparin SUB-Q 40 mg QDAY@1000 KATHY Administration Famotidine 20 mg 01/12/19 10:00 01/16/19 09:53 Pepcid PO 20 mg BID KATHY Administration Fentanyl 50 mcg 01/08/19 17:06 01/10/19 02:12 Sublimaze IV 50 mcg Q10MIN PRN Administration ANALGESIA Folic Acid 1 mg 01/06/19 21:00 01/16/19 09:51 Folvite PO 1 mg QDAY KATHY Administration Haloperidol Lactate 5 mg 01/11/19 12:56 01/12/19 20:40 Haldol IV 5 mg Q6H PRN Administration Agitation Hydromorphone HCl 1 mg 01/04/19 14:25 01/15/19 07:55 Dilaudid IV 1 mg Q3H PRN Administration Pain , Severe (7-10) Hydromorphone HCl 2 mg 01/11/19 12:00 01/16/19 06:42 Dilaudid PO 2 mg Q6HR KATHY Administration Hydrophilic Ointment 1 applic 01/08/19 09:35 Vaseline Lip Therapy TP Q2HR PRN Dry Lips Hydroxyurea 500 mg 01/07/19 10:00 01/16/19 09:52 Hydroxyurea PO 500 mg QDAY KATHY Administration Cefepime HCl 2 gm in 100 mls @ 200 mls/hr 01/06/19 14:00 01/16/19 07:15 Cefepime/Ns 2 Gm/100 Ml IV Infused Q8HR KATHY Infusion Protocol Fentanyl Citrate 2,000 mcg in 100 mls @ 3.465 mls/hr 01/08/19 18:00 01/16/19 04:54 Fentanyl Drip Premix IV 3 mcg/kg/hr TITR KATHY 10.395 mls/hr Administration Protocol 1 MCG/KG/HR Lorazepam 100 mg/ Sodium 101 mls @ 1.01 mls/hr 01/12/19 11:00 01/16/19 09:48 Chloride/ Miscellaneous IV 4 mg/hr Information TITR KATHY 4.04 mls/hr Administration Protocol 1 MG/HR Vancomycin HCl 1 gm in 250 mls @ 167.007 mls/hr 01/15/19 01:00 01/16/19 02:50 Vancomycin/Ns 1 Gm/250 Ml IV Infused Q12H KATHY Infusion Protocol Fluconazole 200 mls @ 100 mls/hr 01/14/19 13:00 01/16/19 09:50 Diflucan IV 100 mls/hr Q24HR KATHY Administration Protocol Lorazepam 2 mg 01/12/19 10:26 01/14/19 20:20 Ativan IV 2 mg Q10MIN PRN Administration Agitation Metoclopramide HCl 10 mg 01/06/19 02:48 01/06/19 03:17 Reglan IV 10 mg Q6H PRN Administration Nausea And Vomiting Multi-Ingred Cream/Lotion/Oil/Oint 1 applic 01/08/19 09:35 Artificial Tears Ophth Oint OU Q4HR PRN Dry Eye(s) Naloxone HCl 0.1 mg 01/04/19 14:25 Naloxone IV Q2MIN PRN Res Rate </= 8 or 02 SAT < 92% Simple Syrup 15 ml 01/08/19 13:50 Simple Syrup FEEDTUBE PRN PRN Hypoglycemia Simple Syrup 30 ml 01/08/19 13:50 Simple Syrup FEEDTUBE PRN PRN Hypoglycemia Sodium Bicarbonate 325 mg 01/08/19 13:50 Sodium Bicarbonate FEEDTUBE PRN PRN For Clogged Feeding Tube Nutrition/Malnutrition Assess - Dietary Evaluation Nutrition/Malnutrition Findings: Nutrition Notes Start: 01/08/19 13:38 Freq: Status: Active Protocol: Document 01/13/19 10:39 CC (Rec: 01/13/19 10:53 CC [email or web address]) Co-Sign 01/13/19 10:39 LP Nutrition Notes Initial or Follow up Brief Note Current Diagnosis Sepsis Other Pertinent Diagnosis Pneu, Sickle cell crisis Current Diet Vital AF 1.2 at 65ml/hr Labs/Tests Na 153 BUN 29 Creat 0.7 Pertinent Medications reviewed Height 5 ft 7 in Weight 68.4 kg [place] Body Weight (kg) 67.27 BMI 23.6 Subjective/Other Information Vital AF 1.2 running at 65ml/ hr. Na 153, increased flush to 300ml q4hr per MD note Percent of energy/protein needs met: 95%/100% Burn Absent Trauma Absent Nutrition Intervention Change Diet Order: Continue TF Nutrition Support: Vital AF 1.2 at 65 ml/hr Flush 300 ml q4hr for hypernatremia Flush 100ml q4hr once hypernatremia resolves decrease flush to 100 q4hr once hypernatremia resolves Kcal 1,872 Protein (gm) 117 Fluid (mL) 1,265 Goal #1 TF tolerance Goal #2 Meet at least 80% of calorie and protein needs via TF Anticipated Discharge Needs: Unable to determine at this time Follow-Up By: 01/18/19 Additional Comments F/U for TF tolerance/rate, Na lab
--- NOTE | 2019-01-16 15:55 | Progress Note ---
Assessment and Plan Imp: 1. Sickle cell disease, SS, with acute crisis 2. Acute chest syndrome 3. Pneumonia 4. Sepsis 5. ARDS 6. Acute respiratory failure, hypoxia 7. Hypernatremia Rec: 1. F/u cultures; broad-spectrum ABX per ID; agree w/ CT c/a/p 2. Wean PEEP slowly to keep sats 88% or >; cont. FiO2, RR, TV same for now; unable to extubate until PEEP down to +6 3. Keep sedated as is with Ativan/Fentanyl 4. Increased free water to 300mL q4 hours; monitor sodium 5. DVT PPx, TFs, GI PPx 6. Prognosis guarded; no family present 7. Complex decision-making Plan of care reviewed with sister at bedside, she understands/agrees Subjective Date of service: 01/16/19 Principal diagnosis: Sickle cell disease Interval history: No events. Sedated on Fentanyl and Ativan drips, but arouses and is appropriate. Has perturbed expression when awakened. Remains on PEEP of 12. A Active Medications Acetaminophen (Tylenol) 650 mg HI Q4H PRN PRN Reason: Non Cardiac Pain or Temp>100.5 Last Admin: 01/13/19 19:52 Dose: 650 mg Documented by: Lipase/Protease/Amylase (Pancregasper Dr 10,500 Unit) 1 each FEEDTUBE PRN PRN PRN Reason: For Clogged Feeding Tube Enoxaparin Sodium (Enoxaparin) 40 mg SUB-Q QDAY@1000 [facility] Last Admin: 01/16/19 09:48 Dose: 40 mg Documented by: Famotidine (Pepcid) 20 mg PO BID [facility] Last Admin: 01/16/19 09:53 Dose: 20 mg Documented by: Fentanyl (Sublimaze) 50 mcg IV Q10MIN PRN PRN Reason: ANALGESIA Last Admin: 01/10/19 02:12 Dose: 50 mcg Documented by: Folic Acid (Folvite) 1 mg PO QDAY [facility] Last Admin: 01/16/19 09:51 Dose: 1 mg Documented by: Haloperidol Lactate (Haldol) 5 mg IV Q6H PRN PRN Reason: Agitation Last Admin: 01/12/19 20:40 Dose: 5 mg Documented by: Hydromorphone HCl (Dilaudid) 1 mg IV Q3H PRN PRN Reason: Pain , Severe (7-10) Last Admin: 01/15/19 07:55 Dose: 1 mg Documented by: Hydromorphone HCl (Dilaudid) 2 mg PO Q6HR KATHY Last Admin: 01/16/19 12:00 Dose: 2 mg Documented by: Hydrophilic Ointment (Vaseline Lip Therapy) 1 applic TP Q2HR PRN PRN Reason: Dry Lips Hydroxyurea (Hydroxyurea) 500 mg PO QDAY KATHY Last Admin: 01/16/19 09:52 Dose: 500 mg Documented by: Cefepime HCl (Cefepime/Ns 2 Gm/100 Ml) 2 gm in 100 mls @ 200 mls/hr IV Q8HR KATHY; Protocol Last Infusion: 01/16/19 14:30 Dose: Infused Documented by: Fentanyl Citrate (Fentanyl Drip Premix) 2,000 mcg in 100 mls @ 3.465 mls/hr IV TITR KATHY; Protocol Last Admin: 01/16/19 15:00 Dose: 3 mcg/kg/hr, 10.395 mls/hr Documented by: Lorazepam 100 mg/ Sodium Chloride/ Miscellaneous Information 101 mls @ 1.01 mls/hr IV TITR KATHY; Protocol Last Admin: 01/16/19 09:48 Dose: 4 mg/hr, 4.04 mls/hr Documented by: Vancomycin HCl (Vancomycin/Ns 1 Gm/250 Ml) 1 gm in 250 mls @ 167.007 mls/hr IV Q12H KATHY; Protocol Last Infusion: 01/16/19 14:30 Dose: Infused Documented by: Fluconazole (Diflucan) 200 mls @ 100 mls/hr IV Q24HR KATHY; Protocol Last Infusion: 01/16/19 11:50 Dose: Infused Documented by: Lorazepam (Ativan) 2 mg IV Q10MIN PRN PRN Reason: Agitation Last Admin: 01/14/19 20:20 Dose: 2 mg Documented by: Metoclopramide HCl (Reglan) 10 mg IV Q6H PRN PRN Reason: Nausea And Vomiting Last Admin: 01/06/19 03:17 Dose: 10 mg Documented by: Multi-Ingred Cream/Lotion/Oil/Oint (Artificial Tears Ophth Oint) 1 applic OU Q4HR PRN PRN Reason: Dry Eye(s) Naloxone HCl (Naloxone) 0.1 mg IV Q2MIN PRN PRN Reason: Res Rate </= 8 or 02 SAT < 92% Simple Syrup (Simple Syrup) 15 ml FEEDTUBE PRN PRN PRN Reason: Hypoglycemia Simple Syrup (Simple Syrup) 30 ml FEEDTUBE PRN PRN PRN Reason: Hypoglycemia Sodium Bicarbonate (Sodium Bicarbonate) 325 mg FEEDTUBE PRN PRN PRN Reason: For Clogged Feeding Tube Objective Vital Signs - 12hr 01/16/19 01/16/19 01/16/19 04:00 04:14 05:00 Temperature 98.9 F Pulse Rate 104 H 107 H 111 H Pulse Rate [ From Monitor] Respiratory 17 29 H Rate Blood Pressure 129/57 123/53 129/62 O2 Sat by Pulse 94 94 91 Oximetry 01/16/19 01/16/19 01/16/19 06:00 07:00 08:00 Temperature 99.0 F Pulse Rate 111 H 105 H 121 H Pulse Rate [ From Monitor] Respiratory 27 H Rate Blood Pressure 138/56 129/62 128/74 O2 Sat by Pulse 83 L 95 93 Oximetry 01/16/19 01/16/19 01/16/19 08:04 09:00 10:00 Temperature Pulse Rate 107 H 104 H 112 H Pulse Rate [ 105 H From Monitor] Respiratory 24 25 H Rate Blood Pressure 128/74 122/62 115/67 O2 Sat by Pulse 96 94 93 Oximetry 01/16/19 01/16/19 01/16/19 11:00 12:00 12:01 Temperature 99.0 F Pulse Rate 118 H 139 H Pulse Rate [ From Monitor] Respiratory 39 H 37 H Rate Blood Pressure 132/85 132/85 O2 Sat by Pulse 94 78 L Oximetry 01/16/19 01/16/19 01/16/19 13:01 13:37 14:00 Temperature Pulse Rate 103 H 101 H Pulse Rate [ 96 H From Monitor] Respiratory 21 Rate Blood Pressure 139/70 122/53 119/62 O2 Sat by Pulse 100 93 94 Oximetry 01/16/19 01/16/19 15:00 15:20 Temperature Pulse Rate 98 H 97 H Pulse Rate [ From Monitor] Respiratory 17 Rate Blood Pressure 119/59 119/59 O2 Sat by Pulse 97 Oximetry Constitutional: other (critically ill on vent) Eyes: non-icteric ENT: other (orally intubated and sedated.) Neck: supple Effort: normal Ascultation: Bilateral: other (coarse BS bilaterally) Cardiovascular: other (sinus tachy) Gastrointestinal: normoactive bowel sounds, soft, non-tender, non-distended Extremities: no cyanosis, no edema, pink and warm Neurologic: normal mental status, non-focal exam, pupils equal and round Psychiatric: mood appropriate, affect normal CBC and BMP: 01/16/19 05:09 01/16/19 05:09 ABG, PT/INR, D-dimer: ABG POC ABG pH 7.419 (7.35-7.45) 01/16/19 06:00 ABG pH 7.406 pH Units (7.350-7.450) 01/10/19 05:50 POC ABG pCO2 47.4 (35-45) H 01/16/19 06:00 ABG pCO2 43.8 mm Hg 01/10/19 05:50 POC ABG pO2 57 (80-105) L 01/16/19 06:00 ABG pO2 59.8 mm Hg (80.0-90.0) L 01/10/19 05:50 POC ABG HCO3 30.7 (22-26 mml/L) 01/16/19 06:00 POC ABG Total CO2 32 (23-27mmol/L) 01/16/19 06:00 POC ABG O2 Sat 89 01/16/19 06:00 ABG O2 Saturation 89.2 % (95.0-99.0) L 01/10/19 05:50 PT/INR, D-dimer PT 24.3 Sec. (12.2-14.9) H 01/05/19 08:24 INR 2.23 (0.87-1.13) H 01/05/19 08:24 D-Dimer 2064.49 ng/mlDDU (0-234) H 01/03/19 11:17 Abnormal lab findings: Abnormal Labs 01/03/19 01/03/19 01/03/19 10:34 10:34 11:17 WBC 34.2 H RBC 2.43 L Hgb 7.9 L Hct 21.9 L MCH 33 H MCHC 36 H RDW 29.2 H Plt Count Harvey % (Auto) Eos % (Auto) Harvey # Eos # Baso # Seg Neutrophils % Seg Neuts % (Manual) 85.0 H Lymphocytes % (Manual) 6.0 L Monocytes % (Manual) 9.0 H Eosinophils % (Manual) Nucleated RBC % 1.0 H Seg Neutrophils # Seg Neutrophils # Man 29.1 H Lymphocytes # (Manual) Monocytes # (Manual) 3.1 H Eosinophils # (Manual) Basophils # (Manual) Percent Retic 21.81 H PT INR APTT D-Dimer POC ABG pH POC ABG pCO2 POC ABG pO2 ABG pO2 ABG HCO3 ABG O2 Saturation ABG Hemoglobin Oxyhemoglobin Sodium 136 L 135 L Potassium 5.3 H Chloride Carbon Dioxide 20 L BUN Creatinine 0.6 L 0.7 L Glucose 123 H 112 H Calcium Iron TIBC Ferritin Total Bilirubin 8.00 H AST 100 H ALT Alkaline Phosphatase Lactate Dehydrogenase NT-Pro-B Natriuret Pep Total Protein Albumin Triglycerides Lipase Crossmatch 01/03/19 01/03/19 01/03/19 11:17 14:19 18:52 WBC 36.5 H RBC 2.32 L Hgb 7.8 L Hct 21.6 L MCH 34 H MCHC 36 H RDW 28.3 H Plt Count Harvey % (Auto) Eos % (Auto) Harvey # Eos # Baso # Seg Neutrophils % Seg Neuts % (Manual) 88.0 H Lymphocytes % (Manual) 4.0 L Monocytes % (Manual) 8.0 H Eosinophils % (Manual) Nucleated RBC % 4.0 H Seg Neutrophils # Seg Neutrophils # Man 32.1 H Lymphocytes # (Manual) Monocytes # (Manual) 2.9 H Eosinophils # (Manual) Basophils # (Manual) Percent Retic PT INR APTT D-Dimer 2064.49 H POC ABG pH POC ABG pCO2 POC ABG pO2 ABG pO2 ABG HCO3 ABG O2 Saturation ABG Hemoglobin Oxyhemoglobin Sodium Potassium Chloride Carbon Dioxide BUN Creatinine Glucose Calcium Iron TIBC Ferritin Total Bilirubin AST ALT Alkaline Phosphatase Lactate Dehydrogenase NT-Pro-B Natriuret Pep Total Protein Albumin Triglycerides Lipase 6 L Crossmatch 01/04/19 01/04/19 01/05/19 08:05 08:05 08:24 WBC 54.8 H* RBC 1.28 L Hgb 4.2 L* D Hct 11.1 L* D MCH 33 H MCHC 38 H* RDW 22.3 H Plt Count 134 L Harvey % (Auto) Eos % (Auto) Harvey # Eos # Baso # Seg Neutrophils % Seg Neuts % (Manual) Lymphocytes % (Manual) 1.0 L Monocytes % (Manual) 15.0 H Eosinophils % (Manual) Nucleated RBC % 3.0 H Seg Neutrophils # Seg Neutrophils # Man 35.1 H Lymphocytes # (Manual) 0.5 L Monocytes # (Manual) 8.2 H Eosinophils # (Manual) Basophils # (Manual) Percent Retic PT INR APTT D-Dimer POC ABG pH POC ABG pCO2 POC ABG pO2 ABG pO2 ABG HCO3 ABG O2 Saturation ABG Hemoglobin Oxyhemoglobin Sodium Potassium Chloride Carbon Dioxide BUN Creatinine Glucose Calcium Iron 19 L TIBC 218 L Ferritin 854.8 H Total Bilirubin AST ALT Alkaline Phosphatase Lactate Dehydrogenase NT-Pro-B Natriuret Pep Total Protein Albumin Triglycerides Lipase Crossmatch 01/05/19 01/05/19 01/05/19 08:24 08:24 08:24 WBC RBC Hgb Hct MCH MCHC RDW Plt Count Harvey % (Auto) Eos % (Auto) Harvey # Eos # Baso # Seg Neutrophils % Seg Neuts % (Manual) Lymphocytes % (Manual) Monocytes % (Manual) Eosinophils % (Manual) Nucleated RBC % Seg Neutrophils # Seg Neutrophils # Man Lymphocytes # (Manual) Monocytes # (Manual) Eosinophils # (Manual) Basophils # (Manual) Percent Retic PT 24.3 H INR 2.23 H APTT 53.5 H D-Dimer POC ABG pH POC ABG pCO2 POC ABG pO2 ABG pO2 ABG HCO3 ABG O2 Saturation ABG Hemoglobin Oxyhemoglobin Sodium Potassium 5.2 H D Chloride Carbon Dioxide 15 L BUN 40 H Creatinine 0.3 L D Glucose 121 H Calcium 8.3 L Iron TIBC Ferritin Total Bilirubin 31.80 H AST 164 H ALT 83 H Alkaline Phosphatase Lactate Dehydrogenase 1048 H NT-Pro-B Natriuret Pep Total Protein 6.0 L Albumin 3.6 L Triglycerides Lipase Crossmatch 01/05/19 01/05/19 01/05/19 08:26 08:26 09:48 WBC 54.8 H* RBC 1.26 L Hgb 4.1 L* Hct 10.9 L* MCH 33 H MCHC 38 H* RDW 22.0 H Plt Count 127 L Harvey % (Auto) Eos % (Auto) Harvey # Eos # Baso # Seg Neutrophils % Seg Neuts % (Manual) Lymphocytes % (Manual) Monocytes % (Manual) Eosinophils % (Manual) Nucleated RBC % Seg Neutrophils # Seg Neutrophils # Man Lymphocytes # (Manual) Monocytes # (Manual) Eosinophils # (Manual) Basophils # (Manual) Percent Retic PT INR APTT D-Dimer POC ABG pH POC ABG pCO2 POC ABG pO2 ABG pO2 ABG HCO3 ABG O2 Saturation ABG Hemoglobin Oxyhemoglobin Sodium Potassium Chloride Carbon Dioxide BUN Creatinine Glucose Calcium Iron TIBC Ferritin Total Bilirubin AST ALT Alkaline Phosphatase Lactate Dehydrogenase NT-Pro-B Natriuret Pep Total Protein Albumin Triglycerides Lipase Crossmatch See Detail See Detail 01/06/19 01/06/19 01/06/19 00:30 18:03 23:02 WBC 56.5 H* 44.3 H* RBC 1.76 L 2.41 L Hgb 5.6 L* 7.4 L Hct 15.8 L* 21.8 L D MCH MCHC 36 H RDW 19.8 H 18.4 H Plt Count Harvey % (Auto) Eos % (Auto) Harvey # Eos # Baso # Seg Neutrophils % Seg Neuts % (Manual) 90.0 H Lymphocytes % (Manual) 4.5 L Monocytes % (Manual) Eosinophils % (Manual) Nucleated RBC % Seg Neutrophils # Seg Neutrophils # Man 50.9 H Lymphocytes # (Manual) Monocytes # (Manual) 2.5 H Eosinophils # (Manual) Basophils # (Manual) Percent Retic PT INR APTT D-Dimer POC ABG pH 7.452 H POC ABG pCO2 29.4 L POC ABG pO2 ABG pO2 ABG HCO3 ABG O2 Saturation ABG Hemoglobin Oxyhemoglobin Sodium Potassium Chloride Carbon Dioxide BUN Creatinine Glucose Calcium Iron TIBC Ferritin Total Bilirubin AST ALT Alkaline Phosphatase Lactate Dehydrogenase NT-Pro-B Natriuret Pep Total Protein Albumin Triglycerides Lipase Crossmatch 01/08/19 01/08/19 01/08/19 09:33 12:10 13:18 WBC RBC Hgb Hct MCH MCHC RDW Plt Count Harvey % (Auto) Eos % (Auto) Harvey # Eos # Baso # Seg Neutrophils % Seg Neuts % (Manual) Lymphocytes % (Manual) Monocytes % (Manual) Eosinophils % (Manual) Nucleated RBC % Seg Neutrophils # Seg Neutrophils # Man Lymphocytes # (Manual) Monocytes # (Manual) Eosinophils # (Manual) Basophils # (Manual) Percent Retic PT INR APTT D-Dimer POC ABG pH POC ABG pCO2 POC ABG pO2 71 L 73 L ABG pO2 ABG HCO3 ABG O2 Saturation ABG Hemoglobin Oxyhemoglobin Sodium Potassium Chloride Carbon Dioxide BUN Creatinine Glucose Calcium Iron TIBC Ferritin Total Bilirubin AST ALT Alkaline Phosphatase Lactate Dehydrogenase NT-Pro-B Natriuret Pep Total Protein Albumin Triglycerides Lipase Crossmatch See Detail 01/08/19 01/08/19 01/08/19 13:18 14:58 17:00 WBC 33.5 H RBC 3.34 L Hgb 9.9 L Hct 29.2 L D MCH MCHC RDW 17.7 H Plt Count Harvey % (Auto) Eos % (Auto) Harvey # Eos # Baso # Seg Neutrophils % Seg Neuts % (Manual) 72.0 H Lymphocytes % (Manual) Monocytes % (Manual) 13.0 H Eosinophils % (Manual) Nucleated RBC % 9.0 H Seg Neutrophils # Seg Neutrophils # Man 24.1 H Lymphocytes # (Manual) Monocytes # (Manual) 4.4 H Eosinophils # (Manual) Basophils # (Manual) Percent Retic PT INR APTT D-Dimer POC ABG pH POC ABG pCO2 POC ABG pO2 74 L ABG pO2 ABG HCO3 ABG O2 Saturation ABG Hemoglobin Oxyhemoglobin Sodium Potassium Chloride Carbon Dioxide BUN Creatinine Glucose 122 H Calcium Iron TIBC Ferritin Total Bilirubin AST ALT Alkaline Phosphatase Lactate Dehydrogenase NT-Pro-B Natriuret Pep Total Protein Albumin Triglycerides Lipase Crossmatch 01/08/19 01/09/19 01/09/19 17:00 04:44 04:44 WBC 29.8 H RBC 2.85 L Hgb 8.4 L Hct 25.1 L MCH MCHC RDW 17.9 H Plt Count Harvey % (Auto) Eos % (Auto) Harvey # Eos # Baso # Seg Neutrophils % Seg Neuts % (Manual) Lymphocytes % (Manual) Monocytes % (Manual) Eosinophils % (Manual) Nucleated RBC % Seg Neutrophils # Seg Neutrophils # Man Lymphocytes # (Manual) Monocytes # (Manual) Eosinophils # (Manual) Basophils # (Manual) Percent Retic PT INR APTT D-Dimer POC ABG pH POC ABG pCO2 POC ABG pO2 ABG pO2 ABG HCO3 ABG O2 Saturation ABG Hemoglobin Oxyhemoglobin Sodium Potassium Chloride 107.3 H Carbon Dioxide BUN 22 H Creatinine 0.7 L Glucose 122 H Calcium Iron TIBC Ferritin Total Bilirubin AST ALT Alkaline Phosphatase Lactate Dehydrogenase NT-Pro-B Natriuret Pep 3064 H Total Protein Albumin Triglycerides Lipase Crossmatch 01/09/19 01/10/19 01/10/19 06:31 05:50 08:39 WBC 24.5 H RBC 2.89 L Hgb 8.4 L Hct 25.9 L MCH MCHC RDW 18.5 H Plt Count Harvey % (Auto) 7.7 H Eos % (Auto) 5.4 H Harvey # 2.0 H Eos # 1.4 H Baso # 0.2 H Seg Neutrophils % 75.5 H Seg Neuts % (Manual) 75.0 H Lymphocytes % (Manual) 11.0 L Monocytes % (Manual) Eosinophils % (Manual) 7.0 H Nucleated RBC % 28.0 H Seg Neutrophils # 19.7 H Seg Neutrophils # Man 0.0 L Lymphocytes # (Manual) 0.0 L Monocytes # (Manual) Eosinophils # (Manual) Basophils # (Manual) Percent Retic PT INR APTT D-Dimer POC ABG pH POC ABG pCO2 POC ABG pO2 ABG pO2 153.7 H 59.8 L ABG HCO3 26.9 H ABG O2 Saturation 89.2 L ABG Hemoglobin 8.1 L 8.1 L Oxyhemoglobin 86.6 L Sodium Potassium Chloride Carbon Dioxide BUN Creatinine Glucose Calcium Iron TIBC Ferritin Total Bilirubin AST ALT Alkaline Phosphatase Lactate Dehydrogenase NT-Pro-B Natriuret Pep Total Protein Albumin Triglycerides Lipase Crossmatch 01/10/19 01/10/19 01/11/19 08:39 08:39 04:18 WBC RBC Hgb Hct MCH MCHC RDW Plt Count Harvey % (Auto) Eos % (Auto) Harvey # Eos # Baso # Seg Neutrophils % Seg Neuts % (Manual) Lymphocytes % (Manual) Monocytes % (Manual) Eosinophils % (Manual) Nucleated RBC % Seg Neutrophils # Seg Neutrophils # Man Lymphocytes # (Manual) Monocytes # (Manual) Eosinophils # (Manual) Basophils # (Manual) Percent Retic PT INR APTT D-Dimer POC ABG pH POC ABG pCO2 45.4 H POC ABG pO2 ABG pO2 ABG HCO3 ABG O2 Saturation ABG Hemoglobin Oxyhemoglobin Sodium Potassium Chloride 108.6 H Carbon Dioxide BUN 21 H Creatinine Glucose 108 H Calcium 8.3 L Iron TIBC Ferritin Total Bilirubin 3.90 H AST 62 H ALT Alkaline Phosphatase 179 H Lactate Dehydrogenase NT-Pro-B Natriuret Pep Total Protein 6.2 L Albumin 2.5 L Triglycerides 416 H Lipase Crossmatch 01/11/19 01/11/19 01/12/19 04:53 04:53 04:36 WBC 26.9 H RBC 2.87 L Hgb 8.2 L Hct 25.6 L MCH MCHC RDW 17.9 H Plt Count Harvey % (Auto) Eos % (Auto) Harvey # Eos # Baso # Seg Neutrophils % Seg Neuts % (Manual) Lymphocytes % (Manual) Monocytes % (Manual) Eosinophils % (Manual) Nucleated RBC % Seg Neutrophils # Seg Neutrophils # Man Lymphocytes # (Manual) Monocytes # (Manual) Eosinophils # (Manual) Basophils # (Manual) Percent Retic PT INR APTT D-Dimer POC ABG pH POC ABG pCO2 50.8 H POC ABG pO2 71 L ABG pO2 ABG HCO3 ABG O2 Saturation ABG Hemoglobin Oxyhemoglobin Sodium 149 H Potassium Chloride 111.7 H Carbon Dioxide BUN 26 H Creatinine Glucose 113 H Calcium 8.2 L Iron TIBC Ferritin Total Bilirubin AST ALT Alkaline Phosphatase Lactate Dehydrogenase NT-Pro-B Natriuret Pep Total Protein Albumin Triglycerides Lipase Crossmatch 01/12/19 01/13/19 01/13/19 09:00 05:32 05:39 WBC 30.6 H RBC 3.00 L Hgb 8.5 L Hct 26.8 L MCH MCHC RDW 17.8 H Plt Count 455 H Harvey % (Auto) Eos % (Auto) Harvey # Eos # Baso # Seg Neutrophils % Seg Neuts % (Manual) 88.0 H Lymphocytes % (Manual) 2.0 L Monocytes % (Manual) Eosinophils % (Manual) Nucleated RBC % 2.0 H Seg Neutrophils # Seg Neutrophils # Man 26.9 H Lymphocytes # (Manual) 0.6 L Monocytes # (Manual) 1.8 H Eosinophils # (Manual) 1.2 H Basophils # (Manual) Percent Retic PT INR APTT D-Dimer POC ABG pH POC ABG pCO2 52.0 H POC ABG pO2 73 L ABG pO2 ABG HCO3 ABG O2 Saturation ABG Hemoglobin Oxyhemoglobin Sodium 148 H Potassium Chloride 110.5 H Carbon Dioxide BUN 30 H Creatinine 0.7 L Glucose 131 H Calcium Iron TIBC Ferritin Total Bilirubin AST ALT Alkaline Phosphatase Lactate Dehydrogenase NT-Pro-B Natriuret Pep Total Protein Albumin Triglycerides Lipase Crossmatch 01/13/19 01/14/19 01/14/19 05:39 04:59 10:25 WBC 28.8 H RBC 2.99 L Hgb 8.4 L Hct 26.5 L MCH MCHC RDW 18.0 H Plt Count 660 H Harvey % (Auto) Eos % (Auto) Harvey # Eos # Baso # Seg Neutrophils % Seg Neuts % (Manual) 78.0 H Lymphocytes % (Manual) 7.0 L Monocytes % (Manual) 11.0 H Eosinophils % (Manual) Nucleated RBC % 2.0 H Seg Neutrophils # Seg Neutrophils # Man 22.5 H Lymphocytes # (Manual) Monocytes # (Manual) 3.2 H Eosinophils # (Manual) 0.9 H Basophils # (Manual) Percent Retic PT INR APTT D-Dimer POC ABG pH 7.461 H POC ABG pCO2 POC ABG pO2 120 H ABG pO2 ABG HCO3 ABG O2 Saturation ABG Hemoglobin Oxyhemoglobin Sodium 153 H Potassium Chloride 114.5 H Carbon Dioxide BUN 29 H Creatinine 0.7 L Glucose 126 H Calcium Iron TIBC Ferritin Total Bilirubin 3.50 H AST 89 H ALT Alkaline Phosphatase 257 H Lactate Dehydrogenase NT-Pro-B Natriuret Pep Total Protein Albumin 2.7 L Triglycerides Lipase Crossmatch 01/14/19 01/15/19 01/15/19 10:25 04:43 05:06 WBC 31.5 H RBC 2.79 L Hgb 7.9 L Hct 24.8 L MCH MCHC RDW 18.6 H Plt Count 739 H Harvey % (Auto) Eos % (Auto) Harvey # Eos # Baso # Seg Neutrophils % Seg Neuts % (Manual) Lymphocytes % (Manual) Monocytes % (Manual) Eosinophils % (Manual) Nucleated RBC % Seg Neutrophils # Seg Neutrophils # Man Lymphocytes # (Manual) Monocytes # (Manual) Eosinophils # (Manual) Basophils # (Manual) Percent Retic PT INR APTT D-Dimer POC ABG pH POC ABG pCO2 45.3 H POC ABG pO2 67 L ABG pO2 ABG HCO3 ABG O2 Saturation ABG Hemoglobin Oxyhemoglobin Sodium 155 H Potassium Chloride 112.7 H Carbon Dioxide BUN 27 H Creatinine 0.7 L Glucose 102 H Calcium Iron TIBC Ferritin Total Bilirubin 2.70 H AST 63 H ALT Alkaline Phosphatase 221 H Lactate Dehydrogenase NT-Pro-B Natriuret Pep Total Protein Albumin 2.9 L Triglycerides Lipase Crossmatch 01/15/19 01/16/19 01/16/19 05:06 05:09 05:09 WBC 33.6 H RBC 2.92 L Hgb 8.1 L Hct 26.2 L MCH MCHC 31 L RDW 18.7 H Plt Count 831 H Harvey % (Auto) Eos % (Auto) Harvey # Eos # Baso # Seg Neutrophils % Seg Neuts % (Manual) 79.0 H Lymphocytes % (Manual) 8.0 L Monocytes % (Manual) 9.5 H Eosinophils % (Manual) Nucleated RBC % Seg Neutrophils # Seg Neutrophils # Man 26.5 H Lymphocytes # (Manual) Monocytes # (Manual) 3.2 H Eosinophils # (Manual) 0.8 H Basophils # (Manual) 0.3 H Percent Retic PT INR APTT D-Dimer POC ABG pH POC ABG pCO2 POC ABG pO2 ABG pO2 ABG HCO3 ABG O2 Saturation ABG Hemoglobin Oxyhemoglobin Sodium 153 H 149 H Potassium Chloride 113.4 H 109.0 H Carbon Dioxide BUN 23 H 21 H Creatinine Glucose 110 H Calcium Iron TIBC Ferritin Total Bilirubin 2.30 H 2.00 H AST 54 H 48 H ALT Alkaline Phosphatase 183 H 165 H Lactate Dehydrogenase NT-Pro-B Natriuret Pep Total Protein Albumin 2.8 L 3.0 L Triglycerides Lipase Crossmatch 01/16/19 06:00 WBC RBC Hgb Hct MCH MCHC RDW Plt Count Harvey % (Auto) Eos % (Auto) Harvey # Eos # Baso # Seg Neutrophils % Seg Neuts % (Manual) Lymphocytes % (Manual) Monocytes % (Manual) Eosinophils % (Manual) Nucleated RBC % Seg Neutrophils # Seg Neutrophils # Man Lymphocytes # (Manual) Monocytes # (Manual) Eosinophils # (Manual) Basophils # (Manual) Percent Retic PT INR APTT D-Dimer POC ABG pH POC ABG pCO2 47.4 H POC ABG pO2 57 L ABG pO2 ABG HCO3 ABG O2 Saturation ABG Hemoglobin Oxyhemoglobin Sodium Potassium Chloride Carbon Dioxide BUN Creatinine Glucose Calcium Iron TIBC Ferritin Total Bilirubin AST ALT Alkaline Phosphatase Lactate Dehydrogenase NT-Pro-B Natriuret Pep Total Protein Albumin Triglycerides Lipase Crossmatch Chest x-ray: report reviewed, image reviewed
[2019-01-16] MEDS: fentaNYL 100 MCG/2 ML INJ IV PRN (19:23)
[2019-01-16] MEDS: LORazepam 2 MG/ML VIAL IV PRN (19:47)
--- NOTE | 2019-01-16 21:53 | Cat Scan Report ---
CT chest w con INDICATION: severe sepsis in a SCD pt with pneumonia. TECHNIQUE: CT of the chest with IV contrast. All CT scans at this location are performed using CT dose reduction for ALARA by means of automated exposure control. COMPARISON: CTA chest on 01/03/2019. FINDINGS: There is diffuse bilateral mixed airspace consolidation and groundglass opacity most likely reflectin g ARDS. There is no pleural effusion or pneumothorax. There is a 3 cm pneumatocele in the right middl e lobe. There is a small to moderate pericardial effusion that has increased in size from the prior study. No pathologically enlarged mediastinal nodes are identified. ET tube is in place with the tip about 5 c m above the stephany. The thoracic aorta and main pulmonary artery are not dilated. There are chronic osseous findings in the spine related to chronic sickle cell disease without acute osseous abnormality. IMPRESSION: 1. Severe diffuse bilateral airspace consolidation and groundglass opacities, most likely reflecting ARDS. No pleural effusion or pneumothorax. 2. Small to moderate pericardial effusion has increased from the prior study on 01/03/2019. Signer Name: Felix Huitron MD Signed: 01/16/2019 9:49 PM Workstation Name: [id number]
--- NOTE | 2019-01-16 22:26 | Cat Scan Report ---
CT ABDOMEN AND PELVIS WITH CONTRAST HISTORY: Sepsis, worsening leukocytosis, sickle cell crisis. COMPARISON: Abdominal ultrasound on 01/03/2019. TECHNIQUE: Routine abdominal and pelvic CT exam performed following intravenous contrast administrat ion. The patient received 100 mL of IV Omnipaque 300. All CT scans at this location are performed usi ng CT dose reduction for ALARA by means of automated exposure control. FINDINGS: CT ABDOMEN: Lung Bases: Please see the contemporaneous chest CT report. Liver: No significant abnormality. Biliary: The gallbladder is surgically absent. There is mild pneumobilia secondary to previous sphinc terotomy. Spleen: Auto infarction of the spleen. Pancreas: No significant abnormality. Adrenals: No significant abnormality. Kidneys: No significant abnormality. Lymphatics: No lymphadenopathy. Vasculature: No significant abnormality. Bowel/Peritoneum: No obstruction, free air, or pneumatosis identified. Moderate volume of stool throu ghout the colon. CT PELVIC: : The urinary bladder is moderately distended. Lymphatics: No lymphadenopathy. Osseous Structures: There are chronic osseous findings in the spine of sickle cell disease without ac daya abnormality. Additional Findings: None IMPRESSION: 1. No acute findings in the abdomen and pelvis. 2. 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 Signer Name: Felix Huitron MD Signed: 01/16/2019 10:22 PM Workstation Name: [id number]
[2019-01-17] MEDS: VANCOMYCIN/NS 1 GM/250 ML 1 GM/250 ML BAG IV SCH ×3 (00:50→18:35)
[2019-01-17] MEDS: HYDROmorphone 2 MG TAB PO SCH ×4 (00:50→18:00)
[2019-01-17] MEDS: fentaNYL DRIP Premix 2,000 MCG/100 ML BAG IV SCH ×2 (01:05→21:32)
[2019-01-17] MEDS: fentaNYL 100 MCG/2 ML INJ IV PRN (03:16)
[2019-01-17] MEDS: LORazepam 2 MG/ML VIAL IV PRN (03:16)
[2019-01-17] MEDS: CEFEPIME/NS 2 GM/100 ML 2 GM/100 ML BAG IV SCH (06:42)
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
[2019-01-17] MEDS ORDERED: CYANOCOBALAMIN (VIT B-12) 1000 MCG/1 ML INJ SUB-Q ONE (09:00)
[2019-01-17] MEDS: FOLIC ACID 1 MG TAB PO SCH (09:24)
[2019-01-17] MEDS: FAMOTIDINE 20 MG TAB PO SCH ×2 (09:24→21:33)
[2019-01-17] MEDS: HYDROXYUREA 500 MG CAP PO SCH (09:24)
[2019-01-17] MEDS: ENOXAPARIN 40 MG/0.4 ML INJ SUB-Q SCH (09:24)
[2019-01-17] MEDS: FLUCONAZOLE 400 MG 200 ML IV SCH (09:25)
--- NOTE | 2019-01-17 10:26 | Progress Note ---
Assessment and Plan 24 y/o male with sickle cell anemia admitted with acute chest syndrome and now acute respiratory failure requiring mechanical ventilation secondary to worsening acute chest vs pulmonary edema. Full blow ARDs 1. Most likely patient will not tolerate PSV trials secondary to high tolerance for medication. Will stop all sedation and then extubate when ready. This could happen later today or tomorrow. 2. Await ID follow up today. CT scan shows continued infiltrates, most likely residual ARDS. maybe in fibroproliferative phase. Would likely benefit from steroids but would not do if ID feels patient is actively infected. 3. High residuals on feeds this am so stopped. Abdomen firm, distended. but patient does not seem to be in pain. Will check KUB as he just had CT abdomen done yesterday. 4. ID continued abx coverage. If ID feels bronch is warranted can do to obtain new sputum sample. Will also remove HD catheter as well if not already done. Will ask ID about culturing the tip if that sort of thing is still done. Needs repeat cultures at next temp spike if ID agrees. Still spiking temps 5. OVerall guarded prognosis, discussed with sister at bedside. 6. May need more lasix prior to extubation CCT 31 minutes. Subjective Date of service: 01/17/19 Principal diagnosis: sickle cell disease Interval history: no acute events. Down to PEEP of 6 and 40%. No gas seen in computer but RT thinks that it may have been done and did not cross over. Objective Vital Signs - 12hr 01/16/19 01/17/19 01/17/19 23:00 00:00 00:04 Temperature 98.3 F Pulse Rate 99 H 101 H 100 H Pulse Rate [ From Monitor] Respiratory 20 19 Rate Blood Pressure 121/57 121/50 119/57 O2 Sat by Pulse 96 96 Oximetry 01/17/19 01/17/19 01/17/19 01:00 02:00 03:00 Temperature Pulse Rate 100 H 110 H 134 H Pulse Rate [ 101 H From Monitor] Respiratory 20 27 H 20 Rate Blood Pressure 120/58 117/65 142/81 O2 Sat by Pulse 96 93 75 L Oximetry 01/17/19 01/17/19 01/17/19 04:00 04:34 05:00 Temperature 98.3 F 99.0 F Pulse Rate 110 H 105 H Pulse Rate [ From Monitor] Respiratory 22 22 Rate Blood Pressure 119/51 123/56 O2 Sat by Pulse 95 94 Oximetry 01/17/19 01/17/19 01/17/19 06:00 07:00 08:00 Temperature 101.9 F H Pulse Rate 106 H 103 H 104 H Pulse Rate [ 104 H From Monitor] Respiratory 17 21 20 Rate Blood Pressure 117/60 119/65 111/61 O2 Sat by Pulse 97 Oximetry 01/17/19 08:06 Temperature Pulse Rate 109 H Pulse Rate [ From Monitor] Respiratory Rate Blood Pressure 111/61 O2 Sat by Pulse 96 Oximetry Constitutional: other (critically ill on vent) Eyes: non-icteric ENT: other (orally intubated and sedated.) Neck: supple Effort: normal Ascultation: Bilateral: rales, rhonchi, other (coarse BS bilaterally) Percussion: Bilateral: not dull Cardiovascular: other (sinus tachy) Gastrointestinal: normoactive bowel sounds, soft, non-tender, non-distended Extremities: no cyanosis, no edema, pink and warm Neurologic: normal mental status, non-focal exam, pupils equal and round Psychiatric: mood appropriate, affect normal CBC and BMP: 01/16/19 05:09 01/16/19 05:09 ABG, PT/INR, D-dimer: ABG POC ABG pH 7.419 (7.35-7.45) 01/16/19 06:00 ABG pH 7.406 pH Units (7.350-7.450) 01/10/19 05:50 POC ABG pCO2 47.4 (35-45) H 01/16/19 06:00 ABG pCO2 43.8 mm Hg 01/10/19 05:50 POC ABG pO2 57 (80-105) L 01/16/19 06:00 ABG pO2 59.8 mm Hg (80.0-90.0) L 01/10/19 05:50 POC ABG HCO3 30.7 (22-26 mml/L) 01/16/19 06:00 POC ABG Total CO2 32 (23-27mmol/L) 01/16/19 06:00 POC ABG O2 Sat 89 01/16/19 06:00 ABG O2 Saturation 89.2 % (95.0-99.0) L 01/10/19 05:50 PT/INR, D-dimer PT 24.3 Sec. (12.2-14.9) H 01/05/19 08:24 INR 2.23 (0.87-1.13) H 01/05/19 08:24 D-Dimer 2064.49 ng/mlDDU (0-234) H 01/03/19 11:17 Abnormal lab findings: Abnormal Labs 01/03/19 01/03/19 01/03/19 10:34 10:34 11:17 WBC 34.2 H RBC 2.43 L Hgb 7.9 L Hct 21.9 L MCH 33 H MCHC 36 H RDW 29.2 H Plt Count Smyth % (Auto) Eos % (Auto) Smyth # Eos # Baso # Seg Neutrophils % Seg Neuts % (Manual) 85.0 H Lymphocytes % (Manual) 6.0 L Monocytes % (Manual) 9.0 H Eosinophils % (Manual) Nucleated RBC % 1.0 H Seg Neutrophils # Seg Neutrophils # Man 29.1 H Lymphocytes # (Manual) Monocytes # (Manual) 3.1 H Eosinophils # (Manual) Basophils # (Manual) Percent Retic 21.81 H PT INR APTT D-Dimer POC ABG pH POC ABG pCO2 POC ABG pO2 ABG pO2 ABG HCO3 ABG O2 Saturation ABG Hemoglobin Oxyhemoglobin Sodium 136 L 135 L Potassium 5.3 H Chloride Carbon Dioxide 20 L BUN Creatinine 0.6 L 0.7 L Glucose 123 H 112 H Calcium Iron TIBC Ferritin Total Bilirubin 8.00 H AST 100 H ALT Alkaline Phosphatase Lactate Dehydrogenase NT-Pro-B Natriuret Pep Total Protein Albumin Triglycerides Lipase Crossmatch 01/03/19 01/03/19 01/03/19 11:17 14:19 18:52 WBC 36.5 H RBC 2.32 L Hgb 7.8 L Hct 21.6 L MCH 34 H MCHC 36 H RDW 28.3 H Plt Count Smyth % (Auto) Eos % (Auto) Smyth # Eos # Baso # Seg Neutrophils % Seg Neuts % (Manual) 88.0 H Lymphocytes % (Manual) 4.0 L Monocytes % (Manual) 8.0 H Eosinophils % (Manual) Nucleated RBC % 4.0 H Seg Neutrophils # Seg Neutrophils # Man 32.1 H Lymphocytes # (Manual) Monocytes # (Manual) 2.9 H Eosinophils # (Manual) Basophils # (Manual) Percent Retic PT INR APTT D-Dimer 2064.49 H POC ABG pH POC ABG pCO2 POC ABG pO2 ABG pO2 ABG HCO3 ABG O2 Saturation ABG Hemoglobin Oxyhemoglobin Sodium Potassium Chloride Carbon Dioxide BUN Creatinine Glucose Calcium Iron TIBC Ferritin Total Bilirubin AST ALT Alkaline Phosphatase Lactate Dehydrogenase NT-Pro-B Natriuret Pep Total Protein Albumin Triglycerides Lipase 6 L Crossmatch 01/04/19 01/04/19 01/05/19 08:05 08:05 08:24 WBC 54.8 H* RBC 1.28 L Hgb 4.2 L* D Hct 11.1 L* D MCH 33 H MCHC 38 H* RDW 22.3 H Plt Count 134 L Smyth % (Auto) Eos % (Auto) Smyth # Eos # Baso # Seg Neutrophils % Seg Neuts % (Manual) Lymphocytes % (Manual) 1.0 L Monocytes % (Manual) 15.0 H Eosinophils % (Manual) Nucleated RBC % 3.0 H Seg Neutrophils # Seg Neutrophils # Man 35.1 H Lymphocytes # (Manual) 0.5 L Monocytes # (Manual) 8.2 H Eosinophils # (Manual) Basophils # (Manual) Percent Retic PT INR APTT D-Dimer POC ABG pH POC ABG pCO2 POC ABG pO2 ABG pO2 ABG HCO3 ABG O2 Saturation ABG Hemoglobin Oxyhemoglobin Sodium Potassium Chloride Carbon Dioxide BUN Creatinine Glucose Calcium Iron 19 L TIBC 218 L Ferritin 854.8 H Total Bilirubin AST ALT Alkaline Phosphatase Lactate Dehydrogenase NT-Pro-B Natriuret Pep Total Protein Albumin Triglycerides Lipase Crossmatch 01/05/19 01/05/19 01/05/19 08:24 08:24 08:24 WBC RBC Hgb Hct MCH MCHC RDW Plt Count Smyth % (Auto) Eos % (Auto) Smyth # Eos # Baso # Seg Neutrophils % Seg Neuts % (Manual) Lymphocytes % (Manual) Monocytes % (Manual) Eosinophils % (Manual) Nucleated RBC % Seg Neutrophils # Seg Neutrophils # Man Lymphocytes # (Manual) Monocytes # (Manual) Eosinophils # (Manual) Basophils # (Manual) Percent Retic PT 24.3 H INR 2.23 H APTT 53.5 H D-Dimer POC ABG pH POC ABG pCO2 POC ABG pO2 ABG pO2 ABG HCO3 ABG O2 Saturation ABG Hemoglobin Oxyhemoglobin Sodium Potassium 5.2 H D Chloride Carbon Dioxide 15 L BUN 40 H Creatinine 0.3 L D Glucose 121 H Calcium 8.3 L Iron TIBC Ferritin Total Bilirubin 31.80 H AST 164 H ALT 83 H Alkaline Phosphatase Lactate Dehydrogenase 1048 H NT-Pro-B Natriuret Pep Total Protein 6.0 L Albumin 3.6 L Triglycerides Lipase Crossmatch 01/05/19 01/05/19 01/05/19 08:26 08:26 09:48 WBC 54.8 H* RBC 1.26 L Hgb 4.1 L* Hct 10.9 L* MCH 33 H MCHC 38 H* RDW 22.0 H Plt Count 127 L Smyth % (Auto) Eos % (Auto) Smyth # Eos # Baso # Seg Neutrophils % Seg Neuts % (Manual) Lymphocytes % (Manual) Monocytes % (Manual) Eosinophils % (Manual) Nucleated RBC % Seg Neutrophils # Seg Neutrophils # Man Lymphocytes # (Manual) Monocytes # (Manual) Eosinophils # (Manual) Basophils # (Manual) Percent Retic PT INR APTT D-Dimer POC ABG pH POC ABG pCO2 POC ABG pO2 ABG pO2 ABG HCO3 ABG O2 Saturation ABG Hemoglobin Oxyhemoglobin Sodium Potassium Chloride Carbon Dioxide BUN Creatinine Glucose Calcium Iron TIBC Ferritin Total Bilirubin AST ALT Alkaline Phosphatase Lactate Dehydrogenase NT-Pro-B Natriuret Pep Total Protein Albumin Triglycerides Lipase Crossmatch See Detail See Detail 01/06/19 01/06/19 01/06/19 00:30 18:03 23:02 WBC 56.5 H* 44.3 H* RBC 1.76 L 2.41 L Hgb 5.6 L* 7.4 L Hct 15.8 L* 21.8 L D MCH MCHC 36 H RDW 19.8 H 18.4 H Plt Count Smyth % (Auto) Eos % (Auto) Smyth # Eos # Baso # Seg Neutrophils % Seg Neuts % (Manual) 90.0 H Lymphocytes % (Manual) 4.5 L Monocytes % (Manual) Eosinophils % (Manual) Nucleated RBC % Seg Neutrophils # Seg Neutrophils # Man 50.9 H Lymphocytes # (Manual) Monocytes # (Manual) 2.5 H Eosinophils # (Manual) Basophils # (Manual) Percent Retic PT INR APTT D-Dimer POC ABG pH 7.452 H POC ABG pCO2 29.4 L POC ABG pO2 ABG pO2 ABG HCO3 ABG O2 Saturation ABG Hemoglobin Oxyhemoglobin Sodium Potassium Chloride Carbon Dioxide BUN Creatinine Glucose Calcium Iron TIBC Ferritin Total Bilirubin AST ALT Alkaline Phosphatase Lactate Dehydrogenase NT-Pro-B Natriuret Pep Total Protein Albumin Triglycerides Lipase Crossmatch 01/08/19 01/08/19 01/08/19 09:33 12:10 13:18 WBC RBC Hgb Hct MCH MCHC RDW Plt Count Smyth % (Auto) Eos % (Auto) Smyth # Eos # Baso # Seg Neutrophils % Seg Neuts % (Manual) Lymphocytes % (Manual) Monocytes % (Manual) Eosinophils % (Manual) Nucleated RBC % Seg Neutrophils # Seg Neutrophils # Man Lymphocytes # (Manual) Monocytes # (Manual) Eosinophils # (Manual) Basophils # (Manual) Percent Retic PT INR APTT D-Dimer POC ABG pH POC ABG pCO2 POC ABG pO2 71 L 73 L ABG pO2 ABG HCO3 ABG O2 Saturation ABG Hemoglobin Oxyhemoglobin Sodium Potassium Chloride Carbon Dioxide BUN Creatinine Glucose Calcium Iron TIBC Ferritin Total Bilirubin AST ALT Alkaline Phosphatase Lactate Dehydrogenase NT-Pro-B Natriuret Pep Total Protein Albumin Triglycerides Lipase Crossmatch See Detail 01/08/19 01/08/19 01/08/19 13:18 14:58 17:00 WBC 33.5 H RBC 3.34 L Hgb 9.9 L Hct 29.2 L D MCH MCHC RDW 17.7 H Plt Count Smyth % (Auto) Eos % (Auto) Smyth # Eos # Baso # Seg Neutrophils % Seg Neuts % (Manual) 72.0 H Lymphocytes % (Manual) Monocytes % (Manual) 13.0 H Eosinophils % (Manual) Nucleated RBC % 9.0 H Seg Neutrophils # Seg Neutrophils # Man 24.1 H Lymphocytes # (Manual) Monocytes # (Manual) 4.4 H Eosinophils # (Manual) Basophils # (Manual) Percent Retic PT INR APTT D-Dimer POC ABG pH POC ABG pCO2 POC ABG pO2 74 L ABG pO2 ABG HCO3 ABG O2 Saturation ABG Hemoglobin Oxyhemoglobin Sodium Potassium Chloride Carbon Dioxide BUN Creatinine Glucose 122 H Calcium Iron TIBC Ferritin Total Bilirubin AST ALT Alkaline Phosphatase Lactate Dehydrogenase NT-Pro-B Natriuret Pep Total Protein Albumin Triglycerides Lipase Crossmatch 01/08/19 01/09/19 01/09/19 17:00 04:44 04:44 WBC 29.8 H RBC 2.85 L Hgb 8.4 L Hct 25.1 L MCH MCHC RDW 17.9 H Plt Count Smyth % (Auto) Eos % (Auto) Smyth # Eos # Baso # Seg Neutrophils % Seg Neuts % (Manual) Lymphocytes % (Manual) Monocytes % (Manual) Eosinophils % (Manual) Nucleated RBC % Seg Neutrophils # Seg Neutrophils # Man Lymphocytes # (Manual) Monocytes # (Manual) Eosinophils # (Manual) Basophils # (Manual) Percent Retic PT INR APTT D-Dimer POC ABG pH POC ABG pCO2 POC ABG pO2 ABG pO2 ABG HCO3 ABG O2 Saturation ABG Hemoglobin Oxyhemoglobin Sodium Potassium Chloride 107.3 H Carbon Dioxide BUN 22 H Creatinine 0.7 L Glucose 122 H Calcium Iron TIBC Ferritin Total Bilirubin AST ALT Alkaline Phosphatase Lactate Dehydrogenase NT-Pro-B Natriuret Pep 3064 H Total Protein Albumin Triglycerides Lipase Crossmatch 01/09/19 01/10/19 01/10/19 06:31 05:50 08:39 WBC 24.5 H RBC 2.89 L Hgb 8.4 L Hct 25.9 L MCH MCHC RDW 18.5 H Plt Count Smyth % (Auto) 7.7 H Eos % (Auto) 5.4 H Smyth # 2.0 H Eos # 1.4 H Baso # 0.2 H Seg Neutrophils % 75.5 H Seg Neuts % (Manual) 75.0 H Lymphocytes % (Manual) 11.0 L Monocytes % (Manual) Eosinophils % (Manual) 7.0 H Nucleated RBC % 28.0 H Seg Neutrophils # 19.7 H Seg Neutrophils # Man 0.0 L Lymphocytes # (Manual) 0.0 L Monocytes # (Manual) Eosinophils # (Manual) Basophils # (Manual) Percent Retic PT INR APTT D-Dimer POC ABG pH POC ABG pCO2 POC ABG pO2 ABG pO2 153.7 H 59.8 L ABG HCO3 26.9 H ABG O2 Saturation 89.2 L ABG Hemoglobin 8.1 L 8.1 L Oxyhemoglobin 86.6 L Sodium Potassium Chloride Carbon Dioxide BUN Creatinine Glucose Calcium Iron TIBC Ferritin Total Bilirubin AST ALT Alkaline Phosphatase Lactate Dehydrogenase NT-Pro-B Natriuret Pep Total Protein Albumin Triglycerides Lipase Crossmatch 01/10/19 01/10/19 01/11/19 08:39 08:39 04:18 WBC RBC Hgb Hct MCH MCHC RDW Plt Count Smyth % (Auto) Eos % (Auto) Smyth # Eos # Baso # Seg Neutrophils % Seg Neuts % (Manual) Lymphocytes % (Manual) Monocytes % (Manual) Eosinophils % (Manual) Nucleated RBC % Seg Neutrophils # Seg Neutrophils # Man Lymphocytes # (Manual) Monocytes # (Manual) Eosinophils # (Manual) Basophils # (Manual) Percent Retic PT INR APTT D-Dimer POC ABG pH POC ABG pCO2 45.4 H POC ABG pO2 ABG pO2 ABG HCO3 ABG O2 Saturation ABG Hemoglobin Oxyhemoglobin Sodium Potassium Chloride 108.6 H Carbon Dioxide BUN 21 H Creatinine Glucose 108 H Calcium 8.3 L Iron TIBC Ferritin Total Bilirubin 3.90 H AST 62 H ALT Alkaline Phosphatase 179 H Lactate Dehydrogenase NT-Pro-B Natriuret Pep Total Protein 6.2 L Albumin 2.5 L Triglycerides 416 H Lipase Crossmatch 01/11/19 01/11/19 01/12/19 04:53 04:53 04:36 WBC 26.9 H RBC 2.87 L Hgb 8.2 L Hct 25.6 L MCH MCHC RDW 17.9 H Plt Count Smyth % (Auto) Eos % (Auto) Smyth # Eos # Baso # Seg Neutrophils % Seg Neuts % (Manual) Lymphocytes % (Manual) Monocytes % (Manual) Eosinophils % (Manual) Nucleated RBC % Seg Neutrophils # Seg Neutrophils # Man Lymphocytes # (Manual) Monocytes # (Manual) Eosinophils # (Manual) Basophils # (Manual) Percent Retic PT INR APTT D-Dimer POC ABG pH POC ABG pCO2 50.8 H POC ABG pO2 71 L ABG pO2 ABG HCO3 ABG O2 Saturation ABG Hemoglobin Oxyhemoglobin Sodium 149 H Potassium Chloride 111.7 H Carbon Dioxide BUN 26 H Creatinine Glucose 113 H Calcium 8.2 L Iron TIBC Ferritin Total Bilirubin AST ALT Alkaline Phosphatase Lactate Dehydrogenase NT-Pro-B Natriuret Pep Total Protein Albumin Triglycerides Lipase Crossmatch 01/12/19 01/13/19 01/13/19 09:00 05:32 05:39 WBC 30.6 H RBC 3.00 L Hgb 8.5 L Hct 26.8 L MCH MCHC RDW 17.8 H Plt Count 455 H Smyth % (Auto) Eos % (Auto) Smyth # Eos # Baso # Seg Neutrophils % Seg Neuts % (Manual) 88.0 H Lymphocytes % (Manual) 2.0 L Monocytes % (Manual) Eosinophils % (Manual) Nucleated RBC % 2.0 H Seg Neutrophils # Seg Neutrophils # Man 26.9 H Lymphocytes # (Manual) 0.6 L Monocytes # (Manual) 1.8 H Eosinophils # (Manual) 1.2 H Basophils # (Manual) Percent Retic PT INR APTT D-Dimer POC ABG pH POC ABG pCO2 52.0 H POC ABG pO2 73 L ABG pO2 ABG HCO3 ABG O2 Saturation ABG Hemoglobin Oxyhemoglobin Sodium 148 H Potassium Chloride 110.5 H Carbon Dioxide BUN 30 H Creatinine 0.7 L Glucose 131 H Calcium Iron TIBC Ferritin Total Bilirubin AST ALT Alkaline Phosphatase Lactate Dehydrogenase NT-Pro-B Natriuret Pep Total Protein Albumin Triglycerides Lipase Crossmatch 01/13/19 01/14/19 01/14/19 05:39 04:59 10:25 WBC 28.8 H RBC 2.99 L Hgb 8.4 L Hct 26.5 L MCH MCHC RDW 18.0 H Plt Count 660 H Smyth % (Auto) Eos % (Auto) Smyth # Eos # Baso # Seg Neutrophils % Seg Neuts % (Manual) 78.0 H Lymphocytes % (Manual) 7.0 L Monocytes % (Manual) 11.0 H Eosinophils % (Manual) Nucleated RBC % 2.0 H Seg Neutrophils # Seg Neutrophils # Man 22.5 H Lymphocytes # (Manual) Monocytes # (Manual) 3.2 H Eosinophils # (Manual) 0.9 H Basophils # (Manual) Percent Retic PT INR APTT D-Dimer POC ABG pH 7.461 H POC ABG pCO2 POC ABG pO2 120 H ABG pO2 ABG HCO3 ABG O2 Saturation ABG Hemoglobin Oxyhemoglobin Sodium 153 H Potassium Chloride 114.5 H Carbon Dioxide BUN 29 H Creatinine 0.7 L Glucose 126 H Calcium Iron TIBC Ferritin Total Bilirubin 3.50 H AST 89 H ALT Alkaline Phosphatase 257 H Lactate Dehydrogenase NT-Pro-B Natriuret Pep Total Protein Albumin 2.7 L Triglycerides Lipase Crossmatch 01/14/19 01/15/19 01/15/19 10:25 04:43 05:06 WBC 31.5 H RBC 2.79 L Hgb 7.9 L Hct 24.8 L MCH MCHC RDW 18.6 H Plt Count 739 H Smyth % (Auto) Eos % (Auto) Smyth # Eos # Baso # Seg Neutrophils % Seg Neuts % (Manual) Lymphocytes % (Manual) Monocytes % (Manual) Eosinophils % (Manual) Nucleated RBC % Seg Neutrophils # Seg Neutrophils # Man Lymphocytes # (Manual) Monocytes # (Manual) Eosinophils # (Manual) Basophils # (Manual) Percent Retic PT INR APTT D-Dimer POC ABG pH POC ABG pCO2 45.3 H POC ABG pO2 67 L ABG pO2 ABG HCO3 ABG O2 Saturation ABG Hemoglobin Oxyhemoglobin Sodium 155 H Potassium Chloride 112.7 H Carbon Dioxide BUN 27 H Creatinine 0.7 L Glucose 102 H Calcium Iron TIBC Ferritin Total Bilirubin 2.70 H AST 63 H ALT Alkaline Phosphatase 221 H Lactate Dehydrogenase NT-Pro-B Natriuret Pep Total Protein Albumin 2.9 L Triglycerides Lipase Crossmatch 01/15/19 01/16/19 01/16/19 05:06 05:09 05:09 WBC 33.6 H RBC 2.92 L Hgb 8.1 L Hct 26.2 L MCH MCHC 31 L RDW 18.7 H Plt Count 831 H Smyth % (Auto) Eos % (Auto) Smyth # Eos # Baso # Seg Neutrophils % Seg Neuts % (Manual) 79.0 H Lymphocytes % (Manual) 8.0 L Monocytes % (Manual) 9.5 H Eosinophils % (Manual) Nucleated RBC % Seg Neutrophils # Seg Neutrophils # Man 26.5 H Lymphocytes # (Manual) Monocytes # (Manual) 3.2 H Eosinophils # (Manual) 0.8 H Basophils # (Manual) 0.3 H Percent Retic PT INR APTT D-Dimer POC ABG pH POC ABG pCO2 POC ABG pO2 ABG pO2 ABG HCO3 ABG O2 Saturation ABG Hemoglobin Oxyhemoglobin Sodium 153 H 149 H Potassium Chloride 113.4 H 109.0 H Carbon Dioxide BUN 23 H 21 H Creatinine Glucose 110 H Calcium Iron TIBC Ferritin Total Bilirubin 2.30 H 2.00 H AST 54 H 48 H ALT Alkaline Phosphatase 183 H 165 H Lactate Dehydrogenase NT-Pro-B Natriuret Pep Total Protein Albumin 2.8 L 3.0 L Triglycerides Lipase Crossmatch 01/16/19 06:00 WBC RBC Hgb Hct MCH MCHC RDW Plt Count Smyth % (Auto) Eos % (Auto) Smyth # Eos # Baso # Seg Neutrophils % Seg Neuts % (Manual) Lymphocytes % (Manual) Monocytes % (Manual) Eosinophils % (Manual) Nucleated RBC % Seg Neutrophils # Seg Neutrophils # Man Lymphocytes # (Manual) Monocytes # (Manual) Eosinophils # (Manual) Basophils # (Manual) Percent Retic PT INR APTT D-Dimer POC ABG pH POC ABG pCO2 47.4 H POC ABG pO2 57 L ABG pO2 ABG HCO3 ABG O2 Saturation ABG Hemoglobin Oxyhemoglobin Sodium Potassium Chloride Carbon Dioxide BUN Creatinine Glucose Calcium Iron TIBC Ferritin Total Bilirubin AST ALT Alkaline Phosphatase Lactate Dehydrogenase NT-Pro-B Natriuret Pep Total Protein Albumin Triglycerides Lipase Crossmatch
[2019-01-17 10:56] LABS: Hematocrit 26.7 % (35.5-45.6); Hemoglobin 8.5 gm/dl (11.8-15.2); Mean Corpuscular HGB Conc 32 % (32-34); Mean Corpuscular Volume 91 fl (84-94); Platelet Count 887 K/mm3 (140-440); Red Blood Count 2.95 M/mm3 (3.65-5.03); Red Cell Distribution Width 19.3 % (13.2-15.2)
[2019-01-17] MEDS: LORAZEPAM IV SCH (11:00)
[2019-01-17] MEDS: SODIUM CHLORIDE 0.9% IV SCH (11:00)
--- NOTE | 2019-01-17 14:19 | Progress Note ---
Assessment and Plan Cultures: 01/03/19 blood cultures - no growth to date 01/04/2019 sputum: contaminated specimen 01/14/2019 blood culture no growth A/P: 24 yo M PMhx sickle cell disease presents with fevers and myalgias, likely an acute chest syndrome vs pneumonia 1. Acute sepsis - fevers but worsening leukocytosis 30K, likely secondary to pneumonia +/- SCD crisis. Procal is high at 6. 2. Bilateral Pneumonia - CT chest shows severe diffuse airspace disease/ground glass ? ARDS and moderate pericardial effusion. Unclear etiology. SCD patient has commonly Mycoplasma/Chlamydia/legionalla pnemonia. Influenza and Strep pneumoniae are less common. Unknown HIV status, ?PJP. CT abd shows autoinfarct 3. Sickle cell disease 4. Acute pain crisis 5. Acute respiratory failure with hypoxia - intubated, on vent. Not better 6. Pericardial effusion, moderate ? Recs: cards consult for mod pericardial effusion consider bronch for viral, fungal and legionella cultures - discussed with Dr Manzo check influenza rapid and PCR f/u repeat blood cultures f/u fungal blood cultures continue IV Vancomycin and IV Fluconazole stop IV Cefepime, Day 11 today start levaquin 750 mg IV q day add tamiflu until flu is r/o f/u check HIV testing repeat procal Will follow. Elda Lisa MD Infectious Diseases Oral And Maxillofacial Pathologist [facility] M [phone] O [phone] Subjective Date of service: 01/17/19 Principal diagnosis: sickle cell disease Interval history: Remains intubated on the vent tmax 101.9. Sister at bedside Objective - Exam Narrative Exam: Constitutional: sedated, intubated Head, Ears, Nose: Normocephalic, atraumatic. External ears, nose normal Eyes: Conjunctivae/corneas clear. No icterus. No ptosis. Neck: intubated Oral: intubated Cardiovascular: S1, S2 normal. Respiratory: jae rhonchi GI: Soft, non-tender; bowel sounds normal. No peritoneal signs Musculoskeletal: No pedal edema, no cyanosis. Skin: No rash or abscess Hem/Lymphatic: No palpable cervical or supraclavicular nodes. No lymphangitis Psych: sedated Neurological: sedated intubated, on vent - Constitutional Vitals: Vital Signs Temp Pulse Resp BP Pulse Ox 101.9 F H 106 H 20 123/53 96 01/17/19 08:00 01/17/19 13:07 01/17/19 08:00 01/17/19 13:07 01/17/19 13:07 Temperature -Last 24 Hours Temperature 101.9 F Temperature 99.0 F Temperature 98.3 F Temperature 98.3 F Temperature 98.9 F Temperature 98.3 F - Labs CBC & Chem 7: 01/17/19 10:35 01/16/19 05:09 Labs: Abnormal lab results 01/17/19 Range/Units 10:35 WBC 33.6 H (4.5-11.0) K/mm3 RBC 2.95 L (3.65-5.03) M/mm3 Hgb 8.5 L (11.8-15.2) gm/dl Hct 26.7 L (35.5-45.6) % RDW 19.3 H (13.2-15.2) % Plt Count 887 H (140-440) K/mm3
[2019-01-17] MEDS: OSELTAMIVIR 75 MG CAP PO SCH ×2 (15:00→21:33)
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
[2019-01-18] MEDS: VANCOMYCIN/NS 1 GM/250 ML 1 GM/250 ML BAG IV SCH ×3 (03:24→18:00)
[2019-01-18] MEDS: HYDROmorphone 2 MG TAB PO SCH ×4 (03:24→18:07)
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
[2019-01-18] MEDS: fentaNYL DRIP Premix 2,000 MCG/100 ML BAG IV SCH (06:55)
[2019-01-18] MEDS: FOLIC ACID 1 MG TAB PO SCH (10:00)
[2019-01-18] MEDS: FAMOTIDINE 20 MG TAB PO SCH (10:00)
[2019-01-18] MEDS ORDERED: OSELTAMIVIR PHOSPHATE 30 MG/5 ML ORALSYR PO SCH (10:00)
[2019-01-18] MEDS: FLUCONAZOLE 400 MG 200 ML IV SCH (10:00)
[2019-01-18] MEDS: ENOXAPARIN 40 MG/0.4 ML INJ SUB-Q SCH (10:00)
[2019-01-18] MEDS: HYDROXYUREA 500 MG CAP PO SCH (10:30)
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
--- NOTE | 2019-01-18 10:41 | Progress Note ---
Assessment and Plan 24 y/o male with sickle cell anemia admitted with acute chest syndrome and now acute respiratory failure requiring mechanical ventilation secondary to worsening acute chest vs pulmonary edema. Full blow ARDs 1. Most likely patient will not tolerate PSV trials secondary to high tolerance for medication. Will stop all sedation and then extubate when ready. This could happen later today. Ordered Bipap PRN 2. Appreciate ID help. Abx per their lead 3. KUB done but not read. Unsure why. Had BM yesterday. Feeds on hold, and will continue to hold as planning extubation 4. Hold on bronch, will extubate sometime today. 5. Sister not at bedside this am. 6. lasix 20 now. CCT 31 minutes. Subjective Date of service: 01/18/19 Principal diagnosis: sickle cell Interval history: No acute events. ABG good this am. Asked nursing to stop all sedation. Objective Vital Signs - 12hr 01/17/19 01/17/19 01/18/19 23:00 23:36 00:00 Temperature 98.2 F Pulse Rate 96 H 96 H 95 H Pulse Rate [ 93 H From Monitor] Respiratory 17 16 20 Rate Blood Pressure 116/55 114/53 115/55 O2 Sat by Pulse 98 98 Oximetry 01/18/19 01/18/19 01/18/19 01:00 01:13 02:00 Temperature Pulse Rate 94 H 95 H 93 H Pulse Rate [ From Monitor] Respiratory 22 20 Rate Blood Pressure 115/53 115/53 118/57 O2 Sat by Pulse 96 95 Oximetry 01/18/19 01/18/19 01/18/19 03:00 03:53 03:56 Temperature 98.7 F Pulse Rate 89 91 H Pulse Rate [ From Monitor] Respiratory 22 Rate Blood Pressure 113/53 113/60 O2 Sat by Pulse 95 97 Oximetry 01/18/19 01/18/19 01/18/19 04:00 05:00 06:00 Temperature Pulse Rate 92 H 89 83 Pulse Rate [ 84 From Monitor] Respiratory 13 22 22 Rate Blood Pressure 116/58 116/53 116/59 O2 Sat by Pulse 96 96 98 Oximetry 01/18/19 01/18/19 08:00 08:32 Temperature 98.1 F Pulse Rate 82 Pulse Rate [ From Monitor] Respiratory Rate Blood Pressure 114/53 O2 Sat by Pulse 99 Oximetry Constitutional: other (critically ill on vent) Eyes: non-icteric ENT: other (orally intubated and sedated.) Neck: supple Effort: normal Ascultation: Bilateral: rales, rhonchi, other (coarse BS bilaterally) Percussion: Bilateral: not dull Cardiovascular: other (sinus tachy) Gastrointestinal: normoactive bowel sounds, soft, non-tender, non-distended Extremities: no cyanosis, no edema, pink and warm Neurologic: normal mental status, non-focal exam, pupils equal and round Psychiatric: mood appropriate, affect normal CBC and BMP: 01/17/19 10:35 01/16/19 05:09 ABG, PT/INR, D-dimer: ABG POC ABG pH 7.391 (7.35-7.45) 01/18/19 04:15 ABG pH 7.406 pH Units (7.350-7.450) 01/10/19 05:50 POC ABG pCO2 49.4 (35-45) H 01/18/19 04:15 ABG pCO2 43.8 mm Hg 01/10/19 05:50 POC ABG pO2 80 (80-105) 01/18/19 04:15 ABG pO2 59.8 mm Hg (80.0-90.0) L 01/10/19 05:50 POC ABG HCO3 30.0 (22-26 mml/L) 01/18/19 04:15 POC ABG Total CO2 31 (23-27mmol/L) 01/18/19 04:15 POC ABG O2 Sat 95 01/18/19 04:15 ABG O2 Saturation 89.2 % (95.0-99.0) L 01/10/19 05:50 PT/INR, D-dimer PT 24.3 Sec. (12.2-14.9) H 01/05/19 08:24 INR 2.23 (0.87-1.13) H 01/05/19 08:24 D-Dimer 2064.49 ng/mlDDU (0-234) H 01/03/19 11:17 Abnormal lab findings: Abnormal Labs 01/03/19 01/03/19 01/03/19 10:34 10:34 11:17 WBC 34.2 H RBC 2.43 L Hgb 7.9 L Hct 21.9 L MCH 33 H MCHC 36 H RDW 29.2 H Plt Count [place] % (Auto) Eos % (Auto) [place] # Eos # Baso # Seg Neutrophils % Seg Neuts % (Manual) 85.0 H Lymphocytes % (Manual) 6.0 L Monocytes % (Manual) 9.0 H Eosinophils % (Manual) Nucleated RBC % 1.0 H Seg Neutrophils # Seg Neutrophils # Man 29.1 H Lymphocytes # (Manual) Monocytes # (Manual) 3.1 H Eosinophils # (Manual) Basophils # (Manual) Percent Retic 21.81 H PT INR APTT D-Dimer POC ABG pH POC ABG pCO2 POC ABG pO2 ABG pO2 ABG HCO3 ABG O2 Saturation ABG Hemoglobin Oxyhemoglobin Sodium 136 L 135 L Potassium 5.3 H Chloride Carbon Dioxide 20 L BUN Creatinine 0.6 L 0.7 L Glucose 123 H 112 H Calcium Iron TIBC Ferritin Total Bilirubin 8.00 H AST 100 H ALT Alkaline Phosphatase Lactate Dehydrogenase NT-Pro-B Natriuret Pep Total Protein Albumin Triglycerides Lipase Crossmatch 01/03/19 01/03/19 01/03/19 11:17 14:19 18:52 WBC 36.5 H RBC 2.32 L Hgb 7.8 L Hct 21.6 L MCH 34 H MCHC 36 H RDW 28.3 H Plt Count [place] % (Auto) Eos % (Auto) [place] # Eos # Baso # Seg Neutrophils % Seg Neuts % (Manual) 88.0 H Lymphocytes % (Manual) 4.0 L Monocytes % (Manual) 8.0 H Eosinophils % (Manual) Nucleated RBC % 4.0 H Seg Neutrophils # Seg Neutrophils # Man 32.1 H Lymphocytes # (Manual) Monocytes # (Manual) 2.9 H Eosinophils # (Manual) Basophils # (Manual) Percent Retic PT INR APTT D-Dimer 2064.49 H POC ABG pH POC ABG pCO2 POC ABG pO2 ABG pO2 ABG HCO3 ABG O2 Saturation ABG Hemoglobin Oxyhemoglobin Sodium Potassium Chloride Carbon Dioxide BUN Creatinine Glucose Calcium Iron TIBC Ferritin Total Bilirubin AST ALT Alkaline Phosphatase Lactate Dehydrogenase NT-Pro-B Natriuret Pep Total Protein Albumin Triglycerides Lipase 6 L Crossmatch 01/04/19 01/04/19 01/05/19 08:05 08:05 08:24 WBC 54.8 H* RBC 1.28 L Hgb 4.2 L* D Hct 11.1 L* D MCH 33 H MCHC 38 H* RDW 22.3 H Plt Count 134 L [place] % (Auto) Eos % (Auto) [place] # Eos # Baso # Seg Neutrophils % Seg Neuts % (Manual) Lymphocytes % (Manual) 1.0 L Monocytes % (Manual) 15.0 H Eosinophils % (Manual) Nucleated RBC % 3.0 H Seg Neutrophils # Seg Neutrophils # Man 35.1 H Lymphocytes # (Manual) 0.5 L Monocytes # (Manual) 8.2 H Eosinophils # (Manual) Basophils # (Manual) Percent Retic PT INR APTT D-Dimer POC ABG pH POC ABG pCO2 POC ABG pO2 ABG pO2 ABG HCO3 ABG O2 Saturation ABG Hemoglobin Oxyhemoglobin Sodium Potassium Chloride Carbon Dioxide BUN Creatinine Glucose Calcium Iron 19 L TIBC 218 L Ferritin 854.8 H Total Bilirubin AST ALT Alkaline Phosphatase Lactate Dehydrogenase NT-Pro-B Natriuret Pep Total Protein Albumin Triglycerides Lipase Crossmatch 01/05/19 01/05/19 01/05/19 08:24 08:24 08:24 WBC RBC Hgb Hct MCH MCHC RDW Plt Count [place] % (Auto) Eos % (Auto) [place] # Eos # Baso # Seg Neutrophils % Seg Neuts % (Manual) Lymphocytes % (Manual) Monocytes % (Manual) Eosinophils % (Manual) Nucleated RBC % Seg Neutrophils # Seg Neutrophils # Man Lymphocytes # (Manual) Monocytes # (Manual) Eosinophils # (Manual) Basophils # (Manual) Percent Retic PT 24.3 H INR 2.23 H APTT 53.5 H D-Dimer POC ABG pH POC ABG pCO2 POC ABG pO2 ABG pO2 ABG HCO3 ABG O2 Saturation ABG Hemoglobin Oxyhemoglobin Sodium Potassium 5.2 H D Chloride Carbon Dioxide 15 L BUN 40 H Creatinine 0.3 L D Glucose 121 H Calcium 8.3 L Iron TIBC Ferritin Total Bilirubin 31.80 H AST 164 H ALT 83 H Alkaline Phosphatase Lactate Dehydrogenase 1048 H NT-Pro-B Natriuret Pep Total Protein 6.0 L Albumin 3.6 L Triglycerides Lipase Crossmatch 01/05/19 01/05/19 01/05/19 08:26 08:26 09:48 WBC 54.8 H* RBC 1.26 L Hgb 4.1 L* Hct 10.9 L* MCH 33 H MCHC 38 H* RDW 22.0 H Plt Count 127 L [place] % (Auto) Eos % (Auto) [place] # Eos # Baso # Seg Neutrophils % Seg Neuts % (Manual) Lymphocytes % (Manual) Monocytes % (Manual) Eosinophils % (Manual) Nucleated RBC % Seg Neutrophils # Seg Neutrophils # Man Lymphocytes # (Manual) Monocytes # (Manual) Eosinophils # (Manual) Basophils # (Manual) Percent Retic PT INR APTT D-Dimer POC ABG pH POC ABG pCO2 POC ABG pO2 ABG pO2 ABG HCO3 ABG O2 Saturation ABG Hemoglobin Oxyhemoglobin Sodium Potassium Chloride Carbon Dioxide BUN Creatinine Glucose Calcium Iron TIBC Ferritin Total Bilirubin AST ALT Alkaline Phosphatase Lactate Dehydrogenase NT-Pro-B Natriuret Pep Total Protein Albumin Triglycerides Lipase Crossmatch See Detail See Detail 01/06/19 01/06/19 01/06/19 00:30 18:03 23:02 WBC 56.5 H* 44.3 H* RBC 1.76 L 2.41 L Hgb 5.6 L* 7.4 L Hct 15.8 L* 21.8 L D MCH MCHC 36 H RDW 19.8 H 18.4 H Plt Count [place] % (Auto) Eos % (Auto) [place] # Eos # Baso # Seg Neutrophils % Seg Neuts % (Manual) 90.0 H Lymphocytes % (Manual) 4.5 L Monocytes % (Manual) Eosinophils % (Manual) Nucleated RBC % Seg Neutrophils # Seg Neutrophils # Man 50.9 H Lymphocytes # (Manual) Monocytes # (Manual) 2.5 H Eosinophils # (Manual) Basophils # (Manual) Percent Retic PT INR APTT D-Dimer POC ABG pH 7.452 H POC ABG pCO2 29.4 L POC ABG pO2 ABG pO2 ABG HCO3 ABG O2 Saturation ABG Hemoglobin Oxyhemoglobin Sodium Potassium Chloride Carbon Dioxide BUN Creatinine Glucose Calcium Iron TIBC Ferritin Total Bilirubin AST ALT Alkaline Phosphatase Lactate Dehydrogenase NT-Pro-B Natriuret Pep Total Protein Albumin Triglycerides Lipase Crossmatch 01/08/19 01/08/19 01/08/19 09:33 12:10 13:18 WBC RBC Hgb Hct MCH MCHC RDW Plt Count [place] % (Auto) Eos % (Auto) [place] # Eos # Baso # Seg Neutrophils % Seg Neuts % (Manual) Lymphocytes % (Manual) Monocytes % (Manual) Eosinophils % (Manual) Nucleated RBC % Seg Neutrophils # Seg Neutrophils # Man Lymphocytes # (Manual) Monocytes # (Manual) Eosinophils # (Manual) Basophils # (Manual) Percent Retic PT INR APTT D-Dimer POC ABG pH POC ABG pCO2 POC ABG pO2 71 L 73 L ABG pO2 ABG HCO3 ABG O2 Saturation ABG Hemoglobin Oxyhemoglobin Sodium Potassium Chloride Carbon Dioxide BUN Creatinine Glucose Calcium Iron TIBC Ferritin Total Bilirubin AST ALT Alkaline Phosphatase Lactate Dehydrogenase NT-Pro-B Natriuret Pep Total Protein Albumin Triglycerides Lipase Crossmatch See Detail 01/08/19 01/08/19 01/08/19 13:18 14:58 17:00 WBC 33.5 H RBC 3.34 L Hgb 9.9 L Hct 29.2 L D MCH MCHC RDW 17.7 H Plt Count [place] % (Auto) Eos % (Auto) [place] # Eos # Baso # Seg Neutrophils % Seg Neuts % (Manual) 72.0 H Lymphocytes % (Manual) Monocytes % (Manual) 13.0 H Eosinophils % (Manual) Nucleated RBC % 9.0 H Seg Neutrophils # Seg Neutrophils # Man 24.1 H Lymphocytes # (Manual) Monocytes # (Manual) 4.4 H Eosinophils # (Manual) Basophils # (Manual) Percent Retic PT INR APTT D-Dimer POC ABG pH POC ABG pCO2 POC ABG pO2 74 L ABG pO2 ABG HCO3 ABG O2 Saturation ABG Hemoglobin Oxyhemoglobin Sodium Potassium Chloride Carbon Dioxide BUN Creatinine Glucose 122 H Calcium Iron TIBC Ferritin Total Bilirubin AST ALT Alkaline Phosphatase Lactate Dehydrogenase NT-Pro-B Natriuret Pep Total Protein Albumin Triglycerides Lipase Crossmatch 01/08/19 01/09/19 01/09/19 17:00 04:44 04:44 WBC 29.8 H RBC 2.85 L Hgb 8.4 L Hct 25.1 L MCH MCHC RDW 17.9 H Plt Count [place] % (Auto) Eos % (Auto) [place] # Eos # Baso # Seg Neutrophils % Seg Neuts % (Manual) Lymphocytes % (Manual) Monocytes % (Manual) Eosinophils % (Manual) Nucleated RBC % Seg Neutrophils # Seg Neutrophils # Man Lymphocytes # (Manual) Monocytes # (Manual) Eosinophils # (Manual) Basophils # (Manual) Percent Retic PT INR APTT D-Dimer POC ABG pH POC ABG pCO2 POC ABG pO2 ABG pO2 ABG HCO3 ABG O2 Saturation ABG Hemoglobin Oxyhemoglobin Sodium Potassium Chloride 107.3 H Carbon Dioxide BUN 22 H Creatinine 0.7 L Glucose 122 H Calcium Iron TIBC Ferritin Total Bilirubin AST ALT Alkaline Phosphatase Lactate Dehydrogenase NT-Pro-B Natriuret Pep 3064 H Total Protein Albumin Triglycerides Lipase Crossmatch 01/09/19 01/10/19 01/10/19 06:31 05:50 08:39 WBC 24.5 H RBC 2.89 L Hgb 8.4 L Hct 25.9 L MCH MCHC RDW 18.5 H Plt Count [place] % (Auto) 7.7 H Eos % (Auto) 5.4 H [place] # 2.0 H Eos # 1.4 H Baso # 0.2 H Seg Neutrophils % 75.5 H Seg Neuts % (Manual) 75.0 H Lymphocytes % (Manual) 11.0 L Monocytes % (Manual) Eosinophils % (Manual) 7.0 H Nucleated RBC % 28.0 H Seg Neutrophils # 19.7 H Seg Neutrophils # Man 0.0 L Lymphocytes # (Manual) 0.0 L Monocytes # (Manual) Eosinophils # (Manual) Basophils # (Manual) Percent Retic PT INR APTT D-Dimer POC ABG pH POC ABG pCO2 POC ABG pO2 ABG pO2 153.7 H 59.8 L ABG HCO3 26.9 H ABG O2 Saturation 89.2 L ABG Hemoglobin 8.1 L 8.1 L Oxyhemoglobin 86.6 L Sodium Potassium Chloride Carbon Dioxide BUN Creatinine Glucose Calcium Iron TIBC Ferritin Total Bilirubin AST ALT Alkaline Phosphatase Lactate Dehydrogenase NT-Pro-B Natriuret Pep Total Protein Albumin Triglycerides Lipase Crossmatch 01/10/19 01/10/19 01/11/19 08:39 08:39 04:18 WBC RBC Hgb Hct MCH MCHC RDW Plt Count [place] % (Auto) Eos % (Auto) [place] # Eos # Baso # Seg Neutrophils % Seg Neuts % (Manual) Lymphocytes % (Manual) Monocytes % (Manual) Eosinophils % (Manual) Nucleated RBC % Seg Neutrophils # Seg Neutrophils # Man Lymphocytes # (Manual) Monocytes # (Manual) Eosinophils # (Manual) Basophils # (Manual) Percent Retic PT INR APTT D-Dimer POC ABG pH POC ABG pCO2 45.4 H POC ABG pO2 ABG pO2 ABG HCO3 ABG O2 Saturation ABG Hemoglobin Oxyhemoglobin Sodium Potassium Chloride 108.6 H Carbon Dioxide BUN 21 H Creatinine Glucose 108 H Calcium 8.3 L Iron TIBC Ferritin Total Bilirubin 3.90 H AST 62 H ALT Alkaline Phosphatase 179 H Lactate Dehydrogenase NT-Pro-B Natriuret Pep Total Protein 6.2 L Albumin 2.5 L Triglycerides 416 H Lipase Crossmatch 01/11/19 01/11/19 01/12/19 04:53 04:53 04:36 WBC 26.9 H RBC 2.87 L Hgb 8.2 L Hct 25.6 L MCH MCHC RDW 17.9 H Plt Count [place] % (Auto) Eos % (Auto) [place] # Eos # Baso # Seg Neutrophils % Seg Neuts % (Manual) Lymphocytes % (Manual) Monocytes % (Manual) Eosinophils % (Manual) Nucleated RBC % Seg Neutrophils # Seg Neutrophils # Man Lymphocytes # (Manual) Monocytes # (Manual) Eosinophils # (Manual) Basophils # (Manual) Percent Retic PT INR APTT D-Dimer POC ABG pH POC ABG pCO2 50.8 H POC ABG pO2 71 L ABG pO2 ABG HCO3 ABG O2 Saturation ABG Hemoglobin Oxyhemoglobin Sodium 149 H Potassium Chloride 111.7 H Carbon Dioxide BUN 26 H Creatinine Glucose 113 H Calcium 8.2 L Iron TIBC Ferritin Total Bilirubin AST ALT Alkaline Phosphatase Lactate Dehydrogenase NT-Pro-B Natriuret Pep Total Protein Albumin Triglycerides Lipase Crossmatch 01/12/19 01/13/19 01/13/19 09:00 05:32 05:39 WBC 30.6 H RBC 3.00 L Hgb 8.5 L Hct 26.8 L MCH MCHC RDW 17.8 H Plt Count 455 H [place] % (Auto) Eos % (Auto) [place] # Eos # Baso # Seg Neutrophils % Seg Neuts % (Manual) 88.0 H Lymphocytes % (Manual) 2.0 L Monocytes % (Manual) Eosinophils % (Manual) Nucleated RBC % 2.0 H Seg Neutrophils # Seg Neutrophils # Man 26.9 H Lymphocytes # (Manual) 0.6 L Monocytes # (Manual) 1.8 H Eosinophils # (Manual) 1.2 H Basophils # (Manual) Percent Retic PT INR APTT D-Dimer POC ABG pH POC ABG pCO2 52.0 H POC ABG pO2 73 L ABG pO2 ABG HCO3 ABG O2 Saturation ABG Hemoglobin Oxyhemoglobin Sodium 148 H Potassium Chloride 110.5 H Carbon Dioxide BUN 30 H Creatinine 0.7 L Glucose 131 H Calcium Iron TIBC Ferritin Total Bilirubin AST ALT Alkaline Phosphatase Lactate Dehydrogenase NT-Pro-B Natriuret Pep Total Protein Albumin Triglycerides Lipase Crossmatch 01/13/19 01/14/19 01/14/19 05:39 04:59 10:25 WBC 28.8 H RBC 2.99 L Hgb 8.4 L Hct 26.5 L MCH MCHC RDW 18.0 H Plt Count 660 H [place] % (Auto) Eos % (Auto) [place] # Eos # Baso # Seg Neutrophils % Seg Neuts % (Manual) 78.0 H Lymphocytes % (Manual) 7.0 L Monocytes % (Manual) 11.0 H Eosinophils % (Manual) Nucleated RBC % 2.0 H Seg Neutrophils # Seg Neutrophils # Man 22.5 H Lymphocytes # (Manual) Monocytes # (Manual) 3.2 H Eosinophils # (Manual) 0.9 H Basophils # (Manual) Percent Retic PT INR APTT D-Dimer POC ABG pH 7.461 H POC ABG pCO2 POC ABG pO2 120 H ABG pO2 ABG HCO3 ABG O2 Saturation ABG Hemoglobin Oxyhemoglobin Sodium 153 H Potassium Chloride 114.5 H Carbon Dioxide BUN 29 H Creatinine 0.7 L Glucose 126 H Calcium Iron TIBC Ferritin Total Bilirubin 3.50 H AST 89 H ALT Alkaline Phosphatase 257 H Lactate Dehydrogenase NT-Pro-B Natriuret Pep Total Protein Albumin 2.7 L Triglycerides Lipase Crossmatch 01/14/19 01/15/19 01/15/19 10:25 04:43 05:06 WBC 31.5 H RBC 2.79 L Hgb 7.9 L Hct 24.8 L MCH MCHC RDW 18.6 H Plt Count 739 H [place] % (Auto) Eos % (Auto) [place] # Eos # Baso # Seg Neutrophils % Seg Neuts % (Manual) Lymphocytes % (Manual) Monocytes % (Manual) Eosinophils % (Manual) Nucleated RBC % Seg Neutrophils # Seg Neutrophils # Man Lymphocytes # (Manual) Monocytes # (Manual) Eosinophils # (Manual) Basophils # (Manual) Percent Retic PT INR APTT D-Dimer POC ABG pH POC ABG pCO2 45.3 H POC ABG pO2 67 L ABG pO2 ABG HCO3 ABG O2 Saturation ABG Hemoglobin Oxyhemoglobin Sodium 155 H Potassium Chloride 112.7 H Carbon Dioxide BUN 27 H Creatinine 0.7 L Glucose 102 H Calcium Iron TIBC Ferritin Total Bilirubin 2.70 H AST 63 H ALT Alkaline Phosphatase 221 H Lactate Dehydrogenase NT-Pro-B Natriuret Pep Total Protein Albumin 2.9 L Triglycerides Lipase Crossmatch 01/15/19 01/16/19 01/16/19 05:06 05:09 05:09 WBC 33.6 H RBC 2.92 L Hgb 8.1 L Hct 26.2 L MCH MCHC 31 L RDW 18.7 H Plt Count 831 H [place] % (Auto) Eos % (Auto) [place] # Eos # Baso # Seg Neutrophils % Seg Neuts % (Manual) 79.0 H Lymphocytes % (Manual) 8.0 L Monocytes % (Manual) 9.5 H Eosinophils % (Manual) Nucleated RBC % Seg Neutrophils # Seg Neutrophils # Man 26.5 H Lymphocytes # (Manual) Monocytes # (Manual) 3.2 H Eosinophils # (Manual) 0.8 H Basophils # (Manual) 0.3 H Percent Retic PT INR APTT D-Dimer POC ABG pH POC ABG pCO2 POC ABG pO2 ABG pO2 ABG HCO3 ABG O2 Saturation ABG Hemoglobin Oxyhemoglobin Sodium 153 H 149 H Potassium Chloride 113.4 H 109.0 H Carbon Dioxide BUN 23 H 21 H Creatinine Glucose 110 H Calcium Iron TIBC Ferritin Total Bilirubin 2.30 H 2.00 H AST 54 H 48 H ALT Alkaline Phosphatase 183 H 165 H Lactate Dehydrogenase NT-Pro-B Natriuret Pep Total Protein Albumin 2.8 L 3.0 L Triglycerides Lipase Crossmatch 01/16/19 01/17/19 01/18/19 06:00 10:35 04:15 WBC 33.6 H RBC 2.95 L Hgb 8.5 L Hct 26.7 L MCH MCHC RDW 19.3 H Plt Count 887 H [place] % (Auto) Eos % (Auto) [place] # Eos # Baso # Seg Neutrophils % Seg Neuts % (Manual) Lymphocytes % (Manual) Monocytes % (Manual) Eosinophils % (Manual) Nucleated RBC % Seg Neutrophils # Seg Neutrophils # Man Lymphocytes # (Manual) Monocytes # (Manual) Eosinophils # (Manual) Basophils # (Manual) Percent Retic PT INR APTT D-Dimer POC ABG pH POC ABG pCO2 47.4 H 49.4 H POC ABG pO2 57 L ABG pO2 ABG HCO3 ABG O2 Saturation ABG Hemoglobin Oxyhemoglobin Sodium Potassium Chloride Carbon Dioxide BUN Creatinine Glucose Calcium Iron TIBC Ferritin Total Bilirubin AST ALT Alkaline Phosphatase Lactate Dehydrogenase NT-Pro-B Natriuret Pep Total Protein Albumin Triglycerides Lipase Crossmatch
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
[2019-01-18] MEDS ORDERED: FUROSEMIDE 20 MG/2 ML INJ IV ONE (11:00)
--- NOTE | 2019-01-18 12:29 | Consultation ---
History of Present Illness Consult date: 01/18/19 Requesting physician: MICHELET GLEZ Consult reason: other (pericardial effusion) History of present illness: The pt is a 24 YO male with a past medical history of Sickle Cell Disease. He recently relocated here from [place]. He is lethargic and withdrawn on evaluation and thus HPI is obtained per the chart. Pt presented on 01/03/2019 with c/o SOB and generalized pain. He was diagnosed with Sickle Cell crisis, s evere anemia requiring PRBC tx, pneumonia, sepsis. He developed acute respiratory failure and ARDS and was intubated on 01/09 and was extubated earlier today. He underwent echo on 01/10 which showed pericardial effusion and thus cardiology has been consulted. TTE images reviewed, EF ~35%, mod to large pericardial effusion with no evidence of tamponade, RV mod dilated with moderate systolic dysfunction, mod TR, moderate to severe pulm HTN with RVSP 57mmHg. ECG is also noted to be abnormal, shows sinus tachycardia and changes suggestive of ischemia. Past History Past Medical History: other (Sickle Cell disease) Past Surgical History: No surgical history, Other (reviewed) Social history: single. denies: smoking, alcohol abuse, prescription drug abuse Family history: other (SCD) Medications and Allergies Allergies Allergy/AdvReac Type Severity Reaction Status Date / Time No Known Allergies Allergy Verified 01/03/19 10:13 Home Medications Medication Instructions Recorded Confirmed Last Taken Type No Known Home Medications [No 01/03/19 01/03/19 Unknown History Reported Home Medications] Active Meds: Active Medications Acetaminophen (Tylenol) 650 mg [place] Q4H PRN PRN Reason: Non Cardiac Pain or Temp>100.5 Last Admin: 01/13/19 19:52 Dose: 650 mg Documented by: Lipase/Protease/Amylase (Mat Simmons 10,500 Unit) 1 each FEEDTUBE PRN PRN PRN Reason: For Clogged Feeding Tube Enoxaparin Sodium (Enoxaparin) 40 mg SUB-Q QDAY@1000 [facility] Last Admin: 01/18/19 10:00 Dose: 40 mg Documented by: Famotidine (Pepcid) 20 mg PO BID [facility] Last Admin: 01/18/19 10:00 Dose: 20 mg Documented by: Folic Acid (Folvite) 1 mg PO QDAY [facility] Last Admin: 01/18/19 10:00 Dose: 1 mg Documented by: Haloperidol Lactate (Haldol) 5 mg IV Q6H PRN PRN Reason: Agitation Last Admin: 01/12/19 20:40 Dose: 5 mg Documented by: Hydromorphone HCl (Dilaudid) 1 mg IV Q3H PRN PRN Reason: Pain , Severe (7-10) Last Admin: 01/15/19 07:55 Dose: 1 mg Documented by: Hydromorphone HCl (Dilaudid) 2 mg PO Q6HR KATHY Last Admin: 01/18/19 06:00 Dose: Not Given Documented by: Hydrophilic Ointment (Vaseline Lip Therapy) 1 applic TP Q2HR PRN PRN Reason: Dry Lips Hydroxyurea (Hydroxyurea) 500 mg PO QDAY KATHY Last Admin: 01/17/19 09:24 Dose: 500 mg Documented by: Fentanyl Citrate (Fentanyl Drip Premix) 2,000 mcg in 100 mls @ 3.465 mls/hr IV TITR KATHY; Protocol Last Titration: 01/18/19 09:00 Dose: 0 mcg/kg/hr, 0 mls/hr Documented by: Lorazepam 100 mg/ Sodium Chloride/ Miscellaneous Information 101 mls @ 1.01 mls/hr IV TITR KATHY; Protocol Last Admin: 01/16/19 09:48 Dose: 4 mg/hr, 4.04 mls/hr Documented by: Fluconazole (Diflucan) 200 mls @ 100 mls/hr IV Q24HR KATHY; Protocol Last Admin: 01/18/19 10:00 Dose: 100 mls/hr Documented by: Vancomycin HCl (Vancomycin/Ns 1 Gm/250 Ml) 1 gm in 250 mls @ 167.007 mls/hr IV Q8H KATHY; Protocol Last Admin: 01/18/19 10:00 Dose: 167.007 mls/hr Documented by: Levofloxacin/Dextrose (Levaquin 750mg/150ml) 750 mg in 150 mls @ 100 mls/hr IV Q24HR KATHY; Protocol Last Admin: 01/18/19 10:00 Dose: 100 mls/hr Documented by: Lorazepam (Ativan) 2 mg IV Q10MIN PRN PRN Reason: Agitation Last Admin: 01/17/19 03:16 Dose: 2 mg Documented by: Metoclopramide HCl (Reglan) 10 mg IV Q6H PRN PRN Reason: Nausea And Vomiting Last Admin: 01/06/19 03:17 Dose: 10 mg Documented by: Multi-Ingred Cream/Lotion/Oil/Oint (Artificial Tears Ophth Oint) 1 applic OU Q4HR PRN PRN Reason: Dry Eye(s) Naloxone HCl (Naloxone) 0.1 mg IV Q2MIN PRN PRN Reason: Res Rate </= 8 or 02 SAT < 92% Simple Syrup (Simple Syrup) 15 ml FEEDTUBE PRN PRN PRN Reason: Hypoglycemia Simple Syrup (Simple Syrup) 30 ml FEEDTUBE PRN PRN PRN Reason: Hypoglycemia Sodium Bicarbonate (Sodium Bicarbonate) 325 mg FEEDTUBE PRN PRN PRN Reason: For Clogged Feeding Tube Review of Systems ROS unobtainable: due to mental status Physical Examination Vital Signs Temp Pulse Resp BP Pulse Ox 103.2 F H 124 H 18 140/78 92 01/03/19 10:14 01/03/19 10:14 01/03/19 10:14 01/03/19 10:14 01/03/19 10:14 General appearance: other (lethargic, withdrawn) HEENT: Positive: PERRL Neck: Positive: neck supple, trachea midline Cardiac: Positive: Reg Rate and Rhythm, S1/S2 Lungs: Positive: Decreased Breath Sounds, Rhonchi, Oxygen Neuro: Positive: Other (lethargic, withdrawn) Extremities: Absent: edema Results 01/17/19 10:35 01/16/19 05:09 - Imaging and Cardiology Echo: report reviewed EKG: report reviewed, image reviewed EKG interpretations - Telemetry EKG Rhythm: Sinus Rhythm - EKG Sinus rhythms and dysrhythmias: sinus tachycardia Repolarization changes or abnormalities: ST or T wave suggestive of ischemia Assessment and Plan Pt underwent echo on 01/10 which showed a pericardial effusion and thus cardiology has been consulted. TTE images reviewed, EF ~35%, mod to large pericardial effusion with no evidence of tamponade, RV mod dilated with moderate systolic dysfunction, mod TR, moderate to severe pulm HTN with RVSP 57mmHg. Chest CTA 01/03 negative for PE. ECG is noted to be abnormal, shows sinus tachycardia and changes suggestive of ischemia. Will obtain Bong and repeat ECG. Continue supportive measures. Further recs to follow per hospital course. The patient has been seen in conjunction with Dr. Varghese who agrees with the assessment and plan of care. - Patient Problems (1) Sickle cell crisis Current Visit: Yes Status: Acute (2) Acute respiratory failure Current Visit: Yes Status: Acute (3) ARDS (adult respiratory distress syndrome) Current Visit: Yes Status: Acute (4) Right ventricular dysfunction Current Visit: Yes Status: Acute (5) Pulmonary hypertension Current Visit: Yes Status: Acute (6) Pneumonia Current Visit: Yes Status: Suspected Qualifiers: Pneumonia type: due to unspecified organism Laterality: right Lung location: middle lobe of lung Qualified Code(s): J18.9 - Pneumonia, unspecified organism (7) Sepsis Current Visit: Yes Status: Acute Qualifiers: Sepsis type: sepsis due to unspecified organism Sepsis acute organ dysfunction status: unspecified Qualified Code(s): A41.9 - Sepsis, unspecified organism (8) Altered mental status Current Visit: Yes Status: Acute (9) Pericardial effusion Current Visit: Yes Status: Acute (10) Cardiomyopathy Current Visit: Yes Status: Acute (11) Abnormal ECG Current Visit: Yes Status: Acute (12) Anemia Current Visit: Yes Status: Acute
--- NOTE | 2019-01-18 23:04 | Event Note ---
Date: 01/18/19 Notified by nurse that pt experienced a fall. Pt was found alert laying on floor. It is not clear whether or not pt hit his head., no s/s of injry/ trauma noted. CT Head ordered. Post fall protocol initiated.
--- NOTE | 2019-01-19 00:19 | Cat Scan Report ---
CT head/brain wo con INDICATION: s/p fall. TECHNIQUE: All CT scans at this location are performed using the following dose modulation technique: Automated exposure control. CONTRAST: None. COMPARISON: None available. FINDINGS: The ventricular system is appropriate in size and configuration without midline shift. Nega tive for mass, stroke or hemorrhage. Imaged portions of the paranasal sinuses are clear. IMPRESSION: Negative CT brain without contrast. Signer Name: Kin Rendon MD Signed: 01/19/2019 12:15 AM Workstation Name: [id number]
[2019-01-19] MEDS: VANCOMYCIN/NS 1 GM/250 ML 1 GM/250 ML BAG IV SCH ×3 (01:21→22:51)
[2019-01-19] MEDS: HYDROmorphone 2 MG TAB PO SCH ×2 (01:21→06:00)
[2019-01-19] MEDS: FAMOTIDINE 20 MG TAB PO SCH ×3 (01:22→23:04)
[2019-01-19 05:40] LABS: HIV-2 Antibody Differentiation SEE SCANNED RESULT
[2019-01-19 05:41] LABS: HIV-1 Antibody Differentiation SEE SCANNED RESULT
--- NOTE | 2019-01-19 09:08 | XRay Report ---
ABDOMEN 1 VIEW 10:32 AM INDICATION / CLINICAL INFORMATION: Abdominal distention. COMPARISON: 01/08/2019. FINDINGS: TUBES / LINES: There is a feeding tube coiled in the proximal stomach with the tip overlying the fund us/proximal gastric body. BOWEL GAS PATTERN: There are several mildly dilated small bowel loops in the central abdomen. There i s gas and contrast throughout a noncollapsed colon. FREE AIR / EXTRALUMINAL GAS: None seen. ADDITIONAL FINDINGS: The urinary bladder is distended. There is a prior cholecystectomy. IMPRESSION: 1. Possible mild adynamic ileus. 2. Distended urinary bladder. Signer Name: Jorge Shen MD Signed: 01/19/2019 9:03 AM Workstation Name: [id number]
[2019-01-19] MEDS: ENOXAPARIN 40 MG/0.4 ML INJ SUB-Q SCH (09:11)
[2019-01-19] MEDS: FLUCONAZOLE 400 MG 200 ML IV SCH (09:11)
[2019-01-19] MEDS: FOLIC ACID 1 MG TAB PO SCH (09:12)
[2019-01-19] MEDS: HYDROXYUREA 500 MG CAP PO SCH (09:13)
[2019-01-19 09:50] LABS: Hematocrit 30.6 % (35.5-45.6); Hemoglobin 9.7 gm/dl (11.8-15.2); Mean Corpuscular HGB Conc 32 % (32-34); Mean Corpuscular Volume 89 fl (84-94); Red Blood Count 3.43 M/mm3 (3.65-5.03); Red Cell Distribution Width 19.3 % (13.2-15.2)
[2019-01-19 10:04] LABS: BUN/Creatinine Ratio 23; Blood Urea Nitrogen 18 mg/dL (9-20); Calcium 9.1 mg/dL (8.4-10.2); Hemolysis Index 1; Platelet Count 1006 K/mm3 (140-440)
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
[2019-01-19 11:00] LABS: Hematocrit 29.3 % (35.5-45.6); Hemoglobin 9.6 gm/dl (11.8-15.2); Mean Corpuscular HGB Conc 33 % (32-34); Mean Corpuscular Volume 88 fl (84-94); Platelet Count 946 K/mm3 (140-440); Red Blood Count 3.33 M/mm3 (3.65-5.03); Red Cell Distribution Width 19.3 % (13.2-15.2)
[2019-01-19 11:45] LABS: Anisocytosis 2+; Basophils % (Manual) 0 % (0.0-1.8); Eosinophils % (Manual) 0 % (0.0-4.3); Hypochromasia 1+; Poikilocytosis 1+; Total Cells Counted 100
[2019-01-19 11:46] LABS: Large Platelets 1+; Ovalocytes Few; Platelet Estimate Consistent w Auto; Stomatocytes 1+; Target Cells Few
--- NOTE | 2019-01-19 11:57 | Progress Note ---
Assessment and Plan 24 y/o male with sickle cell anemia admitted with acute chest syndrome and now acute respiratory failure requiring mechanical ventilation secondary to worsening acute chest vs pulmonary edema. Full blow ARDs 1. Wean FiO2 as tolerated. Would be mindful on I/O's. Should be strict. No indication for lasix therapy today, but may need more in the future. CXR changes of ARDs could take weeks to improve. 2. Appreciate ID help. Abx per their lead. No fever now in over 24 hours. 3. [facility] has ordered official speech evaluation. 4. Stable from a critical care standpoint for transfer out of unit. Discussed with IMS 5. Platelet count at 1006. Has been rising daily. unsure if this is an acute phase reactant or another underlying disease but will repeat and send Diff. 6. Spoke with sister over the phone to update her. Subjective Date of service: 01/19/19 Principal diagnosis: sickle cell Interval history: Successful extubation yesterday. Awake and alert. Had a fall last night but head CT was negative. Objective Vital Signs - 12hr 01/19/19 01/19/19 01/19/19 00:00 00:26 01:00 Temperature 97.7 F 97.7 F Pulse Rate 96 H 88 Respiratory 17 21 Rate Blood Pressure 130/68 122/69 O2 Sat by Pulse 93 92 Oximetry 01/19/19 01/19/19 01/19/19 02:00 03:00 04:00 Temperature 98.0 F Pulse Rate 87 101 H 101 H Respiratory 32 H 34 H 24 Rate Blood Pressure 127/74 124/67 123/69 O2 Sat by Pulse 95 92 93 Oximetry 01/19/19 01/19/19 01/19/19 05:00 06:00 07:00 Temperature Pulse Rate 104 H 105 H 103 H Respiratory 41 H 39 H 39 H Rate Blood Pressure 127/66 128/67 121/71 O2 Sat by Pulse 97 98 98 Oximetry 01/19/19 01/19/19 01/19/19 08:00 08:30 09:00 Temperature 98.3 F Pulse Rate 107 H 112 H Respiratory 18 46 H Rate Blood Pressure 123/78 134/70 O2 Sat by Pulse 97 94 96 Oximetry 01/19/19 01/19/19 10:00 11:00 Temperature Pulse Rate 112 H 127 H Respiratory 48 H 47 H Rate Blood Pressure 135/68 140/70 O2 Sat by Pulse 96 Oximetry Constitutional: other (critically ill on vent) Eyes: non-icteric ENT: other (orally intubated and sedated.) Neck: supple Effort: normal Ascultation: Bilateral: rales, rhonchi, other (coarse BS bilaterally) Percussion: Bilateral: not dull Cardiovascular: other (sinus tachy) Gastrointestinal: normoactive bowel sounds, soft, non-tender, non-distended Extremities: no cyanosis, no edema, pink and warm Neurologic: normal mental status, non-focal exam, pupils equal and round Psychiatric: mood appropriate, affect normal CBC and BMP: 01/19/19 10:30 01/19/19 09:09 ABG, PT/INR, D-dimer: ABG POC ABG pH 7.391 (7.35-7.45) 01/18/19 04:15 ABG pH 7.406 pH Units (7.350-7.450) 01/10/19 05:50 POC ABG pCO2 49.4 (35-45) H 01/18/19 04:15 ABG pCO2 43.8 mm Hg 01/10/19 05:50 POC ABG pO2 80 (80-105) 01/18/19 04:15 ABG pO2 59.8 mm Hg (80.0-90.0) L 01/10/19 05:50 POC ABG HCO3 30.0 (22-26 mml/L) 01/18/19 04:15 POC ABG Total CO2 31 (23-27mmol/L) 01/18/19 04:15 POC ABG O2 Sat 95 01/18/19 04:15 ABG O2 Saturation 89.2 % (95.0-99.0) L 01/10/19 05:50 PT/INR, D-dimer PT 24.3 Sec. (12.2-14.9) H 01/05/19 08:24 INR 2.23 (0.87-1.13) H 01/05/19 08:24 D-Dimer 2064.49 ng/mlDDU (0-234) H 01/03/19 11:17 Abnormal lab findings: Abnormal Labs 01/03/19 01/03/19 01/03/19 10:34 10:34 11:17 WBC 34.2 H RBC 2.43 L Hgb 7.9 L Hct 21.9 L MCH 33 H MCHC 36 H RDW 29.2 H Plt Count [place] % (Auto) Eos % (Auto) [place] # Eos # Baso # Seg Neutrophils % Seg Neuts % (Manual) 85.0 H Lymphocytes % (Manual) 6.0 L Monocytes % (Manual) 9.0 H Eosinophils % (Manual) Nucleated RBC % 1.0 H Seg Neutrophils # Seg Neutrophils # Man 29.1 H Lymphocytes # (Manual) Monocytes # (Manual) 3.1 H Eosinophils # (Manual) Basophils # (Manual) Percent Retic 21.81 H PT INR APTT D-Dimer POC ABG pH POC ABG pCO2 POC ABG pO2 ABG pO2 ABG HCO3 ABG O2 Saturation ABG Hemoglobin Oxyhemoglobin Sodium 136 L 135 L Potassium 5.3 H Chloride Carbon Dioxide 20 L BUN Creatinine 0.6 L 0.7 L Glucose 123 H 112 H POC Glucose Calcium Iron TIBC Ferritin Total Bilirubin 8.00 H AST 100 H ALT Alkaline Phosphatase Lactate Dehydrogenase NT-Pro-B Natriuret Pep Total Protein Albumin Triglycerides Lipase Crossmatch 01/03/19 01/03/19 01/03/19 11:17 14:19 18:52 WBC 36.5 H RBC 2.32 L Hgb 7.8 L Hct 21.6 L MCH 34 H MCHC 36 H RDW 28.3 H Plt Count [place] % (Auto) Eos % (Auto) [place] # Eos # Baso # Seg Neutrophils % Seg Neuts % (Manual) 88.0 H Lymphocytes % (Manual) 4.0 L Monocytes % (Manual) 8.0 H Eosinophils % (Manual) Nucleated RBC % 4.0 H Seg Neutrophils # Seg Neutrophils # Man 32.1 H Lymphocytes # (Manual) Monocytes # (Manual) 2.9 H Eosinophils # (Manual) Basophils # (Manual) Percent Retic PT INR APTT D-Dimer 2064.49 H POC ABG pH POC ABG pCO2 POC ABG pO2 ABG pO2 ABG HCO3 ABG O2 Saturation ABG Hemoglobin Oxyhemoglobin Sodium Potassium Chloride Carbon Dioxide BUN Creatinine Glucose POC Glucose Calcium Iron TIBC Ferritin Total Bilirubin AST ALT Alkaline Phosphatase Lactate Dehydrogenase NT-Pro-B Natriuret Pep Total Protein Albumin Triglycerides Lipase 6 L Crossmatch 01/04/19 01/04/19 01/05/19 08:05 08:05 08:24 WBC 54.8 H* RBC 1.28 L Hgb 4.2 L* D Hct 11.1 L* D MCH 33 H MCHC 38 H* RDW 22.3 H Plt Count 134 L [place] % (Auto) Eos % (Auto) [place] # Eos # Baso # Seg Neutrophils % Seg Neuts % (Manual) Lymphocytes % (Manual) 1.0 L Monocytes % (Manual) 15.0 H Eosinophils % (Manual) Nucleated RBC % 3.0 H Seg Neutrophils # Seg Neutrophils # Man 35.1 H Lymphocytes # (Manual) 0.5 L Monocytes # (Manual) 8.2 H Eosinophils # (Manual) Basophils # (Manual) Percent Retic PT INR APTT D-Dimer POC ABG pH POC ABG pCO2 POC ABG pO2 ABG pO2 ABG HCO3 ABG O2 Saturation ABG Hemoglobin Oxyhemoglobin Sodium Potassium Chloride Carbon Dioxide BUN Creatinine Glucose POC Glucose Calcium Iron 19 L TIBC 218 L Ferritin 854.8 H Total Bilirubin AST ALT Alkaline Phosphatase Lactate Dehydrogenase NT-Pro-B Natriuret Pep Total Protein Albumin Triglycerides Lipase Crossmatch 01/05/19 01/05/19 01/05/19 08:24 08:24 08:24 WBC RBC Hgb Hct MCH MCHC RDW Plt Count [place] % (Auto) Eos % (Auto) [place] # Eos # Baso # Seg Neutrophils % Seg Neuts % (Manual) Lymphocytes % (Manual) Monocytes % (Manual) Eosinophils % (Manual) Nucleated RBC % Seg Neutrophils # Seg Neutrophils # Man Lymphocytes # (Manual) Monocytes # (Manual) Eosinophils # (Manual) Basophils # (Manual) Percent Retic PT 24.3 H INR 2.23 H APTT 53.5 H D-Dimer POC ABG pH POC ABG pCO2 POC ABG pO2 ABG pO2 ABG HCO3 ABG O2 Saturation ABG Hemoglobin Oxyhemoglobin Sodium Potassium 5.2 H D Chloride Carbon Dioxide 15 L BUN 40 H Creatinine 0.3 L D Glucose 121 H POC Glucose Calcium 8.3 L Iron TIBC Ferritin Total Bilirubin 31.80 H AST 164 H ALT 83 H Alkaline Phosphatase Lactate Dehydrogenase 1048 H NT-Pro-B Natriuret Pep Total Protein 6.0 L Albumin 3.6 L Triglycerides Lipase Crossmatch 01/05/19 01/05/19 01/05/19 08:26 08:26 09:48 WBC 54.8 H* RBC 1.26 L Hgb 4.1 L* Hct 10.9 L* MCH 33 H MCHC 38 H* RDW 22.0 H Plt Count 127 L [place] % (Auto) Eos % (Auto) [place] # Eos # Baso # Seg Neutrophils % Seg Neuts % (Manual) Lymphocytes % (Manual) Monocytes % (Manual) Eosinophils % (Manual) Nucleated RBC % Seg Neutrophils # Seg Neutrophils # Man Lymphocytes # (Manual) Monocytes # (Manual) Eosinophils # (Manual) Basophils # (Manual) Percent Retic PT INR APTT D-Dimer POC ABG pH POC ABG pCO2 POC ABG pO2 ABG pO2 ABG HCO3 ABG O2 Saturation ABG Hemoglobin Oxyhemoglobin Sodium Potassium Chloride Carbon Dioxide BUN Creatinine Glucose POC Glucose Calcium Iron TIBC Ferritin Total Bilirubin AST ALT Alkaline Phosphatase Lactate Dehydrogenase NT-Pro-B Natriuret Pep Total Protein Albumin Triglycerides Lipase Crossmatch See Detail See Detail 01/06/19 01/06/19 01/06/19 00:30 18:03 23:02 WBC 56.5 H* 44.3 H* RBC 1.76 L 2.41 L Hgb 5.6 L* 7.4 L Hct 15.8 L* 21.8 L D MCH MCHC 36 H RDW 19.8 H 18.4 H Plt Count [place] % (Auto) Eos % (Auto) [place] # Eos # Baso # Seg Neutrophils % Seg Neuts % (Manual) 90.0 H Lymphocytes % (Manual) 4.5 L Monocytes % (Manual) Eosinophils % (Manual) Nucleated RBC % Seg Neutrophils # Seg Neutrophils # Man 50.9 H Lymphocytes # (Manual) Monocytes # (Manual) 2.5 H Eosinophils # (Manual) Basophils # (Manual) Percent Retic PT INR APTT D-Dimer POC ABG pH 7.452 H POC ABG pCO2 29.4 L POC ABG pO2 ABG pO2 ABG HCO3 ABG O2 Saturation ABG Hemoglobin Oxyhemoglobin Sodium Potassium Chloride Carbon Dioxide BUN Creatinine Glucose POC Glucose Calcium Iron TIBC Ferritin Total Bilirubin AST ALT Alkaline Phosphatase Lactate Dehydrogenase NT-Pro-B Natriuret Pep Total Protein Albumin Triglycerides Lipase Crossmatch 01/08/19 01/08/19 01/08/19 09:33 12:10 13:18 WBC RBC Hgb Hct MCH MCHC RDW Plt Count [place] % (Auto) Eos % (Auto) [place] # Eos # Baso # Seg Neutrophils % Seg Neuts % (Manual) Lymphocytes % (Manual) Monocytes % (Manual) Eosinophils % (Manual) Nucleated RBC % Seg Neutrophils # Seg Neutrophils # Man Lymphocytes # (Manual) Monocytes # (Manual) Eosinophils # (Manual) Basophils # (Manual) Percent Retic PT INR APTT D-Dimer POC ABG pH POC ABG pCO2 POC ABG pO2 71 L 73 L ABG pO2 ABG HCO3 ABG O2 Saturation ABG Hemoglobin Oxyhemoglobin Sodium Potassium Chloride Carbon Dioxide BUN Creatinine Glucose POC Glucose Calcium Iron TIBC Ferritin Total Bilirubin AST ALT Alkaline Phosphatase Lactate Dehydrogenase NT-Pro-B Natriuret Pep Total Protein Albumin Triglycerides Lipase Crossmatch See Detail 01/08/19 01/08/19 01/08/19 13:18 14:58 17:00 WBC 33.5 H RBC 3.34 L Hgb 9.9 L Hct 29.2 L D MCH MCHC RDW 17.7 H Plt Count [place] % (Auto) Eos % (Auto) [place] # Eos # Baso # Seg Neutrophils % Seg Neuts % (Manual) 72.0 H Lymphocytes % (Manual) Monocytes % (Manual) 13.0 H Eosinophils % (Manual) Nucleated RBC % 9.0 H Seg Neutrophils # Seg Neutrophils # Man 24.1 H Lymphocytes # (Manual) Monocytes # (Manual) 4.4 H Eosinophils # (Manual) Basophils # (Manual) Percent Retic PT INR APTT D-Dimer POC ABG pH POC ABG pCO2 POC ABG pO2 74 L ABG pO2 ABG HCO3 ABG O2 Saturation ABG Hemoglobin Oxyhemoglobin Sodium Potassium Chloride Carbon Dioxide BUN Creatinine Glucose 122 H POC Glucose Calcium Iron TIBC Ferritin Total Bilirubin AST ALT Alkaline Phosphatase Lactate Dehydrogenase NT-Pro-B Natriuret Pep Total Protein Albumin Triglycerides Lipase Crossmatch 01/08/19 01/09/19 01/09/19 17:00 04:44 04:44 WBC 29.8 H RBC 2.85 L Hgb 8.4 L Hct 25.1 L MCH MCHC RDW 17.9 H Plt Count [place] % (Auto) Eos % (Auto) [place] # Eos # Baso # Seg Neutrophils % Seg Neuts % (Manual) Lymphocytes % (Manual) Monocytes % (Manual) Eosinophils % (Manual) Nucleated RBC % Seg Neutrophils # Seg Neutrophils # Man Lymphocytes # (Manual) Monocytes # (Manual) Eosinophils # (Manual) Basophils # (Manual) Percent Retic PT INR APTT D-Dimer POC ABG pH POC ABG pCO2 POC ABG pO2 ABG pO2 ABG HCO3 ABG O2 Saturation ABG Hemoglobin Oxyhemoglobin Sodium Potassium Chloride 107.3 H Carbon Dioxide BUN 22 H Creatinine 0.7 L Glucose 122 H POC Glucose Calcium Iron TIBC Ferritin Total Bilirubin AST ALT Alkaline Phosphatase Lactate Dehydrogenase NT-Pro-B Natriuret Pep 3064 H Total Protein Albumin Triglycerides Lipase Crossmatch 01/09/19 01/10/19 01/10/19 06:31 05:50 08:39 WBC 24.5 H RBC 2.89 L Hgb 8.4 L Hct 25.9 L MCH MCHC RDW 18.5 H Plt Count [place] % (Auto) 7.7 H Eos % (Auto) 5.4 H [place] # 2.0 H Eos # 1.4 H Baso # 0.2 H Seg Neutrophils % 75.5 H Seg Neuts % (Manual) 75.0 H Lymphocytes % (Manual) 11.0 L Monocytes % (Manual) Eosinophils % (Manual) 7.0 H Nucleated RBC % 28.0 H Seg Neutrophils # 19.7 H Seg Neutrophils # Man 0.0 L Lymphocytes # (Manual) 0.0 L Monocytes # (Manual) Eosinophils # (Manual) Basophils # (Manual) Percent Retic PT INR APTT D-Dimer POC ABG pH POC ABG pCO2 POC ABG pO2 ABG pO2 153.7 H 59.8 L ABG HCO3 26.9 H ABG O2 Saturation 89.2 L ABG Hemoglobin 8.1 L 8.1 L Oxyhemoglobin 86.6 L Sodium Potassium Chloride Carbon Dioxide BUN Creatinine Glucose POC Glucose Calcium Iron TIBC Ferritin Total Bilirubin AST ALT Alkaline Phosphatase Lactate Dehydrogenase NT-Pro-B Natriuret Pep Total Protein Albumin Triglycerides Lipase Crossmatch 01/10/19 01/10/19 01/11/19 08:39 08:39 04:18 WBC RBC Hgb Hct MCH MCHC RDW Plt Count [place] % (Auto) Eos % (Auto) [place] # Eos # Baso # Seg Neutrophils % Seg Neuts % (Manual) Lymphocytes % (Manual) Monocytes % (Manual) Eosinophils % (Manual) Nucleated RBC % Seg Neutrophils # Seg Neutrophils # Man Lymphocytes # (Manual) Monocytes # (Manual) Eosinophils # (Manual) Basophils # (Manual) Percent Retic PT INR APTT D-Dimer POC ABG pH POC ABG pCO2 45.4 H POC ABG pO2 ABG pO2 ABG HCO3 ABG O2 Saturation ABG Hemoglobin Oxyhemoglobin Sodium Potassium Chloride 108.6 H Carbon Dioxide BUN 21 H Creatinine Glucose 108 H POC Glucose Calcium 8.3 L Iron TIBC Ferritin Total Bilirubin 3.90 H AST 62 H ALT Alkaline Phosphatase 179 H Lactate Dehydrogenase NT-Pro-B Natriuret Pep Total Protein 6.2 L Albumin 2.5 L Triglycerides 416 H Lipase Crossmatch 01/11/19 01/11/19 01/12/19 04:53 04:53 04:36 WBC 26.9 H RBC 2.87 L Hgb 8.2 L Hct 25.6 L MCH MCHC RDW 17.9 H Plt Count [place] % (Auto) Eos % (Auto) [place] # Eos # Baso # Seg Neutrophils % Seg Neuts % (Manual) Lymphocytes % (Manual) Monocytes % (Manual) Eosinophils % (Manual) Nucleated RBC % Seg Neutrophils # Seg Neutrophils # Man Lymphocytes # (Manual) Monocytes # (Manual) Eosinophils # (Manual) Basophils # (Manual) Percent Retic PT INR APTT D-Dimer POC ABG pH POC ABG pCO2 50.8 H POC ABG pO2 71 L ABG pO2 ABG HCO3 ABG O2 Saturation ABG Hemoglobin Oxyhemoglobin Sodium 149 H Potassium Chloride 111.7 H Carbon Dioxide BUN 26 H Creatinine Glucose 113 H POC Glucose Calcium 8.2 L Iron TIBC Ferritin Total Bilirubin AST ALT Alkaline Phosphatase Lactate Dehydrogenase NT-Pro-B Natriuret Pep Total Protein Albumin Triglycerides Lipase Crossmatch 01/12/19 01/13/19 01/13/19 09:00 05:32 05:39 WBC 30.6 H RBC 3.00 L Hgb 8.5 L Hct 26.8 L MCH MCHC RDW 17.8 H Plt Count 455 H [place] % (Auto) Eos % (Auto) [place] # Eos # Baso # Seg Neutrophils % Seg Neuts % (Manual) 88.0 H Lymphocytes % (Manual) 2.0 L Monocytes % (Manual) Eosinophils % (Manual) Nucleated RBC % 2.0 H Seg Neutrophils # Seg Neutrophils # Man 26.9 H Lymphocytes # (Manual) 0.6 L Monocytes # (Manual) 1.8 H Eosinophils # (Manual) 1.2 H Basophils # (Manual) Percent Retic PT INR APTT D-Dimer POC ABG pH POC ABG pCO2 52.0 H POC ABG pO2 73 L ABG pO2 ABG HCO3 ABG O2 Saturation ABG Hemoglobin Oxyhemoglobin Sodium 148 H Potassium Chloride 110.5 H Carbon Dioxide BUN 30 H Creatinine 0.7 L Glucose 131 H POC Glucose Calcium Iron TIBC Ferritin Total Bilirubin AST ALT Alkaline Phosphatase Lactate Dehydrogenase NT-Pro-B Natriuret Pep Total Protein Albumin Triglycerides Lipase Crossmatch 01/13/19 01/14/19 01/14/19 05:39 04:59 10:25 WBC 28.8 H RBC 2.99 L Hgb 8.4 L Hct 26.5 L MCH MCHC RDW 18.0 H Plt Count 660 H [place] % (Auto) Eos % (Auto) [place] # Eos # Baso # Seg Neutrophils % Seg Neuts % (Manual) 78.0 H Lymphocytes % (Manual) 7.0 L Monocytes % (Manual) 11.0 H Eosinophils % (Manual) Nucleated RBC % 2.0 H Seg Neutrophils # Seg Neutrophils # Man 22.5 H Lymphocytes # (Manual) Monocytes # (Manual) 3.2 H Eosinophils # (Manual) 0.9 H Basophils # (Manual) Percent Retic PT INR APTT D-Dimer POC ABG pH 7.461 H POC ABG pCO2 POC ABG pO2 120 H ABG pO2 ABG HCO3 ABG O2 Saturation ABG Hemoglobin Oxyhemoglobin Sodium 153 H Potassium Chloride 114.5 H Carbon Dioxide BUN 29 H Creatinine 0.7 L Glucose 126 H POC Glucose Calcium Iron TIBC Ferritin Total Bilirubin 3.50 H AST 89 H ALT Alkaline Phosphatase 257 H Lactate Dehydrogenase NT-Pro-B Natriuret Pep Total Protein Albumin 2.7 L Triglycerides Lipase Crossmatch 01/14/19 01/15/19 01/15/19 10:25 04:43 05:06 WBC 31.5 H RBC 2.79 L Hgb 7.9 L Hct 24.8 L MCH MCHC RDW 18.6 H Plt Count 739 H [place] % (Auto) Eos % (Auto) [place] # Eos # Baso # Seg Neutrophils % Seg Neuts % (Manual) Lymphocytes % (Manual) Monocytes % (Manual) Eosinophils % (Manual) Nucleated RBC % Seg Neutrophils # Seg Neutrophils # Man Lymphocytes # (Manual) Monocytes # (Manual) Eosinophils # (Manual) Basophils # (Manual) Percent Retic PT INR APTT D-Dimer POC ABG pH POC ABG pCO2 45.3 H POC ABG pO2 67 L ABG pO2 ABG HCO3 ABG O2 Saturation ABG Hemoglobin Oxyhemoglobin Sodium 155 H Potassium Chloride 112.7 H Carbon Dioxide BUN 27 H Creatinine 0.7 L Glucose 102 H POC Glucose Calcium Iron TIBC Ferritin Total Bilirubin 2.70 H AST 63 H ALT Alkaline Phosphatase 221 H Lactate Dehydrogenase NT-Pro-B Natriuret Pep Total Protein Albumin 2.9 L Triglycerides Lipase Crossmatch 01/15/19 01/16/19 01/16/19 05:06 05:09 05:09 WBC 33.6 H RBC 2.92 L Hgb 8.1 L Hct 26.2 L MCH MCHC 31 L RDW 18.7 H Plt Count 831 H [place] % (Auto) Eos % (Auto) [place] # Eos # Baso # Seg Neutrophils % Seg Neuts % (Manual) 79.0 H Lymphocytes % (Manual) 8.0 L Monocytes % (Manual) 9.5 H Eosinophils % (Manual) Nucleated RBC % Seg Neutrophils # Seg Neutrophils # Man 26.5 H Lymphocytes # (Manual) Monocytes # (Manual) 3.2 H Eosinophils # (Manual) 0.8 H Basophils # (Manual) 0.3 H Percent Retic PT INR APTT D-Dimer POC ABG pH POC ABG pCO2 POC ABG pO2 ABG pO2 ABG HCO3 ABG O2 Saturation ABG Hemoglobin Oxyhemoglobin Sodium 153 H 149 H Potassium Chloride 113.4 H 109.0 H Carbon Dioxide BUN 23 H 21 H Creatinine Glucose 110 H POC Glucose Calcium Iron TIBC Ferritin Total Bilirubin 2.30 H 2.00 H AST 54 H 48 H ALT Alkaline Phosphatase 183 H 165 H Lactate Dehydrogenase NT-Pro-B Natriuret Pep Total Protein Albumin 2.8 L 3.0 L Triglycerides Lipase Crossmatch 01/16/19 01/17/19 01/18/19 06:00 10:35 04:15 WBC 33.6 H RBC 2.95 L Hgb 8.5 L Hct 26.7 L MCH MCHC RDW 19.3 H Plt Count 887 H [place] % (Auto) Eos % (Auto) [place] # Eos # Baso # Seg Neutrophils % Seg Neuts % (Manual) Lymphocytes % (Manual) Monocytes % (Manual) Eosinophils % (Manual) Nucleated RBC % Seg Neutrophils # Seg Neutrophils # Man Lymphocytes # (Manual) Monocytes # (Manual) Eosinophils # (Manual) Basophils # (Manual) Percent Retic PT INR APTT D-Dimer POC ABG pH POC ABG pCO2 47.4 H 49.4 H POC ABG pO2 57 L ABG pO2 ABG HCO3 ABG O2 Saturation ABG Hemoglobin Oxyhemoglobin Sodium Potassium Chloride Carbon Dioxide BUN Creatinine Glucose POC Glucose Calcium Iron TIBC Ferritin Total Bilirubin AST ALT Alkaline Phosphatase Lactate Dehydrogenase NT-Pro-B Natriuret Pep Total Protein Albumin Triglycerides Lipase Crossmatch 01/19/19 01/19/19 01/19/19 09:09 10:30 11:42 WBC 26.5 H 24.8 H RBC 3.43 L 3.33 L Hgb 9.7 L 9.6 L Hct 30.6 L 29.3 L MCH MCHC RDW 19.3 H 19.3 H Plt Count 1006 H* 946 H [place] % (Auto) Eos % (Auto) [place] # Eos # Baso # Seg Neutrophils % Seg Neuts % (Manual) 92.0 H Lymphocytes % (Manual) 4.0 L Monocytes % (Manual) Eosinophils % (Manual) Nucleated RBC % 2.0 H Seg Neutrophils # Seg Neutrophils # Man 22.8 H Lymphocytes # (Manual) 1.0 L Monocytes # (Manual) 1.0 H Eosinophils # (Manual) Basophils # (Manual) Percent Retic PT INR APTT D-Dimer POC ABG pH POC ABG pCO2 POC ABG pO2 ABG pO2 ABG HCO3 ABG O2 Saturation ABG Hemoglobin Oxyhemoglobin Sodium Potassium Chloride Carbon Dioxide BUN Creatinine Glucose POC Glucose 114 H Calcium Iron TIBC Ferritin Total Bilirubin AST ALT Alkaline Phosphatase Lactate Dehydrogenase NT-Pro-B Natriuret Pep Total Protein Albumin Triglycerides Lipase Crossmatch
--- NOTE | 2019-01-19 12:06 | Progress Note ---
Assessment and Plan Continue present cardiac management. The patient has been seen in conjunction with Dr. Varghese who agrees with the assessment and plan of care. - Patient Problems (1) Sickle cell crisis Current Visit: Yes Status: Acute (2) Acute respiratory failure Current Visit: Yes Status: Acute (3) ARDS (adult respiratory distress syndrome) Current Visit: Yes Status: Acute (4) Right ventricular dysfunction Current Visit: Yes Status: Acute (5) Pulmonary hypertension Current Visit: Yes Status: Acute (6) Pneumonia Current Visit: Yes Status: Suspected Qualifiers: Pneumonia type: due to unspecified organism Laterality: right Lung location: middle lobe of lung Qualified Code(s): J18.9 - Pneumonia, unspecified organism (7) Sepsis Current Visit: Yes Status: Acute Qualifiers: Sepsis type: sepsis due to unspecified organism Sepsis acute organ dysfunction status: unspecified Qualified Code(s): A41.9 - Sepsis, unspecified organism (8) Altered mental status Current Visit: Yes Status: Acute (9) Pericardial effusion Current Visit: Yes Status: Acute (10) Cardiomyopathy Current Visit: Yes Status: Acute (11) Abnormal ECG Current Visit: Yes Status: Acute (12) Anemia Current Visit: Yes Status: Acute Subjective Date of service: 01/19/19 Principal diagnosis: sickle cell Interval history: pt appears a little more alert today, no apparent distress. he sustained a fall while getting out of bed last night, head CT with NAF. Objective Last Vital Signs Temp 98.3 F 01/19/19 08:00 Pulse 127 H 01/19/19 11:00 Resp 47 H 01/19/19 11:00 BP 140/70 01/19/19 11:00 Pulse Ox 97 01/19/19 10:00 - Physical Examination General: No Apparent Distress, Other (lethargic) HEENT: Positive: PERRL Neck: Positive: neck supple, trachea midline Cardiac: Positive: Reg Rate and Rhythm, S1/S2 Lungs: Positive: Decreased Breath Sounds Neuro: Positive: Other (lethargic) Extremities: Absent: edema - Labs and Meds CBC 01/19/19 01/19/19 Range/Units 09:09 10:30 WBC 26.5 H 24.8 H (4.5-11.0) K/mm3 RBC 3.43 L 3.33 L (3.65-5.03) M/mm3 Hgb 9.7 L 9.6 L (11.8-15.2) gm/dl Hct 30.6 L 29.3 L (35.5-45.6) % Plt Count 1006 H* 946 H (140-440) K/mm3 Comprehensive Metabolic Panel 01/19/19 Range/Units 09:09 Sodium 143 (137-145) mmol/L Potassium 4.2 (3.6-5.0) mmol/L Chloride 100.2 (98-107) mmol/L Carbon Dioxide 22 (22-30) mmol/L BUN 18 (9-20) mg/dL Creatinine 0.8 (0.8-1.5) mg/dL Glucose 100 (75-100) mg/dL Calcium 9.1 (8.4-10.2) mg/dL - Imaging and Cardiology EKG: report reviewed, image reviewed Echo: report reviewed (01/10 which showed a pericardial effusion and thus cardiology has been consulted. TTE images reviewed, EF ~35%, mod to large pericardial effusion with no evidence of tamponade, RV mod dilated with moderate systolic dysfunction, mod TR, moderate to severe pulm HTN with RVSP 57mmHg. ) - EKG Sinus rhythms and dysrhythmias: sinus tachycardia Repolarization changes or abnormalities: ST or T wave suggestive of ischemia
--- NOTE | 2019-01-19 16:37 | Progress Note ---
Assessment and Plan Cultures: 01/03/19 blood cultures - no growth to date 01/04/2019 sputum: contaminated specimen 01/14/2019 blood culture no growth 01/17/2019 Crypto ag negative Influenza ag/PCR negative. A/P: 24 yo M PMhx sickle cell disease presents with fevers and myalgias, likely an acute chest syndrome vs pneumonia 1. Acute sepsis - fever resolved, leukocytosis slowly improving; likely secondary to pneumonia +/- SCD crisis. Procal is high at 6--> 1.3. Leukocytosis likely reactive to SCD 2. Bilateral Pneumonia - CT chest shows severe diffuse airspace disease/ground glass ? ARDS and moderate pericardial effusion. Unclear etiology. SCD patient has commonly Mycoplasma/Chlamydia/legionalla pnemonia. Influenza and Strep pneumoniae are less common. HIV non reactive. CT abd shows spleen autoinfarct. Influenza ag/PCR negative. Crypto ag negative. Blood and fungal culture negative. 3. Sickle cell disease 4. Acute pain crisis 5. Acute respiratory failure with hypoxia - extubated 6. Pericardial effusion, moderate ? Recs: cards on board continue IV Vancomycin D6 Stop Fluconazole D6 continue levaquin 750 mg IV q day D3 (s/p cefepime for 11 days) Will follow. Elda Lisa MD Infectious Diseases Oxygen Equipment Aide [facility] ([facility] M [phone] O [phone] Subjective Date of service: 01/19/19 Principal diagnosis: sickle cell Interval history: Now extubated sitting up no fever Objective - Exam Narrative Exam: Constitutional: alert, sleepy in NAD on NC O2 Head, Ears, Nose: Normocephalic, atraumatic. External ears, nose normal Eyes: Conjunctivae/corneas clear. No icterus. No ptosis. Neck: supple Oral: clear Cardiovascular: S1, S2 normal. Respiratory:CTA jae GI: Soft, non-tender; bowel sounds normal. No peritoneal signs Musculoskeletal: No pedal edema, no cyanosis. Skin: No rash or abscess Hem/Lymphatic: No palpable cervical or supraclavicular nodes. No lymphangitis Psych:alert Neurological: alert - Constitutional Vitals: Vital Signs Temp Pulse Resp BP Pulse Ox 98.9 F 110 H 45 H 120/63 98 01/19/19 12:00 01/19/19 12:00 01/19/19 12:00 01/19/19 12:00 01/19/19 12:00 Temperature -Last 24 Hours Temperature 98.9 F Temperature 98.3 F Temperature 98.0 F Temperature 97.7 F Temperature 97.7 F Temperature 98.3 F - Labs CBC & Chem 7: 01/19/19 10:30 01/19/19 09:09 Labs: Abnormal lab results 01/19/19 01/19/19 01/19/19 Range/Units 09:09 10:30 11:42 WBC 26.5 H 24.8 H (4.5-11.0) K/mm3 RBC 3.43 L 3.33 L (3.65-5.03) M/mm3 Hgb 9.7 L 9.6 L (11.8-15.2) gm/dl Hct 30.6 L 29.3 L (35.5-45.6) % RDW 19.3 H 19.3 H (13.2-15.2) % Plt Count 1006 H* 946 H (140-440) K/mm3 Seg Neuts % (Manual) 92.0 H (40.0-70.0) % Lymphocytes % (Manual) 4.0 L (13.4-35.0) % Nucleated RBC % 2.0 H (0.0-0.9) % Seg Neutrophils # Man 22.8 H (1.8-7.7) K/mm3 Lymphocytes # (Manual) 1.0 L (1.2-5.4) K/mm3 Monocytes # (Manual) 1.0 H (0.0-0.8) K/mm3 POC Glucose 114 H (70-105)
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
[2019-01-20] MEDS: VANCOMYCIN/NS 1 GM/250 ML 1 GM/250 ML BAG IV SCH ×2 (02:14→10:14)
[2019-01-20] MEDS: HYDROmorphone 1 MG/1 ML INJ IV PRN ×3 (06:16→22:25)
[2019-01-20 06:18] LABS: Hemoglobin 9.3 gm/dl (11.8-15.2); Mean Corpuscular HGB Conc 32 % (32-34); Mean Corpuscular Volume 89 fl (84-94); Platelet Count 917 K/mm3 (140-440); Red Blood Count 3.27 M/mm3 (3.65-5.03)
[2019-01-20 06:43] LABS: BUN/Creatinine Ratio 19; Blood Urea Nitrogen 15 mg/dL (9-20); Calcium 8.9 mg/dL (8.4-10.2); Hemolysis Index 6
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
[2019-01-20] MEDS: ENOXAPARIN 40 MG/0.4 ML INJ SUB-Q SCH (10:13)
[2019-01-20] MEDS: FAMOTIDINE 20 MG TAB PO SCH ×2 (10:13→22:25)
[2019-01-20] MEDS: FOLIC ACID 1 MG TAB PO SCH (10:13)
[2019-01-20] MEDS: HYDROXYUREA 500 MG CAP PO SCH (11:09)
--- NOTE | 2019-01-20 11:19 | Progress Note ---
Assessment and Plan Continue present cardiac management. The patient has been seen in conjunction with Dr. Varghese who agrees with the assessment and plan of care. - Patient Problems (1) Sickle cell crisis Current Visit: Yes Status: Acute (2) Acute respiratory failure Current Visit: Yes Status: Acute (3) ARDS (adult respiratory distress syndrome) Current Visit: Yes Status: Acute (4) Right ventricular dysfunction Current Visit: Yes Status: Acute (5) Pulmonary hypertension Current Visit: Yes Status: Acute (6) Pneumonia Current Visit: Yes Status: Suspected Qualifiers: Pneumonia type: due to unspecified organism Laterality: right Lung location: middle lobe of lung Qualified Code(s): J18.9 - Pneumonia, unspecified organism (7) Sepsis Current Visit: Yes Status: Acute Qualifiers: Sepsis type: sepsis due to unspecified organism Sepsis acute organ dysfunction status: unspecified Qualified Code(s): A41.9 - Sepsis, unspecified organism (8) Altered mental status Current Visit: Yes Status: Acute (9) Pericardial effusion Current Visit: Yes Status: Acute (10) Cardiomyopathy Current Visit: Yes Status: Acute (11) Abnormal ECG Current Visit: Yes Status: Acute (12) Anemia Current Visit: Yes Status: Acute Subjective Date of service: 01/20/19 Principal diagnosis: sickle cell disease Interval history: pt appears more alert today, no apparent distress. in SR/ST HR 100s. Objective Last Vital Signs Temp 98.7 F 01/20/19 08:55 Pulse 100 H 01/20/19 08:55 Resp 18 01/20/19 08:55 BP 127/76 01/20/19 08:55 Pulse Ox 96 01/20/19 08:55 - Physical Examination General: No Apparent Distress HEENT: Positive: PERRL Neck: Positive: neck supple, trachea midline Cardiac: Positive: Regular Rhythm, S1/S2 Lungs: Positive: Decreased Breath Sounds Neuro: Positive: Grossly Intact Abdomen: Negative: Tender Extremities: Absent: edema - Labs and Meds CBC 01/20/19 Range/Units 05:32 WBC 21.7 H (4.5-11.0) K/mm3 RBC 3.27 L (3.65-5.03) M/mm3 Hgb 9.3 L (11.8-15.2) gm/dl Hct 29.0 L (35.5-45.6) % Plt Count 917 H (140-440) K/mm3 Comprehensive Metabolic Panel 01/20/19 Range/Units 05:32 Sodium 140 (137-145) mmol/L Potassium 3.7 (3.6-5.0) mmol/L Chloride 99.8 (98-107) mmol/L Carbon Dioxide 23 (22-30) mmol/L BUN 15 (9-20) mg/dL Creatinine 0.8 (0.8-1.5) mg/dL Glucose 93 (75-100) mg/dL Calcium 8.9 (8.4-10.2) mg/dL - Imaging and Cardiology EKG: report reviewed, image reviewed Echo: report reviewed (01/10 which showed a pericardial effusion and thus cardiology has been consulted. TTE images reviewed, EF ~35%, mod to large pericardial effusion with no evidence of tamponade, RV mod dilated with moderate systolic dysfunction, mod TR, moderate to severe pulm HTN with RVSP 57mmHg. ) - EKG Sinus rhythms and dysrhythmias: sinus tachycardia Repolarization changes or abnormalities: ST or T wave suggestive of ischemia
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
--- NOTE | 2019-01-20 12:20 | Progress Note ---
Assessment and Plan 24 y/o male with sickle cell anemia admitted with acute chest syndrome and now acute respiratory failure requiring mechanical ventilation secondary to worsening acute chest vs pulmonary edema. Full blow ARDs 1. Wean FiO2 as tolerated. Would be mindful on I/O's. Should be strict. No indication for lasix therapy today, but may need more in the future. CXR changes of ARDs could take weeks to improve. If repeat film is ordered, please keep this in mind unless there is a drastic change clinically. 2. Appreciate ID help. Abx per their lead. No fever now in over 48 hours. 3. [facility] has ordered official speech evaluation. 4. Platelet count at 1006. Has been rising daily. unsure if this is an acute phase reactant or another underlying disease but will repeat and send Diff. Will follow peripherally. Wean FiO2 to off for sats >92. May need walk test prior to discharge. Subjective Date of service: 01/20/19 Principal diagnosis: sickle cell disease Interval history: No acute events. Successfu ltransfer out of unit. Last sat documented on 3 liters was 97. No distress noted. Objective Vital Signs - 12hr 01/20/19 01/20/19 01/20/19 04:00 07:47 08:55 Temperature 98.5 F 98.7 F Pulse Rate 76 100 H Respiratory 20 18 Rate Blood Pressure 127/76 Blood Pressure 136/83 [Right] O2 Sat by Pulse 91 97 96 Oximetry 01/20/19 12:06 Temperature 99.3 F Pulse Rate 96 H Respiratory 18 Rate Blood Pressure 118/73 Blood Pressure [Right] O2 Sat by Pulse 100 Oximetry Constitutional: other (critically ill on vent) Eyes: non-icteric ENT: other (orally intubated and sedated.) Neck: supple Effort: normal Ascultation: Bilateral: rales, rhonchi, other (coarse BS bilaterally) Percussion: Bilateral: not dull Cardiovascular: other (sinus tachy) Gastrointestinal: normoactive bowel sounds, soft, non-tender, non-distended Extremities: no cyanosis, no edema, pink and warm Neurologic: normal mental status, non-focal exam, pupils equal and round Psychiatric: mood appropriate, affect normal CBC and BMP: 01/20/19 05:32 01/20/19 05:32 ABG, PT/INR, D-dimer: ABG POC ABG pH 7.391 (7.35-7.45) 01/18/19 04:15 ABG pH 7.406 pH Units (7.350-7.450) 01/10/19 05:50 POC ABG pCO2 49.4 (35-45) H 01/18/19 04:15 ABG pCO2 43.8 mm Hg 01/10/19 05:50 POC ABG pO2 80 (80-105) 01/18/19 04:15 ABG pO2 59.8 mm Hg (80.0-90.0) L 01/10/19 05:50 POC ABG HCO3 30.0 (22-26 mml/L) 01/18/19 04:15 POC ABG Total CO2 31 (23-27mmol/L) 01/18/19 04:15 POC ABG O2 Sat 95 01/18/19 04:15 ABG O2 Saturation 89.2 % (95.0-99.0) L 01/10/19 05:50 PT/INR, D-dimer PT 24.3 Sec. (12.2-14.9) H 01/05/19 08:24 INR 2.23 (0.87-1.13) H 01/05/19 08:24 D-Dimer 2064.49 ng/mlDDU (0-234) H 01/03/19 11:17 Abnormal lab findings: Abnormal Labs 01/03/19 01/03/19 01/03/19 10:34 10:34 11:17 WBC 34.2 H RBC 2.43 L Hgb 7.9 L Hct 21.9 L MCH 33 H MCHC 36 H RDW 29.2 H Plt Count [place] % (Auto) Eos % (Auto) [place] # Eos # Baso # Seg Neutrophils % Seg Neuts % (Manual) 85.0 H Lymphocytes % (Manual) 6.0 L Monocytes % (Manual) 9.0 H Eosinophils % (Manual) Nucleated RBC % 1.0 H Seg Neutrophils # Seg Neutrophils # Man 29.1 H Lymphocytes # (Manual) Monocytes # (Manual) 3.1 H Eosinophils # (Manual) Basophils # (Manual) Percent Retic 21.81 H PT INR APTT D-Dimer POC ABG pH POC ABG pCO2 POC ABG pO2 ABG pO2 ABG HCO3 ABG O2 Saturation ABG Hemoglobin Oxyhemoglobin Sodium 136 L 135 L Potassium 5.3 H Chloride Carbon Dioxide 20 L BUN Creatinine 0.6 L 0.7 L Glucose 123 H 112 H POC Glucose Calcium Iron TIBC Ferritin Total Bilirubin 8.00 H AST 100 H ALT Alkaline Phosphatase Lactate Dehydrogenase NT-Pro-B Natriuret Pep Total Protein Albumin Triglycerides Lipase Crossmatch 01/03/19 01/03/19 01/03/19 11:17 14:19 18:52 WBC 36.5 H RBC 2.32 L Hgb 7.8 L Hct 21.6 L MCH 34 H MCHC 36 H RDW 28.3 H Plt Count [place] % (Auto) Eos % (Auto) [place] # Eos # Baso # Seg Neutrophils % Seg Neuts % (Manual) 88.0 H Lymphocytes % (Manual) 4.0 L Monocytes % (Manual) 8.0 H Eosinophils % (Manual) Nucleated RBC % 4.0 H Seg Neutrophils # Seg Neutrophils # Man 32.1 H Lymphocytes # (Manual) Monocytes # (Manual) 2.9 H Eosinophils # (Manual) Basophils # (Manual) Percent Retic PT INR APTT D-Dimer 2064.49 H POC ABG pH POC ABG pCO2 POC ABG pO2 ABG pO2 ABG HCO3 ABG O2 Saturation ABG Hemoglobin Oxyhemoglobin Sodium Potassium Chloride Carbon Dioxide BUN Creatinine Glucose POC Glucose Calcium Iron TIBC Ferritin Total Bilirubin AST ALT Alkaline Phosphatase Lactate Dehydrogenase NT-Pro-B Natriuret Pep Total Protein Albumin Triglycerides Lipase 6 L Crossmatch 01/04/19 01/04/19 01/05/19 08:05 08:05 08:24 WBC 54.8 H* RBC 1.28 L Hgb 4.2 L* D Hct 11.1 L* D MCH 33 H MCHC 38 H* RDW 22.3 H Plt Count 134 L [place] % (Auto) Eos % (Auto) [place] # Eos # Baso # Seg Neutrophils % Seg Neuts % (Manual) Lymphocytes % (Manual) 1.0 L Monocytes % (Manual) 15.0 H Eosinophils % (Manual) Nucleated RBC % 3.0 H Seg Neutrophils # Seg Neutrophils # Man 35.1 H Lymphocytes # (Manual) 0.5 L Monocytes # (Manual) 8.2 H Eosinophils # (Manual) Basophils # (Manual) Percent Retic PT INR APTT D-Dimer POC ABG pH POC ABG pCO2 POC ABG pO2 ABG pO2 ABG HCO3 ABG O2 Saturation ABG Hemoglobin Oxyhemoglobin Sodium Potassium Chloride Carbon Dioxide BUN Creatinine Glucose POC Glucose Calcium Iron 19 L TIBC 218 L Ferritin 854.8 H Total Bilirubin AST ALT Alkaline Phosphatase Lactate Dehydrogenase NT-Pro-B Natriuret Pep Total Protein Albumin Triglycerides Lipase Crossmatch 01/05/19 01/05/19 01/05/19 08:24 08:24 08:24 WBC RBC Hgb Hct MCH MCHC RDW Plt Count [place] % (Auto) Eos % (Auto) [place] # Eos # Baso # Seg Neutrophils % Seg Neuts % (Manual) Lymphocytes % (Manual) Monocytes % (Manual) Eosinophils % (Manual) Nucleated RBC % Seg Neutrophils # Seg Neutrophils # Man Lymphocytes # (Manual) Monocytes # (Manual) Eosinophils # (Manual) Basophils # (Manual) Percent Retic PT 24.3 H INR 2.23 H APTT 53.5 H D-Dimer POC ABG pH POC ABG pCO2 POC ABG pO2 ABG pO2 ABG HCO3 ABG O2 Saturation ABG Hemoglobin Oxyhemoglobin Sodium Potassium 5.2 H D Chloride Carbon Dioxide 15 L BUN 40 H Creatinine 0.3 L D Glucose 121 H POC Glucose Calcium 8.3 L Iron TIBC Ferritin Total Bilirubin 31.80 H AST 164 H ALT 83 H Alkaline Phosphatase Lactate Dehydrogenase 1048 H NT-Pro-B Natriuret Pep Total Protein 6.0 L Albumin 3.6 L Triglycerides Lipase Crossmatch 01/05/19 01/05/19 01/05/19 08:26 08:26 09:48 WBC 54.8 H* RBC 1.26 L Hgb 4.1 L* Hct 10.9 L* MCH 33 H MCHC 38 H* RDW 22.0 H Plt Count 127 L [place] % (Auto) Eos % (Auto) [place] # Eos # Baso # Seg Neutrophils % Seg Neuts % (Manual) Lymphocytes % (Manual) Monocytes % (Manual) Eosinophils % (Manual) Nucleated RBC % Seg Neutrophils # Seg Neutrophils # Man Lymphocytes # (Manual) Monocytes # (Manual) Eosinophils # (Manual) Basophils # (Manual) Percent Retic PT INR APTT D-Dimer POC ABG pH POC ABG pCO2 POC ABG pO2 ABG pO2 ABG HCO3 ABG O2 Saturation ABG Hemoglobin Oxyhemoglobin Sodium Potassium Chloride Carbon Dioxide BUN Creatinine Glucose POC Glucose Calcium Iron TIBC Ferritin Total Bilirubin AST ALT Alkaline Phosphatase Lactate Dehydrogenase NT-Pro-B Natriuret Pep Total Protein Albumin Triglycerides Lipase Crossmatch See Detail See Detail 01/06/19 01/06/19 01/06/19 00:30 18:03 23:02 WBC 56.5 H* 44.3 H* RBC 1.76 L 2.41 L Hgb 5.6 L* 7.4 L Hct 15.8 L* 21.8 L D MCH MCHC 36 H RDW 19.8 H 18.4 H Plt Count [place] % (Auto) Eos % (Auto) [place] # Eos # Baso # Seg Neutrophils % Seg Neuts % (Manual) 90.0 H Lymphocytes % (Manual) 4.5 L Monocytes % (Manual) Eosinophils % (Manual) Nucleated RBC % Seg Neutrophils # Seg Neutrophils # Man 50.9 H Lymphocytes # (Manual) Monocytes # (Manual) 2.5 H Eosinophils # (Manual) Basophils # (Manual) Percent Retic PT INR APTT D-Dimer POC ABG pH 7.452 H POC ABG pCO2 29.4 L POC ABG pO2 ABG pO2 ABG HCO3 ABG O2 Saturation ABG Hemoglobin Oxyhemoglobin Sodium Potassium Chloride Carbon Dioxide BUN Creatinine Glucose POC Glucose Calcium Iron TIBC Ferritin Total Bilirubin AST ALT Alkaline Phosphatase Lactate Dehydrogenase NT-Pro-B Natriuret Pep Total Protein Albumin Triglycerides Lipase Crossmatch 01/08/19 01/08/19 01/08/19 09:33 12:10 13:18 WBC RBC Hgb Hct MCH MCHC RDW Plt Count [place] % (Auto) Eos % (Auto) [place] # Eos # Baso # Seg Neutrophils % Seg Neuts % (Manual) Lymphocytes % (Manual) Monocytes % (Manual) Eosinophils % (Manual) Nucleated RBC % Seg Neutrophils # Seg Neutrophils # Man Lymphocytes # (Manual) Monocytes # (Manual) Eosinophils # (Manual) Basophils # (Manual) Percent Retic PT INR APTT D-Dimer POC ABG pH POC ABG pCO2 POC ABG pO2 71 L 73 L ABG pO2 ABG HCO3 ABG O2 Saturation ABG Hemoglobin Oxyhemoglobin Sodium Potassium Chloride Carbon Dioxide BUN Creatinine Glucose POC Glucose Calcium Iron TIBC Ferritin Total Bilirubin AST ALT Alkaline Phosphatase Lactate Dehydrogenase NT-Pro-B Natriuret Pep Total Protein Albumin Triglycerides Lipase Crossmatch See Detail 01/08/19 01/08/19 01/08/19 13:18 14:58 17:00 WBC 33.5 H RBC 3.34 L Hgb 9.9 L Hct 29.2 L D MCH MCHC RDW 17.7 H Plt Count [place] % (Auto) Eos % (Auto) [place] # Eos # Baso # Seg Neutrophils % Seg Neuts % (Manual) 72.0 H Lymphocytes % (Manual) Monocytes % (Manual) 13.0 H Eosinophils % (Manual) Nucleated RBC % 9.0 H Seg Neutrophils # Seg Neutrophils # Man 24.1 H Lymphocytes # (Manual) Monocytes # (Manual) 4.4 H Eosinophils # (Manual) Basophils # (Manual) Percent Retic PT INR APTT D-Dimer POC ABG pH POC ABG pCO2 POC ABG pO2 74 L ABG pO2 ABG HCO3 ABG O2 Saturation ABG Hemoglobin Oxyhemoglobin Sodium Potassium Chloride Carbon Dioxide BUN Creatinine Glucose 122 H POC Glucose Calcium Iron TIBC Ferritin Total Bilirubin AST ALT Alkaline Phosphatase Lactate Dehydrogenase NT-Pro-B Natriuret Pep Total Protein Albumin Triglycerides Lipase Crossmatch 01/08/19 01/09/19 01/09/19 17:00 04:44 04:44 WBC 29.8 H RBC 2.85 L Hgb 8.4 L Hct 25.1 L MCH MCHC RDW 17.9 H Plt Count [place] % (Auto) Eos % (Auto) [place] # Eos # Baso # Seg Neutrophils % Seg Neuts % (Manual) Lymphocytes % (Manual) Monocytes % (Manual) Eosinophils % (Manual) Nucleated RBC % Seg Neutrophils # Seg Neutrophils # Man Lymphocytes # (Manual) Monocytes # (Manual) Eosinophils # (Manual) Basophils # (Manual) Percent Retic PT INR APTT D-Dimer POC ABG pH POC ABG pCO2 POC ABG pO2 ABG pO2 ABG HCO3 ABG O2 Saturation ABG Hemoglobin Oxyhemoglobin Sodium Potassium Chloride 107.3 H Carbon Dioxide BUN 22 H Creatinine 0.7 L Glucose 122 H POC Glucose Calcium Iron TIBC Ferritin Total Bilirubin AST ALT Alkaline Phosphatase Lactate Dehydrogenase NT-Pro-B Natriuret Pep 3064 H Total Protein Albumin Triglycerides Lipase Crossmatch 01/09/19 01/10/19 01/10/19 06:31 05:50 08:39 WBC 24.5 H RBC 2.89 L Hgb 8.4 L Hct 25.9 L MCH MCHC RDW 18.5 H Plt Count [place] % (Auto) 7.7 H Eos % (Auto) 5.4 H [place] # 2.0 H Eos # 1.4 H Baso # 0.2 H Seg Neutrophils % 75.5 H Seg Neuts % (Manual) 75.0 H Lymphocytes % (Manual) 11.0 L Monocytes % (Manual) Eosinophils % (Manual) 7.0 H Nucleated RBC % 28.0 H Seg Neutrophils # 19.7 H Seg Neutrophils # Man 0.0 L Lymphocytes # (Manual) 0.0 L Monocytes # (Manual) Eosinophils # (Manual) Basophils # (Manual) Percent Retic PT INR APTT D-Dimer POC ABG pH POC ABG pCO2 POC ABG pO2 ABG pO2 153.7 H 59.8 L ABG HCO3 26.9 H ABG O2 Saturation 89.2 L ABG Hemoglobin 8.1 L 8.1 L Oxyhemoglobin 86.6 L Sodium Potassium Chloride Carbon Dioxide BUN Creatinine Glucose POC Glucose Calcium Iron TIBC Ferritin Total Bilirubin AST ALT Alkaline Phosphatase Lactate Dehydrogenase NT-Pro-B Natriuret Pep Total Protein Albumin Triglycerides Lipase Crossmatch 01/10/19 01/10/19 01/11/19 08:39 08:39 04:18 WBC RBC Hgb Hct MCH MCHC RDW Plt Count [place] % (Auto) Eos % (Auto) [place] # Eos # Baso # Seg Neutrophils % Seg Neuts % (Manual) Lymphocytes % (Manual) Monocytes % (Manual) Eosinophils % (Manual) Nucleated RBC % Seg Neutrophils # Seg Neutrophils # Man Lymphocytes # (Manual) Monocytes # (Manual) Eosinophils # (Manual) Basophils # (Manual) Percent Retic PT INR APTT D-Dimer POC ABG pH POC ABG pCO2 45.4 H POC ABG pO2 ABG pO2 ABG HCO3 ABG O2 Saturation ABG Hemoglobin Oxyhemoglobin Sodium Potassium Chloride 108.6 H Carbon Dioxide BUN 21 H Creatinine Glucose 108 H POC Glucose Calcium 8.3 L Iron TIBC Ferritin Total Bilirubin 3.90 H AST 62 H ALT Alkaline Phosphatase 179 H Lactate Dehydrogenase NT-Pro-B Natriuret Pep Total Protein 6.2 L Albumin 2.5 L Triglycerides 416 H Lipase Crossmatch 01/11/19 01/11/19 01/12/19 04:53 04:53 04:36 WBC 26.9 H RBC 2.87 L Hgb 8.2 L Hct 25.6 L MCH MCHC RDW 17.9 H Plt Count [place] % (Auto) Eos % (Auto) [place] # Eos # Baso # Seg Neutrophils % Seg Neuts % (Manual) Lymphocytes % (Manual) Monocytes % (Manual) Eosinophils % (Manual) Nucleated RBC % Seg Neutrophils # Seg Neutrophils # Man Lymphocytes # (Manual) Monocytes # (Manual) Eosinophils # (Manual) Basophils # (Manual) Percent Retic PT INR APTT D-Dimer POC ABG pH POC ABG pCO2 50.8 H POC ABG pO2 71 L ABG pO2 ABG HCO3 ABG O2 Saturation ABG Hemoglobin Oxyhemoglobin Sodium 149 H Potassium Chloride 111.7 H Carbon Dioxide BUN 26 H Creatinine Glucose 113 H POC Glucose Calcium 8.2 L Iron TIBC Ferritin Total Bilirubin AST ALT Alkaline Phosphatase Lactate Dehydrogenase NT-Pro-B Natriuret Pep Total Protein Albumin Triglycerides Lipase Crossmatch 01/12/19 01/13/19 01/13/19 09:00 05:32 05:39 WBC 30.6 H RBC 3.00 L Hgb 8.5 L Hct 26.8 L MCH MCHC RDW 17.8 H Plt Count 455 H [place] % (Auto) Eos % (Auto) [place] # Eos # Baso # Seg Neutrophils % Seg Neuts % (Manual) 88.0 H Lymphocytes % (Manual) 2.0 L Monocytes % (Manual) Eosinophils % (Manual) Nucleated RBC % 2.0 H Seg Neutrophils # Seg Neutrophils # Man 26.9 H Lymphocytes # (Manual) 0.6 L Monocytes # (Manual) 1.8 H Eosinophils # (Manual) 1.2 H Basophils # (Manual) Percent Retic PT INR APTT D-Dimer POC ABG pH POC ABG pCO2 52.0 H POC ABG pO2 73 L ABG pO2 ABG HCO3 ABG O2 Saturation ABG Hemoglobin Oxyhemoglobin Sodium 148 H Potassium Chloride 110.5 H Carbon Dioxide BUN 30 H Creatinine 0.7 L Glucose 131 H POC Glucose Calcium Iron TIBC Ferritin Total Bilirubin AST ALT Alkaline Phosphatase Lactate Dehydrogenase NT-Pro-B Natriuret Pep Total Protein Albumin Triglycerides Lipase Crossmatch 01/13/19 01/14/19 01/14/19 05:39 04:59 10:25 WBC 28.8 H RBC 2.99 L Hgb 8.4 L Hct 26.5 L MCH MCHC RDW 18.0 H Plt Count 660 H [place] % (Auto) Eos % (Auto) [place] # Eos # Baso # Seg Neutrophils % Seg Neuts % (Manual) 78.0 H Lymphocytes % (Manual) 7.0 L Monocytes % (Manual) 11.0 H Eosinophils % (Manual) Nucleated RBC % 2.0 H Seg Neutrophils # Seg Neutrophils # Man 22.5 H Lymphocytes # (Manual) Monocytes # (Manual) 3.2 H Eosinophils # (Manual) 0.9 H Basophils # (Manual) Percent Retic PT INR APTT D-Dimer POC ABG pH 7.461 H POC ABG pCO2 POC ABG pO2 120 H ABG pO2 ABG HCO3 ABG O2 Saturation ABG Hemoglobin Oxyhemoglobin Sodium 153 H Potassium Chloride 114.5 H Carbon Dioxide BUN 29 H Creatinine 0.7 L Glucose 126 H POC Glucose Calcium Iron TIBC Ferritin Total Bilirubin 3.50 H AST 89 H ALT Alkaline Phosphatase 257 H Lactate Dehydrogenase NT-Pro-B Natriuret Pep Total Protein Albumin 2.7 L Triglycerides Lipase Crossmatch 01/14/19 01/15/19 01/15/19 10:25 04:43 05:06 WBC 31.5 H RBC 2.79 L Hgb 7.9 L Hct 24.8 L MCH MCHC RDW 18.6 H Plt Count 739 H [place] % (Auto) Eos % (Auto) [place] # Eos # Baso # Seg Neutrophils % Seg Neuts % (Manual) Lymphocytes % (Manual) Monocytes % (Manual) Eosinophils % (Manual) Nucleated RBC % Seg Neutrophils # Seg Neutrophils # Man Lymphocytes # (Manual) Monocytes # (Manual) Eosinophils # (Manual) Basophils # (Manual) Percent Retic PT INR APTT D-Dimer POC ABG pH POC ABG pCO2 45.3 H POC ABG pO2 67 L ABG pO2 ABG HCO3 ABG O2 Saturation ABG Hemoglobin Oxyhemoglobin Sodium 155 H Potassium Chloride 112.7 H Carbon Dioxide BUN 27 H Creatinine 0.7 L Glucose 102 H POC Glucose Calcium Iron TIBC Ferritin Total Bilirubin 2.70 H AST 63 H ALT Alkaline Phosphatase 221 H Lactate Dehydrogenase NT-Pro-B Natriuret Pep Total Protein Albumin 2.9 L Triglycerides Lipase Crossmatch 01/15/19 01/16/19 01/16/19 05:06 05:09 05:09 WBC 33.6 H RBC 2.92 L Hgb 8.1 L Hct 26.2 L MCH MCHC 31 L RDW 18.7 H Plt Count 831 H [place] % (Auto) Eos % (Auto) [place] # Eos # Baso # Seg Neutrophils % Seg Neuts % (Manual) 79.0 H Lymphocytes % (Manual) 8.0 L Monocytes % (Manual) 9.5 H Eosinophils % (Manual) Nucleated RBC % Seg Neutrophils # Seg Neutrophils # Man 26.5 H Lymphocytes # (Manual) Monocytes # (Manual) 3.2 H Eosinophils # (Manual) 0.8 H Basophils # (Manual) 0.3 H Percent Retic PT INR APTT D-Dimer POC ABG pH POC ABG pCO2 POC ABG pO2 ABG pO2 ABG HCO3 ABG O2 Saturation ABG Hemoglobin Oxyhemoglobin Sodium 153 H 149 H Potassium Chloride 113.4 H 109.0 H Carbon Dioxide BUN 23 H 21 H Creatinine Glucose 110 H POC Glucose Calcium Iron TIBC Ferritin Total Bilirubin 2.30 H 2.00 H AST 54 H 48 H ALT Alkaline Phosphatase 183 H 165 H Lactate Dehydrogenase NT-Pro-B Natriuret Pep Total Protein Albumin 2.8 L 3.0 L Triglycerides Lipase Crossmatch 01/16/19 01/17/19 01/18/19 06:00 10:35 04:15 WBC 33.6 H RBC 2.95 L Hgb 8.5 L Hct 26.7 L MCH MCHC RDW 19.3 H Plt Count 887 H [place] % (Auto) Eos % (Auto) [place] # Eos # Baso # Seg Neutrophils % Seg Neuts % (Manual) Lymphocytes % (Manual) Monocytes % (Manual) Eosinophils % (Manual) Nucleated RBC % Seg Neutrophils # Seg Neutrophils # Man Lymphocytes # (Manual) Monocytes # (Manual) Eosinophils # (Manual) Basophils # (Manual) Percent Retic PT INR APTT D-Dimer POC ABG pH POC ABG pCO2 47.4 H 49.4 H POC ABG pO2 57 L ABG pO2 ABG HCO3 ABG O2 Saturation ABG Hemoglobin Oxyhemoglobin Sodium Potassium Chloride Carbon Dioxide BUN Creatinine Glucose POC Glucose Calcium Iron TIBC Ferritin Total Bilirubin AST ALT Alkaline Phosphatase Lactate Dehydrogenase NT-Pro-B Natriuret Pep Total Protein Albumin Triglycerides Lipase Crossmatch 01/19/19 01/19/19 01/19/19 09:09 10:30 11:42 WBC 26.5 H 24.8 H RBC 3.43 L 3.33 L Hgb 9.7 L 9.6 L Hct 30.6 L 29.3 L MCH MCHC RDW 19.3 H 19.3 H Plt Count 1006 H* 946 H [place] % (Auto) Eos % (Auto) [place] # Eos # Baso # Seg Neutrophils % Seg Neuts % (Manual) 92.0 H Lymphocytes % (Manual) 4.0 L Monocytes % (Manual) Eosinophils % (Manual) Nucleated RBC % 2.0 H Seg Neutrophils # Seg Neutrophils # Man 22.8 H Lymphocytes # (Manual) 1.0 L Monocytes # (Manual) 1.0 H Eosinophils # (Manual) Basophils # (Manual) Percent Retic PT INR APTT D-Dimer POC ABG pH POC ABG pCO2 POC ABG pO2 ABG pO2 ABG HCO3 ABG O2 Saturation ABG Hemoglobin Oxyhemoglobin Sodium Potassium Chloride Carbon Dioxide BUN Creatinine Glucose POC Glucose 114 H Calcium Iron TIBC Ferritin Total Bilirubin AST ALT Alkaline Phosphatase Lactate Dehydrogenase NT-Pro-B Natriuret Pep Total Protein Albumin Triglycerides Lipase Crossmatch 01/20/19 05:32 WBC 21.7 H RBC 3.27 L Hgb 9.3 L Hct 29.0 L MCH MCHC RDW 19.0 H Plt Count 917 H [place] % (Auto) Eos % (Auto) [place] # Eos # Baso # Seg Neutrophils % Seg Neuts % (Manual) Lymphocytes % (Manual) Monocytes % (Manual) Eosinophils % (Manual) Nucleated RBC % Seg Neutrophils # Seg Neutrophils # Man Lymphocytes # (Manual) Monocytes # (Manual) Eosinophils # (Manual) Basophils # (Manual) Percent Retic PT INR APTT D-Dimer POC ABG pH POC ABG pCO2 POC ABG pO2 ABG pO2 ABG HCO3 ABG O2 Saturation ABG Hemoglobin Oxyhemoglobin Sodium Potassium Chloride Carbon Dioxide BUN Creatinine Glucose POC Glucose Calcium Iron TIBC Ferritin Total Bilirubin AST ALT Alkaline Phosphatase Lactate Dehydrogenase NT-Pro-B Natriuret Pep Total Protein Albumin Triglycerides Lipase Crossmatch
--- NOTE | 2019-01-20 16:12 | Progress Note ---
Assessment and Plan Cultures: 01/03/19 blood cultures - no growth to date 01/04/2019 sputum: contaminated specimen 01/14/2019 blood culture no growth 01/17/2019 Crypto ag negative Influenza ag/PCR negative. A/P: 24 yo M PMhx sickle cell disease presents with fevers and myalgias, likely an acute chest syndrome vs pneumonia 1. Acute sepsis - fever resolved, leukocytosis slowly improving; likely secondary to pneumonia +/- SCD crisis. Procal is high at 6--> 1.3. Leukocytosis likely reactive to SCD 2. Bilateral Pneumonia - CT chest shows severe diffuse airspace disease/ground glass ? ARDS and moderate pericardial effusion. Unclear etiology. SCD patient has commonly Mycoplasma/Chlamydia/legionalla pnemonia. Influenza and Strep pneumoniae are less common. HIV non reactive. CT abd shows spleen autoinfarct. Influenza ag/PCR negative. Crypto ag negative. Blood and fungal culture negative. 3. Sickle cell disease 4. Acute pain crisis 5. Acute respiratory failure with hypoxia - extubated 6. Pericardial effusion, moderate ? Recs: cards on board stop IV Vancomycin D7 continue levaquin 750 mg PO q day D4 of 5 (s/p cefepime for 11 days) Will follow. Elda Lisa MD Infectious Diseases [employer] [facility] M [phone] O [phone] Subjective Date of service: 01/20/19 Principal diagnosis: sickle cell disease Interval history: Feels beter, talking, no fever Objective - Exam Narrative Exam: Constitutional: alert, sleepy in NAD on NC O2 Head, Ears, Nose: Normocephalic, atraumatic. External ears, nose normal Eyes: Conjunctivae/corneas clear. No icterus. No ptosis. Neck: supple Oral: clear Cardiovascular: S1, S2 normal. Respiratory:CTA jae GI: Soft, non-tender; bowel sounds normal. No peritoneal signs Musculoskeletal: No pedal edema, no cyanosis. Skin: No rash or abscess Hem/Lymphatic: No palpable cervical or supraclavicular nodes. No lymphangitis Psych:alert Neurological: alert - Constitutional Vitals: Vital Signs Temp Pulse Resp BP Pulse Ox 99.3 F 96 H 18 118/73 100 01/20/19 12:06 01/20/19 12:06 01/20/19 12:06 01/20/19 12:06 01/20/19 12:06 Temperature -Last 24 Hours Temperature 99.3 F Temperature 98.7 F Temperature 98.5 F Temperature 98.6 F - Labs CBC & Chem 7: 01/20/19 05:32 01/20/19 05:32 Labs: Abnormal lab results 01/20/19 Range/Units 05:32 WBC 21.7 H (4.5-11.0) K/mm3 RBC 3.27 L (3.65-5.03) M/mm3 Hgb 9.3 L (11.8-15.2) gm/dl Hct 29.0 L (35.5-45.6) % RDW 19.0 H (13.2-15.2) % Plt Count 917 H (140-440) K/mm3
[2019-01-20] MEDS: METOCLOPRAMIDE 10 MG/2 ML INJ IV PRN (22:25)
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
[2019-01-21 08:05] LABS: Hematocrit 30.9 % (35.5-45.6); Hemoglobin 9.9 gm/dl (11.8-15.2); Mean Corpuscular HGB Conc 32 % (32-34); Mean Corpuscular Volume 87 fl (84-94); Platelet Count 970 K/mm3 (140-440); Red Blood Count 3.55 M/mm3 (3.65-5.03); Red Cell Distribution Width 18.3 % (13.2-15.2)
[2019-01-21 08:32] LABS: BUN/Creatinine Ratio 11; Blood Urea Nitrogen 10 mg/dL (9-20); Calcium 8.7 mg/dL (8.4-10.2); Hemolysis Index 24
[2019-01-21] MEDS: ENOXAPARIN 40 MG/0.4 ML INJ SUB-Q SCH (10:38)
[2019-01-21] MEDS: FOLIC ACID 1 MG TAB PO SCH (10:38)
[2019-01-21] MEDS: FAMOTIDINE 20 MG TAB PO SCH ×2 (10:38→21:48)
[2019-01-21] MEDS: HYDROXYUREA 500 MG CAP PO SCH (10:39)
[2019-01-21] MEDS: HYDROmorphone 1 MG/1 ML INJ IV PRN ×3 (10:39→20:08)
--- NOTE | 2019-01-21 12:03 | Progress Note ---
Assessment and Plan Currently stable cardiac status. Continue present cardiac management. Will follow on as needed basis. The patient has been seen in conjunction with Dr. Varghese who agrees with the assessment and plan of care. - Patient Problems (1) Sickle cell crisis Current Visit: Yes Status: Acute (2) Acute respiratory failure Current Visit: Yes Status: Acute (3) ARDS (adult respiratory distress syndrome) Current Visit: Yes Status: Acute (4) Right ventricular dysfunction Current Visit: Yes Status: Acute (5) Pulmonary hypertension Current Visit: Yes Status: Acute (6) Pneumonia Current Visit: Yes Status: Suspected Qualifiers: Pneumonia type: due to unspecified organism Laterality: right Lung location: middle lobe of lung Qualified Code(s): J18.9 - Pneumonia, unspecified organism (7) Sepsis Current Visit: Yes Status: Acute Qualifiers: Sepsis type: sepsis due to unspecified organism Sepsis acute organ dysfunction status: unspecified Qualified Code(s): A41.9 - Sepsis, unspecified organism (8) Altered mental status Current Visit: Yes Status: Acute (9) Pericardial effusion Current Visit: Yes Status: Acute (10) Cardiomyopathy Current Visit: Yes Status: Acute (11) Abnormal ECG Current Visit: Yes Status: Acute (12) Anemia Current Visit: Yes Status: Acute Subjective Date of service: 01/21/19 Principal diagnosis: sickle cell disease Interval history: pt appears more alert today, no apparent distress. in SR/ST HR 100s. Objective Last Vital Signs Temp 100.5 F H 01/21/19 11:31 Pulse 89 01/21/19 11:31 Resp 18 01/21/19 11:31 BP 124/68 01/21/19 11:31 Pulse Ox 96 01/21/19 11:31 - Physical Examination General: No Apparent Distress HEENT: Positive: PERRL Neck: Positive: neck supple, trachea midline Cardiac: Positive: Reg Rate and Rhythm, S1/S2 Lungs: Positive: Decreased Breath Sounds Neuro: Positive: Grossly Intact Abdomen: Negative: Tender Extremities: Absent: edema - Labs and Meds CBC 01/21/19 Range/Units 07:00 WBC 20.3 H (4.5-11.0) K/mm3 RBC 3.55 L (3.65-5.03) M/mm3 Hgb 9.9 L (11.8-15.2) gm/dl Hct 30.9 L (35.5-45.6) % Plt Count 970 H (140-440) K/mm3 Comprehensive Metabolic Panel 01/21/19 Range/Units 07:00 Sodium 138 (137-145) mmol/L Potassium 3.9 (3.6-5.0) mmol/L Chloride 95.9 L (98-107) mmol/L Carbon Dioxide 25 (22-30) mmol/L BUN 10 (9-20) mg/dL Creatinine 0.9 (0.8-1.5) mg/dL Glucose 84 (75-100) mg/dL Calcium 8.7 (8.4-10.2) mg/dL - Imaging and Cardiology EKG: report reviewed, image reviewed Echo: report reviewed (01/10 which showed a pericardial effusion and thus cardiology has been consulted. TTE images reviewed, EF ~35%, mod to large pericardial effusion with no evidence of tamponade, RV mod dilated with moderate systolic dysfunction, mod TR, moderate to severe pulm HTN with RVSP 57mmHg. ) - EKG Sinus rhythms and dysrhythmias: sinus tachycardia Repolarization changes or abnormalities: ST or T wave suggestive of ischemia
--- NOTE | 2019-01-21 15:20 | Progress Note ---
Assessment and Plan /ARDS with acute hypoxic respiratory failure s/p ETT with high PEEP: POA - likely from sepsis with b/l PNA - required intubation on 01/08/19, extubated on 01/18/19 - Now on N/c /Sickle cell Anemia with Acute Chest Syndrome: - consulted Dr. Jenkins, Exchange transfusion done, cont pain control, iv hydration, abx, supplemental o2, /Sepsis due to bilateral pneumonia: ID consulted, input noted, treat with ABX, still with recurrent fever /Sickle cell vasooclussive pain crisis: IVF resuscitation therapy, pain control, Hematology following /Acute on chronic anemia: due to SSC, watch for Iron overload, DVT prophylaxis: On Lovenox full code Disposition: continue inpatient care. d/c when remains afebrile for atleast 24 hours Brief History: Patient is a 23 yo man from [place] with SCD who presented to [facility] ED with SOB. He was found to have Pneumonia complicated by Sepsis as well as Sickle Cell Crisis. consulted Heme/Onc Dr. Jenkins and consulted ID. * CTA chest Impression: No evidence for PE, mild cardiomegaly, medium pericardial effusion, mild pulmonary venous congestion, right middle and lower lobe infiltrates, trace pleural effusion. Cultures: 01/03/19 blood cultures - no growth to date 01/04/2019 sputum: contaminated specimen Hospitalist Physical Gen: Not in acute distress, lying in bed, HEENT: Normocephalic, atraumatic Neck: supple, no JVD Heart: S1 and S2 reg, no murmurs, rubs or gallop Lungs: Clear to auscultation bilaterally, Abd: soft, non tender, non distended, normal BS, Ext: No edema, no clubbing, no cyanosis Neuro: more alert, moves all ext Subjective Date of service: 01/21/19 Principal diagnosis: sickle cell disease Interval history: Patient seen and examined No acute event O/N transferred out of ICU sitter at bedside Objective - Constitutional Vitals: Vital Signs - 12hr 01/21/19 01/21/19 01/21/19 04:42 04:49 05:33 Temperature 98.0 F 98 F Pulse Rate 72 91 H Respiratory 18 18 Rate Blood Pressure 128/69 Blood Pressure 128/69 [Right] O2 Sat by Pulse 98 Oximetry 01/21/19 01/21/19 01/21/19 09:17 10:00 11:31 Temperature 99.3 F 100.5 F H Pulse Rate 101 H 89 Respiratory 20 18 Rate Blood Pressure 116/83 124/68 Blood Pressure [Right] O2 Sat by Pulse 97 96 96 Oximetry - Labs CBC & Chem 7: 01/21/19 07:00 01/21/19 07:00 Labs: Abnormal lab results 01/17/19 01/20/19 01/21/19 Range/Units 13:27 17:18 07:00 WBC 20.3 H (4.5-11.0) K/mm3 RBC 3.55 L (3.65-5.03) M/mm3 Hgb 9.9 L (11.8-15.2) gm/dl Hct 30.9 L (35.5-45.6) % RDW 18.3 H (13.2-15.2) % Plt Count 970 H (140-440) K/mm3 Chloride (98-107) mmol/L POC Glucose 106 H (70-105) Mycoplasma pneumon IgG >5.00 H (<=0.90) 01/21/19 Range/Units 07:00 WBC (4.5-11.0) K/mm3 RBC (3.65-5.03) M/mm3 Hgb (11.8-15.2) gm/dl Hct (35.5-45.6) % RDW (13.2-15.2) % Plt Count (140-440) K/mm3 Chloride 95.9 L (98-107) mmol/L POC Glucose (70-105) Mycoplasma pneumon IgG (<=0.90)
--- NOTE | 2019-01-21 16:59 | Progress Note ---
Assessment and Plan Cultures: 01/03/19 blood cultures - no growth to date 01/04/2019 sputum: contaminated specimen 01/14/2019 blood culture no growth 01/17/2019 Crypto ag negative Influenza ag/PCR negative. A/P: 24 yo M PMhx sickle cell disease presents with fevers and myalgias, likely an acute chest syndrome vs pneumonia 1. Acute sepsis - still low grade fever, leukocytosis slowly improving; likely secondary to pneumonia +/- SCD crisis. Procal is high at 6--> 1.3. Leukocytosis likely reactive to SCD 2. Bilateral Pneumonia - CT chest shows severe diffuse airspace disease/ground glass ? ARDS and moderate pericardial effusion. Unclear etiology. SCD patient has commonly Mycoplasma/Chlamydia/legionalla pnemonia. Influenza and Strep pneumoniae are less common. HIV non reactive. CT abd shows spleen autoinfarct. Influenza ag/PCR negative. Crypto ag negative. Blood and fungal culture negative. 3. Sickle cell disease 4. Acute pain crisis 5. Acute respiratory failure with hypoxia - extubated 6. Pericardial effusion, moderate ? Recs: continue levaquin 750 mg PO q day D5 of 7 (s/p cefepime for 11 days) monitor fever leukocytosis improving ok to d/c from ID stand point in no fever x 24h Will follow. I am covering this weekend Elda Lisa MD Infectious Diseases [employer] [facility], [place], [facility] M [phone] Subjective Date of service: 01/21/19 Principal diagnosis: sickle cell disease Interval history: Feels better, talking, tmax 100.5 Objective - Exam Narrative Exam: Constitutional: alert, sleepy in NAD on NC O2 Head, Ears, Nose: Normocephalic, atraumatic. External ears, nose normal Eyes: Conjunctivae/corneas clear. No icterus. No ptosis. Neck: supple Oral: clear Cardiovascular: S1, S2 normal. Respiratory:CTA jae GI: Soft, non-tender; bowel sounds normal. No peritoneal signs Musculoskeletal: No pedal edema, no cyanosis. Skin: No rash or abscess Hem/Lymphatic: No palpable cervical or supraclavicular nodes. No lymphangitis Psych:alert Neurological: alert - Constitutional Vitals: Vital Signs Temp Pulse Resp BP Pulse Ox 100.5 F H 89 18 124/68 96 01/21/19 11:31 11/22/19 11:31 01/21/19 11:31 01/21/19 11:31 01/21/19 11:31 Temperature -Last 24 Hours Temperature 100.5 F Temperature 99.3 F Temperature 98 F Temperature 98.0 F Temperature 99 F Temperature 99.4 F Temperature 99.4 F Temperature 98.4 F - Labs CBC & Chem 7: 01/21/19 07:00 01/21/19 07:00 Labs: Abnormal lab results 01/17/19 01/20/19 01/21/19 Range/Units 13:27 17:18 07:00 WBC 20.3 H (4.5-11.0) K/mm3 RBC 3.55 L (3.65-5.03) M/mm3 Hgb 9.9 L (11.8-15.2) gm/dl Hct 30.9 L (35.5-45.6) % RDW 18.3 H (13.2-15.2) % Plt Count 970 H (140-440) K/mm3 Chloride (98-107) mmol/L POC Glucose 106 H (70-105) Mycoplasma pneumon IgG >5.00 H (<=0.90) 01/21/19 Range/Units 07:00 WBC (4.5-11.0) K/mm3 RBC (3.65-5.03) M/mm3 Hgb (11.8-15.2) gm/dl Hct (35.5-45.6) % RDW (13.2-15.2) % Plt Count (140-440) K/mm3 Chloride 95.9 L (98-107) mmol/L POC Glucose (70-105) Mycoplasma pneumon IgG (<=0.90)
[2019-01-21] MEDS: ACETAMINOPHEN 650 MG RECT SUPP PR PRN (17:29)
[2019-01-22] MEDS: HYDROmorphone 1 MG/1 ML INJ IV PRN ×5 (00:46→22:09)
[2019-01-22] MEDS: ENOXAPARIN 40 MG/0.4 ML INJ SUB-Q SCH (10:54)
[2019-01-22] MEDS: FAMOTIDINE 20 MG TAB PO SCH ×2 (10:54→22:07)
[2019-01-22] MEDS: FOLIC ACID 1 MG TAB PO SCH (10:54)
[2019-01-22] MEDS: HYDROXYUREA 500 MG CAP PO SCH (10:55)
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
--- NOTE | 2019-01-22 13:00 | Progress Note ---
Assessment and Plan /ARDS with acute hypoxic respiratory failure s/p ETT with high PEEP: POA - likely from sepsis with b/l PNA - required intubation on 01/08/19, extubated on 01/18/19 - Now on N/c /Sickle cell Anemia with Acute Chest Syndrome: - consulted Dr. Jenkins, Exchange transfusion done, cont pain control, iv hydration, abx, supplemental o2, /Sepsis due to bilateral pneumonia: ID consulted, input noted, treat with ABX, still with recurrent fever /Sickle cell vasooclussive pain crisis: IVF resuscitation therapy, pain control, Hematology following /Acute on chronic anemia: due to SSC, watch for Iron overload, DVT prophylaxis: On Lovenox full code Disposition: continue inpatient care. d/c when remains afebrile for atleast 24 hours Brief History: Patient is a 23 yo man from [place] with SCD who presented to [facility] ED with SOB. He was found to have Pneumonia complicated by Sepsis as well as Sickle Cell Crisis. consulted Heme/Onc Dr. Jenkins and consulted ID. * CTA chest Impression: No evidence for PE, mild cardiomegaly, medium pericardial effusion, mild pulmonary venous congestion, right middle and lower lobe infiltrates, trace pleural effusion. Cultures: 01/03/19 blood cultures - no growth to date 01/04/2019 sputum: contaminated specimen Hospitalist Physical Gen: Not in acute distress, lying in bed, HEENT: Normocephalic, atraumatic Neck: supple, no JVD Heart: S1 and S2 reg, no murmurs, rubs or gallop Lungs: Clear to auscultation bilaterally, Abd: soft, non tender, non distended, normal BS, Ext: No edema, no clubbing, no cyanosis Neuro: more alert, moves all ext Subjective Date of service: 01/22/19 Principal diagnosis: sickle cell disease Interval history: Patient seen and examined No acute event O/N sitter at bedside to avoid fall risk spiked temp last night Objective - Constitutional Vitals: Vital Signs - 12hr 01/22/19 01/22/19 01/22/19 04:30 09:23 11:55 Temperature 99.0 F 98.2 F 99.0 F Pulse Rate 84 88 90 Respiratory 20 18 18 Rate Blood Pressure 124/71 124/74 123/68 O2 Sat by Pulse 94 97 97 Oximetry - Labs CBC & Chem 7: 01/23/19 12:16 01/21/19 07:00
[2019-01-22] MEDS: guaiFENesin 100 MG/5 ML ORAL LIQD PO PRN (22:07)
[2019-01-23] MEDS: HYDROmorphone 1 MG/1 ML INJ IV PRN ×2 (06:16→13:08)
[2019-01-23] MEDS: guaiFENesin 100 MG/5 ML ORAL LIQD PO PRN (06:16)
[2019-01-23] MEDS: FOLIC ACID 1 MG TAB PO SCH (10:18)
[2019-01-23] MEDS: ENOXAPARIN 40 MG/0.4 ML INJ SUB-Q SCH (10:19)
[2019-01-23] MEDS: FAMOTIDINE 20 MG TAB PO SCH (10:19)
[2019-01-23] MEDS: HYDROXYUREA 500 MG CAP PO SCH (10:19)
[2019-01-23 11:55] VITALS: BP 120/65
--- NOTE | 2019-01-23 12:09 | Progress Note ---
Assessment and Plan Cultures: 01/03/19 blood cultures - no growth to date 01/04/2019 sputum: contaminated specimen 01/14/2019 blood culture no growth 01/17/2019 Crypto ag negative Influenza ag/PCR negative. A/P: 24 yo M PMhx sickle cell disease presents with fevers and myalgias, likely an acute chest syndrome vs pneumonia 1. Acute sepsis - fever resolved, leukocytosis slowly improving; likely secondary to pneumonia +/- SCD crisis. Procal is high at 6--> 1.3. Leukocytosis likely reactive to SCD 2. Bilateral Pneumonia - CT chest shows severe diffuse airspace disease/ground glass ? ARDS and moderate pericardial effusion. Unclear etiology. SCD patient has commonly Mycoplasma/Chlamydia/legionalla pnemonia. Influenza and Strep pneumoniae are less common. HIV non reactive. CT abd shows spleen autoinfarct. Influenza ag/PCR negative. Crypto ag negative. Blood and fungal culture negative. 3. Sickle cell disease 4. Acute pain crisis 5. Acute respiratory failure with hypoxia - extubated 6. Pericardial effusion, moderate ? per cards Recs: stop levaquin 750 mg PO q day D7 of 7 (s/p cefepime for 11 days) monitor off abx Will follow. Elda Lisa MD Infectious Diseases Deputy [employer] [facility] [id number] [phone] Subjective Date of service: 01/23/19 Principal diagnosis: sickle cell disease Interval history: Feels better, talking, no fever Objective - Exam Narrative Exam: Constitutional: alert, sleepy in NAD on NC O2 Head, Ears, Nose: Normocephalic, atraumatic. External ears, nose normal Eyes: Conjunctivae/corneas clear. No icterus. No ptosis. Neck: supple Oral: clear Cardiovascular: S1, S2 normal. Respiratory:CTA jae GI: Soft, non-tender; bowel sounds normal. No peritoneal signs Musculoskeletal: No pedal edema, no cyanosis. Skin: No rash or abscess Hem/Lymphatic: No palpable cervical or supraclavicular nodes. No lymphangitis Psych:alert Neurological: alert - Constitutional Vitals: Vital Signs Temp Pulse Resp BP Pulse Ox 98.4 F 88 18 120/65 99 01/23/19 11:52 01/23/19 11:52 01/23/19 11:52 01/23/19 11:52 01/23/19 11:52 Temperature -Last 24 Hours Temperature 98.4 F Temperature 98.8 F Temperature 98.9 F Temperature 98.3 F Temperature 98.9 F Temperature 99.7 F - Labs CBC & Chem 7: 01/21/19 07:00 01/21/19 07:00
[2019-01-23 12:24] LABS: Hematocrit 27.9 % (35.5-45.6); Hemoglobin 9.1 gm/dl (11.8-15.2); Mean Corpuscular HGB Conc 32 % (32-34); Mean Corpuscular Volume 89 fl (84-94); Platelet Count 939 K/mm3 (140-440); Red Blood Count 3.15 M/mm3 (3.65-5.03); Red Cell Distribution Width 19.8 % (13.2-15.2)
--- NOTE | 2019-01-23 14:20 | Discharge Summary ---
Providers - Providers Date of Admission: 01/03/19 13:57 Date of discharge: 01/23/19 Attending physician: GIL GREENE 01/03/19 18:18 Consult to Physician [CONS] Routine Comment: Consulting Provider: RISHABH JENKINS Physician Instructions: Reason For Exam: sickle cell crisis 01/04/19 08:35 Consult to Physician [CONS] Routine Comment: Consulting Provider: ISHA BELLO Physician Instructions: I notified Reason For Exam: SCD and pneumonia, sepsis 01/05/19 09:09 Consult to Interventional Radiology [CONS] Stat Consulting Provider: MIGNON ARREDONDO Reason For Exam: RBC exchange, needs TLC Notified:: yes 01/08/19 12:02 Consult to Dietitian/Nutrition [CONS] Routine Physician Instructions: Reason For Exam: patient intubated Reason for Consult: Write/Manage Tube Feeding 01/09/19 00:46 Consult to Case Management [CONS] Routine Services Needed at Discharge: Manager Corporate Strategy Notified:: yes Phone number called:: in person Was contact made?: Yes If yes, spoke with:: Gladys Time called:: 11:00 Additional Physician Instructions: pt has active medicaid in [place], needs coverage for [place]. Please contact sister Kiera (next of Kin) to discuss 01/18/19 10:48 Consult to Physician [CONS] Routine Comment: Consulting Provider: CHI GUERRERO Physician Instructions: Reason For Exam: Pericardial effusion 01/18/19 12:14 Physical Therapy Evaluation and Treat [CONS] Routine Comment: Reason For Exam: for Eval and treatment 01/19/19 10:06 Speech Therapy Evaluation and Treat [CONS] Routine Reason For Exam: swallow eval Primary care physician: CABINET WORKER Hospitalization Condition: Serious Hospital course: Patient is a 23 yo man from [place] with SCD who presented to [facility] ED with SOB. He was found to have Pneumonia complicated by Sepsis as well as Sickle Cell Crisis. consulted Heme/Onc Dr. Jenkins and consulted ID. * CTA chest Impression: No evidence for PE, mild cardiomegaly, medium pericardial effusion, mild pulmonary venous congestion, right middle and lower lobe infiltrates, trace pleural effusion. Cultures: 01/03/19 blood cultures - no growth to date 01/04/2019 sputum: contaminated specimen Discharge diagnosis: /ARDS with acute hypoxic respiratory failure s/p ETT with high PEEP: POA - likely from sepsis with b/l PNA - required intubation on 01/08/19, extubated on 01/18/19 - weaned off from N/c O2 /Sickle cell Anemia with Acute Chest Syndrome: - consulted Dr. Jenkins, Exchange transfusion done, cont pain control, iv hydration, abx, supplemental o2, /Sepsis due to bilateral pneumonia: ID consulted, input noted, treated with ABX, afebrile before d/c /Sickle cell vasooclussive pain crisis: IVF resuscitation therapy, pain control, Hematology following /Acute on chronic anemia: due to SSC, watch for Iron overload, DVT prophylaxis: On Lovenox full code Disposition: home with and rossyer walker Hospitalist Physical Gen: Not in acute distress, lying in bed, HEENT: Normocephalic, atraumatic Neck: supple, no JVD Heart: S1 and S2 reg, no murmurs, rubs or gallop Lungs: Clear to auscultation bilaterally, Abd: soft, non tender, non distended, normal BS, Ext: No edema, no clubbing, no cyanosis Neuro: more alert, moves all ext Disposition: [id number] HOME UNDER HOME [facility] Time spent for discharge: 34 minutes Core Measure Documentation - Palliative Care Palliative Care/ Comfort Measures: Not Applicable - Core Measures Any of the following diagnoses?: none Exam - Constitutional Vitals: Temp Pulse Resp BP Pulse Ox 98.4 F 83 18 120/65 99 01/23/19 11:52 01/23/19 12:04 01/23/19 11:52 01/23/19 11:52 01/23/19 11:52 Plan Activity: advance as tolerated (with rollar walker) Weight Bearing Status: Non-Weight Bearing Diet: regular Durable Medical Equipment Needed Upon Discharge: Walker-Rolling Follow up with: RISHABH JENKINS MD [Staff Physician] - 7 Days PRIMARY CARE, [Primary Care Provider] - 7 Days GURU MCDONALD MD [Staff Physician] - 7 Days MATILDE ARRIAGA MD [Staff Physician] - 7 Days Prescriptions: Folic Acid [Folvite] 1 mg PO QDAY #20 tablet Hydroxyurea 500 mg PO QDAY #30 capsule Oxycodone HCl/Acetaminophen [Percocet 7.5/325 mg] 1 each PO Q6HR PRN #10 tablet PRN Reason: Pain guaiFENesin [Robitussin] 200 mg PO Q4H PRN #1 vial PRN Reason: Cough
== END 2019-01-23 15:23 | disposition home health service (06) | DRG 870 ==
LOC: ED 09:53 → 3A 13:57 → OBSVTOIN 13:57 → IMCU 01-05 11:01 → CC1 01-08 09:42 → 4A 01-19 13:09
PROVIDERS: ADMIT Internal Medicine; ATTEND Internal Medicine
PROC: 30233N1 Transfusion of Nonautologous Red Blood Cells into Peripheral Vein, Percutaneous Approach (ICD-10-PCS; 2019-01-05)
PROC: 02HV33Z Insertion of Infusion Device into Superior Vena Cava, Percutaneous Approach (ICD-10-PCS; 2019-01-06)
PROC: 4A033R1 Measurement of Arterial Saturation, Peripheral, Percutaneous Approach (ICD-10-PCS; 2019-01-06)
PROC: 5A09357 Assistance with Respiratory Ventilation, Less than 24 Consecutive Hours, Continuous Positive Airway Pressure (ICD-10-PCS; 2019-01-06)
PROC: 5A1955Z Respiratory Ventilation, Greater than 96 Consecutive Hours (ICD-10-PCS; principal; 2019-01-08)
PROC: 0BH17EZ Insertion of Endotracheal Airway into Trachea, Via Natural or Artificial Opening (ICD-10-PCS; 2019-01-08)
PROC: 5A09357 Assistance with Respiratory Ventilation, Less than 24 Consecutive Hours, Continuous Positive Airway Pressure (ICD-10-PCS; 2019-01-08)
DX: A41.9 Sepsis, unspecified organism (principal); J18.9 Pneumonia, unspecified organism; D57.01 Hb-SS disease with acute chest syndrome; J96.01 Acute respiratory failure with hypoxia; I42.9 Cardiomyopathy, unspecified; I31.3 Pericardial effusion (noninflammatory); I50.20 Unspecified systolic (congestive) heart failure; E87.0 Hyperosmolality and hypernatremia; I27.20 Pulmonary hypertension, unspecified
CPT/HCPCS: 36415; 36430; 36556; 36600; 70450; 71045; 71260; 71275; 74018; 74177; 76705; 76937; 80048; 80053; 80202; 81001; 82140; 82607; 82728; 82747; 82803; 82962; 83550; 83615; 83690; 83735; 83880; 84100; 84145; 84478; 84484; 85007; 85025; 85027; 85045; 85379; 85610; 85660; 85730; 86403; 86689; 86738; 86850; 86870; 86880; 86900; 86901; 86920; 86922; 87040; 87103; 87205; 87400; 87449; 90686; 93005; 93010; 93306; 94002; 94003; 94660; 94760; 96374; G0378; 87502; A6250; C1752; J0456; J0610; J0692; J0696; J1170; J1450; J1630; J1644; J1650; J1940; J1956; J2060; J2250; J2270; J2704; J2765; J3010; J3370; J3420; J3490; J7030; J7040; J7050; J7120; P9016; Q9967